=== PATIENT | male | born 1955 | race Caucasian/White ===

== ENCOUNTER 2016-10-18 20:17 | Inpatient (IN) | payer OTHER ==
[~2016-10-18] VITALS: Ht 180.3 cm; Wt 95.2 kg
[~2016-10-18 20:17] MED LIST: ASPUNK PO; CRG3125 PO; HYCUDL5 PO; LEVO175T25 PO; LSN25 PO; NAPR1TAB9 PO; PRLSR20 PO; SULF800T23 PO
--- NOTE | 2016-10-18 21:02 | DIAGNOSTIC IMAGING REPORT ---
CHEST ONE VIEW PORTABLE CLINICAL HISTORY: Wire. COMPARISON STUDY: Chest CT May 14, 2010. FINDINGS: A tracheostomy is noted. Note is made of a braided metallic linear foreign body consistent with a wire which extends through the tracheostomy, trachea and left mainstem bronchus. This measures approximately 16 cm in length. The tip is likely within the proximal left lower lobe bronchus. The tip of the wire is slightly curved/bent. Cardiomediastinal silhouette is stable. There are left upper quadrant surgical clips. There is no pneumothorax or pleural effusion. No pneumomediastinum is identified. There is no lobar consolidation. Mild mediastinal opacity is again noted. This was shown on prior CT. IMPRESSION: 16 cm long braided metallic foreign body consistent with a wire which extends through the tracheostomy with tip likely within the proximal left lower lobe bronchus. The wire tip is slightly curved/bent. Electronically signed by: Alvaro Diana M.D. 10/18/2016 9:01 PM Dictated Date/Time: 10/18/2016 8:50 PM
[2016-10-18] MEDS ORDERED: LEVO175T3 PO (21:10)
[2016-10-18] MEDS ORDERED: LOSA25TA18 PO (21:10)
[2016-10-18] MEDS ORDERED: METO50TA16 PO (21:10)
[2016-10-18] MEDS ORDERED: INSDGIPEN SC (21:10)
[2016-10-18] MEDS ORDERED: OMEP40CA41 PO (21:10)
[2016-10-18] MEDS ORDERED: LNX125 PEG (21:10)
[2016-10-18 21:16] LABS: BASO % 0.6 %; BASO ABS # 0.05 K/uL (0-0.2); COMPLETE YES; EOS % 2.2 %; HEMATOCRIT 44.9 % (42-52); IG% 0.4 %; LYMPH % 16.5 %; LYMPH ABS # 1.32 K/uL (1.2-3.4); MEAN CELL VOLUME 98.2 fL (80-100); MEAN CORPUSCULAR HEMOGLOBIN 32.2 pg (25-34); MEAN CORPUSCULAR HGB CONC 32.7 g/dl (32-36); MEAN PLATELET VOLUME 12.1 fL (7.4-10.4); MONO % 13.9 %; NEUT % 66.4 %; PLATELET COUNT 320 K/uL (130-400); RED BLOOD COUNT 4.57 M/uL (4.7-6.1); WHITE BLOOD COUNT 8.01 K/uL (4.8-10.8)
[2016-10-18] MEDS ORDERED: MIDAZOLAM HCL 1 MG/ML 2ML VIAL ONE (21:17)
[2016-10-18] MEDS ORDERED: METO-452 PO (21:20)
[2016-10-18 21:27] LABS: PROTHROMBIN TIME (PATIENT) 10.9 SECONDS (9.0-12.0)
[2016-10-18 21:34] LABS: BUN/CREATININE RATIO 16.4 (10-20); CREATININE 1.2 mg/dl (0.60-1.40); POTASSIUM 5.3 mmol/L (3.5-5.1)
[2016-10-18 21:55] LABS: CALCIUM 8.1 mg/dl (8.5-10.1)
--- NOTE | 2016-10-18 22:59 | SURGICAL CONSULTATION ---
DATE OF CONSULTATION: 10/18/2016 Embedded wire into the left lower lobe bronchus. HISTORY OF PRESENT ILLNESS: This is an extremely interesting 61-year-old male, with a history of Hodgkin's lymphoma, who received radiation to his neck, starting in 1978. The patient had multiple problems with this, including an apparent swallowing dysfunction to the point where he had an end tracheostomy performed many years ago. I think that this, apparently, was done in 2004. Since that time, he has done quite well. In reviewing the records, he has not been in the hospital for 6 years and has done well. He uses a wire to clean secretions out of his airway and this became stuck. He could not remove it and I was called to the Emergency Room to evaluate him. It did appear to be in his left mainstem bronchus. I went down and reviewed this and this is an issue. I performed a bronchoscopy in the Emergency Room and upon evaluation, it appeared that it is stuck in the superior segment of the left lower lobe. I am unable to remove this here. The end of it is a hook and I cannot push it forward nor can turn it to the left or the right without disrupting the segmental airway. I could not remove it here. We are going to admit him tonight. PAST MEDICAL HISTORY: Significant for: 1. Non-Hodgkin's lymphoma. 2. Radiation therapy. 3. Chronic aspiration. 4. End tracheostomy: 5. Hypertension. 6. Hypothyroidism (probably radiation induced). 7. Diabetes mellitus. PAST SURGICAL HISTORY: 1. Mediastinoscopy. 2. Tracheal stoma. 3. Partial left nephrectomy. 4. Splenectomy. MEDICATIONS: 1. Digoxin. 2. Insulin. 3. Synthroid. 4. Losartan. 5. Metoprolol. 6. Aleve. 7. Prilosec. ALLERGIES: No known drug allergies. SOCIAL HISTORY: The patient states he has done multiple jobs. He is and lives at home with his . 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 He does not smoke or drink. FAMILY MEDICAL HISTORY: Father had colon cancer. Mother had coronary artery disease. REVIEW OF SYSTEMS: The patient states he has had more secretions recently. He denies a change in his weight. He has had no change in his vision or his hearing. He denies hemoptysis. He has had that in the distant past. He has had no nausea or vomiting. He really has had trouble with aspiration since his tracheal stoma was created. He denies night sweats. He has had no neurologic symptoms, such as transient ischemic attacks. PHYSICAL EXAMINATION: GENERAL: This is a 5 feet 11 inch, 210-pound white male, who is awake and alert. He is able to communicate. HEENT: He has alopecia. There is some blood crusted around his tracheal stoma. His teeth are actually in place. He has no obvious oral mucosal lesions, except he is a bit dry. NECK: Thin and supple and tracheal stoma is well healed. LUNGS: He has expiratory wheezing bilaterally, which is about the same on the right and the left. HEART: He has regular rate and rhythm of his heart. ABDOMEN: Has well-healed incisions. He has good femoral pulses. Good pedal pulses. EXTREMITIES: He has 1+ edema of his lower legs. He has no joint effusions. NEUROLOGIC: He is completely intact. LABORATORY DATA: His white count is 8010 and his hemoglobin is 14.7. His BUN is 20, creatinine 1.20, his potassium is high at 5.3. DATA: I reviewed his chest x-ray and indeed, he does have a wire hook. I also performed a bronchoscopy. I am unable to remove this with the flexible bronchoscope. ASSESSMENT AND PLAN: A long hook stuck in the superior segment of the lower lobe. I am going to have pulmonary evaluate him and I will discuss this case with Dr. Forrester. I may have to take him to the operating room. It is unclear to me whether we will have to do a surgery. JAYME
[2016-10-18] MEDS ORDERED: ONDANSETRON INJ 2 MG/ML 2 ML VIAL IV PRN (23:30)
--- NOTE | 2016-10-18 23:47 | History and Physical ---
History & Physical Date & Time of Service: Oct 18, 2016 at 23:47 Chief Complaint: Wire Stuck In Trachea Primary Care Physician: Keyla Casanova D.O. History of Present Illness Source: patient 61-year-old male with a past medical history of Hodgkin's lymphoma, status post tracheostomy, diabetes, atrial fibrillation, GERD presented to the ER with a wire stuck in his trachea. The patient had used an 8 inch while the J shaped hook to clear mucus and was unable to remove it. He denied any worsening respiratory distress, chest pain. Denies any nausea, vomiting, abdominal pain. CT surgery was consulted by the ER with performed a bronchoscopy but was unable to retrieve the wire. Rigid bronchoscopy is planned for the a.m. Past Medical/Surgical History Medical Problems: (1) Tracheostomy in place Status: Chronic Social History Smoking Status: Former Smoker Immunizations History of Influenza Vaccine: Yes History of Tetanus Vaccine?: No History of Pneumococcal: Yes History of Hepatitis B Vaccine: No Multi-Drug Resistant Organisms History of MDRO: Yes Allergies Coded Allergies: No Known Allergies (Verified , 03/26/05) Home Medications Scheduled Digoxin (Digoxin), 0.125 MG PEG 5XWK Insulin Glargine (Lantus Solostar), 19 UNITS SC AMHS Levothyroxine Sodium (Levothyroxine Sodium), 175 MCG PO DAILY Losartan Potassium (Cozaar), 12.5 MG PO DAILY Metoprolol Succinate (Toprol Xl), 50 MG PO BID Omeprazole (Prilosec), 40 MG PO DAILY Scheduled PRN Naproxen (Aleve), 220 MG PO UD PRN for Pain Review of Systems Constitutional: No fever, No chills Eyes: No worsening of vision ENT: + problem reported (status post tracheostomy) Respiratory: No shortness of breath Cardiovascular: No chest pain Abdomen: + diarrhea (chronic), No pain, No nausea Genitourinary - Male: No hematuria Neurologic: No memory loss Endocrine: No fatigue Physical Exam Vital Signs Date Time Temp Pulse Resp B/P (MAP) Pulse Ox O2 Delivery O2 Flow Rate FiO2 10/18/16 22:56 100 20 126/75 93 Trach Collar 5.0 10/18/16 21:51 91 144/81 95 Trach Collar 5.0 Free Flow/Blowby 10/18/16 21:47 Trach Collar 10/18/16 20:55 100 10/18/16 20:36 37.0 97 22 139/82 89 Room Air General Appearance: no apparent distress Head: normocephalic ENT: normal ENT inspection, + pertinent finding (tracheostomy in place) Neck: supple Respiratory/Chest: lungs clear, no respiratory distress, no accessory muscle use Cardiovascular: + irregularly irregular Abdomen/GI: soft Extremities/Musculoskelatal: no pedal edema Neurologic/Psych: alert, normal mood/affect, oriented x 3 Diagnostics Laboratory Results Results Past 24 Hours Test 10/18/16 21:05 Range/Units White Blood Count 8.01 4.8-10.8 K/uL Red Blood Count 4.57 4.7-6.1 M/uL Hemoglobin 14.7 14.0-18.0 g/dL Hematocrit 44.9 42-52 % Mean Corpuscular Volume 98.2 80-100 fL Mean Corpuscular Hemoglobin 32.2 25-34 pg Mean Corpuscular Hemoglobin Concent 32.7 32-36 g/dl Platelet Count 320 130-400 K/uL Mean Platelet Volume 12.1 7.4-10.4 fL Neutrophils (%) (Auto) 66.4 % Lymphocytes (%) (Auto) 16.5 % Monocytes (%) (Auto) 13.9 % Eosinophils (%) (Auto) 2.2 % Basophils (%) (Auto) 0.6 % Neutrophils # (Auto) 5.32 1.4-6.5 K/uL Lymphocytes # (Auto) 1.32 1.2-3.4 K/uL Monocytes # (Auto) 1.11 0.11-0.59 K/uL Eosinophils # (Auto) 0.18 0-0.5 K/uL Basophils # (Auto) 0.05 0-0.2 K/uL RDW Standard Deviation 52.5 36.4-46.3 fL RDW Coefficient of Variation 14.6 11.5-14.5 % Immature Granulocyte % (Auto) 0.4 % Immature Granulocyte # (Auto) 0.03 0.00-0.02 K/uL Prothrombin Time 10.9 9.0-12.0 SECONDS Prothromb Time International Ratio 1.0 0.9-1.1 Sodium Level 140 136-145 mmol/L Potassium Level 5.3 3.5-5.1 mmol/L Chloride Level 105 98-107 mmol/L Carbon Dioxide Level 28 21-32 mmol/L Anion Gap 7.0 3-11 mmol/L Blood Urea Nitrogen 20 7-18 mg/dl Creatinine 1.20 0.60-1.40 mg/dl Est Creatinine Clear Calc Drug Dose 74.2 ml/min Estimated GFR () 74.1 Estimated GFR (Non- 64.0 BUN/Creatinine Ratio 16.4 10-20 Random Glucose 165 70-99 mg/dl Calcium Level 8.1 8.5-10.1 mg/dl Diagnostic Radiology [~ rep ct add3]] CHEST ONE VIEW PORTABLE CLINICAL HISTORY: Wire. COMPARISON STUDY: Chest CT May 14, 2010. FINDINGS: A tracheostomy is noted. Note is made of a braided metallic linear foreign body consistent with a wire which extends through the tracheostomy, trachea and left mainstem bronchus. This measures approximately 16 cm in length. The tip is likely within the proximal left lower lobe bronchus. The tip of the wire is slightly curved/bent. Cardiomediastinal silhouette is stable. There are left upper quadrant surgical clips. There is no pneumothorax or pleural effusion. No pneumomediastinum is identified. There is no lobar consolidation. Mild mediastinal opacity is again noted. This was shown on prior CT. IMPRESSION: 16 cm long braided metallic foreign body consistent with a wire which extends through the tracheostomy with tip likely within the proximal left lower lobe bronchus. The wire tip is slightly curved/bent. Electronically signed by: Alvaro Diana M.D. 10/18/2016 9:01 PM Dictated Date/Time: 10/18/2016 8:50 PM Impression Assessment and Plan 61-year-old male with a past medical history of Hodgkin's lymphoma, status post tracheostomy, diabetes, atrial fibrillation, GERD presented to the ER with a wire stuck in his trachea. The patient had used an 8 inch while the J shaped hook to clear mucus and was unable to remove it. Foreign body( metallic wire) stuck in trachea through tracheostomy: Status post unsuccessful retrieval via bronchoscopy - CT surgery on board - Rigid bronchoscopy planned in a.m. - Continue O2 per protocol - Nothing by mouth after midnight Diabetes: - Insulin sliding scale Atrial fibrillation: - Digoxin, metoprolol currently held as he is nothing by mouth - May be restarted after procedure Hypertension: -Losartan currently held Hypothyroidism: - Synthroid switched to IV Full code DVT prophylaxis: SCDs Chemical anticoagulations avoided in anticipation of procedure Disposition: Admitted to [facility] for rigid bronchoscopy in a.m. VTE Prophylaxis VTE Risk Assessment Done? Y/N: Yes Risk Level: Moderate Given or contraindicated: SCD's Resident Tracking Resident Involvement: Resident Care Provided Care Provided: Adult [facility] Medicine Assessment and Plan Attending Addendum: I have physically seen and examined this patient, have directed their medical care, have supervised the medical residents activities, and agree with the H&P as noted above, with the following changes: NONE
[2016-10-19] VITALS (12 sets, daily range): BP systolic 124–145; BP diastolic 64–92; PULSE 88–102; TEMP 36.8–37.1; O2SAT 88–96; Ht 180.3 cm; Wt 95.2 kg
--- NOTE | 2016-10-19 00:59 | EMERGENCY ROOM VISIT NOTE ---
History Report prepared by Alvin: Fernanda Buitrago Under the Supervision of: Dr. Kwasi Garcia D.O. First contact with patient: 20:21 Stated Complaint: WIRE STUCK IN TRACHEA History of Present Illness The patient is a 61 year old male who presents to the Emergency Room with complaints of a wire stuck in his trachea starting [employer]. The patient has had a tracheostomy in place since 2004. It was placed because there was a hole in his vocal chord and he was aspirating. He inserts an 8 inch wire with a J shaped hook at the end into his tracheostomy to remove mucous which builds up. The mucous has been worse for the past 6 months. He does this daily, despite doctors telling him not to. The wire has gotten stuck before, but he is usually able to get it out. He thinks the hook might have been wider than normal today. He denies any chest pain, nausea, or vomiting. He has had diarrhea for the past 6 months which has not worsened. Source of History: patient Onset: [employer] Position: other (trachea) Quality: other (wire stuck) Timing: other (persistent) Associated Symptoms: No chest pain, No nausea, No vomiting Review of Systems See HPI for pertinent positives & negatives. A total of 10 systems reviewed and were otherwise negative. Past Medical & Surgical Medical Problems: (1) Foreign body in trachea (2) Tracheostomy in place Family History No pertinent family history stated. Social History Marital Status: Occupation Status: disabled Current/Historical Medications Scheduled Digoxin (Digoxin), 0.125 MG PEG 5XWK Insulin Glargine (Lantus Solostar), 19 UNITS SC AMHS Levothyroxine Sodium (Levothyroxine Sodium), 175 MCG PO DAILY Losartan Potassium (Cozaar), 12.5 MG PO DAILY Metoprolol Succinate (Toprol Xl), 50 MG PO BID Omeprazole (Prilosec), 40 MG PO DAILY Scheduled PRN Naproxen (Aleve), 220 MG PO UD PRN for Pain Allergies Coded Allergies: No Known Allergies (Verified , 03/26/05) Physical Exam Vital Signs Date Time Temp Pulse Resp B/P (MAP) Pulse Ox O2 Delivery O2 Flow Rate FiO2 10/18/16 22:56 100 20 126/75 93 Trach Collar 5.0 10/18/16 21:51 91 144/81 95 Trach Collar 5.0 Free Flow/Blowby 10/18/16 21:47 Trach Collar 10/18/16 20:55 100 10/18/16 20:36 37.0 97 22 139/82 89 Room Air Physical Exam GENERAL: sitting up in bed, mild distress with wire sticking out of stoma in neck, coughing up blood EYE EXAM: normal conjunctiva OROPHARYNX: no exudate, no erythema, lips, buccal mucosa, and tongue normal and mucous membranes are moist NECK: supple, no nuchal rigidity, no adenopathy, non-tender LUNGS: Clear to auscultation. Normal chest wall mechanics HEART: no murmurs, S1 normal and S2 normal ABDOMEN: abdomen soft, non-tender, normo-active bowel sounds, no masses, no rebound or guarding. BACK: Back is symmetrical on inspection and there is no deformity, no midline tenderness, no CVA tenderness. SKIN: no rashes and no bruising UPPER EXTREMITIES: upper extremities are grossly normal. LOWER EXTREMITIES: No pitting edema. NEURO EXAM: Normal sensorium, cranial nerves II-XII grossly intact, normal speech, no gross weakness of arms, no gross weakness of legs. Medical Decision & Procedures ER Provider Diagnostic Interpretation: Xray results as stated below per my and the radiologist's interpretation: CHEST ONE VIEW PORTABLE CLINICAL HISTORY: Wire. COMPARISON STUDY: Chest CT May 14, 2010. FINDINGS: A tracheostomy is noted. Note is made of a braided metallic linear foreign body consistent with a wire which extends through the tracheostomy, trachea and left mainstem bronchus. This measures approximately 16 cm in length. The tip is likely within the proximal left lower lobe bronchus. The tip of the wire is slightly curved/bent. Cardiomediastinal silhouette is stable. There are left upper quadrant surgical clips. There is no pneumothorax or pleural effusion. No pneumomediastinum is identified. There is no lobar consolidation. Mild mediastinal opacity is again noted. This was shown on prior CT. IMPRESSION: 16 cm long braided metallic foreign body consistent with a wire which extends through the tracheostomy with tip likely within the proximal left lower lobe bronchus. The wire tip is slightly curved/bent. Electronically signed by: Alvaro Diana M.D. 10/18/2016 9:01 PM Dictated Date/Time: 10/18/2016 8:50 PM Laboratory Results 6/12/17 21:05 Red Blood Count 4.57, Mean Corpuscular Volume 98.2, Mean Corpuscular Hemoglobin 32.2, Mean Corpuscular Hemoglobin Concent 32.7, Mean Platelet Volume 12.1, Neutrophils (%) (Auto) 66.4, Lymphocytes (%) (Auto) 16.5, Monocytes (%) (Auto) 13.9, Eosinophils (%) (Auto) 2.2, Basophils (%) (Auto) 0.6, Neutrophils # (Auto ) 5.32, Lymphocytes # (Auto) 1.32, Monocytes # (Auto) 1.11, Eosinophils # (Auto ) 0.18, Basophils # (Auto) 0.05 10/18/16 21:05 Test 10/18/16 21:05 White Blood Count 8.01 K/uL (4.8-10.8) Red Blood Count 4.57 M/uL (4.7-6.1) Hemoglobin 14.7 g/dL (14.0-18.0) Hematocrit 44.9 % (42-52) Mean Corpuscular Volume 98.2 fL (80-100) Mean Corpuscular Hemoglobin 32.2 pg (25-34) Mean Corpuscular Hemoglobin Concent 32.7 g/dl (32-36) Platelet Count 320 K/uL (130-400) Mean Platelet Volume 12.1 fL (7.4-10.4) Neutrophils (%) (Auto) 66.4 % Lymphocytes (%) (Auto) 16.5 % Monocytes (%) (Auto) 13.9 % Eosinophils (%) (Auto) 2.2 % Basophils (%) (Auto) 0.6 % Neutrophils # (Auto) 5.32 K/uL (1.4-6.5) Lymphocytes # (Auto) 1.32 K/uL (1.2-3.4) Monocytes # (Auto) 1.11 K/uL (0.11-0.59) Eosinophils # (Auto) 0.18 K/uL (0-0.5) Basophils # (Auto) 0.05 K/uL (0-0.2) RDW Standard Deviation 52.5 fL (36.4-46.3) RDW Coefficient of Variation 14.6 % (11.5-14.5) Immature Granulocyte % (Auto) 0.4 % Immature Granulocyte # (Auto) 0.03 K/uL (0.00-0.02) Prothrombin Time 10.9 SECONDS (9.0-12.0) Prothromb Time International Ratio 1.0 (0.9-1.1) Anion Gap 7.0 mmol/L (3-11) Est Creatinine Clear Calc Drug Dose 74.2 ml/min Estimated GFR () 74.1 Estimated GFR (Non- 64.0 BUN/Creatinine Ratio 16.4 (10-20) Calcium Level 8.1 mg/dl (8.5-10.1) Laboratory results per my review. Medications Administered Medications (Trade) Dose Ordered Sig/Luis Route Start Time Stop Time Status Last Admin Dose Admin Midazolam HCl (Versed Inj) 2 mg STK-MED ONCE .ROUTE 10/18/16 21:17 10/18/16 21:18 DC 10/18/16 21:17 1 MG ED Course ED COURSE: Vital signs were reviewed and showed hypoxia. The patients medical record was reviewed The above diagnostic studies were performed and reviewed. ED treatments and interventions as stated above. 2022: The patient was evaluated in room C3. A complete history and physical examination was performed. 2040: I discussed the patient's case with Dr. Hong [facility] pulmonology. He recommend I discuss with Dr. Helms. 2046: I reviewed the patient's case with Dr. Helms [facility] thoracic surgery. He will evaluate the patient. 2047: I reevaluated the patient. I updated him on the plan. 2123: Dr. Helms was unsuccessful in removing the wire. He will be taken to the OR tomorrow. 2129: I reviewed the patient's case with Dr. Silva [facility] hospitalist. He will evaluate the patient for further management. 2135: Upon reevaluation, the patient is doing well.I discussed my findings with the patient and he understands and agrees with the treatment plan. Based on the patients age, coexisting illnesses, exam and lab findings the decision to treat as an inpatient was made. The patient remained stable while under my care. The patient will be evaluated for further management. Medical Decision Differential diagnoses includes but is not limited to pneumonia, bronchitis, COPD/Asthma exacerbation, pneumothorax, pulmonary embolism, congestive heart failure, acute coronary syndrome Medication Reconciliation: I attest that I have personally reviewed the patient' s current medication list. Blood pressure screening: Patient was found to have normal blood pressure on screening and does not require follow-up. Patient is a 61-year-old male who presents the ER who was using a metal wire to clean out his trachea and main stem bronchus. He does this daily and he opened the hook wider then he normally does. Patient was unable to remove it. Chest x -ray shows a wire in the left bronchus. Discussed with pulmonology and thoracic surgery. Thoracic surgery attempted to remove it at bedside but was unsuccessful. Patient was admitted to internal medicine and will be taken to the OR tomorrow. Consults Time Called: 2030 Consulting Physician: Dr. Hong [facility] pulmonology Returned Call: 2040 I discussed the patient's case with him. He recommends I discuss with Dr. Helms. Additional Consults: Time Called: 2043 Consulted Physician: Dr. Helms [facility] thoracic surgery Returned Call: 2046 Additional Comments: I reviewed the patient's case with him. He will evaluate the patient. Time Called: 2124 Consulted Physician: Dr. Silva [facility] hospitalist Returned Call: 2129 Additional Comments: I reviewed the patient's case with him. He will evaluate the patient for further management. Impression Primary Impression: Aspiration of foreign body Additional Impression: Hyperkalemia Scribe Attestation The scribe's documentation has been prepared under my direction and personally reviewed by me in its entirety. I confirm that the note above accurately reflects all work, treatment, procedures, and medical decision making performed by me. Departure Information Dispostion Being Evaluated By Hospitalist Problem Qualifiers Primary Impression: Aspiration of foreign body Encounter type: initial encounter Qualified Codes: T17.900A - Unspecified foreign body in respiratory tract, part unspecified causing asphyxiation, initial encounter
--- NOTE | 2016-10-19 05:28 | OPERATIVE REPORT ---
DATE OF OPERATION: 10/18/2016 PROCEDURES: 1. Flexible fiberoptic bronchoscopy via tracheal stoma. 2. Attempt to remove an embedded foreign body. SURGEON: Rickie Helms MD ANESTHESIA: Sedation and local with Xylocaine. SPECIFICS OF PROCEDURE: The patient has had a longstanding tracheal stoma (12 years) due to chronic aspiration from changes due to radiation for his non-Hodgkin's lymphoma. The patient has developed more sputum and has a wire that is used to clean his tracheal stoma became stuck tonight. He could not pull it out. There was some blood crusting around this. I went and evaluated him. I felt that a bronchoscopy would be helpful. X-ray shows it going down the left side. After appropriate consent and timeout had been called, we cleaned blood from around the tracheal stoma and then introduced a fiberoptic bronchoscope gently and sprayed 1% Xylocaine with epinephrine into the upper trachea as well as the lower trachea. We also sedated him with some Versed. He tolerated this quite well with some coughing, but not much. After sucking away all of the blood, I followed the wire down to the left lower lobe. His airway is abnormal with irregular mucosa all the way down, but I saw no masses. Going down to the left mainstem bronchus, it appears that the hook on this wire is caught in the superior segment of the left lower lobe. I attempted to remove this and was unable to do so. I cannot push it down further because it is hooked into a small airway in an acute angle. Turning it either way simply pulls the airway over. I put tension on this and attempted to straighten this but was unable to do so. I did not cause much in the way of bleeding, although we did irrigate this out with some lidocaine and cold saline. I slowly removed the fiberoptic bronchoscope. We saw no evidence of bleeding. ASSESSEMENT: We are going to admit the patient and will make a determination about how to proceed in the morning. I attest to the content of the Intraoperative Record and any orders documented therein. Any exceptions are noted below. JAYME
[2016-10-19] MEDS ORDERED: GLUCAGON FOR INJ 1 MG VIAL SQ PRN (05:30)
[2016-10-19] MEDS ORDERED: GLUCOSE 10 TABS/TUBE PO PRN (05:30)
[2016-10-19] MEDS ORDERED: DEXTROSE 50% 50 ML SYR IV PRN (05:30)
[2016-10-19] MEDS ORDERED: GLUCOSE 40% GEL 15 GM TUBE PO PRN (05:30)
[2016-10-19] MEDS: INSULIN ASPART 100 UNITS/ML 3 ML PEN SC SCH ×4 (05:37→21:29)
[2016-10-19] MEDS ORDERED: NURSING VERBAL MED ORDER ONE ×2 (05:45→16:15)
[2016-10-19 06:17] LABS: BASO % 0.5 %; BASO ABS # 0.05 K/uL (0-0.2); COMPLETE YES; EOS % 2.4 %; HEMATOCRIT 45.2 % (42-52); IG% 0.3 %; LYMPH % 17.4 %; LYMPH ABS # 1.83 K/uL (1.2-3.4); MEAN CELL VOLUME 100.2 fL (80-100); MEAN PLATELET VOLUME 12.5 fL (7.4-10.4); MONO % 13.9 %; NEUT % 65.5 %; PLATELET COUNT 293 K/uL (130-400); RED BLOOD COUNT 4.51 M/uL (4.7-6.1); WHITE BLOOD COUNT 10.53 K/uL (4.8-10.8)
[2016-10-19 06:48] LABS: BUN/CREATININE RATIO 22.3 (10-20); CALCIUM 8.2 mg/dl (8.5-10.1); CREATININE 0.88 mg/dl (0.60-1.40); POTASSIUM 4.4 mmol/L (3.5-5.1)
[2016-10-19] MEDS ORDERED: INSULIN ASPART 100 UNITS/ML 3 ML PEN SC SCH (08:00)
--- NOTE | 2016-10-19 09:17 | Family Medicine Progress Note ---
Progress Note Date of Service Oct 19, 2016. Subjective Pt evaluation today including: conversation w/ patient, physical exam Patricio felt ok, had minimal discomfort where wire was, did not want any pain medications Wallace hungry overall, last ate around 6:30 pm yesterday Constitutional: No fever, No chills Eyes: No worsening of vision ENT: No hearing loss Respiratory: + dyspnea on exertion, No cough, No sputum, No wheezing, No shortness of breath Cardiovascular: No chest pain Abdomen: No pain, No nausea, No constipation Musculoskeletal: No joint pain Male : No dysuria Neurologic: No memory loss Skin: No rash All Other Systems: Reviewed and Negative Medications Current Inpatient Medications Medications (Trade) Dose Ordered Sig/Luis Route Start Time Stop Time Status Last Admin Dose Admin Ondansetron HCl (Zofran Inj) 4 mg Q6H PRN IV 10/18/16 23:30 11/17/16 23:29 Glucose (Glucose 40% Gel) 15-30 GRAMS 15 GRAMS... UD PRN PO 10/19/16 05:30 11/18/16 05:29 Glucose (Glucose Chew Tab) 4-8 Tablets 4 Tabl... UD PRN PO 10/19/16 05:30 11/18/16 05:29 Dextrose (Dextrose 50% 50ML Syringe) 25-50ML OF 50% DW IV FOR... UD PRN IV 10/19/16 05:30 11/18/16 05:29 Glucagon (Glucagon Inj) 1 mg UD PRN SQ 10/19/16 05:30 11/18/16 05:29 Levothyroxine Sodium 88 mcg/ Syringe 4.4 ml @ 2 mls/min DAILY@09 IV 10/19/16 09:00 11/18/16 08:59 Insulin Aspart (novoLOG ASPART) SLIDING SCALE G... Q6 SC 10/19/16 06:00 11/18/16 05:59 Objective Vital Signs Date Time Temp Pulse Resp B/P (MAP) Pulse Ox O2 Delivery O2 Flow Rate FiO2 10/19/16 08:30 Trach Collar 5.0 10/19/16 08:13 96 Trach Collar 10.0 10/19/16 08:03 37.1 88 18 145/79 (101) 96 Trach Collar 10.0 10/19/16 00:10 36.9 102 18 131/75 96 Trach Collar 9.0 30 10/19/16 00:05 92 Trach Collar 5.0 10/19/16 00:05 96 Trach Collar 9.0 30 10/19/16 00:01 93 137/77 92 10/18/16 22:56 100 20 126/75 93 Trach Collar 5.0 10/18/16 21:51 91 144/81 95 Trach Collar 5.0 Free Flow/Blowby 10/18/16 21:47 Trach Collar 10/18/16 20:55 100 10/18/16 20:36 37.0 97 22 139/82 89 Room Air Physical Exam General Appearance: WD/WN, no apparent distress Eyes: normal inspection, PERRL ENT: hearing grossly normal Neck: supple, no JVD, + pertinent finding (wire visible through tracheostomy) Respiratory/Chest: normal breath sounds, + crackles Cardiovascular: regular rate, rhythm Abdomen: normal bowel sounds, soft Extremities: non-tender, no pedal edema Neurologic/Psychiatric: alert, normal mood/affect, oriented x 3 Skin: no rash Laboratory Results Last 24 Hours Test 10/18/16 21:05 10/19/16 00:45 10/19/16 05:24 10/19/16 05:32 White Blood Count 8.01 K/uL 10.53 K/uL Red Blood Count 4.57 M/uL 4.51 M/uL Hemoglobin 14.7 g/dL 14.9 g/dL Hematocrit 44.9 % 45.2 % Mean Corpuscular Volume 98.2 fL 100.2 fL Mean Corpuscular Hemoglobin 32.2 pg 33.0 pg Mean Corpuscular Hemoglobin Concent 32.7 g/dl 33.0 g/dl Platelet Count 320 K/uL 293 K/uL Mean Platelet Volume 12.1 fL 12.5 fL Neutrophils (%) (Auto) 66.4 % 65.5 % Lymphocytes (%) (Auto) 16.5 % 17.4 % Monocytes (%) (Auto) 13.9 % 13.9 % Eosinophils (%) (Auto) 2.2 % 2.4 % Basophils (%) (Auto) 0.6 % 0.5 % Neutrophils # (Auto) 5.32 K/uL 6.91 K/uL Lymphocytes # (Auto) 1.32 K/uL 1.83 K/uL Monocytes # (Auto) 1.11 K/uL 1.46 K/uL Eosinophils # (Auto) 0.18 K/uL 0.25 K/uL Basophils # (Auto) 0.05 K/uL 0.05 K/uL RDW Standard Deviation 52.5 fL 53.5 fL RDW Coefficient of Variation 14.6 % 14.7 % Immature Granulocyte % (Auto) 0.4 % 0.3 % Immature Granulocyte # (Auto) 0.03 K/uL 0.03 K/uL Prothrombin Time 10.9 SECONDS Prothromb Time International Ratio 1.0 Sodium Level 140 mmol/L 143 mmol/L Potassium Level 5.3 mmol/L 4.4 mmol/L Chloride Level 105 mmol/L 107 mmol/L Carbon Dioxide Level 28 mmol/L 29 mmol/L Anion Gap 7.0 mmol/L 7.0 mmol/L Blood Urea Nitrogen 20 mg/dl 20 mg/dl Creatinine 1.20 mg/dl 0.88 mg/dl Est Creatinine Clear Calc Drug Dose 74.2 ml/min 101.2 ml/min Estimated GFR () 74.1 106.0 Estimated GFR (Non- 64.0 91.4 BUN/Creatinine Ratio 16.4 22.3 Random Glucose 165 mg/dl 125 mg/dl Calcium Level 8.1 mg/dl 8.2 mg/dl Bedside Glucose 113 mg/dl 129 mg/dl Hepatitis C Antibody Screen NEG Assessment and Plan 61 yo M with wire stuck in tracheostomy, will be undergoing rigid bronchoscopy today for removal. Foreign body in trachea CT surgery aware, will be attempted sometime today Continue O2 Remains NPO Type 2DM Sliding scale Goal 140-180 A fib Holding meds for now, is rate controlled anyway Hypertension: -Losartan currently held Hypothyroidism: - Synthroid switched to IV Full code DVT prophylaxis: SCDs Disposition: Admitted to [facility] Resident Physician Supervision Note: I interviewed and examined the patient. Discussed with Dr. Douglass and agree with findings and plan as documented in the note. Any exceptions or clarifications are listed here: None Documented By: Kwasi Herbert resting comfortably at the time i see him. notes he's been comfortable as far as pain control and breathing unlabored. d/w thoracic multiple times today and input greatly appreciated. vitals noted, nad breathing unlabored foreign body in airway - bronch done, fortunately successful. observe overnight , hopefully home in AM Resident Tracking Resident Involvement: Resident Care Provided Care Provided: Adult Hospital Medicine
--- NOTE | 2016-10-19 11:51 | DIAGNOSTIC IMAGING REPORT ---
CHEST ONE VIEW PORTABLE HISTORY: foreign body COMPARISON: Chest 10/18/2016. FINDINGS: No change in position of the 16 cm metallic foreign body consistent with a wire located within the trachea with the tip in the proximal left lower lobe bronchus. The wire tip is slightly curved. This appears to enter at the tracheostomy site. No pneumothorax. No pleural effusions. Surgical clips within the left upper quadrant. Mild diffuse interstitial thickening is likely chronic. The heart remains mildly enlarged. No pneumomediastinum identified at this time. IMPRESSION: No change in position of the 16 cm metallic foreign body consistent with a wire located within the trachea with the tip terminating in the proximal left lower lobe bronchus. Electronically signed by: Galindo Welch M.D. 10/19/2016 11:49 AM Dictated Date/Time: 10/19/2016 11:46 AM
[2016-10-19] MEDS ORDERED: FENTANYL CITRATE INJ 50 MCG/1 ML 2 ML VIAL ONE (11:57)
[2016-10-19] MEDS ORDERED: MIDAZOLAM HCL 1 MG/ML 2ML VIAL ONE ×2 (11:57→13:45)
[2016-10-19] MEDS: LEVOTHYROXINE SODIUM INJ 88 MCG in SYRINGE 0 ML IV SCH (12:01)
--- NOTE | 2016-10-19 12:56 | History & Physical Bridge Note ---
H&P Re-Evaluation Bridge Note: I have examined the patient, reviewed the History & Physical and in the interval since the performance of the History & Physical I have noted the following changes of clinical significance: No changes noted
--- NOTE | 2016-10-19 12:58 | Pulmonary Consultation ---
History General Date of Service: Oct 19, 2016. Stated Complaint: Foreign Body In Trachea HPI The patient is a 61 year old male who presents to [facility] with complaints of Foreign Body In Trachea. The patient's primary care provider is Keyla Casanova D.O. 61 y/o male admitted with airway foreign body. The patient has a past medical history significant for Hodgkins Lymphoma treated with XRT with secondary pulmonary fibrosis, possible hypothyroidism and recurrent aspiration requiring end-tracheostomy. He clears his mucus secretions with a wire J-hook that got stuck after his last attempted clearing. Dr. Rickie santos attempted to bronchoscopically remove the foreign body but was un-able with the flexible bronchoscope. Work-Up WBC: 11K (Neutro#6.91) PLT: 293K INR/PT/aPTT: 1.0/10.9/30.6 BUN/Cr: 20/0.88 UA: WNL Hep C: negative CXR: (10/18/16) J-hook wire from ostomy to LLL CXR: (10/18/16) J-hook wire from ostomy to LLL, with signs of pulmonary congestion Bronchial Washing (12/24/05) MRSA (02/02/07) MRSA (05/15/10) MRSA, Mycobacterium Gordonae Historian: patient, EMS Review of Systems Constitutional: reports: no symptoms Eyes: reports: no symptoms ENT: reports: sore throat Cardiovascular: reports: no symptoms Respiratory: reports: cough Gastrointestinal: reports: no symptoms Genitourinary - Male: reports: no symptoms Musculoskeletal: reports: no symptoms Integumentary: reports: no symptoms Neurologic: reports: no symptoms Psychiatric: reports: no symptoms Endocrine: no symptoms Hematologic / Lymphatic: no symptoms Allergic / Immunologic: no symptoms Past Medical History Past Medical History: 1) Hodgkins Lymphomas Dx: 1978 s/p XRT to the chest and neck 2) Pulmonary fibrosis from s/p XRT 3) GERD/recurrent aspiration requiring 4) Benign neoplasm of the bowel 5) Hypothyroidism 6) Prostatitis 7) Begin tumor of the kidney left 8) Nephrotic syndrome 9) DJD left hip 10) DM 11) HTN Past Surgical History: 1) End-Tracheostomy/laryngectomy 2) Splenectomy 3) Left partial Nephrectomy 4) Tonsil and adenoidectomy 5) 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 Family History Colonic ca CAD Social History Occupation: [employer] Hx Tobacco Use In Past Year?: No Smoking Status: Former Smoker Marital status: Occupational Status: disabled Immunizations History of Influenza Vaccine: Yes History of Tetanus Vaccine?: No History of Pneumococcal: Yes History of Hepatitis B Vaccine: No History of MDRO History of MDRO: Yes Allergies Coded Allergies: No Known Allergies (Verified , 03/26/05) Current Medications Reported Home Medications Medications Dose Route/Sig Max Daily Dose Days Date Category Dose Instructions Toprol Xl (Metoprolol Succinate) 50 Mg Tab 50 Mg PO BID 10/18/16 Reported Digoxin 0.125 Mg Tab 0.125 Mg PEG 5XWK 10/18/16 Reported TAKE THIS MEDICATION EVERY TUESDAY,TUESDAY,TUESDAY, TUESDAY AND TUESDAY Lantus Solostar (Insulin Glargine) 100 Unit/Ml Inj 19 Units SC [facility] 10/18/16 Reported Cozaar (Losartan Potassium) 25 Mg Tab 12.5 Mg PO DAILY 10/18/16 Reported Prilosec (Omeprazole) 40 Mg Cap 40 Mg PO DAILY 10/18/16 Reported Levothyroxine Sodium 175 Mcg Tab 175 Mcg PO DAILY 10/18/16 Reported Aleve (Naproxen) 220 Mg Tab 220 Mg PO UD PRN 05/14/10 Reported TAKE PER PACKAGE DIRECTIONS Physical Physical Exam Vital Signs: Date Time Temp Pulse Resp B/P (MAP) Pulse Ox O2 Delivery O2 Flow Rate FiO2 10/19/16 08:30 Trach Collar 5.0 10/19/16 08:13 96 Trach Collar 10.0 10/19/16 08:03 37.1 88 18 145/79 (101) 96 Trach Collar 10.0 10/19/16 00:10 36.9 102 18 131/75 96 Trach Collar 9.0 30 10/19/16 00:05 92 Trach Collar 5.0 10/19/16 00:05 96 Trach Collar 9.0 30 10/19/16 00:01 93 137/77 92 10/18/16 22:56 100 20 126/75 93 Trach Collar 5.0 10/18/16 21:51 91 144/81 95 Trach Collar 5.0 Free Flow/Blowby 10/18/16 21:47 Trach Collar 10/18/16 20:55 100 10/18/16 20:36 37.0 97 22 139/82 89 Room Air General Appearance: NO APPARENT DISTRESS Head: NORMOCEPHALIC, ATRAUMATIC Eyes: PERRLA, NO DISCHARGE, EOMI, SCLERAE NORMAL ENT: other (2cm oval tracehal ostomy with a braided looped wire exting from th ostomy. no active bleeding or signs of infection ) Respiratory: accessory muscle use, wheezing, other (US shows minimal b-lines without pleural effusions) Abdomen: NON TENDER Genitourinary - Male: EXTERNAL GENITALIA NORMAL Back: NORMAL INSPECTION, NO MIDLINE TENDERNESS, NO CVA TENDERNESS Upper Extremities: NO EDEMA, NO DEFORMITY, NORMAL ROM Lower Extremities: NO EDEMA, NO DEFORMITY, NORMAL ROM Pulses: carotid (R) (1+), carotid (L) (1+), posterior tibial (R), posterior tibial (L) (1+) Neuro: ALERT, ORIENTED x 3, NORMAL MOTOR EXAM, NORMAL SENSATION, NORMAL CEREBELLAR EXAM Reflexes: biceps (R) (2+), bicpes (L) (2+), achilles (R) (2+), achilles (L) (2+ ) Babinski Testing: right (downgoing), left (downgoing) Psychiatric: NORMAL AFFECT Diagnostics Labs Results Past 24 Hours Test 10/18/16 21:05 10/19/16 00:45 10/19/16 05:24 10/19/16 05:32 Range/Units White Blood Count 8.01 10.53 4.8-10.8 K/uL Red Blood Count 4.57 4.51 4.7-6.1 M/uL Hemoglobin 14.7 14.9 14.0-18.0 g/dL Hematocrit 44.9 45.2 42-52 % Mean Corpuscular Volume 98.2 100.2 80-100 fL Mean Corpuscular Hemoglobin 32.2 33.0 25-34 pg Mean Corpuscular Hemoglobin Concent 32.7 33.0 32-36 g/dl Platelet Count 320 293 130-400 K/uL Mean Platelet Volume 12.1 12.5 7.4-10.4 fL Neutrophils (%) (Auto) 66.4 65.5 % Lymphocytes (%) (Auto) 16.5 17.4 % Monocytes (%) (Auto) 13.9 13.9 % Eosinophils (%) (Auto) 2.2 2.4 % Basophils (%) (Auto) 0.6 0.5 % Neutrophils # (Auto) 5.32 6.91 1.4-6.5 K/uL Lymphocytes # (Auto) 1.32 1.83 1.2-3.4 K/uL Monocytes # (Auto) 1.11 1.46 0.11-0.59 K/uL Eosinophils # (Auto) 0.18 0.25 0-0.5 K/uL Basophils # (Auto) 0.05 0.05 0-0.2 K/uL RDW Standard Deviation 52.5 53.5 36.4-46.3 fL RDW Coefficient of Variation 14.6 14.7 11.5-14.5 % Immature Granulocyte % (Auto) 0.4 0.3 % Immature Granulocyte # (Auto) 0.03 0.03 0.00-0.02 K/uL Prothrombin Time 10.9 9.0-12.0 SECONDS Prothromb Time International Ratio 1.0 0.9-1.1 Sodium Level 140 143 136-145 mmol/L Potassium Level 5.3 4.4 3.5-5.1 mmol/L Chloride Level 105 107 98-107 mmol/L Carbon Dioxide Level 28 29 21-32 mmol/L Anion Gap 7.0 7.0 3-11 mmol/L Blood Urea Nitrogen 20 20 7-18 mg/dl Creatinine 1.20 0.88 0.60-1.40 mg/dl Est Creatinine Clear Calc Drug Dose 74.2 101.2 ml/min Estimated GFR () 74.1 106.0 Estimated GFR (Non- 64.0 91.4 BUN/Creatinine Ratio 16.4 22.3 10-20 Random Glucose 165 125 70-99 mg/dl Calcium Level 8.1 8.2 8.5-10.1 mg/dl Bedside Glucose 113 129 70-99 mg/dl Hepatitis C Antibody Screen NEG NEG Diagnostic Radiology CXR: (10/18/16) J-hook wire from ostomy to LLL CXR: (10/18/16) J-hook wire from ostomy to LLL, with signs of pulmonary congestion EKG Interpretation: NORMAL EKG Impression Assessment and Plan 61 y/o male with intrenched tracheal/left bronchial tree foreign body: 1) Airway foreign Body: I agree with Dr. Vega Helms that this patient requires more aggressive airway intervention to help remove the wire. This is a more difficult intervention as the wire itself has perforated the bronchial wall. 2) ID: As the patient has grown out MRSA on previous BAL and his lower airway is compromised I have started Vancomycin and Zosyn at this time. We will obtain BAL cultures to further help guide if needed anti-biotic therapy.
[2016-10-19] MEDS ORDERED: VANCOMYCIN CONSULT ACTIVE PRN (13:00)
[2016-10-19] MEDS ORDERED: PIPERACILL/TAZOBAC CONSULT ACTIVE PRN (13:00)
[2016-10-19] MEDS ORDERED: CLINDAMYCIN 600 MG/54 ML D5W IV ONE (13:06)
[2016-10-19] MEDS ORDERED: PROPOFOL IV EMULSION 10 MG/ML 20 ML VIAL IV ONE (13:14)
[2016-10-19] MEDS ORDERED: REMIFENTANIL 1 MG VIAL ONE (13:15)
[2016-10-19] MEDS ORDERED: ROCURONIUM BROMIDE 10 MG/ML 5 ML VIAL ONE (13:20)
[2016-10-19] MEDS ORDERED: LIDOCAINE HCL 2% 2 ML VIAL (20MG/ML) ONE (13:20)
[2016-10-19] MEDS ORDERED: VANCOMYCIN INJ 2,400 MG in SODIUM CHLORIDE 0.9% 500ML 500 ML IV SCH (13:30)
[2016-10-19] MEDS ORDERED: PIPERACILL/TAZOBAC IV 3.375 GM in DEXTROSE 5% 100ML IV ONE (13:30)
--- NOTE | 2016-10-19 13:39 | Pharmacy Progress Note ---
Pharmacy Abx Initial Consult Date of Service Oct 19, 2016. Pharmacy Dosing Scope Date of Consult: 10/19/16 Consultation requested by: Dr. Forrester Pharmacy is consulted to initiate vancomycin and Zosyn IV dosing therapy, order appropriate labs and adjust drug dose/frequency. Subjective The patient is a 61 year old male admitted on Oct 18, 2016 at 23:42 for airway foreign body. Objective Height (Feet): 5 Height (Inches): 11.00 Weight (Kilograms): 95.200 Vital Signs (Past 12Hrs) Vital Signs Past 12 Hours Date Time Temp Pulse Resp B/P (MAP) Pulse Ox O2 Delivery O2 Flow Rate FiO2 10/19/16 08:30 Trach Collar 5.0 10/19/16 08:13 96 Trach Collar 10.0 10/19/16 08:03 37.1 88 18 145/79 (101) 96 Trach Collar 10.0 Lab Results (24Hrs) Laboratory Tests (24 Hours) Test 10/19/16 05:32 White Blood Count 10.53 K/uL (4.8-10.8) Red Blood Count 4.51 M/uL (4.7-6.1) L Hemoglobin 14.9 g/dL (14.0-18.0) Hematocrit 45.2 % (42-52) Mean Corpuscular Volume 100.2 fL (80-100) H Mean Corpuscular Hemoglobin 33.0 pg (25-34) Mean Corpuscular Hemoglobin Concent 33.0 g/dl (32-36) Platelet Count 293 K/uL (130-400) Mean Platelet Volume 12.5 fL (7.4-10.4) H Neutrophils (%) (Auto) 65.5 % Lymphocytes (%) (Auto) 17.4 % Monocytes (%) (Auto) 13.9 % Eosinophils (%) (Auto) 2.4 % Basophils (%) (Auto) 0.5 % Neutrophils # (Auto) 6.91 K/uL (1.4-6.5) H Lymphocytes # (Auto) 1.83 K/uL (1.2-3.4) Monocytes # (Auto) 1.46 K/uL (0.11-0.59) H Eosinophils # (Auto) 0.25 K/uL (0-0.5) Basophils # (Auto) 0.05 K/uL (0-0.2) Risk Factors for Resistance * History of infection with a multidrug-resistant organism: MRSA bronch washings Assessment & Plan Assessment 61 year old male initiated on vancomycin and Zosyn for history of MRSA in BAL and current foreign body in airway. Pertinent PMH: DM, L partial nephrectomy, Hodgkin's lymphoma, s/p trach Plan Vancomycin and Zosyn for treatment of pulmonary infection Vancomycin IV * Loading dose: 2400 mg (25 mg/kg) * Maintenance dose: 1500 mg IV (15.8 mg/kg) every 10 hours * Goal trough level for pulm infection : 15 to 20 mcg/mL * Trough level ordered for 10/21/16 prior to the 0600 dose Piperacillin/tazobactam * 3.375 g bolus administered over 30 minutes, then 3.375 g IV extended infusion every 8 hours for CrCl greater than 20 mL/min Pharmacy will continue to follow and will adjust dose/frequency as necessary. Thank you.
[2016-10-19] MEDS ORDERED: PIPERACILL/TAZOBAC IV 3.375 GM in DEXTROSE 5% 100ML 100 ML IV SCH (14:00)
--- NOTE | 2016-10-19 14:26 | SURGERY PROGRESS NOTE ---
DATE: 10/19/2016 Mr. Curry was seen this morning. I had a long discussion with the patient. I also discussed his case with radiology as well as Dr. Ezequiel Forrester from interventional pulmonology. This is going to present quite a problem. We are going to attempt to get this out with the rigid bronchoscope through his tracheal stoma. There is a risk of collapse of his lung if we tear the bronchial wall. Also, risk of mediastinitis and infections. It is also the possibility we could end up having to do a thoracotomy, although I do not think we would have to do that urgently. The patient is on antibiotics. He is also on DVT prophylaxis. We will attempt to remove this with a rigid scope today.
[2016-10-19] MEDS ORDERED: ONDANSETRON INJ 2 MG/ML 2 ML VIAL IV PRN (14:45)
[2016-10-19] MEDS ORDERED: ATROPINE SULFATE 0.1 MG/ML 5ML SYR IV PRN (14:45)
[2016-10-19] MEDS ORDERED: ALBUTEROL 0.083% NEBU SOLN 3 ML VIAL INH PRN (14:45)
[2016-10-19] MEDS: FENTANYL CITRATE INJ 50 MCG/1 ML 2 ML VIAL IV PRN ×2 (14:50→14:55)
--- NOTE | 2016-10-19 14:54 | DIAGNOSTIC IMAGING REPORT ---
CHEST ONE VIEW PORTABLE HISTORY: tracheal foreign body/S/P FOB COMPARISON: Chest 10/19/2016. FINDINGS: Interval removal of the tracheal metallic foreign body. Endotracheal tube terminates 5.9 cm from the hever. No pneumothorax. No pleural effusions. The heart remains mildly enlarged. Stable right hilar prominence. Surgical clips within the left upper quadrant. IMPRESSION: Interval removal of the tracheal metallic foreign body. No pneumothorax. Endotracheal tube terminates 5.9 cm from the hever. This could be advanced by approximately 3 cm. Electronically signed by: Galindo Welch M.D. 10/19/2016 2:52 PM Dictated Date/Time: 10/19/2016 2:49 PM
--- NOTE | 2016-10-19 15:12 | Anesthesiology Progress Note ---
Anesthesia Post Op Note Date & Time Oct 19, 2016 at 15:12 Vital Signs Pain Intensity: 6 Vital Signs Past 12 Hours Date Time Temp Pulse Resp B/P (MAP) Pulse Ox O2 Delivery O2 Flow Rate FiO2 10/19/16 14:37 36.3 103 18 158/88 95 Mask 10 Trach Collar 10/19/16 08:30 Trach Collar 5.0 10/19/16 08:13 96 Trach Collar 10.0 10/19/16 08:03 37.1 88 18 145/79 (101) 96 Trach Collar 10.0 Notes Mental Status: alert / awake / arousable, participated in evaluation Pt Amnestic to Procedure: Yes Nausea / Vomiting: adequately controlled Pain: adequately controlled Airway Patency, RR, SpO2: stable & adequate BP & HR: stable & adequate Hydration State: stable & adequate Anesthetic Complications: no major complications apparent
[2016-10-19] MEDS: PIPERACILL/TAZOBAC IV 3.375 GM in DEXTROSE 5% 100ML IV SCH (18:29)
[2016-10-19] MEDS: VANCOMYCIN INJ 1,500 MG in SODIUM CHLORIDE 0.9% 500ML 500 ML IV SCH (23:37)
[2016-10-20] MEDS: PIPERACILL/TAZOBAC IV 3.375 GM in DEXTROSE 5% 100ML IV SCH ×2 (02:33→09:24)
[2016-10-20 04:00] VITALS: BP 123/62; PULSE 89; TEMP 36.6; O2SAT 94
[2016-10-20 06:50] VITALS: BP 129/69; PULSE 93; TEMP 36.5; O2SAT 92
[2016-10-20 07:30] LABS: CREATININE 0.94 mg/dl (0.60-1.40)
--- NOTE | 2016-10-20 08:14 | DIAGNOSTIC IMAGING REPORT ---
CHEST ONE VIEW PORTABLE CLINICAL HISTORY: Tracheal foreign body/S/P FOB COMPARISON STUDY: Chest radiograph October 19, 2016 2:38 PM. FINDINGS: Surgical clips project over the left upper quadrant. There is no pneumothorax or pleural effusion. No pneumomediastinum is identified. Moderate cardiomegaly is unchanged. No radiopaque foreign bodies are identified. Right paramediastinal opacity is chronic. IMPRESSION: No acute cardiopulmonary findings. No radiopaque foreign body. No pneumothorax. Electronically signed by: Alvaro Diana M.D. 10/20/2016 8:13 AM Dictated Date/Time: 10/20/2016 8:11 AM
--- NOTE | 2016-10-20 08:16 | SURGERY PROGRESS NOTE ---
DATE: 10/20/2016 Mr. Michel was seen this morning. He looks quite good. We removed a very large wire from his trachea and left lower lobe bronchus with a rigid bronchoscope yesterday. He has been on room air with good saturations. His labs have been looking quite good. We are going to allow him to be discharged today. I will see him back in the office in 1 week with an x-ray. He really has had no cough since the wire was removed. JAYME
--- NOTE | 2016-10-20 08:24 | Anesthesiology Progress Note ---
Anesthesia Post Op Note Date & Time Oct 20, 2016 at 08:23 Vital Signs Pain Intensity: 0.0 Vital Signs Past 12 Hours Date Time Temp Pulse Resp B/P (MAP) Pulse Ox O2 Delivery O2 Flow Rate FiO2 10/20/16 07:33 Room Air 10/20/16 06:50 36.5 93 19 129/69 (89) 92 Room Air 10/20/16 04:00 36.6 89 18 123/62 (82) 94 Humidified Oxygen 3.0 10/19/16 23:45 Trach Collar 3.0 10/19/16 23:25 37.0 97 20 124/64 (84) 96 Humidified Oxygen 3.0 10/19/16 21:36 89 Room Air Notes Mental Status: alert / awake / arousable, participated in evaluation Pt Amnestic to Procedure: Yes Nausea / Vomiting: adequately controlled Pain: adequately controlled Airway Patency, RR, SpO2: stable & adequate BP & HR: stable & adequate Hydration State: stable & adequate Anesthetic Complications: no major complications apparent
[2016-10-20] MEDS: LEVOTHYROXINE SODIUM INJ 88 MCG in SYRINGE 0 ML IV SCH (08:29)
[2016-10-20] MEDS: INSULIN ASPART 100 UNITS/ML 3 ML PEN SC SCH (08:37)
--- NOTE | 2016-10-20 08:52 | OPERATIVE REPORT ---
DATE OF OPERATION: 10/19/2016 PREOPERATIVE DIAGNOSIS: Wire embedded in left lower lobe bronchus. POSTOPERATIVE DIAGNOSIS: Same. PROCEDURE: Flexible and rigid bronchoscopy via tracheostomy stoma with removal of large foreign body. SURGEON: Dr. Helms. CO-SURGEON: Dr. Forrester. ART THERAPY SPECIALIST: Brett Lyman. ANESTHESIA: General anesthesia with intubation of tracheal stoma. SPECIFICS OF PROCEDURE: This is a 61-year-old male who has had tracheostomy for 12 years and uses a homemade device to insert down into his tracheal stoma to remove sputum. It is a woven wire and he had a hook on the end and on the night of 10/18/2016 the patient came into the Emergency Room having gotten it stuck where he could not pull it out. There was some of it extending through the end of his tracheostomy stoma. On x-ray, it appeared to be going to his left bronchial tree. I performed a bronchoscopy and could see that this hook had gone down into the superior segment if the left lower lobe and we could not get it out. We admitted him and brought him to the operating room today 10/19/2016 and did a flexible and then rigid bronchoscopy. Dr. Forrester expertly guided the rigid bronchoscope and we were able to direct the hook out of the superior segment bronchi and removed this. He tolerated it well. OPERATION AND FINDINGS: PROCEDURE: The patient brought to the operating room, laid in supine position. His neck was extended as much as possible and then we performed first a flexible bronchoscopy and cleaned away sputum. There was more sputum that I had noted the night before on bronchoscopy in the Emergency Room. After this had been cleaned off we used the Sravan scope. This is a 12 mm scope and it was a rigid scope. Upon placing this in we used the video scope and we were able to follow this wire down. Before doing this, I tied a #1 Prolene to the end of the wire. We then threaded this Prolene brought the rigid bronchoscope and we were able to get the rigid bronchoscope down so that the wire came through the scope. We were then able to direct this down to the area. We did have to remove it twice in order to suction out sputum and very mild blood. We were able to see this quite nicely. We went down again with the rigid scope and with the tip we were able to straighten some of this, but also were able to push this hook down further into the left lower lobe bronchus and to get it out of the superior segment orifice. This worked very nicely with very little bleeding. We obtained culture results with washings through the flexible bronchoscope after this wire was removed. There was really very little bleeding. A #6 Shiley tracheostomy was placed in the tracheal stoma and when the patient awakened in the recovery room this was removed. He tolerated it very well. I attest to the content of the Intraoperative Record and any orders documented therein. Any exception s are noted below.
[2016-10-20] MEDS: VANCOMYCIN INJ 1,500 MG in SODIUM CHLORIDE 0.9% 500ML 500 ML IV SCH (09:23)
--- NOTE | 2016-10-20 09:37 | Discharge Instructions ---
Discharge Instructions Date of Service Oct 20, 2016. Admission Reason for Admission: Foreign Body In Trachea Discharge Discharge Diagnosis / Problem: Foreign body in trachea Discharge Goals Goal(s): Decrease discomfort, Improve disease control Activity Recommendations Activity Limitations: per Instructions/Follow-up section Lifting Limitations: none Exercise/Sports Limitations: none May Resume Sexual Activity: when tolerated Shower/Bathe: no limitations Do not place wire in trachea / through tracheostomy . Instructions / Follow-Up Instructions / Follow-Up Follow up with your Primary care dr AND Private Security Guard within a week Use Nebulizers at home to help bring up mucus, do not place any wires or other foreign bodies down your trachea Please return if you notice any other changes in your swallowing, breathing, or if you have chest pain or shortness of breath. Current Hospital Diet Patient's current hospital diet: Diabetes Type 2 Diet Discharge Diet Recommended Diet: Diabetes Type 2 Diet Procedures Procedures Performed: Rigid and Flexible Bronchoscopy Respiratory Removal Foreign Body Pending Studies Studies pending at discharge: no Medical Emergencies . Who to Call and When: Medical Emergencies: If at any time you feel your situation is an emergency, please call 911 immediately. . Non-Emergent Contact Non-Emergency issues call your: Primary Care Provider, Private Security Guard . . "Provider Documentation" section prepared by Jie Douglass. . VTE Core Measure Inpt VTE Proph given/why not?: SCD's
[2016-10-20 09:46] VITALS: BP 129/69; PULSE 93; TEMP 36.5; O2SAT 92
[2016-10-20] MEDS ORDERED: AMOX875T PO (12:49)
--- NOTE | 2016-10-20 15:53 | Discharge Summary ---
Discharge Summary Date of Service Oct 20, 2016. (Jie Douglass MD) Discharge Summary Admission Date: Oct 18, 2016 at 23:42 Discharge Date: Oct 20, 2016 Discharge Disposition: Home Principal Diagnosis: Foreign Body in Trachea Problems/Secondary Diagnoses: Tracheostomy Immunizations: Have You Had Influenza Vaccine: Yes History of Tetanus Vaccine?: No History of Pneumococcal: Yes History of Hepatitis B Vaccine: No Consultations: CT Surgery Pulmonology (Jie Douglass MD) Medication Reconciliation New Medications: Amoxicillin & Pot Clavulanate (Augmentin 875-125 mg) 1 Tab Tab 875 MG PO BID, #20 TAB Continued Medications: Digoxin (Digoxin) 0.125 Mg Tab 0.125 MG PEG 5XWK TAKE THIS MEDICATION EVERY TUESDAY,TUESDAY,TUESDAY,TUESDAY AND TUESDAY Insulin Glargine (Lantus Solostar) 100 Unit/Ml Inj 19 UNITS SC AMHS, PEN Levothyroxine Sodium (Levothyroxine Sodium) 175 Mcg Tab 175 MCG PO DAILY, TAB Losartan Potassium (Cozaar) 25 Mg Tab 12.5 MG PO DAILY, TAB Metoprolol Succinate (Toprol Xl) 50 Mg Tab 50 MG PO BID, TAB Naproxen (Aleve) 220 Mg Tab 220 MG PO UD PRN for Pain TAKE PER PACKAGE DIRECTIONS Omeprazole (Prilosec) 40 Mg Cap 40 MG PO DAILY, CAP Discharge Exam Review of Systems: Constitutional: No fever, No chills, No sweats, No weakness Eyes: No worsening of vision ENT: No hearing loss Respiratory: + sputum, No cough, No wheezing Cardiovascular: No chest pain Abdomen: No pain, No nausea, No vomiting Musculoskeletal: No joint pain Genitourinary - Male: No hematuria, No dysuria, No urinary frequency Neurologic: No memory loss, No weakness Psychiatric: No depression symptoms Endocrine: No fatigue Hematologic / Lymphatic: No abnormal bleeding/bruising Integumentary: No rash Physical Exam: General Appearance: WD/WN, no apparent distress Eyes: normal inspection, PERRL ENT: normal ENT inspection Neck: supple, no JVD Respiratory/Chest: lungs clear, normal breath sounds, no respiratory distress, + wheezing (occasional) Cardiovascular: regular rate, rhythm, no murmur, normal peripheral pulses Abdomen / GI: normal bowel sounds, non tender, soft Extremities: no calf tenderness, no pedal edema Neurologic/Psychiatric: alert, normal mood/affect, oriented x 3 Skin: no rash Lymphatic: no adenopathy (Jie Douglass MD) Hospital Course HPI: 61-year-old male with a past medical history of Hodgkin's lymphoma, status post tracheostomy, diabetes, atrial fibrillation, GERD presented to the ER with a wire stuck in his trachea. The patient had used an 8 inch while the J shaped hook to clear mucus and was unable to remove it. He denied any worsening respiratory distress, chest pain. Denies any nausea, vomiting, abdominal pain. CT surgery was consulted by the ER with performed a bronchoscopy but was unable to retrieve the wire. Rigid bronchoscopy is planned for the a.m. HOSPITAL COURSE: 61 yo M with wire stuck in tracheostomy, underwent rigid bronchoscopy 10/19/16 Foreign body in trachea CT surgery was able to remove it by rigid bronchoscopy Pt advised to NOT place anything in trachea Type 2DM Sliding scale Goal 140-180 A fib Started on home meds Hypertension Losartan restarted Hypothyroidism: - Synthroid switched to IV, now restarted Full code DVT prophylaxis: SCDs Disposition: Discharged 10/20/16 home Total Time Spent: Greater than 30 minutes This includes examination of the patient, discharge planning, medication reconciliation, and communication with other providers. (Jie Douglass MD) Resident Physician Supervision Note: I interviewed and examined the patient. Discussed with Dr. Douglass and agree with findings and plan as documented in the note. Any exceptions or clarifications are listed here: None Documented By: Kwasi Herbert feeling better wants to go home, discussed and recommended nebs instead of coat mold insert changer, he agrees to not use coat mold insert changer but wants to talk to pulm more and think more about nebs. d/w pulmonary they'll continue the discussion, also recommended augmentin for 10 days and will see in office tuesday ROS otherwise negative except for as above vitals noted nad breathing unlabored no pallor or icterus foreign body in trachea - successfully removed. augmentin to prevent mediastinitis from trauma but no current indications to maintain hopsitalization does not appear actively infected, feels safe to go home, appears safe to go home, close outpt f/u Total Time Spent: Less than 30 minutes (Kwasi Herbert, D.O.) Discharge Instructions Please refer to the electronic Patient Visit Report (Discharge Instructions) for additional information. (Jie Douglass MD) Follow-Up With PCP within 1-2 weeks and Cell Lead within 1-2 weeks (Jie Douglass MD) Additional Copies To Keyla Casanova D.O. Resident Tracking Resident Involvement: Resident Care Provided Care Provided: Adult [facility] (Jie Douglass MD)
[2016-10-21] MEDS ORDERED: VANCOMYCIN TROUGH ONE (05:30)
[2017-01-11] MEDS ORDERED: DULA1INJ (08:12)
[2017-01-11] MEDS ORDERED: cholesterol med (08:12)
[2017-04-12] MEDS ORDERED: ACET10SO3 INH (13:54)
== END 2016-10-20 10:22 | disposition home or self-care (01) | DRG 205 ==
LOC: EDBD 20:17 → C.EDC 20:19 → C.MSW 23:42 → EDBEDREQ 23:46 → ENRESERV 23:52 → C.MSW 10-19 00:02
PROVIDERS: ADMIT Family Medicine; ATTEND Hospitalist
PROC: 0BC88ZZ Extirpation of Matter from Left Upper Lobe Bronchus, Via Natural or Artificial Opening Endoscopic (ICD-10-PCS; principal; 2016-10-18)
DX: T17.408A Unspecified foreign body in trachea causing other injury, initial encounter (principal); S27.4 Injury of bronchus; Z93.0 Tracheostomy status; E87.5 Hyperkalemia; E11.9 Type 2 diabetes mellitus without complications; I48.91 Unspecified atrial fibrillation; I10 Essential (primary) hypertension; E03.9 Hypothyroidism, unspecified; X58.XXXA Exposure to other specified factors, initial encounter

== ENCOUNTER → 2016-11-04 | Outpatient (CLI) | payer OTHER ==
[~2016-11-04] MED LIST changes: -ASPUNK PO; -CRG3125 PO; +DULA1INJ; -HYCUDL5 PO; +INSDGIPEN SC; -LEVO175T25 PO; +LEVO175T3 PO; +LNX125 PEG; +LOSA25TA18 PO; -LSN25 PO; +METO1TAB66 PO; +OMEP40CA41 PO; -PRLSR20 PO; -SULF800T23 PO; +cholesterol med
--- NOTE | 2016-11-04 12:45 | DIAGNOSTIC IMAGING REPORT ---
CHEST 2 VIEWS ROUTINE CLINICAL HISTORY: BRONCHIAL OBSTRUCTION dyspnea COMPARISON STUDY: 10/20/2016 FINDINGS: Focal right suprahilar atelectasis. Lungs otherwise are clear. Diaphragms smooth. Postoperative changes left upper quadrant of the abdomen. IMPRESSION: Focal fibrotic change versus atelectasis right suprahilar region. Otherwise negative study Electronically signed by: Bobby Carrington M.D. 11/04/2016 12:44 PM Dictated Date/Time: 11/04/2016 12:42 PM
== END | disposition home or self-care (01) ==
LOC: C.RAD 12:30
PROVIDERS: ATTEND Internal Medicine
DX: J98.09 Other diseases of bronchus, not elsewhere classified (principal)

== ENCOUNTER → 2017-01-07 | Outpatient (CLI) | payer OTHER ==
[2017-01-07 12:59] LABS: BASO % 0.8 %; BASO ABS # 0.06 K/uL (0-0.2); COMPLETE YES; EOS % 3.2 %; HEMATOCRIT 47.6 % (42-52); IG% 0.3 %; LYMPH % 22.8 %; LYMPH ABS # 1.73 K/uL (1.2-3.4); MEAN CELL VOLUME 99.8 fL (80-100); MEAN CORPUSCULAR HEMOGLOBIN 33.1 pg (25-34); MEAN CORPUSCULAR HGB CONC 33.2 g/dl (32-36); MEAN PLATELET VOLUME 12.9 fL (7.4-10.4); MONO % 13.6 %; NEUT % 59.3 %; PLATELET COUNT 290 K/uL (130-400); RED BLOOD COUNT 4.77 M/uL (4.7-6.1); WHITE BLOOD COUNT 7.58 K/uL (4.8-10.8)
[2017-01-07 13:12] LABS: PARTIAL THROMBOPLASTIN RATIO 1.1; PROTHROMBIN TIME (PATIENT) 10.7 SECONDS (9.0-12.0)
[2017-01-07 13:36] LABS: ALT/SGPT 43 U/L (12-78); BLOOD UREA NITROGEN 16 mg/dl (7-18); CALCIUM 8.8 mg/dl (8.5-10.1); CARBON DIOXIDE 27 mmol/L (21-32); CHLORIDE 103 mmol/L (98-107); CREATININE 0.86 mg/dl (0.60-1.40); GLUCOSE 192 mg/dl (70-99); POTASSIUM 4.5 mmol/L (3.5-5.1); SODIUM 138 mmol/L (136-145)
[2017-01-07 13:38] LABS: ALB/GLOB RATIO 1.1 (0.9-2); ALKALINE PHOSPHATASE 144 U/L (45-117); AST/SGOT 28 U/L (15-37)
== END | disposition home or self-care (01) ==
LOC: C.LAB1850 11:36
PROVIDERS: ATTEND Internal Medicine Critical Care Medicine
DX: J98.09 Other diseases of bronchus, not elsewhere classified (principal); J45.909 Unspecified asthma, uncomplicated; A31.0 Pulmonary mycobacterial infection

== ENCOUNTER → 2017-01-11 | Day surgery (SDC) | payer OTHER ==
[2017-01-11] VITALS (11 sets, daily range): BP systolic 112–143; BP diastolic 62–85; PULSE 86–96; TEMP 36.7–37; O2SAT 90–98; Ht 180.3 cm; Wt 95.0 kg
[~2017-01-11] VITALS: Ht 180.3 cm; Wt 95.0 kg
--- NOTE | 2017-01-11 08:35 | History and Physical ---
History & Physical Date Jan 11, 2017. Chief Complaint Evaluation of previously trapped for monitoring in the tertiary hever of the left lower lobe History of Present Illness The patient is a 61 year old male with complaints of evaluation of previously trapped for monitoring in the tertiary hever of the left lower lobe: 61-year-old male here for post hospital follow-up status post removal of foreign body: 61 y/o male admitted with airway foreign body. The patient has a past medical history significant for Hodgkins Lymphoma treated with XRT with secondary pulmonary fibrosis, possible hypothyroidism and recurrent aspiration requiring end-tracheostomy. He clears his mucus secretions with a wire J-hook that got stuck after his last attempted clearing. Dr. Rickie santos attempted to bronchoscopically remove the foreign body but was un-able with the flexible bronchoscope. Underwent rigid bronchoscopic removal of the foreign body, make ready mechanic wire, 10/19/2016. Bronchial Washing (12/24/05) MRSA (02/02/07) MSSA, fungal species (05/15/10) O (PEG) MRSA, Mycobacterium gordonae O (RLL) MRSA, Mycobacterium Gordonae Expectorated sputum (05/14/2010) MSSA Past Medical History: 1) Hodgkins Lymphomas Dx: 1978 s/p XRT to the chest and neck 2) Pulmonary fibrosis from s/p XRT 3) GERD/recurrent aspiration requiring 4) Benign neoplasm of the bowel 5) Hypothyroidism 6) Prostatitis 7) Begin tumor of the kidney left 8) Nephrotic syndrome 9) DJD left hip 10) DM 11) HTN 12) foreign body retention in the airway Past Surgical History: 1) End-Tracheostomy/laryngectomy 2) Splenectomy 3) Left partial Nephrectomy 4) Tonsil and adenoidectomy 5) 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 Medications: 1. Amoxicillin & Pot Clavulanate (Augmentin 875-125 mg) 1 Tab Tab 875 MG PO BID, #20 TAB 2. Digoxin (Digoxin) 0.125 Mg Tab (Tuesday, Tuesday, Tuesday, , Tuesday) 3. Insulin Glargine (Lantus Solostar) 100 Unit/Ml Inj 19 UNITS SC AMHS, PEN 4. Levothyroxine Sodium (Levothyroxine Sodium) 175 Mcg Tab 175 MCG PO DAILY, TAB 5. Losartan Potassium (Cozaar) 25 Mg Tab MG PO DAILY, TAB 6. Metoprolol Succinate (Toprol Xl) 50 Mg Tab 50 MG PO BID, TAB 7. Naproxen (Aleve) 220 Mg Tab 220 MG PO UD PRN for Pain 8. Omeprazole (Prilosec) 40 Mg Cap 40 MG PO DAILY, CAP Surgical History 1. kidney surgery 2. lung surgery/total of resection of the epiglottis with an anastomosis of the trachea to the anterior neck 3. splenectomy Family History 1. malignant neoplasm Social History Denied: History of Alcohol use Never smoker Retired Current Meds 1. Lanoxin 125 MCG Oral Tablet; TAKE 1 TABLET DAILY 2. Levothyroxine Sodium 175 MCG Oral Tablet; TAKE 1 TABLET DAILY 3. Losartan Potassium 25 MG Oral Tablet; TAKE 0.5 TABLET Daily 4. Metoprolol Succinate ER 50 MG Oral Tablet Extended Release 24 Hour; TAKE 2 5. Omeprazole 40 MG Oral Capsule Delayed Release; TAKE 1 CAPSULE TWICE DAILY 6. Oxygen; Patient stated 3L at bedtime and PRN 7. Probiotic Oral Capsule; Allergies 1. No Known Drug Allergies Past Medical/Surgical History Medical Problems: (1) Foreign body in trachea (2) Tracheostomy in place Allergies Coded Allergies: No Known Allergies (Verified , 01/11/17) Home Medications Scheduled Digoxin (Digoxin), 0.125 MG PEG 5XWK Dulaglutide (Trulicity), 1 WK Insulin Glargine (Lantus Solostar), 19 UNITS SC AMHS Levothyroxine Sodium (Levothyroxine Sodium), 175 MCG PO DAILY Losartan Potassium (Cozaar), 12.5 MG PO DAILY Metoprolol Succinate (Toprol Xl), 50 MG PO BID Omeprazole (Prilosec), 40 MG PO DAILY [cholesterol med], 1 TAB DAILY Scheduled PRN Naproxen (Aleve), 220 MG PO UD PRN for Pain Physical Examination Skin: warm/dry, no rash Eyes: normal inspection, EOMI, sclerae normal ENT: + pertinent finding (anterior anastomosis of the trachea) Head: normocephalic, atraumatic Neck: supple, no adenopathy, trachea midline Respiratory/Chest: lungs clear, normal breath sounds, no respiratory distress Cardiovascular: regular rate, rhythm, no edema, no murmur Abdomen / GI: normal bowel sounds, non tender Back: normal inspection Extremities: normal inspection, normal range of motion Neurologic/Psych: no motor/sensory deficits, alert, normal reflexes, oriented x 3 Diagnosis Evaluation of previously entrapped foreign body at the tertiary hever the left lower lobe ASA Classification: ASA Class III Plan of Treatment Bronchoscopy with bronchial lavage of the left lower lobe
--- NOTE | 2017-01-11 08:45 | Procedure Note ---
Pre-Mod Sedation Assessment General Date of Moderate Sedation: Jan 11, 2017. Vital Signs: Vital Signs Past 12 Hours Date Time Temp Pulse Resp B/P (MAP) Pulse Ox O2 Delivery O2 Flow Rate FiO2 01/11/17 08:18 36.8 96 20 134/62 (86) 91 Room Air Review Cardiovascular: regular rate, rhythm, no edema, no gallop, no JVD, no murmur, normal peripheral pulses Abdomen: normal bowel sounds, non tender, soft, no organomegaly, no pulsatile mass Lungs: chest non-tender, lungs clear, normal breath sounds, no respiratory distress Airway Class: I Pre-Sedation Airway Assessment Oral Cavity: Dental Abnormalities Able to Visualize Vocal Cords: No Short Thick Neck: No Hx of Sleep Apnea: No Smoking Status: Never Smoker Mallampati Classification: Class I ASA Classification: Class II Procedure Planning Contraindications-for Mod Sed: None Yes Notes The planned sedation has been discussed with the patient and consent obtained. I have identified the patient, determined the appropriateness of sedation and have assessed the patient immediately prior to the procedure. All medicine(s) and interventions are by my order.
--- NOTE | 2017-01-11 09:55 | Discharge Instructions ---
Discharge Instructions Date of Service Jan 11, 2017. Admission Reason for Admission: Asthma, Pulmonary Infection Discharge Discharge Diagnosis / Problem: Forgien body damage with chronic bronchiectasis Discharge Goals Goal(s): Diagnostic testing Activity Recommendations Activity Limitations: resume your previous activity . Instructions / Follow-Up Instructions / Follow-Up F/U in the [facility] Pulmonary clinic Current Hospital Diet Patient's current hospital diet: Discharge Diet Recommended Diet: Regular Diet Procedures Procedures Performed: Bornchoscopy with Lavage of the RLL Pending Studies Studies pending at discharge: no Medical Emergencies . Who to Call and When: Medical Emergencies: If at any time you feel your situation is an emergency, please call 911 immediately. . Non-Emergent Contact Non-Emergency issues call your: Social Media Job Titles . . "Provider Documentation" section prepared by Raymon Forrester. . VTE Core Measure Inpt VTE Proph given/why not?: Treatment not indicated
--- NOTE | 2017-01-11 10:40 | Bronchoscopy Procedure Note ---
Bronchoscopy Procedure Note Procedure: Bronchoscopy, conscious sedation, Consent: Obtained through the patient placed into the chart Pre-procedural diagnosis: Evaluation of foreign body Post-procedural diagnosis: Normal airway Start time: 916 End time: 927 Total time: 11 minutes Analgesia: 2% liquid lidocaine: Via nebulizer 4% gel lidocaine: Via right naris 2% liquid lidocaine: Via bronchoscopy Sedation: Versed IV: none Fentanyl IV: none Procedure: The Olympus video bronchoscope was used for this procedure and passed down through the tracheal and anastomosis Enteroenterostomy /Trachea/Yumiko: Diffuse mucous plugs with notable erythema/ pseudomembrane associated with foreign body trauma Right bronchial tree: Right mainstem bronchus: Anatomically within normal limits Right upper lobe: Anatomically within normal limits Bronchus intermedius: Anatomically within normal limits Right middle lobe: Anatomically within normal limits Right lower lobe: Anatomically within normal limits Findings: Diffuse airway erythema with pseudomembrane associated with foreign body tracheal suctioning Left bronchial tree: Left mainstem bronchus: Anatomically within normal limits Left upper lobe: Anatomically within normal limits Lingula: Anatomically within normal limits Left lower lobe: Anatomically within normal limits Findings: Diffuse airway erythema with pseudomembrane associated with foreign body tracheal suctioning Bronchial alveolar lavage: EBL: Right lower lobe Complications: None Follow-up: In the [facility]
== END | disposition home or self-care (01) ==
LOC: C.ACU 07:17
PROVIDERS: ATTEND Internal Medicine Critical Care Medicine
DX: T17.498A Other foreign object in trachea causing other injury, initial encounter (principal); X58.XXXA Exposure to other specified factors, initial encounter; I10 Essential (primary) hypertension; E11.9 Type 2 diabetes mellitus without complications; J84.10 Pulmonary fibrosis, unspecified; Z85.71 Personal history of Hodgkin lymphoma; K21.9 Gastro-esophageal reflux disease without esophagitis; E03.9 Hypothyroidism, unspecified; Z93.0 Tracheostomy status; Z79.4 Long term (current) use of insulin; Z79.899 Other long term (current) drug therapy

== ENCOUNTER 2017-04-12 07:16 | Inpatient (IN) | payer OTHER ==
[~2017-04-12] VITALS: Ht 180.3 cm; Wt 95.6 kg
[2017-04-12] VITALS (11 sets, daily range): BP systolic 128–151; BP diastolic 65–84; PULSE 88–126; TEMP 36.9–39.2; O2SAT 87–97; Ht 180.3 cm; Wt 95.6 kg
[~2017-04-12 07:16] MED LIST changes: -DULA1INJ; +DULA1INJ SQ; +METO-452 PO; -METO1TAB66 PO
--- NOTE | 2017-04-12 07:49 | EMERGENCY ROOM VISIT NOTE ---
ED Visit Note First contact with patient: 07:19 I have seen and examined this patient with Yuly Carrington and generally agree with the treatment plan as discussed. Problem List Medical Problems: (1) Tracheostomy in place Status: Chronic Current/Historical Medications Scheduled Digoxin (Digoxin), 0.125 MG PEG 5XWK Dulaglutide (Trulicity), 1 WK Insulin Glargine (Lantus Solostar), 19 UNITS SC AMHS Levothyroxine Sodium (Levothyroxine Sodium), 175 MCG PO DAILY Losartan Potassium (Cozaar), 12.5 MG PO DAILY Metoprolol Succinate (Toprol Xl), 50 MG PO BID Omeprazole (Prilosec), 40 MG PO DAILY [cholesterol med], 1 TAB DAILY Scheduled PRN Naproxen (Aleve), 220 MG PO UD PRN for Pain Allergies Coded Allergies: No Known Allergies (Verified , 01/11/17) Vital Signs Date Time Temp Pulse Resp B/P (MAP) Pulse Ox O2 Delivery O2 Flow Rate FiO2 04/12/17 07:47 101 04/12/17 07:30 95 Oxymask 3.0 04/12/17 07:21 36.9 101 24 95/49 85 Room Air Departure Information Referrals Keyla Casanova D.O. (PCP) Patient Instructions My [facility]
[2017-04-12] MEDS ORDERED: MoRPHine SULFATE 10 MG/ML CARP/VIAL IV STA (07:58)
[2017-04-12] MEDS ORDERED: METHYLPREDNISOLONE 125 MG VIAL IV STA ×2 (07:58→11:23)
[2017-04-12] MEDS ORDERED: ONDANSETRON INJ 2 MG/ML 2 ML VIAL IV STA (07:58)
[2017-04-12 08:09] LABS: HEMATOCRIT 42.9 % (42-52); HEMOGLOBIN 14.1 g/dL (14.0-18.0); MEAN CELL VOLUME 100.9 fL (80-100); MEAN CORPUSCULAR HEMOGLOBIN 33.2 pg (25-34); MEAN CORPUSCULAR HGB CONC 32.9 g/dl (32-36); MEAN PLATELET VOLUME 12.6 fL (7.4-10.4); PLATELET COUNT 273 K/uL (130-400); RED CELL DISTRIBUTION WIDTH CV 15.1 % (11.5-14.5); RED CELL DISTRIBUTION WIDTH SD 55.4 fL (36.4-46.3); WHITE BLOOD COUNT 23.48 K/uL (4.8-10.8)
[2017-04-12 08:29] LABS: ALBUMIN 2.9 gm/dl (3.4-5.0); ALKALINE PHOSPHATASE 152 U/L (45-117); ALT/SGPT 42 U/L (12-78); BLOOD UREA NITROGEN 22 mg/dl (7-18); CALCIUM 8.5 mg/dl (8.5-10.1); CARBON DIOXIDE 25 mmol/L (21-32); CREATININE 1.35 mg/dl (0.60-1.40); GLUCOSE 118 mg/dl (70-99); LIPASE 30 U/L (73-393); SODIUM 138 mmol/L (136-145)
[2017-04-12 08:33] LABS: BASO % 0.1 %; BASO ABS # 0.03 K/uL (0-0.2); EOS ABS # 0.01 K/uL (0-0.5); IG# 0.35 K/uL (0.00-0.02); LYMPH % 3.8 %; LYMPH ABS # 0.89 K/uL (1.2-3.4); MONO % 3.6 %; MONO ABS # 0.85 K/uL (0.11-0.59); NEUT ABS # 21.35 K/uL (1.4-6.5)
[2017-04-12] MEDS ORDERED: HYDROmorphone INJ 0.5 MG/0.5 ML SYR IV STA (08:40)
--- NOTE | 2017-04-12 08:50 | DIAGNOSTIC IMAGING REPORT ---
SINGLE VIEW CHEST CLINICAL HISTORY: Left-sided chest pain. FINDINGS: An AP, portable, upright chest radiograph is compared to study dated 11/04/2016 and correlated with chest CT dated 12/22/2016. The examination is degraded by portable technique and patient rotation. The heart is enlarged and there is atherosclerotic calcification of the thoracic aorta. Pulmonary vasculature is noncongested. Right paramediastinal fibrotic change is similar to previous. This was better characterized and 12/22/2016 CT scan. There is no evidence of superimposed airspace consolidation. No large pleural effusion is identified and no pneumothorax is seen. The skeletal structures are osteopenic. The bony thorax is grossly intact. Numerous surgical clips are seen in the left upper quadrant. IMPRESSION: 1. Cardiomegaly with no acute cardiopulmonary abnormality. 2. Right paramediastinal fibrotic change is similar to previous.. Electronically signed by: Darisuz Levine M.D. 04/12/2017 8:48 AM Dictated Date/Time: 04/12/2017 8:46 AM
[2017-04-12] MEDS ORDERED: ATOR10TA82 PO (08:53)
[2017-04-12 09:37] LABS: POTASSIUM 4.7 mmol/L (3.5-5.1)
[2017-04-12] MEDS ORDERED: OPTIRAY 320 IV PRN (10:00)
--- NOTE | 2017-04-12 11:16 | DIAGNOSTIC IMAGING REPORT ---
CT SCAN OF THE CHEST, ABDOMEN, AND PELVIS WITH IV CONTRAST CLINICAL HISTORY: Lower chest pain. Leukocytosis. Left flank pain. COMPARISON STUDY: Chest x-ray dated 04/12/2017. Chest CT dated 12/22/2016 and 05/14/2010. TECHNIQUE: Following the IV administration of 94 of Optiray 320, CT scan of the chest, abdomen, and pelvis was performed from the thoracic inlet to the proximal femora. Images are reviewed in the axial, sagittal, and coronal planes. IV contrast was administered without complication. Automated dose control exposure was utilized. A dose lowering technique was utilized adhering to the principles of ALARA. CT DOSE: 897.61 mGy.cm FINDINGS: CHEST: Thyroid: The thyroid gland is atrophic. A tracheostomy defect is suggested anteriorly. Thoracic aorta: There is atherosclerotic calcification of the thoracic aorta, which is normal in caliber and demonstrates standard 3-vessel arch anatomy. No dissection is seen. Pulmonary vasculature: The main pulmonary arteries appear dilated suggesting pulmonary artery hypertension. There are no filling defects identified in the central pulmonary vessels to indicate pulmonary embolus. Note that this examination was not protocoled for evaluation of the pulmonary arteries. Heart: The heart is mildly enlarged and there is a small to moderate pericardial effusion. Lungs and pleural spaces: There are small right and trace left pleural effusions with associated atelectasis. Perimediastinal fibrosis in the right lung is unchanged. No airspace consolidation is seen typical for pneumonia. A 7 mm right lower lobe nodule seen on image #125. This is unchanged from 2011 and of doubtful significance. Foci of air trapping are suggested throughout both lungs. The tracheal wall appears thickened and is densely calcified. There is also thickening of the lower lobe airways. There is significant narrowing of the bronchus intermedius as well as the left lower lobe bronchus. Mediastinum: Subcarinal/right infrahilar nodularity suggested. This is not well assessed. A sales representative electric service focus on image #144 measures at least 2.1 cm. A high right peritracheal node on image #95 measures 1.1 cm in short axis. Janina: The right hilum is not well evaluated due to paramediastinal fibrosis. No left hilar adenopathy is seen. There is ill-defined right infrahilar soft tissue. Axillae: There is no axillary lymphadenopathy. Bony thorax: The skeletal structures are heterogeneously osteopenic. No lytic or blastic lesions are identified. Degenerative change is seen throughout the thoracic spine. Arthritic change is seen in the shoulders. A large calcified joint body is noted on the right. ABDOMEN AND PELVIS: Liver: The contrast-enhanced liver is enlarged, measuring 23.3 cm in length. The liver demonstrates diffusely diminished attenuation consistent with severe hepatic steatosis. Foci of geographic sparing are noted. There is no intrahepatic or ductal dilatation. The hepatic veins and portal veins are patent. Gallbladder: Unremarkable. Spleen: A normal spleen is not identified and the spleen is presumed surgically absent. A 2.4 cm soft tissue nodule in the left upper quadrant image #130 likely represents a splenule.. Pancreas: The pancreas is atrophic. The pancreatic tail appears diminutive/atrophic and may be surgically absent. There is dilatation of the distal pancreatic duct which measures up to 4 mm in diameter. The pancreatic head is more normal in appearance. Mild stranding suggested around the proximal pancreas. Adrenal glands: A 1.4 cm low-attenuation nodule in the right adrenal gland as seen on image #113. This likely represents an adenoma but cannot be definitively characterized due to the presence of IV contrast. The left adrenal gland is normal in appearance. Kidneys: The contrast enhanced kidneys demonstrate mild cortical atrophy and are without hydronephrosis. Cortical scarring is present in the upper pole of both kidneys, left greater than right. The kidneys enhance symmetrically. Abdominal vasculature: The abdominal aorta is normal in course and caliber noting moderate atherosclerotic calcification. Bowel: There is no bowel obstruction. 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 The duodenum fails to cross midline, the ascending colon is located just left of midline, and the cecum is present in the mid pelvis. Moderate fecal retention is identified. The appendix is not identified. Peritoneum: There is no intraperitoneal free air or abdominal ascites. Lymphadenopathy: None. Pelvic viscera: Evaluation of the pelvis is degraded by streak artifact from a left hip arthroplasty. The prostate gland is enlarged and heterogeneous, measuring over 5 cm in transverse diameter. The bladder is decompressed and not well evaluated. Skeletal structures: The skeletal structures are heterogeneously osteopenic. There is mild to moderate lumbosacral spondylosis. A left hip arthroplasty is in place. Advanced arthritic change is seen in the right hip. There is near complete fusion of the right sacroiliac joint. No lytic or blastic lesions are seen. IMPRESSION: 1. There is marked wall thickening N calcification of the tracheobronchial tree. The tracheal lumen appears narrowed, and there is significant narrowing of the right mainstem bronchus as well as the left lower lobe bronchus. This may be related to chronic inflammation, or could represent pathology such as tracheobronchopathia osteochondroplastica versus amyloidosis. Clinical correlation will be essential. 2. There is evidence of previous tracheostomy. 3. There are small right and trace left pleural effusions with associated atelectasis. No airspace consolidation is seen typical for pneumonia. 4. Cardiomegaly and small to moderate pericardial effusion. There is evidence of pulmonary artery hypertension. 5. Right paramediastinal fibrosis is similar to previous. 6. There are foci of nodularity in the subcarinal space and in the right infrahilar region. Enlarged lymph nodes are suspected but difficult to delineate. Correlation with the patient's medical history will be essential. 7. Hepatomegaly and severe hepatic steatosis. 8. The spleen is not identified and presumed surgically absent. A splenule is suspected in the left upper quadrant. 9. The mid to distal pancreas is atrophic and there is dilatation of the pancreatic duct. The pancreatic tail is truncated and may be surgically absent. There is no clear evidence of mass lesion. Correlation with the medical/surgical history as well as any prior outside imaging studies will be required. 10. There is mild stranding suggested around the proximal pancreas. Correlate clinically and with serum lipase levels for evidence of mild acute pancreatitis. 11. 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 No bowel obstruction is seen. Moderate constipation is observed. 12. Additional findings as above. Electronically signed by: Dariusz Levine M.D. 04/12/2017 11:15 AM Dictated Date/Time: 04/12/2017 10:48 AM
[2017-04-12] MEDS ORDERED: VANCOMYCIN INJ 2,000 MG in SODIUM CHLORIDE 0.9% 500ML 500 ML IV STA (11:29)
[2017-04-12] MEDS ORDERED: CEFEPIME IV 2,000 MG in SYRINGE 7.5 ML IV STA (11:29)
--- NOTE | 2017-04-12 11:37 | EMERGENCY ROOM VISIT NOTE ---
History First contact with patient: 07:19 Chief Complaint: FLANK PAIN Stated Complaint: PAIN ABOVE LEFT HIP (REPLACED) History of Present Illness The patient is a 61 year old male who presents to the Emergency Room with complaints of left-sided lower to mid back pain. The patient states that last night after he had a coughing episode he got a sharp pain in his left lower back that radiates up the left side of his posterior back and chest. He also admits to some chills but did not take his temperature. The patient denies any chest pain, nausea or vomiting. The patient states that he has a trachea and is normally on 3 L of oxygen at home. This is normally when he lays down. The patient states he recently got off Bactrim and prednisone for upper respiratory infection. This he stopped approximately one and half weeks ago. The patient states that he tried some Percocet for pain last night and again at 4 AM without any relief. The patient denies any urinary symptoms of frequency, urgency or dysuria. The patient denies any history of kidney stones. 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 Review of Systems 10 system review was performed and was negative unless stated otherwise history of present illness. Past Medical/Surgical History Medical Problems: (1) Foreign body in trachea (2) Tracheostomy in place Social History Smoking Status: Former Smoker Marital Status: Occupation Status: disabled Current/Historical Medications Scheduled Atorvastatin (Lipitor), 10 MG PO DAILY Digoxin (Digoxin), 0.125 MG PEG 5XWK Dulaglutide (Trulicity), 1 WK Insulin Glargine (Lantus Solostar), 19-22 UNITS SC AMHS Levothyroxine Sodium (Levothyroxine Sodium), 175 MCG PO DAILY Losartan Potassium (Cozaar), 12.5 MG PO DAILY Metoprolol Succinate (Toprol Xl), 50 MG PO BID Omeprazole (Prilosec), 40 MG PO DAILY Scheduled PRN Naproxen (Aleve), 220 MG PO UD PRN for Pain Physical Exam Vital Signs Date Time Temp Pulse Resp B/P (MAP) Pulse Ox O2 Delivery O2 Flow Rate FiO2 04/12/17 11:12 98 93 04/12/17 10:52 95 24 122/60 91 6.0 04/12/17 09:58 95 100/61 92 04/12/17 09:22 93 24 97/60 92 04/12/17 08:44 103 32 121/67 93 Venturi Mask 6.0 04/12/17 08:20 101 28 95/59 93 6.0 04/12/17 07:47 101 04/12/17 07:30 95 Oxymask 3.0 04/12/17 07:21 36.9 101 24 95/49 85 Room Air Physical Exam GENERAL 61-year-old white male appears with oxygen placed over his trachea running at 3 L. MENTAL Status: Alert and oriented 3. PHARYNX: No ear erythema or edema noted. NECK: Supple, no lymphadenopathy noted. Trachea noted. No carotid bruits noted. LUNGS: Patient has diffuse rales throughout both lung randolph. Breath sounds are distant bilaterally. CARDIAC: Regular rate and rhythm without murmur. Pulses is full and equal throughout. BACK: Patient is tender to palpation over the left posterior lower chest wall. Armas slight CVA tenderness. Right side nontender. ABDOMEN: Positive bowel sounds all 4 quadrants. Soft, nontender to palpation without organomegaly or masses. SKIN: No rashes noted. Medical Decision & Procedures ER Provider Diagnostic Interpretation: SINGLE VIEW CHEST CLINICAL HISTORY: Left-sided chest pain. FINDINGS: An AP, portable, upright chest radiograph is compared to study dated 11/04/2016 and correlated with chest CT dated 12/22/2016. The examination is degraded by portable technique and patient rotation. The heart is enlarged and there is atherosclerotic calcification of the thoracic aorta. Pulmonary vasculature is noncongested. Right paramediastinal fibrotic change is similar to previous. This was better characterized and 12/22/2016 CT scan. There is no evidence of superimposed airspace consolidation. No large pleural effusion is identified and no pneumothorax is seen. The skeletal structures are osteopenic. The bony thorax is grossly intact. Numerous surgical clips are seen in the left upper quadrant. IMPRESSION: 1. Cardiomegaly with no acute cardiopulmonary abnormality. 2. Right paramediastinal fibrotic change is similar to previous.. Electronically signed by: Dariusz Levine M.D. 04/12/2017 8:48 AM Dictated Date/Time: 04/12/2017 8:[address] SCAN OF THE CHEST, ABDOMEN, AND PELVIS WITH IV CONTRAST CLINICAL HISTORY: Lower chest pain. Leukocytosis. Left flank pain. COMPARISON STUDY: Chest x-ray dated 04/12/2017. Chest CT dated 12/22/2016 and 05/14/2010. TECHNIQUE: Following the IV administration of 94 of Optiray 320, CT scan of the chest, abdomen, and pelvis was performed from the thoracic inlet to the proximal femora. Images are reviewed in the axial, sagittal, and coronal planes. IV contrast was administered without complication. Automated dose control exposure was utilized. A dose lowering technique was utilized adhering to the principles of ALARA. CT DOSE: 897.61 mGy.cm FINDINGS: CHEST: Thyroid: The thyroid gland is atrophic. A tracheostomy defect is suggested anteriorly. Thoracic aorta: There is atherosclerotic calcification of the thoracic aorta, which is normal in caliber and demonstrates standard 3-vessel arch anatomy. No dissection is seen. Pulmonary vasculature: The main pulmonary arteries appear dilated suggesting pulmonary artery hypertension. There are no filling defects identified in the central pulmonary vessels to indicate pulmonary embolus. Note that this examination was not protocoled for evaluation of the pulmonary arteries. Heart: The heart is mildly enlarged and there is a small to moderate pericardial effusion. Lungs and pleural spaces: There are small right and trace left pleural effusions with associated atelectasis. Perimediastinal fibrosis in the right lung is unchanged. No airspace consolidation is seen typical for pneumonia. A 7 mm right lower lobe nodule seen on image #125. This is unchanged from 2011 and of doubtful significance. Foci of air trapping are suggested throughout both lungs. The tracheal wall appears thickened and is densely calcified. There is also thickening of the lower lobe airways. There is significant narrowing of the bronchus intermedius as well as the left lower lobe bronchus. Mediastinum: Subcarinal/right infrahilar nodularity suggested. This is not well assessed. A b2b sales representative focus on image #144 measures at least 2.1 cm. A high right peritracheal node on image #95 measures 1.1 cm in short axis. Janina: The right hilum is not well evaluated due to paramediastinal fibrosis. No left hilar adenopathy is seen. There is ill-defined right infrahilar soft tissue. Axillae: There is no axillary lymphadenopathy. Bony thorax: The skeletal structures are heterogeneously osteopenic. No lytic or blastic lesions are identified. Degenerative change is seen throughout the thoracic spine. Arthritic change is seen in the shoulders. A large calcified joint body is noted on the right. ABDOMEN AND PELVIS: Liver: The contrast-enhanced liver is enlarged, measuring 23.3 cm in length. The liver demonstrates diffusely diminished attenuation consistent with severe hepatic steatosis. Foci of geographic sparing are noted. There is no intrahepatic or ductal dilatation. The hepatic veins and portal veins are patent. Gallbladder: Unremarkable. Spleen: A normal spleen is not identified and the spleen is presumed surgically absent. A 2.4 cm soft tissue nodule in the left upper quadrant image #130 likely represents a splenule.. Pancreas: The pancreas is atrophic. The pancreatic tail appears diminutive/atrophic and may be surgically absent. There is dilatation of the distal pancreatic duct which measures up to 4 mm in diameter. The pancreatic head is more normal in appearance. Mild stranding suggested around the proximal pancreas. Adrenal glands: A 1.4 cm low-attenuation nodule in the right adrenal gland as seen on image #113. This likely represents an adenoma but cannot be definitively characterized due to the presence of IV contrast. The left adrenal gland is normal in appearance. Kidneys: The contrast enhanced kidneys demonstrate mild cortical atrophy and are without hydronephrosis. Cortical scarring is present in the upper pole of both kidneys, left greater than right. The kidneys enhance symmetrically. Abdominal vasculature: The abdominal aorta is normal in course and caliber noting moderate atherosclerotic calcification. Bowel: There is no bowel obstruction. 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 The duodenum fails to cross midline, the ascending colon is located just left of midline, and the cecum is present in the mid pelvis. Moderate fecal retention is identified. The appendix is not identified. Peritoneum: There is no intraperitoneal free air or abdominal ascites. Lymphadenopathy: None. Pelvic viscera: Evaluation of the pelvis is degraded by streak artifact from a left hip arthroplasty. The prostate gland is enlarged and heterogeneous, measuring over 5 cm in transverse diameter. The bladder is decompressed and not well evaluated. Skeletal structures: The skeletal structures are heterogeneously osteopenic. There is mild to moderate lumbosacral spondylosis. A left hip arthroplasty is in place. Advanced arthritic change is seen in the right hip. There is near complete fusion of the right sacroiliac joint. No lytic or blastic lesions are seen. IMPRESSION: 1. There is marked wall thickening N calcification of the tracheobronchial tree. The tracheal lumen appears narrowed, and there is significant narrowing of the right mainstem bronchus as well as the left lower lobe bronchus. This may be related to chronic inflammation, or could represent pathology such as tracheobronchopathia osteochondroplastica versus amyloidosis. Clinical correlation will be essential. 2. There is evidence of previous tracheostomy. 3. There are small right and trace left pleural effusions with associated atelectasis. No airspace consolidation is seen typical for pneumonia. 4. Cardiomegaly and small to moderate pericardial effusion. There is evidence of pulmonary artery hypertension. 5. Right paramediastinal fibrosis is similar to previous. 6. There are foci of nodularity in the subcarinal space and in the right infrahilar region. Enlarged lymph nodes are suspected but difficult to delineate. Correlation with the patient's medical history will be essential. 7. Hepatomegaly and severe hepatic steatosis. 8. The spleen is not identified and presumed surgically absent. A splenule is suspected in the left upper quadrant. 9. The mid to distal pancreas is atrophic and there is dilatation of the pancreatic duct. The pancreatic tail is truncated and may be surgically absent. There is no clear evidence of mass lesion. Correlation with the medical/surgical history as well as any prior outside imaging studies will be required. 10. There is mild stranding suggested around the proximal pancreas. Correlate clinically and with serum lipase levels for evidence of mild acute pancreatitis. 11. 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 No bowel obstruction is seen. Moderate constipation is observed. 12. Additional findings as above. Electronically signed by: Dariusz Levine M.D. 04/12/2017 11:15 AM Dictated Date/Time: 04/12/2017 10:48 AM Laboratory Results 04/12/17 07:30 Red Blood Count 4.25, Mean Corpuscular Volume 100.9, Mean Corpuscular Hemoglobin 33.2, Mean Corpuscular Hemoglobin Concent 32.9, Mean Platelet Volume 12.6, Neutrophils (%) (Auto) 91.0, Lymphocytes (%) (Auto) 3.8, Monocytes (%) ( Auto) 3.6, Eosinophils (%) (Auto) 0.0, Basophils (%) (Auto) 0.1, Neutrophils # ( Auto) 21.35, Lymphocytes # (Auto) 0.89, Monocytes # (Auto) 0.85, Eosinophils # ( Auto) 0.01, Basophils # (Auto) 0.03 04/12/17 07:30 04/12/17 08:49 Test 04/12/17 07:30 04/12/17 08:49 04/12/17 09:02 04/12/17 09:45 White Blood Count 23.48 K/uL (4.8-10.8) Red Blood Count 4.25 M/uL (4.7-6.1) Hemoglobin 14.1 g/dL (14.0-18.0) Hematocrit 42.9 % (42-52) Mean Corpuscular Volume 100.9 fL (80-100) Mean Corpuscular Hemoglobin 33.2 pg (25-34) Mean Corpuscular Hemoglobin Concent 32.9 g/dl (32-36) Platelet Count 273 K/uL (130-400) Mean Platelet Volume 12.6 fL (7.4-10.4) Neutrophils (%) (Auto) 91.0 % Lymphocytes (%) (Auto) 3.8 % Monocytes (%) (Auto) 3.6 % Eosinophils (%) (Auto) 0.0 % Basophils (%) (Auto) 0.1 % Neutrophils # (Auto) 21.35 K/uL (1.4-6.5) Lymphocytes # (Auto) 0.89 K/uL (1.2-3.4) Monocytes # (Auto) 0.85 K/uL (0.11-0.59) Eosinophils # (Auto) 0.01 K/uL (0-0.5) Basophils # (Auto) 0.03 K/uL (0-0.2) RDW Standard Deviation 55.4 fL (36.4-46.3) RDW Coefficient of Variation 15.1 % (11.5-14.5) Immature Granulocyte % (Auto) 1.5 % Immature Granulocyte # (Auto) 0.35 K/uL (0.00-0.02) Anion Gap 10.0 mmol/L (3-11) Estimated GFR () 64.3 Estimated GFR (Non- 55.5 BUN/Creatinine Ratio 15.9 (10-20) Calcium Level 8.5 mg/dl (8.5-10.1) Total Bilirubin 1.1 mg/dl (0.2-1) Alanine Aminotransferase (ALT/SGPT) 42 U/L (12-78) Alkaline Phosphatase 152 U/L (45-117) Total Protein 7.0 gm/dl (6.4-8.2) Albumin 2.9 gm/dl (3.4-5.0) Lipase 30 U/L (73-393) Direct Bilirubin 0.4 mg/dl (0-0.2) Aspartate Amino Transf (AST/SGOT) 31 U/L (15-37) Lactic Acid Level 3.0 mmol/L (0.4-2.0) Urine Color YELLOW Urine Appearance CLEAR (CLEAR) Urine pH 5.0 (4.5-7.5) Urine Specific Altha 1.023 (1.000-1.030) Urine Protein NEG (NEG) Urine Glucose (UA) 1+ (NEG) Urine Ketones NEG (NEG) Urine Occult Blood NEG (NEG) Urine Nitrite NEG (NEG) Urine Bilirubin NEG (NEG) Urine Urobilinogen NEG (NEG) Urine Leukocyte Esterase NEG (NEG) Medications Administered Medications (Trade) Dose Ordered Sig/Luis Route Start Time Stop Time Status Last Admin Dose Admin Methylprednisolone Sodium Succinate (Solu-Medrol IV) 125 mg NOW STAT IV 04/12/17 07:58 04/12/17 08:02 DC 04/12/17 08:18 125 MG Morphine Sulfate (MoRPHine SULFATE INJ) 6 mg NOW STAT IV 04/12/17 07:58 04/12/17 08:02 DC 04/12/17 08:17 6 MG Ondansetron HCl (Zofran Inj) 4 mg NOW STAT IV 04/12/17 07:58 04/12/17 08:02 DC 04/12/17 08:16 4 MG Hydromorphone HCl (Dilaudid Inj) 0.5 mg NOW STAT IV 04/12/17 08:40 04/12/17 08:41 DC 04/12/17 08:48 0.5 MG ED Course The patient was evaluated. The patient was placed on a monitor. IV access was obtained. The patient was placed on 3 L of oxygen. Continuous pulse ox was ordered. CBC and differential, renal profile, LFTs and lipase levels, urinalysis was ordered. Lactic acid was ordered, blood cultures 2 was ordered. The patient was given Dilaudid 1 mg IV for pain. X-ray of the chest was ordered interpreted by the radiologist as above with no change from prior and no acute cardiopulmonary disease. Patient was independently evaluated by Dr. Mcarthur who agree with treatment plan. The patient's labs are reviewed. The patient's white count is 23,000. This is like acid is 3. Blood cultures are pending. Remainder labs are unremarkable. A CT of the chest and abdomen was ordered and interpreted by the radiologist as above. Peritracheal thickening noted but no evidence of acute infection in the chest or abdomen. Urinalysis was negative. I discussed the case with Dr. Mcarthur. The hospitalist was consulted for admission. I spoke with the pharmacist who recommended 2 g of cefepime and 2 g of vancomycin IV. Medical Decision Differential diagnosis include pretracheal ceruminous infection, pneumonia, sepsis, bronchitis, pyelonephritis, UTI. The decision was to admit base of the patient's elevated 23,000 white count, hypoxia and elevated lactic acid [place] Drug Monitoring Program Search Results: patient reviewed within database Medication Reconcilliation Current Medication List: was personally reviewed by me Blood Pressure Screening Patient's blood pressure: Normal blood pressure Impression Primary Impression: Leukocytosis Additional Impressions: Elevated lactic acid level Hypoxia Departure Information Dispostion Being Evaluated By Hospitalist Condition GOOD Referrals Keyla Casanova D.O. (PCP) Patient Instructions My [facility] Problem Qualifiers Primary Impression: Leukocytosis Leukocytosis type: unspecified Qualified Codes: D72.829 - Elevated white blood cell count, unspecified
[2017-04-12] MEDS ORDERED: ALBUT/IPRATROP 3MG/0.5MG NEB 3 ML VIAL INH SCH (13:00)
[2017-04-12] MEDS ORDERED: ONDANSETRON INJ 2 MG/ML 2 ML VIAL IV PRN (13:00)
[2017-04-12] MEDS ORDERED: GLUCOSE 40% GEL 15 GM TUBE PO PRN (13:30)
[2017-04-12] MEDS ORDERED: GLUCOSE 10 TABS/TUBE PO PRN (13:30)
[2017-04-12] MEDS ORDERED: DEXTROSE 50% 50 ML SYR IV PRN (13:30)
[2017-04-12] MEDS ORDERED: GLUCAGON FOR INJ 1 MG VIAL SQ PRN (13:30)
[2017-04-12] MEDS ORDERED: PHARMACY GLYCEMIC MGMT CONSULT PRN (13:42)
[2017-04-12] MEDS ORDERED: CONSULT PHARMACY STA (13:45)
[2017-04-12] MEDS ORDERED: IPRASOL4 INH (13:54)
[2017-04-12] MEDS ORDERED: ACET10SO3 NEB (13:54)
[2017-04-12] MEDS ORDERED: VANCOMYCIN CONSULT ACTIVE PRN (14:00)
[2017-04-12] MEDS ORDERED: PIPERACILL/TAZOBAC CONSULT ACTIVE PRN (14:00)
[2017-04-12] MEDS ORDERED: LEVALBUTEROL/IPRATROPIUM NEB INH SCH (15:00)
--- NOTE | 2017-04-12 15:19 | Pharmacy Progress Note ---
Pharmacy Antibiotic Consult Date of Service: Apr 12, 2017. Pharmacy Dosing Scope Pharmacy is consulted to initiate Vancomycin and zosyn IV dosing therapy, order appropriate labs and adjust drug dose/frequency. Subjective The patient is a 61 year old male admitted on Apr 12, 2017 at 12:46. Objective Height (Feet): 5 Height (Inches): 11.00 Weight (Kilograms): 100.000 Lab Results (24hrs): Test 04/12/17 07:30 04/12/17 08:49 04/12/17 09:02 04/12/17 09:45 White Blood Count 23.48 K/uL (4.8-10.8) Red Blood Count 4.25 M/uL (4.7-6.1) Hemoglobin 14.1 g/dL (14.0-18.0) Hematocrit 42.9 % (42-52) Mean Corpuscular Volume 100.9 fL (80-100) Mean Corpuscular Hemoglobin 33.2 pg (25-34) Mean Corpuscular Hemoglobin Concent 32.9 g/dl (32-36) Platelet Count 273 K/uL (130-400) Mean Platelet Volume 12.6 fL (7.4-10.4) Neutrophils (%) (Auto) 91.0 % Lymphocytes (%) (Auto) 3.8 % Monocytes (%) (Auto) 3.6 % Eosinophils (%) (Auto) 0.0 % Basophils (%) (Auto) 0.1 % Neutrophils # (Auto) 21.35 K/uL (1.4-6.5) Lymphocytes # (Auto) 0.89 K/uL (1.2-3.4) Monocytes # (Auto) 0.85 K/uL (0.11-0.59) Eosinophils # (Auto) 0.01 K/uL (0-0.5) Basophils # (Auto) 0.03 K/uL (0-0.2) RDW Standard Deviation 55.4 fL (36.4-46.3) RDW Coefficient of Variation 15.1 % (11.5-14.5) Immature Granulocyte % (Auto) 1.5 % Immature Granulocyte # (Auto) 0.35 K/uL (0.00-0.02) Sodium Level 138 mmol/L (136-145) Potassium Level mmol/L (3.5-5.1) 4.7 mmol/L (3.5-5.1) Chloride Level 103 mmol/L (98-107) Carbon Dioxide Level 25 mmol/L (21-32) Anion Gap 10.0 mmol/L (3-11) Blood Urea Nitrogen 22 mg/dl (7-18) Creatinine 1.35 mg/dl (0.60-1.40) Estimated GFR () 64.3 Estimated GFR (Non- 55.5 BUN/Creatinine Ratio 15.9 (10-20) Random Glucose 118 mg/dl (70-99) Calcium Level 8.5 mg/dl (8.5-10.1) Total Bilirubin 1.1 mg/dl (0.2-1) Direct Bilirubin mg/dl (0-0.2) 0.4 mg/dl (0-0.2) Aspartate Amino Transf (AST/SGOT) U/L (15-37) 31 U/L (15-37) Alanine Aminotransferase (ALT/SGPT) 42 U/L (12-78) Alkaline Phosphatase 152 U/L (45-117) Total Protein 7.0 gm/dl (6.4-8.2) Albumin 2.9 gm/dl (3.4-5.0) Lipase 30 U/L (73-393) Lactic Acid Level 3.0 mmol/L (0.4-2.0) Urine Color YELLOW Urine Appearance CLEAR (CLEAR) Urine pH 5.0 (4.5-7.5) Urine Specific [place] 1.023 (1.000-1.030) Urine Protein NEG (NEG) Urine Glucose (UA) 1+ (NEG) Urine Ketones NEG (NEG) Urine Occult Blood NEG (NEG) Urine Nitrite NEG (NEG) Urine Bilirubin NEG (NEG) Urine Urobilinogen NEG (NEG) Urine Leukocyte Esterase NEG (NEG) Test 04/12/17 12:46 04/12/17 13:05 04/12/17 13:29 Assessment & Plan Assessment Pt presented to the ER with complaints of sharp, radiating pain in his left lower side after a coughing spell. He recently completed a course of bactrim and prednisone as an outpatient. Urine and blood cultures pending. Pt's scr=1.35 today. Baseline is 1. Vancomycin and Zosyn being initiated for treatment of possible pneumonia. Vancomycin * Pt received 2 gm in ER. * Goal trough 15-20 mcg/mL * Trough level ordered for just prior to fourth maintenance dose * Maintenance dosing at 12.5mg/kg * Estimated pk parameters: ke=0.060, t1/2 11.5 hrs Zosyn * Will begin extended infusion dosing at 1800 as pt had 1 dose of cefepime 2gm in the ER. Plan Vancomycin * 1.25gm q 14 hours * Trough level ordered for 04/14 @1530 Zosyn * 3.375gm q 8 hours Pharmacy will continue to follow and will adjust dose/frequency as necessary. Thank you
[2017-04-12] MEDS: SODIUM CHLORIDE 0.9% 1000ML 1,000 ML IV SCH ×2 (15:22→22:46)
--- NOTE | 2017-04-12 15:24 | Pharmacy Progress Note ---
Glycemic Control Intl Consult Date of Service Apr 12, 2017. Scope Glycemic Pharmacist consulted by Birdie Peterson on 04/12 for glycemic control and to write orders per [facility] inpatient glycemic control protocol Objective Weight (Kilograms): 100.000 Accuchecks BSG (last 24hrs): Test 04/12/17 07:30 Random Glucose 118 mg/dl (70-99) Laboratory Data (last 24hrs) Test 04/12/17 07:30 04/12/17 08:49 Anion Gap 10.0 mmol/L BUN/Creatinine Ratio 15.9 Blood Urea Nitrogen 22 mg/dl Creatinine 1.35 mg/dl Potassium Level mmol/L 4.7 mmol/L Sodium Level 138 mmol/L White Blood Count 23.48 K/uL Red Blood Count 4.25 M/uL Hemoglobin 14.1 g/dL Hematocrit 42.9 % Mean Corpuscular Volume 100.9 fL Mean Corpuscular Hemoglobin 33.2 pg Mean Corpuscular Hemoglobin Concent 32.9 g/dl Platelet Count 273 K/uL Mean Platelet Volume 12.6 fL Neutrophils (%) (Auto) 91.0 % Lymphocytes (%) (Auto) 3.8 % Monocytes (%) (Auto) 3.6 % Eosinophils (%) (Auto) 0.0 % Basophils (%) (Auto) 0.1 % Neutrophils # (Auto) 21.35 K/uL Lymphocytes # (Auto) 0.89 K/uL Monocytes # (Auto) 0.85 K/uL Eosinophils # (Auto) 0.01 K/uL Basophils # (Auto) 0.03 K/uL Recent Pertinent Medications Outpatient Anti-diabetic Regimen: * Lantus 19-22 units BID; trulicity 0.75mg weekly * A1c = pending Risk Factors for Insulin Resistance: * Steroids: SM 40mg q8 * Infection:possible urosepsis * Diet:NPO except meds Assessment & Plan ASSESSMENT: * Patient with AM blood sugar of 118 on admission. The patient is receiving IV steroids, but is also NPO and presents with a reasonable blood sugar. Therefore , will order a lantus scale tonight and more frequent BSG correction checks to ensure safety and efficacy. PLAN FOR INPATIENT GLYCEMIC CONTROL: * Holding outpatient oral diabetes medications * Basal insulin with LANTUS 10 units SQ tonight if BSG <120 or 20 units if BSG > or equal to 120 * Will reassess in AM for scheduled regimen * Correctional Insulin with NOVOLOG q4h while NPO and to assess for first 24 hours * Goal Range: Low 120 mg/dL - High 150 mg/dL * Correction Factor: 25 mg/dL/unit * Nutritional / Prandial insulin per carb ratio of 1 unit per 8 grams CHO consumed * Please note that the plan above was derived based on current level of insulin resistance and hospital stress. These recommendations are appropriate for inpatient admission only. Plan of care upon discharge will need to be reassessed to avoid potential outpatient hypo/hyperglycemia. Thank you.
[2017-04-12] MEDS: IPRATROPIUM BROMIDE NEB SOLN 0.02% 2.5 ML VIAL INH SCH ×2 (15:29→20:05)
[2017-04-12] MEDS: LEVALBUTEROL 1.25MG/0.5ML NEB INH SCH ×2 (15:29→20:05)
[2017-04-12] MEDS ORDERED: INSULIN ASPART 100 UNITS/ML 3 ML PEN SC SCH (16:00)
[2017-04-12] MEDS: INSULIN ASPART 100 UNITS/ML 3 ML PEN SC SCH ×3 (16:00→20:56)
[2017-04-12] MEDS: LEVOFLOXACIN / D5W 750 MG in PREMIXED IN D5W 150 ML IV SCH (16:41)
[2017-04-12] MEDS: DIGOXIN 0.125 MG/2.5 ML UDP PEG SCH (16:42)
[2017-04-12] MEDS: TRAMADOL HCL 50 MG TAB PO PRN (17:01)
--- NOTE | 2017-04-12 18:15 | Pulmonary Consultation ---
History General Date of Service: Apr 12, 2017. Stated Complaint: Hypoxia, Leukocytosis HPI The patient is a 61 year old male who presents to [facility] with complaints of Hypoxia, Leukocytosis. The patient's primary care provider is Keyla Casanova D.O.. Mr. Rodriguez is a 61-year-old male with history of Hodgkin's lymphoma status post XRT with secondary pulmonary fibrosis, recurrent aspiration requiring end laryngectomy. He is normally on 3 L supplemental oxygen at night, but over the last few days has been using oxygen 24/ 7. He presents today complaining of left left-sided mid to lower back pain after episode of coughing last night. Pain now radiates to left upper and lower back, associated with pain upon weight -bearing on left leg. He tried Percocet without pain relief. He denies any alleviating factors. Over the last several days patient has noticed subjective fevers and chills. He has chronic cough with productive sputum that is brownish in color. He was recently treated with Bactrim and prednisone for upper respiratory infection. He completed course about 10 days ago. He denies any hemoptysis. He often uses saline and Mucomyst with deep suctioning for aggressive pulmonary toilet. In October of this year, cleared his secretions with a wire J-hook which perforated left lower lobe bronchial wall. This was removed by Dr. Forrester. He has had multiple bronchoscopies in the past. Bronchial washing are as follows: (12/24/05) MRSA; (02/02/07) MRSA; (05/15/10) MRSA, Mycobacterium Gordonae. (01/11/2017) grew MSSA, Mycobacterium other than TB, and fungal ALTERNARIA SPECIES. Expectorated sputum from May 2010 grew MSSA. Upon presentation to the ER his temperature was 36.9, pulse 101, respiratory rate 24, blood pressure 95/49, saturating 85% on room air. He was placed on 3 L oxygen mask with increase in pulse oximetry to 95%. Laboratory data showed sodium 138, chloride 103, carbon dioxide 25, BUN 22, creatinine 1.35. Total bili 1.1, alk phosphatase 162, lipase 30. White blood cell count 23,000, hemoglobin 14, hematocrit 42, platelet count 273. Urine culture and blood cultures pending. Chest x-ray showed cardiomegaly with a right paramediastinal fibrotic changes unchanged from previous CT done in December 2016. In the ER the patient received Zofran 4 mg, morphine 6 mg, Solu-Medrol 125 mg, Dilaudid 0.5 mg, cefepime 2 g, Vanco 2 g and ipratropium/albuterol nebulizer every 6 hours. Currently patient is on trach collar 40% FiO2 with a flow rate of 11 L. Saturating 91%. Historian: patient Onset: yesterday, last week Severity: moderate Complaint Status: persistent Review of Systems Constitutional: reports: as stated in HPI Eyes: reports: as stated in HPI ENT: reports: as stated in HPI Cardiovascular: reports: as stated in HPI Respiratory: reports: as stated in HPI Gastrointestinal: reports: as stated in HPI Genitourinary - Male: reports: as stated in HPI Musculoskeletal: reports: as stated in HPI Integumentary: reports: as stated in HPI Neurologic: reports: as stated in HPI Psychiatric: reports: as stated in HPI Endocrine: as stated in HPI Hematologic / Lymphatic: as stated in HPI Allergic / Immunologic: as stated in HPI All Other Symptoms All Other Systems: Reviewed and Negative Past Medical History Past Medical History: 1) Hodgkins Lymphomas Dx: 1978 s/p XRT to the chest and neck 2) Pulmonary fibrosis from s/p XRT 3) GERD/recurrent aspiration requiring end tracheostomy/laryngectomy 4) Benign neoplasm of the bowel 5) Hypothyroidism 6) Prostatitis 7) Begin tumor of the kidney left 8) Nephrotic syndrome 9) DJD left hip 10) DM 11) HTN Past Surgical History: 1) End-Tracheostomy/laryngectomy 2) Splenectomy 3) Left partial Nephrectomy 4) Tonsil and adenoidectomy 5) 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 Family History Colon cancer CAD Social History Social History Occupation: [employer] Hx Tobacco Use In Past Year?: No Smoking Status: Former Smoker Marital status: Occupational Status: disabled Hx Tobacco Use In Past Year?: No Smoking Status: Former Smoker Marital status: Occupational Status: disabled Immunizations History of Influenza Vaccine: Yes History of Tetanus Vaccine?: No History of Pneumococcal: Yes History of Hepatitis B Vaccine: No History of MDRO History of MDRO: Yes Allergies Coded Allergies: No Known Allergies (Verified , 04/12/17) Current Medications Reported Home Medications Medications Dose Route/Sig Max Daily Dose Days Date Category Dose Instructions Acetylcysteine 10 % Sarika 3 Ml INH DAILY 04/12/17 Reported Duoneb (Ipratropium-Albuterol) 3 Ml Nebu 1 Treatment INH Q4H 04/12/17 Reported Lipitor (Atorvastatin Calcium) 10 Mg Tab 10 Mg PO DAILY 04/12/17 Reported Trulicity (Dulaglutide) 0.75 Mg/0.5 Ml Inj 1 WK 01/11/17 Reported takes on fridays Toprol Xl (Metoprolol Succinate) 50 Mg Tab 50 Mg PO BID 10/18/16 Reported Digoxin 0.125 Mg Tab 0.125 Mg PEG 5XWK 10/18/16 Reported TAKES MON,,WED,,FRI Lantus Solostar (Insulin Glargine) 100 Unit/Ml Inj 19-22 Units SC AMHS 10/18/16 Reported Cozaar (Losartan Potassium) 25 Mg Tab 12.5 Mg PO DAILY 10/18/16 Reported Prilosec (Omeprazole) 40 Mg Cap 40 Mg PO DAILY 10/18/16 Reported Levothyroxine Sodium 175 Mcg Tab 175 Mcg PO DAILY 10/18/16 Reported Aleve (Naproxen) 220 Mg Tab 220 Mg PO UD PRN 05/14/10 Reported TAKE PER PACKAGE DIRECTIONS Physical Physical Exam Vital Signs: Date Time Temp Pulse Resp B/P (MAP) Pulse Ox O2 Delivery O2 Flow Rate FiO2 04/12/17 15:34 37.8 110 20 139/74 (95) 91 Trach Collar 11.0 40 04/12/17 15:30 88 18 95 Trach Collar 50 04/12/17 13:50 36.9 107 20 151/84 (106) 97 Trach Collar 04/12/17 13:33 91 04/12/17 13:12 102 24 110/63 90 Trach Collar 10.0 40 04/12/17 12:50 93 Trach Collar 6.0 04/12/17 11:12 98 93 04/12/17 10:52 95 24 122/60 91 6.0 04/12/17 09:58 95 100/61 92 04/12/17 09:22 93 24 97/60 92 04/12/17 08:44 103 32 121/67 93 Venturi Mask 6.0 04/12/17 08:20 101 28 95/59 93 6.0 04/12/17 07:47 101 04/12/17 07:30 95 Oxymask 3.0 04/12/17 07:21 36.9 101 24 95/49 85 Room Air General Appearance: NO APPARENT DISTRESS Head: NORMOCEPHALIC, ATRAUMATIC Eyes: PERRLA, NO DISCHARGE, EOMI, SCLERAE NORMAL ENT: tracheal ostomy Respiratory: accessory muscle use, wheezing, other Abdomen: NON TENDER Genitourinary - Male: EXTERNAL GENITALIA NORMAL Back: NORMAL INSPECTION, NO MIDLINE TENDERNESS, NO CVA TENDERNESS Upper Extremities: NO EDEMA, NO DEFORMITY, NORMAL ROM Lower Extremities: NO EDEMA, NO DEFORMITY, NORMAL ROM Pulses: carotid (R) (1+), carotid (L) (1+), posterior tibial (R), posterior tibial (L) (1+) Neuro: ALERT, ORIENTED x 3, NORMAL MOTOR EXAM, NORMAL SENSATION, NORMAL CEREBELLAR EXAM Reflexes: biceps (R) (2+), bicpes (L) (2+), achilles (R) (2+), achilles (L) (2+ ) Babinski Testing: right (downgoing), left (downgoing) Psychiatric: NORMAL AFFECT Diagnostics Labs Results Past 24 Hours Test 04/12/17 07:30 04/12/17 08:49 04/12/17 09:02 04/12/17 09:45 Range/Units White Blood Count 23.48 4.8-10.8 K/uL Red Blood Count 4.25 4.7-6.1 M/uL Hemoglobin 14.1 14.0-18.0 g/dL Hematocrit 42.9 42-52 % Mean Corpuscular Volume 100.9 80-100 fL Mean Corpuscular Hemoglobin 33.2 25-34 pg Mean Corpuscular Hemoglobin Concent 32.9 32-36 g/dl Platelet Count 273 130-400 K/uL Mean Platelet Volume 12.6 7.4-10.4 fL Neutrophils (%) (Auto) 91.0 % Lymphocytes (%) (Auto) 3.8 % Monocytes (%) (Auto) 3.6 % Eosinophils (%) (Auto) 0.0 % Basophils (%) (Auto) 0.1 % Neutrophils # (Auto) 21.35 1.4-6.5 K/uL Lymphocytes # (Auto) 0.89 1.2-3.4 K/uL Monocytes # (Auto) 0.85 0.11-0.59 K/uL Eosinophils # (Auto) 0.01 0-0.5 K/uL Basophils # (Auto) 0.03 0-0.2 K/uL RDW Standard Deviation 55.4 36.4-46.3 fL RDW Coefficient of Variation 15.1 11.5-14.5 % Immature Granulocyte % (Auto) 1.5 % Immature Granulocyte # (Auto) 0.35 0.00-0.02 K/uL Sodium Level 138 136-145 mmol/L Potassium Level 4.7 3.5-5.1 mmol/L Chloride Level 103 98-107 mmol/L Carbon Dioxide Level 25 21-32 mmol/L Anion Gap 10.0 3-11 mmol/L Blood Urea Nitrogen 22 7-18 mg/dl Creatinine 1.35 0.60-1.40 mg/dl Estimated GFR () 64.3 Estimated GFR (Non- 55.5 BUN/Creatinine Ratio 15.9 10-20 Random Glucose 118 70-99 mg/dl Calcium Level 8.5 8.5-10.1 mg/dl Total Bilirubin 1.1 0.2-1 mg/dl Direct Bilirubin 0.4 0-0.2 mg/dl Aspartate Amino Transf (AST/SGOT) 31 15-37 U/L Alanine Aminotransferase (ALT/SGPT) 42 12-78 U/L Alkaline Phosphatase 152 45-117 U/L Total Protein 7.0 6.4-8.2 gm/dl Albumin 2.9 3.4-5.0 gm/dl Lipase 30 73-393 U/L Lactic Acid Level 3.0 0.4-2.0 mmol/L Urine Color YELLOW Urine Appearance CLEAR CLEAR Urine pH 5.0 4.5-7.5 Urine Specific Reserve 1.023 1.000-1.030 Urine Protein NEG NEG Urine Glucose (UA) 1+ NEG Urine Ketones NEG NEG Urine Occult Blood NEG NEG Urine Nitrite NEG NEG Urine Bilirubin NEG NEG Urine Urobilinogen NEG NEG Urine Leukocyte Esterase NEG NEG Test 04/12/17 12:46 04/12/17 13:05 04/12/17 13:29 Range/Units Microbiology Results 04/12/17 Blood Culture, Received Pending 04/12/17 Blood Culture, Received Pending 04/12/17 Urine Culture, Received Pending Diagnostic Radiology SINGLE VIEW CHEST CLINICAL HISTORY: Left-sided chest pain. FINDINGS: An AP, portable, upright chest radiograph is compared to study dated 11/04/2016 and correlated with chest CT dated 12/22/2016. The examination is degraded by portable technique and patient rotation. The heart is enlarged and there is atherosclerotic calcification of the thoracic aorta. Pulmonary vasculature is noncongested. Right paramediastinal fibrotic change is similar to previous. This was better characterized and 12/22/2016 CT scan. There is no evidence of superimposed airspace consolidation. No large pleural effusion is identified and no pneumothorax is seen. The skeletal structures are osteopenic. The bony thorax is grossly intact. Numerous surgical clips are seen in the left upper quadrant. IMPRESSION: 1. Cardiomegaly with no acute cardiopulmonary abnormality. 2. Right paramediastinal fibrotic change is similar to previous.. CT SCAN OF THE CHEST, ABDOMEN, AND PELVIS WITH IV CONTRAST CLINICAL HISTORY: Lower chest pain. Leukocytosis. Left flank pain. COMPARISON STUDY: Chest x-ray dated 04/12/2017. Chest CT dated 12/22/2016 and 05/14/2010. TECHNIQUE: Following the IV administration of 94 of Optiray 320, CT scan of the chest, abdomen, and pelvis was performed from the thoracic inlet to the proximal femora. Images are reviewed in the axial, sagittal, and coronal planes. IV contrast was administered without complication. Automated dose control exposure was utilized. A dose lowering technique was utilized adhering to the principles of ALARA. CT DOSE: 897.61 mGy.cm FINDINGS: CHEST: Thyroid: The thyroid gland is atrophic. A tracheostomy defect is suggested anteriorly. Thoracic aorta: There is atherosclerotic calcification of the thoracic aorta, which is normal in caliber and demonstrates standard 3-vessel arch anatomy. No dissection is seen. Pulmonary vasculature: The main pulmonary arteries appear dilated suggesting pulmonary artery hypertension. There are no filling defects identified in the central pulmonary vessels to indicate pulmonary embolus. Note that this examination was not protocoled for evaluation of the pulmonary arteries. Heart: The heart is mildly enlarged and there is a small to moderate pericardial effusion. Lungs and pleural spaces: There are small right and trace left pleural effusions with associated atelectasis. Perimediastinal fibrosis in the right lung is unchanged. No airspace consolidation is seen typical for pneumonia. A 7 mm right lower lobe nodule seen on image #125. This is unchanged from 2011 and of doubtful significance. Foci of air trapping are suggested throughout both lungs. The tracheal wall appears thickened and is densely calcified. There is also thickening of the lower lobe airways. There is significant narrowing of the bronchus intermedius as well as the left lower lobe bronchus. Mediastinum: Subcarinal/right infrahilar nodularity suggested. This is not well assessed. A quality audit representative focus on image #144 measures at least 2.1 cm. A high right peritracheal node on image #95 measures 1.1 cm in short axis. Janina: The right hilum is not well evaluated due to paramediastinal fibrosis. No left hilar adenopathy is seen. There is ill-defined right infrahilar soft tissue. Axillae: There is no axillary lymphadenopathy. Bony thorax: The skeletal structures are heterogeneously osteopenic. No lytic or blastic lesions are identified. Degenerative change is seen throughout the thoracic spine. Arthritic change is seen in the shoulders. A large calcified joint body is noted on the right. ABDOMEN AND PELVIS: Liver: The contrast-enhanced liver is enlarged, measuring 23.3 cm in length. The liver demonstrates diffusely diminished attenuation consistent with severe hepatic steatosis. Foci of geographic sparing are noted. There is no intrahepatic or ductal dilatation. The hepatic veins and portal veins are patent. Gallbladder: Unremarkable. Spleen: A normal spleen is not identified and the spleen is presumed surgically absent. A 2.4 cm soft tissue nodule in the left upper quadrant image #130 likely represents a splenule.. Pancreas: The pancreas is atrophic. The pancreatic tail appears diminutive/atrophic and may be surgically absent. There is dilatation of the distal pancreatic duct which measures up to 4 mm in diameter. The pancreatic head is more normal in appearance. Mild stranding suggested around the proximal pancreas. Adrenal glands: A 1.4 cm low-attenuation nodule in the right adrenal gland as seen on image #113. This likely represents an adenoma but cannot be definitively characterized due to the presence of IV contrast. The left adrenal gland is normal in appearance. Kidneys: The contrast enhanced kidneys demonstrate mild cortical atrophy and are without hydronephrosis. Cortical scarring is present in the upper pole of both kidneys, left greater than right. The kidneys enhance symmetrically. Abdominal vasculature: The abdominal aorta is normal in course and caliber noting moderate atherosclerotic calcification. Bowel: There is no bowel obstruction. 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 The duodenum fails to cross midline, the ascending colon is located just left of midline, and the cecum is present in the mid pelvis. Moderate fecal retention is identified. The appendix is not identified. Peritoneum: There is no intraperitoneal free air or abdominal ascites. Lymphadenopathy: None. Pelvic viscera: Evaluation of the pelvis is degraded by streak artifact from a left hip arthroplasty. The prostate gland is enlarged and heterogeneous, measuring over 5 cm in transverse diameter. The bladder is decompressed and not well evaluated. Skeletal structures: The skeletal structures are heterogeneously osteopenic. There is mild to moderate lumbosacral spondylosis. A left hip arthroplasty is in place. Advanced arthritic change is seen in the right hip. There is near complete fusion of the right sacroiliac joint. No lytic or blastic lesions are seen. IMPRESSION: 1. There is marked wall thickening N calcification of the tracheobronchial tree. The tracheal lumen appears narrowed, and there is significant narrowing of the right mainstem bronchus as well as the left lower lobe bronchus. This may be related to chronic inflammation, or could represent pathology such as tracheobronchopathia osteochondroplastica versus amyloidosis. Clinical correlation will be essential. 2. There is evidence of previous tracheostomy. 3. There are small right and trace left pleural effusions with associated atelectasis. No airspace consolidation is seen typical for pneumonia. 4. Cardiomegaly and small to moderate pericardial effusion. There is evidence of pulmonary artery hypertension. 5. Right paramediastinal fibrosis is similar to previous. 6. There are foci of nodularity in the subcarinal space and in the right infrahilar region. Enlarged lymph nodes are suspected but difficult to delineate. Correlation with the patient's medical history will be essential. 7. Hepatomegaly and severe hepatic steatosis. 8. The spleen is not identified and presumed surgically absent. A splenule is suspected in the left upper quadrant. 9. The mid to distal pancreas is atrophic and there is dilatation of the pancreatic duct. The pancreatic tail is truncated and may be surgically absent. There is no clear evidence of mass lesion. Correlation with the medical/surgical history as well as any prior outside imaging studies will be required. 10. There is mild stranding suggested around the proximal pancreas. Correlate clinically and with serum lipase levels for evidence of mild acute pancreatitis. 11. 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 No bowel obstruction is seen. Moderate constipation is observed. 12. Additional findings as above. EKG EKG from 04/12/2017 Sinus tachycardia, ventricular rate of 101 bpm Possible Left atrial enlargement Possible Anterior infarct , age undetermined Abnormal ECG When compared with ECG of 19-OCT-2016 09:24, No significant change was found Impression Assessment and Plan Sepsis Community acquired pneumonia Hypoxic respiratory failure Pulmonary fibrosis secondary to radiation pneumonitis History of aspiration status post laryngectomy Mr. Rodriguez this past medical history of Hodgkin's lymphoma status post recurrent aspiration with an tracheostomy who presents with chronic cough that has worsened associated with left-sided flank and back pain. He was recently treated with Bactrim and prednisone. He presents with mild tachycardia, tachypnea and hypoxemia. He has has grown out MRSA on previous BAL if I do agree with empirically treating him Vancomycin and Zosyn at this time. 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 Continue with supplemental oxygenation to maintain an SaO2 above 92%. He has has grown out MRSA on previous BAL if I do agree with empirically treating him Vancomycin and Zosyn at this time. 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 Continue with nebulizers every 4-6 hours. Consider tapering steroids. Continue PPI and DVT prophylaxis Keep nothing by mouth past midnight. We will plan for bronchoscopy in a.m.
[2017-04-12 18:38] LABS: INFLUENZA A PCR Neg for Influ A (NEG); INFLUENZA B ANTIGEN Neg for Influ B (NEG); INFLUENZA B PCR Neg for Influ B (NEG)
--- NOTE | 2017-04-12 18:47 | History and Physical ---
History & Physical Date & Time of Service: Apr 12, 2017 at 15:09 Chief Complaint: Hypoxia, Leukocytosis Primary Care Physician: Keyla Casanova D.O. History of Present Illness Source: patient, spouse Pt is 61 y/o M with PMH Hodgkins disease, treated with radiation with secondary pulmonary fibrosis, hx tracheostomy/laryngectomy secondary to recurrent aspiration in past and vocal cord problems, hx arrhythmias, DM II, hyperlipidemia, hypothyroidism, GERD, hx partial nephrectomy, hx splenectomy presented to ER with c/o left back pain started last night after coughing episode. [place] chilled last night. Reports SOB worse with ambulation, worsens during winter months and feels like has worsened since weather cold. C/O rhinorrhea, increased cough past week. C/O left CVA and left lateral posterior rib tenderness with any movement or deep inspiration. Pt reports has chronic brown sputum tinged with blood that coughs/suctions. Feels like increased sputum today. He self suctions at home 1-4 times a day. He also admits to using a wire down his trach to try to remove secretions and in past has had to have surgically retrieved from trachea. Denies any choking since previous surgeries. Pt uses electric larynx to communicate. Pt has O2 to use at home, states can use it continuously, but tends to just use at night and sometimes during the day. Uses duonebs, has been using twice daily over past week. Follows with Dr Forrester. Hx bronchoscopy several times in past for mucous plugging, last was 01/2017. Reports having influenza vaccine this season. Denies fever/chills, diaphoresis, N/V/D/C, melena, hematochezia, BURGOS, dizziness, syncope, vision changes, neck pain, CP, orthopnea, palpitations, otalgia, abdominal pain, paresthesias, weakness, extremity edema, rashes, urinary symptoms. In ER afebrile, tachy low 100's, R: 24, BP: 95/49, O2 85% on RA, increased to 93 % on 6L. WBC: 23, Lactic acid: 3.0. U/A: neg. CT chest: wall thickening tracheobronchial tree. Pt given cefepime, vancomycin, solumedrol. Also given zofran, morphine and then dose Dilaudid with little relief of back pain. Past Medical/Surgical History Medical Problems: (1) GERD (gastroesophageal reflux disease) Status: Chronic (2) Hx of bacterial pneumonia Status: Resolved (3) Hx of benign neoplasm of colon Permanent Comment: 2003 - tubular adenoma - adenomatous polyp Status: Chronic (4) Hx of Hodgkin's disease Permanent Comment: 1980 - nodular sclerosing stage III - s/p radiation therapy and chemo - [facility] Status: Chronic (5) Hx of pulmonary fibrosis Status: Chronic (6) Tracheostomy in place Status: Chronic Surgical Problems: (1) History of bronchoscopy Status: Resolved (2) History of left hip replacement Status: Resolved (3) Hx of kidney removal Permanent Comment: 1999 - hx partial removal L kidney d/t kidney mass - benign Status: Resolved (4) Hx of kidney removal Permanent Comment: partial L kidney removal Status: Resolved (5) Hx of splenectomy Status: Resolved Family History Colon cancer BROTHER (colon) FATHER (colon CA) FH: CAD (coronary artery disease) MOTHER Social History Smoking Status: Former Smoker (smoked 1 cigarette daily x 1 year) Smokeless Tobacco Use: No Alcohol Use: none Drug Use: none Marital Status: Housing status: lives with significant other Occupational Status: disabled Immunizations History of Influenza Vaccine: Yes History of Tetanus Vaccine?: No History of Pneumococcal: Yes History of Hepatitis B Vaccine: No Multi-Drug Resistant Organisms History of MDRO: Yes Allergies Coded Allergies: No Known Allergies (Verified , 04/12/17) Home Medications Scheduled Acetylcysteine (Acetylcysteine), 3 ML INH DAILY Atorvastatin (Lipitor), 10 MG PO DAILY Digoxin (Digoxin), 0.125 MG PEG 5XWK Dulaglutide (Trulicity), 1 WK Insulin Glargine (Lantus Solostar), 19-22 UNITS SC AMHS Ipratropium-Albuterol (Duoneb), 1 TREATMENT INH Q4H Levothyroxine Sodium (Levothyroxine Sodium), 175 MCG PO DAILY Losartan Potassium (Cozaar), 12.5 MG PO DAILY Metoprolol Succinate (Toprol Xl), 50 MG PO BID Omeprazole (Prilosec), 40 MG PO DAILY Scheduled PRN Naproxen (Aleve), 220 MG PO UD PRN for Pain Review of Systems Constitutional: + problem reported (see HPI), No weight loss Eyes: No eye pain, No redness, No discharge, No diplopia ENT: + problem reported (see HPI), No unusual epistaxis Respiratory: + problem reported (see HPI) Cardiovascular: + problem reported (See HPI) Abdomen: No pain, No nausea, No vomiting, No diarrhea, No constipation, No GI bleeding Musculoskeletal: No calf pain Genitourinary - Male: No hematuria, No dysuria, No urinary frequency, No urinary urgency, No urinary hesitancy, No urinary retention Neurologic: No paralysis, No weakness, No numbness/tingling, No vertigo Psychiatric: No depression symptoms, No anxiety Endocrine: No excessive thirst, No excessive urination Hematologic / Lymphatic: No abnormal bleeding/bruising Integumentary: No rash, No itch Physical Exam Vital Signs Date Time Temp Pulse Resp B/P (MAP) Pulse Ox O2 Delivery O2 Flow Rate FiO2 04/12/17 13:50 36.9 107 20 151/84 (106) 97 Trach Collar 04/12/17 13:33 91 04/12/17 13:12 102 24 110/63 90 Trach Collar 10.0 40 04/12/17 12:50 93 Trach Collar 6.0 04/12/17 11:12 98 93 04/12/17 10:52 95 24 122/60 91 6.0 04/12/17 09:58 95 100/61 92 04/12/17 09:22 93 24 97/60 92 04/12/17 08:44 103 32 121/67 93 Venturi Mask 6.0 04/12/17 08:20 101 28 95/59 93 6.0 04/12/17 07:47 101 04/12/17 07:30 95 Oxymask 3.0 04/12/17 07:21 36.9 101 24 95/49 85 Room Air General Appearance: + pertinent finding (chronic ill appearance, mild work of breathing, able to talk in sentences with his electric larynx but does become winded) Head: normocephalic, atraumatic Eyes: normal inspection, PERRL, EOMI, sclerae normal ENT: hearing grossly normal, + pertinent finding (mucous membranes moist, no exudates noted) Neck: supple, no JVD, trachea midline, + pertinent finding (+tracheostomy) Respiratory/Chest: no accessory muscle use, + rhonchi (throughout), + wheezing (throughout), + pertinent finding (+tenderness to palpation left posterior lower ribs) Cardiovascular: no murmur, + tachycardia (low 100's) Abdomen/GI: non tender, soft, + pertinent finding (hypoactive BS) Back: + left CVA tenderness, + pertinent finding (limited ROM secondary to discomfort) Extremities/Musculoskelatal: no calf tenderness, normal capillary refill, no pedal edema, normal range of motion, non-tender Neurologic/Psych: alert, normal mood/affect, oriented x 3 Skin: warm/dry, no rash Diagnostics Laboratory Results Results Past 24 Hours Test 04/12/17 07:30 04/12/17 08:49 04/12/17 09:02 04/12/17 09:45 Range/Units White Blood Count 23.48 4.8-10.8 K/uL Red Blood Count 4.25 4.7-6.1 M/uL Hemoglobin 14.1 14.0-18.0 g/dL Hematocrit 42.9 42-52 % Mean Corpuscular Volume 100.9 80-100 fL Mean Corpuscular Hemoglobin 33.2 25-34 pg Mean Corpuscular Hemoglobin Concent 32.9 32-36 g/dl Platelet Count 273 130-400 K/uL Mean Platelet Volume 12.6 7.4-10.4 fL Neutrophils (%) (Auto) 91.0 % Lymphocytes (%) (Auto) 3.8 % Monocytes (%) (Auto) 3.6 % Eosinophils (%) (Auto) 0.0 % Basophils (%) (Auto) 0.1 % Neutrophils # (Auto) 21.35 1.4-6.5 K/uL Lymphocytes # (Auto) 0.89 1.2-3.4 K/uL Monocytes # (Auto) 0.85 0.11-0.59 K/uL Eosinophils # (Auto) 0.01 0-0.5 K/uL Basophils # (Auto) 0.03 0-0.2 K/uL RDW Standard Deviation 55.4 36.4-46.3 fL RDW Coefficient of Variation 15.1 11.5-14.5 % Immature Granulocyte % (Auto) 1.5 % Immature Granulocyte # (Auto) 0.35 0.00-0.02 K/uL Sodium Level 138 136-145 mmol/L Potassium Level 4.7 3.5-5.1 mmol/L Chloride Level 103 98-107 mmol/L Carbon Dioxide Level 25 21-32 mmol/L Anion Gap 10.0 3-11 mmol/L Blood Urea Nitrogen 22 7-18 mg/dl Creatinine 1.35 0.60-1.40 mg/dl Estimated GFR () 64.3 Estimated GFR (Non- 55.5 BUN/Creatinine Ratio 15.9 10-20 Random Glucose 118 70-99 mg/dl Calcium Level 8.5 8.5-10.1 mg/dl Total Bilirubin 1.1 0.2-1 mg/dl Direct Bilirubin 0.4 0-0.2 mg/dl Aspartate Amino Transf (AST/SGOT) 31 15-37 U/L Alanine Aminotransferase (ALT/SGPT) 42 12-78 U/L Alkaline Phosphatase 152 45-117 U/L Total Protein 7.0 6.4-8.2 gm/dl Albumin 2.9 3.4-5.0 gm/dl Lipase 30 73-393 U/L Lactic Acid Level 3.0 0.4-2.0 mmol/L Urine Color YELLOW Urine Appearance CLEAR CLEAR Urine pH 5.0 4.5-7.5 Urine Specific Jennings 1.023 1.000-1.030 Urine Protein NEG NEG Urine Glucose (UA) 1+ NEG Urine Ketones NEG NEG Urine Occult Blood NEG NEG Urine Nitrite NEG NEG Urine Bilirubin NEG NEG Urine Urobilinogen NEG NEG Urine Leukocyte Esterase NEG NEG Test 04/12/17 12:46 04/12/17 13:05 04/12/17 13:29 Range/Units Microbiology Results 04/12/17 Blood Culture, Received Pending 04/12/17 Blood Culture, Received Pending 04/12/17 Urine Culture, Received Pending Diagnostic Radiology CXR: IMPRESSION: 1. Cardiomegaly with no acute cardiopulmonary abnormality. 2. Right paramediastinal fibrotic change is similar to previous.. CT CHEST/CT ABD/PELVIS: IMPRESSION: 1. There is marked wall thickening N calcification of the tracheobronchial tree. The tracheal lumen appears narrowed, and there is significant narrowing of the right mainstem bronchus as well as the left lower lobe bronchus. This may be related to chronic inflammation, or could represent pathology such as tracheobronchopathia osteochondroplastica versus amyloidosis. Clinical correlation will be essential. 2. There is evidence of previous tracheostomy. 3. There are small right and trace left pleural effusions with associated atelectasis. No airspace consolidation is seen typical for pneumonia. 4. Cardiomegaly and small to moderate pericardial effusion. There is evidence of pulmonary artery hypertension. 5. Right paramediastinal fibrosis is similar to previous. 6. There are foci of nodularity in the subcarinal space and in the right infrahilar region. Enlarged lymph nodes are suspected but difficult to delineate. Correlation with the patient's medical history will be essential. 7. Hepatomegaly and severe hepatic steatosis. 8. The spleen is not identified and presumed surgically absent. A splenule is suspected in the left upper quadrant. 9. The mid to distal pancreas is atrophic and there is dilatation of the pancreatic duct. The pancreatic tail is truncated and may be surgically absent. There is no clear evidence of mass lesion. Correlation with the medical/surgical history as well as any prior outside imaging studies will be required. 10. There is mild stranding suggested around the proximal pancreas. Correlate clinically and with serum lipase levels for evidence of mild acute pancreatitis. 11. 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 No bowel obstruction is seen. Moderate constipation is observed. EKG EKG: sinus tachy, rate 101, no ST elevations noted Impression Assessment and Plan SEPSIS PRESUMED RESPIRATORY SOURCE WITH ACUTE ON CHRONIC RESPIRATORY FAILURE Pt tachycardic, tachypneic, WBC: 23 lactic acid: 3.0. Procalcitonin: 20.Possible early CAP, pt with hx laryngectomy so aspiration pneumonia. Possible flare pulmonary fibrosis. Treated with cefepime, vancomycin, solumedrol in ER. -blood cultures pending -check influenza swab -MRSA swab -ordered sputum culture -ordered urine culture -repeat lactic acid -continue O2 via trach mask -xopenex/atrovent nebs -vancomycin, zosyn, levaquin -solumedrol 40mg IV Q8h -NSS @ 125ml/hr -dilaudid prn pain -tramadol prn pain -pulmonology consult -repeat cbc, prp in am DM II -A1c in am -NovoLog sliding scale per protocol -consult pharm as pt on steroids HYPOTHYROIDISM TSH: 0.75 -continue levothyroxine HTN soft BP's currently -hold losartan -reduce metoprolol 25mg BID HX ARRHYTHMIAS Sinus rhythm at this time. Dig level 0.4 -continue digoxin GERD -PPI DVT PROPHYLAXIS -SCDs DISPOSITION -admit tele -Full Code as per discussion with pt -Follows with Dr Csaanova for routine care Pt was seen with Dr Perry. See addendum ATTENDING ADDENDUM care coordinated with YAEL Peterson please refer to her notes for full details, I agree with her notes patient seen and examined, records reviewed by myself as well on exam, patient seen sitting up in bed, not in distress states breathing has improved compared to admission still able to suction thick sputum from trach site reports left hip pain- can be severe, worse with standing and walking no other symptoms VS noted and reviewed oriented x 3 , not in distress, speaks in sentences with no effort nor accessory muscle use normal rate, regular rhythm, no murmurs (+) crackles bilaterally non distended, soft, nontender no bipedal edema, erythema, warmth no neuro deficits WBC 23k crea 1.35 lactic acid 3.0 ASSESSMENT/PLAN> SEPSIS, LIKELY FROM PNEUMONIA ACUTE ON CHRONIC HYPOXIC RESPIRATORY FAILURE SECONDARY TO ABOVE, PULMONARY FIBROSIS - ff up cultures ff up lactic acid, on IV NSS empiric Vanc, Zosyn, Levaquin Pulm consulted, follows with Dr. Forrester - Solumedrol 40mg IV Nebs LEFT HIP PAIN - history of previous surgery - will consult Ortho other diagnoses and plan of care as per YAEL Peterson notes Crispin Perry MD Level of Care Telemetry Advanced Directives Existing Living Will: No Existing Power of Mucker Operator: No Resuscitation Status FULL RESUSCITATION VTE Prophylaxis VTE Risk Assessment Done? Y/N: Yes Risk Level: Moderate Given or contraindicated: SCD's Additional Copies To Keyla Casanova D.O.
[2017-04-12] MEDS: PIPERACILL/TAZOBAC IV 3.375 GM in DEXTROSE 5% 100ML IV SCH (19:16)
[2017-04-12] MEDS: ACETAMINOPHEN 325 MG TAB PO PRN (19:17)
[2017-04-12] MEDS ORDERED: LEVALBUTEROL/IPRATROPIUM NEB INH PRN (20:30)
[2017-04-12] MEDS: METOPROLOL SUCC 25MG EXT REL TAB PO SCH (20:45)
[2017-04-12] MEDS: METHYLPREDNISOLONE IV 40 MG in SYRINGE 0 ML IV SCH (20:45)
[2017-04-12] MEDS: HYDROmorphone INJ 0.5 MG/0.5 ML SYR IV PRN (20:46)
[2017-04-12] MEDS ORDERED: INSULIN GLARGINE SOLOSTAR 100 UNITS/ML 3 ML PEN SC ONE ×2 (21:00)
[2017-04-12] MEDS ORDERED: VANCOMYCIN INJ 1,250 MG in SODIUM CHLORIDE 0.9% 250ML 250 ML IV SCH (22:00)
[2017-04-13] VITALS (19 sets, daily range): BP systolic 111–138; BP diastolic 63–93; PULSE 102–113; TEMP 36.4–37.1; O2SAT 93–98
[2017-04-13] MEDS: INSULIN ASPART 100 UNITS/ML 3 ML PEN SC SCH ×6 (00:50→21:52)
[2017-04-13] MEDS: PIPERACILL/TAZOBAC IV 3.375 GM in DEXTROSE 5% 100ML IV SCH ×3 (00:50→21:49)
[2017-04-13] MEDS: LEVALBUTEROL 1.25MG/0.5ML NEB INH SCH ×4 (02:33→18:58)
[2017-04-13] MEDS: IPRATROPIUM BROMIDE NEB SOLN 0.02% 2.5 ML VIAL INH SCH ×4 (02:33→18:58)
[2017-04-13] MEDS: METHYLPREDNISOLONE IV 40 MG in SYRINGE 0 ML IV SCH ×3 (04:31→21:52)
[2017-04-13] MEDS: LEVOTHYROXINE 175 MCG TAB PO SCH (05:56)
[2017-04-13] MEDS: SODIUM CHLORIDE 0.9% 1000ML 1,000 ML IV SCH ×2 (06:30→17:36)
[2017-04-13 07:12] LABS: HEMATOCRIT 41.4 % (42-52); HEMOGLOBIN 13.5 g/dL (14.0-18.0); MEAN CORPUSCULAR HEMOGLOBIN 32.9 pg (25-34); MEAN CORPUSCULAR HGB CONC 32.6 g/dl (32-36); MEAN PLATELET VOLUME 12.5 fL (7.4-10.4); PLATELET COUNT 220 K/uL (130-400); RED CELL DISTRIBUTION WIDTH CV 15.2 % (11.5-14.5); RED CELL DISTRIBUTION WIDTH SD 55.8 fL (36.4-46.3); WHITE BLOOD COUNT 27.46 K/uL (4.8-10.8)
--- NOTE | 2017-04-13 07:37 | Clinical Documentation Query ---
CLINICAL DOCUMENTATION QUERY Dr. MAHAJAN, In your clinical opinion is this patient being managed for: ( x ) Acute kidney failure ( ) Not Agree ( ) Other explanation of clinical findings (Please Explain) ( ) Unable to determine (Please Define) ( ) Need to Discuss The medical record reflects the following clinical findings, treatment, and risk factors. Clinical Indicators:61 yo male presenting with sepsis, suspected pneumonia. Presented with Cr 1.35, GFR 55.5. Review of historical labs Cr range of 0.86-94 with corresponding GFR of 85-92. Treatment:IV fluids, IV Vanc, Zosyn, Levaquin, tele, O2 support, monitor PRP Risk Factors:sepsis, pneumonia, age, DM, dehydration Please clarify and document your clinical opinion in the progress notes and discharge summary. Terms such as "probable", "suspected", "likely", "questionable", "possible", or "still to be ruled out" are acceptable. IF IN AGREEMENT, YOU MUST DOCUMENT ABOVE DIAGNOSTIC STATEMENT IN DAILY PROGRESS NOTES AND DISCHARGE SUMMARY. This document is not part of the patient's record. Thank You, Ela Bear RN [phone]
[2017-04-13] MEDS: METOPROLOL SUCC 25MG EXT REL TAB PO SCH ×2 (07:49→21:50)
[2017-04-13 07:53] LABS: CALCIUM 8.1 mg/dl (8.5-10.1); CREATININE 1.08 mg/dl (0.60-1.40); POTASSIUM 4.4 mmol/L (3.5-5.1)
--- NOTE | 2017-04-13 08:01 | Procedure Note ---
Pre-Mod Sedation Assessment General Date of Moderate Sedation: Apr 13, 2017. Vital Signs: Vital Signs Past 12 Hours Date Time Temp Pulse Resp B/P (MAP) Pulse Ox O2 Delivery O2 Flow Rate FiO2 04/13/17 07:23 36.4 104 20 128/76 (93) 94 Trach Collar 1.0 70 04/13/17 06:33 103 18 93 Trach Collar 70 04/13/17 04:00 96 Trach Collar 04/13/17 04:00 37.0 102 22 120/63 (82) 96 Trach Collar 40 04/12/17 23:59 92 Trach Collar 11.0 40 04/12/17 23:41 37.1 108 24 131/65 (87) 92 Trach Collar 40 04/12/17 20:37 37.3 116 28 94 Trach Collar 40 04/12/17 20:15 94 Trach Collar 40 04/12/17 20:05 126 20 87 Trach Collar 50 Review Cardiovascular: regular rate, rhythm, no edema, no gallop Abdomen: normal bowel sounds, non tender, soft, no organomegaly Lungs: no respiratory distress, no accessory muscle use, + crackles, + rhonchi Pre-Sedation Airway Assessment Oral Cavity: Dental Abnormalities Short Thick Neck: No Smoking Status: Former Smoker (smoked 1 cigarette daily x 1 year) Procedure Planning Contraindications-for Mod Sed: None Yes Notes The planned sedation has been discussed with the patient and consent obtained. I have identified the patient, determined the appropriateness of sedation and have assessed the patient immediately prior to the procedure. All medicine(s) and interventions are by my order.
[2017-04-13 08:15] LABS: BASO % 0.1 %; BASO ABS # 0.02 K/uL (0-0.2); EOS ABS # 0.01 K/uL (0-0.5); IG# 1.82 K/uL (0.00-0.02); LYMPH ABS # 0.83 K/uL (1.2-3.4); MONO % 4.4 %; NEUT % 85.9 %; NEUT ABS # 23.58 K/uL (1.4-6.5)
[2017-04-13 08:29] LABS: HEMOGLOBIN A1C 7.8 % (4.5-5.6)
--- NOTE | 2017-04-13 09:06 | Procedure Note ---
Pre-Mod Sedation Assessment General Date of Moderate Sedation: Apr 13, 2017. Vital Signs: Vital Signs Past 12 Hours Date Time Temp Pulse Resp B/P (MAP) Pulse Ox O2 Delivery O2 Flow Rate FiO2 04/13/17 08:12 36.4 104 18 128/76 96 Trach Collar 6.0 04/13/17 07:23 36.4 104 20 128/76 (93) 94 Trach Collar 1.0 70 04/13/17 06:33 103 18 93 Trach Collar 70 04/13/17 04:00 96 Trach Collar 04/13/17 04:00 37.0 102 22 120/63 (82) 96 Trach Collar 40 04/12/17 23:59 92 Trach Collar 11.0 40 04/12/17 23:41 37.1 108 24 131/65 (87) 92 Trach Collar 40 Review Cardiovascular: regular rate, rhythm, no edema, no gallop Abdomen: normal bowel sounds, non tender, soft, no organomegaly Lungs: no respiratory distress, no accessory muscle use, + crackles, + rhonchi Pre-Sedation Airway Assessment Oral Cavity: Dental Abnormalities Able to Visualize Vocal Cords: No (Patient has end largyngectomy. Entered trachea via tracheal ostomy.) Short Thick Neck: No Hx of Sleep Apnea: No Smoking Status: Former Smoker Notes The planned sedation has been discussed with the patient and consent obtained. I have identified the patient, determined the appropriateness of sedation and have assessed the patient immediately prior to the procedure. All medicine(s) and interventions are by my order.
[2017-04-13] MEDS ORDERED: NURSING VERBAL MED ORDER ONE (09:15)
--- NOTE | 2017-04-13 09:25 | Procedure Note ---
Procedure Note Date of Service Apr 13, 2017. Procedure Note Procedure: Bronchoscopy, conscious sedation, Consent: Obtained through the patient placed into the chart Pre-procedural diagnosis: Pneumonia Post-procedural diagnosis: Pneumonia Start time: 833 End time: 857 Total time: 24minutes Analgesia: 2% liquid lidocaine: Via tracheostomy 2% liquid lidocaine: Via bronchoscopy Sedation: Versed IV: 2 mg Fentanyl IV: 50 g Procedure: The Olympus video bronchoscope was used for this procedure and passed down the tracheal stoma. Trachea/Yumiko: Covered in pseudomembranous Right bronchial tree: Right mainstem bronchus: covered with pseudomembrane, friable Right upper lobe: covered with pseudomembrane, friable Bronchus intermedius: covered with pseudomembrane, friable Right middle lobe: covered with pseudomembrane, friable Right lower lobe:covered with pseudomembrane, friable Findings: No endobronchial lesions seen Left bronchial tree: covered with pseudomembrane Left mainstem bronchus: covered with pseudomembrane, friable Left upper lobe: covered with pseudomembrane, friable Lingula: covered with pseudomembrane, friable Left lower lobe: covered with pseudomembrane, friable Findings: No endobronchial lesions seen Bronchial alveolar lavage: taken at RLL Brushings taken at trachea EBL: < 5 Complications: None
--- NOTE | 2017-04-13 10:13 | Pharmacy Progress Note ---
Pharmacy Abx Dose Short Note Date of Service Apr 13, 2017. Assessment & Plan Assessment 61 year old male receiving Vancomycin and Zosyn for treatment of pneumonia. Day # 2 of antimicrobial therapy. WBC=27.5 Scr=1.08 mg/dL Tmax=39.2 Blood cultures positive for gram positive cocci and Group A Strep Trach sputum positive for Group a Strep. Sensitivities pending. Bronch wash cultures pending. Vancomycin * Will increase dose to 15mg/kg q 12 hours due to improvement in Scr. Zosyn * Current dose and frequency appropriate for patient's renal function. Plan Vancomycin * Vanco 1.5gm IV q 12 hours * Trough level ordered for 04/14 @ 1030 Zosyn * Continue 3.375gm IV q 8 hours Pt also on Levaquin 750mg IV q 24 hours. This is not a pharmacy consult. Pharmacy will continue to follow and will adjust dose/frequency as necessary. Thank you.
--- NOTE | 2017-04-13 10:24 | DIAGNOSTIC IMAGING REPORT ---
CHEST ONE VIEW PORTABLE HISTORY: 61 years-old Male s/p bronchoscopy marked narrowing and calcification of the tracheobronchial tree seen on comparison study COMPARISON: CT chest 04/12/2017, chest radiograph 04/12/2017 TECHNIQUE: Portable AP view of the chest FINDINGS: Linear subsegmental opacity of the right perihilar upper lobe suggest areas of atelectasis/scarring. Hazy perihilar, lateral left midlung and bibasilar opacities are again seen with mild right hemidiaphragm elevation and trace right pleural effusion. No postprocedural pneumothorax. Probable loose body of the left shoulder again seen, 1.6 cm. Bones appear grossly intact. Surgical project over the left upper abdomen. IMPRESSION: No pneumothorax status post bronchoscopy. The above report was generated using voice recognition software. It may contain grammatical, syntax or spelling errors. Electronically signed by: Isak Kirkland M.D. 04/13/2017 10:22 AM Dictated Date/Time: 04/13/2017 10:20 AM
--- NOTE | 2017-04-13 10:47 | Pharmacy Progress Note ---
Pharmacy Glycemic Short Note 2 Date of Service Apr 13, 2017. OUTPATIENT ANTIDIABETIC REGIMEN: * Lantus 19-22 units BID * Trulicity 0.75 mg once weekly * A1c 7.8% on 04/13/17 ASSESSMENT: * Mr. Rodriguez received 31 units of insulin since admission, with BSGs ranging from 137-193 mg/dL in the past 24 hours * He remains on Solu-medrol 40 mg IV q8h and IV antibiotics for pneumonia * He was NPO this AM for a bronch * Fasting BSG slightly elevated this AM at 173 mg/dL * Will plan to continue BID Lantus based on insulin calculator estimates using outpatient daily dose of ~80 units (assuming Lantus is basal and Trulicity is prandial coverage) and stress level of 2 to start * Current CF/CR not as aggressive so may need to tighten once diet advanced PLAN FOR INPATIENT GLYCEMIC CONTROL: * Lantus 25 units BID * Continue Novolog q4h -> can transition back ACHS once diet resumed * Goal 120-150 * CF 25 * CR 8 PLAN FOR DISCHARGE: * A1c acceptable * Continue outpatient regimen on discharge
[2017-04-13] MEDS ORDERED: PANTOprazole INJ 40 MG in SYRINGE 0 ML IV SCH (11:00)
[2017-04-13] MEDS ORDERED: FENTANYL CITRATE INJ 50 MCG/1 ML 2 ML VIAL IV ONE ×2 (11:15→13:37)
[2017-04-13] MEDS ORDERED: MIDAZOLAM HCL 5 MG/ML 1 ML VIAL IV ONE ×3 (11:15→13:37)
[2017-04-13] MEDS: VANCOMYCIN INJ 1,500 MG in SODIUM CHLORIDE 0.9% 500ML 500 ML IV SCH ×2 (11:50→23:15)
[2017-04-13] MEDS: INSULIN GLARGINE SOLOSTAR 100 UNITS/ML 3 ML PEN SC SCH ×2 (12:01→21:51)
[2017-04-13] MEDS ORDERED: LIDOCAINE HCL 2% LOCAL 50ML VIAL INFIL ONE (13:37)
[2017-04-13] MEDS ORDERED: LIDOCAINE 4% INH SOLN 4 ML BTL ONE (13:37)
[2017-04-13] MEDS: TRAMADOL HCL 50 MG TAB PO PRN ×2 (13:50→23:15)
[2017-04-13] MEDS ORDERED: PERFLUTREN LIPID MICROSPHERE (DEFINITY) IV ONE (14:33)
[2017-04-13] MEDS: LEVOFLOXACIN / D5W 750 MG in PREMIXED IN D5W 150 ML IV SCH (17:36)
[2017-04-13] MEDS: HYDROmorphone INJ 0.5 MG/0.5 ML SYR IV PRN (17:39)
--- NOTE | 2017-04-13 17:40 | ECHOCARDIOGRAM REPORT ---
*NOTICE TO RECEIVING LIBERTARIAN AGENCY This information is strictly Confidential and protected under [place] law. [place] law prohibits you from making any further disclosure of this information unless further disclosure is expressly permitted by the written consent of the person to whom it pertains or is authorized by law. A general authorization for the release of medical or other information is not sufficient for this purpose. Hospital accepts no responsibility if the information is made available to any other person, INCLUDING THE PATIENT. Interpretation Summary * Name: CLAUDY CANALES Study Date: 04/13/2017 02:06 PM BP: 138/79 mmHg * Patient Location: C.2T\S\S244\S\1 HR: 110 * : 1955 (M/d/yyyy) Gender: Male Height: 71 in * Age: 61 yrs Ethnicity: CA Weight: 220 lb * Ordering Physician: Crispin Perry * Referring Physician: Self, Referred * Performed By: Mckayla Esquivel RDCS * * Reason For Study: Pericardial effusion * BSA: 2.2 m2 * The study was technically difficult. * There is no comparison study available. * -- Conclusions -- * Small circumferential pericardial effusion. * There are no echocardiographic indications of cardiac tamponade. * Ejection Fraction = 40-45%. * There is mild global hypokinesis of the left ventricle. * There is mild tricuspid regurgitation. * Doppler findings do not suggest pulmonary hypertension. Procedure Details * A complete two-dimensional transthoracic echocardiogram was performed (2D, M-mode, Doppler and color flow Doppler). * A contrast injection of Definity was performed to improve assessment of LV function. * Contrast was injected into an intravenous site in the left arm. * One vial of Definity ultrasound contrast was diluted in normal saline to a total volume of 10 ml. A total of '3' ml of solution was administered during imaging. * Lot # [id number] of Definity utilized for procedure. * Expiration date 1 jun 27. * The attending nurse who injected the contrast agent was Brianne Gutierrez RN. Left Ventricle * The left ventricle is normal in size. * There is no thrombus. * There is normal left ventricular wall thickness. * Ejection Fraction = 40-45%. * Left ventricular systolic function is mildly reduced. * There is mild global hypokinesis of the left ventricle. Right Ventricle * The right ventricle is normal size. * The right ventricular systolic function is normal as assessed by tricuspid annular plane systolic excursion (TAPSE) (normal >1.5 cm). Atria * The left atrial size is normal. * Right atrial size is normal. * There is no evidence of atrial septal defect, but resolution does not allow assessment for a patent foramen ovale. Mitral Valve * The mitral valve is normal. * There is no mitral valve stenosis. * Significant mitral regurgitation is absent. Tricuspid Valve * The tricuspid valve is normal. * There is no tricuspid stenosis. * There is mild tricuspid regurgitation. * Doppler findings do not suggest pulmonary hypertension. Aortic Valve * The aortic valve is not well visualized. * Aortic stenosis is absent. * There is no significant aortic regurgitation. Pulmonic Valve * The pulmonary valve is not well seen, but the Doppler examination is normal without significant regurgitation or stenosis. Great Vessels * The aortic root is normal size. Pericardium/Pleural * Small circumferential pericardial effusion. * There are no echocardiographic indications of cardiac tamponade. Great Vessels * Normal inferior vena cava diameter and respiratory variation suggests normal central venous pressure. MMode 2D Measurements and Calculations IVSd 0.71 cm LVIDd 5.1 cm LVIDs 4.1 cm LVPWd 1.2 cm IVS/LVPW 0.57 FS 19.9 % EDV(Teich) 125.4 ml ESV(Teich) 74.5 ml EF(Teich) 40.6 % EDV(cubed) 134.8 ml ESV(cubed) 69.2 ml EF(cubed) 48.7 % LV mass(C)d 185.1 grams LV mass(C)dI 84.3 grams/m\S\2 SV(Teich) 50.9 ml SI(Teich) 23.2 ml/m\S\2 SV(cubed) 65.6 ml SI(cubed) 29.9 ml/m\S\2 Ao root diam 3.3 cm Ao root area 8.6 cm\S\2 ACS 1.7 cm LA dimension 3.0 cm asc Aorta Diam 3.1 cm LA/Ao 0.91 LVOT diam 2.0 cm LVOT area 3.3 cm\S\2 LVAd ap4 29.2 cm\S\2 LVLd ap4 7.5 cm EDV(MOD-sp4) 96.1 ml EDV(sp4-el) 96.3 ml LVAs ap4 20.1 cm\S\2 LVLs ap4 6.4 cm ESV(MOD-sp4) 52.9 ml ESV(sp4-el) 53.5 ml EF(MOD-sp4) 44.9 % EF(sp4-el) 44.5 % LVAd ap2 25.7 cm\S\2 LVLd ap2 7.3 cm EDV(MOD-sp2) 78.8 ml EDV(sp2-el) 77.5 ml LVAs ap2 17.5 cm\S\2 LVLs ap2 6.0 cm ESV(MOD-sp2) 42.8 ml ESV(sp2-el) 43.8 ml EF(MOD-sp2) 45.7 % EF(sp2-el) 43.5 % LVLd %diff -3.33 % EDV(MOD-bp) 87.8 ml LVLs %diff -7.14 % ESV(MOD-bp) 48.2 ml EF(MOD-bp) 45.1 % SV(MOD-sp4) 43.2 ml SI(MOD-sp4) 19.7 ml/m\S\2 SV(MOD-sp2) 36.0 ml SI(MOD-sp2) 16.4 ml/m\S\2 SV(MOD-bp) 39.6 ml SI(MOD-bp) 18.0 ml/m\S\2 SV(sp4-el) 42.8 ml SI(sp4-el) 19.5 ml/m\S\2 SV(sp2-el) 33.7 ml SI(sp2-el) 15.3 ml/m\S\2 Doppler Measurements and Calculations MV E max lashonda 115.0 cm/sec MV A max alshonda 32.0 cm/sec MV E/A 3.6 MV dec time 0.17 sec Ao V2 max 116.4 cm/sec Ao max PG 5.4 mmHg Ao max PG (full) 3.3 mmHg DAVON(V,A) 2.1 cm\S\2 DAVON(V,D) 2.1 cm\S\2 LV V1 max PG 2.1 mmHg LV V1 max 73.2 cm/sec PA V2 max 84.2 cm/sec PA max PG 2.8 mmHg PA acc slope 362.4 cm/sec\S\2 PA acc time 0.16 sec TR max lashonda 215.6 cm/sec PA pr(Accel) 6.1 mmHg
[2017-04-13] MEDS: DIGOXIN 0.125 MG/2.5 ML UDP PEG SCH (17:57)
--- NOTE | 2017-04-13 19:48 | Progress Note ---
Medicine Progress Note Date & Time of Visit: Apr 13, 2017 at 19:47. Subjective Patient reports feeling ok, only complaint right now is LLQ/left upper hip pain which he says extends up to the level of his left kidney. Had difficulty voiding and a lozano was placed after high PVRs were found. No overnight events noted. Seen after bronch today. Objective Last 8 Hrs Date Time Temp Pulse Resp B/P (MAP) Pulse Ox O2 Delivery O2 Flow Rate FiO2 04/13/17 19:04 111 18 97 Trach Collar 40 04/13/17 16:00 Trach Collar 50 04/13/17 15:46 37.1 110 18 138/79 (98) 95 Nasal Cannula 13.0 40 04/13/17 14:45 105 18 95 Trach Collar 70 04/13/17 12:00 Trach Collar 50 Physical Exam: GENERAL: Patient is in no acute distress. HEENT: No acute trauma, mucous membranes moist, no nasal congestion, no scleral icterus. Tracheostomy present NECK: No stridor, trachea is midline. LUNGS: Clear to auscultation bilaterally, no wheeze, no rhonchi, breath sounds equal. HEART: Without murmurs gallops or rubs, regular rate and rhythm. ABDOMEN: Soft, nontender, bowel sounds positive, no hepatosplenomegaly EXTREMITIES: No cyanosis or edema, left hip pain, decreased tolerance to activity and movement secondary to pain NEUROLOGIC: Oriented x 3, no acute motor or sensory deficits, no focal weakness. SKIN: No rash, no jaundice, no diaphoresis. Laboratory Results: Last 24 Hours Test 04/12/17 20:27 04/12/17 23:00 04/13/17 00:07 04/13/17 03:57 Bedside Glucose 193 mg/dl 180 mg/dl 176 mg/dl Lactic Acid Level 2.5 mmol/L Test 04/13/17 06:49 04/13/17 09:00 04/13/17 11:40 04/13/17 16:14 White Blood Count 27.46 K/uL Red Blood Count 4.10 M/uL Hemoglobin 13.5 g/dL Hematocrit 41.4 % Mean Corpuscular Volume 101.0 fL Mean Corpuscular Hemoglobin 32.9 pg Mean Corpuscular Hemoglobin Concent 32.6 g/dl Platelet Count 220 K/uL Mean Platelet Volume 12.5 fL Neutrophils (%) (Auto) 85.9 % Lymphocytes (%) (Auto) 3.0 % Monocytes (%) (Auto) 4.4 % Eosinophils (%) (Auto) 0.0 % Basophils (%) (Auto) 0.1 % Neutrophils # (Auto) 23.58 K/uL Lymphocytes # (Auto) 0.83 K/uL Monocytes # (Auto) 1.20 K/uL Eosinophils # (Auto) 0.01 K/uL Basophils # (Auto) 0.02 K/uL RDW Standard Deviation 55.8 fL RDW Coefficient of Variation 15.2 % Immature Granulocyte % (Auto) 6.6 % Immature Granulocyte # (Auto) 1.82 K/uL Anisocytosis PRESENT [place] Bodies 1+ Echinocytes 2+ Sodium Level 137 mmol/L Potassium Level 4.4 mmol/L Chloride Level 103 mmol/L Carbon Dioxide Level 28 mmol/L Anion Gap 6.0 mmol/L Blood Urea Nitrogen 26 mg/dl Creatinine 1.08 mg/dl Est Creatinine Clear Calc Drug Dose 83.2 ml/min Estimated GFR () 84.2 Estimated GFR (Non- 72.7 BUN/Creatinine Ratio 24.4 Random Glucose 173 mg/dl Estimated Average Glucose 177 mg/dl Hemoglobin A1c 7.8 % Calcium Level 8.1 mg/dl Bedside Glucose 154 mg/dl 216 mg/dl Date/Time Source Procedure Growth Status 04/13/17 09:00 Bronchial Washings Right Lower Lobe Fungal Smear - Final Resulted 04/13/17 09:00 Bronchial Washings Right Lower Lobe Fungal Culture Pending Resulted 04/13/17 09:00 Bronchial Washings Right Lower Lobe Acid Fast Stain Pending Received 04/13/17 09:00 Bronchial Washings Right Lower Lobe Mycobacterial Culture Pending Received 04/13/17 09:00 Bronchial Washings Right Lower Lobe Gram Stain - Final Resulted 04/13/17 09:00 Bronchial Washings Right Lower Lobe Bronchoalveolar Lavage Culture Pending Resulted Assessment & Plan SEPSIS: -on presentation was tachycardic, tachypneic, with leukocytosis, lactic acidosis , elevated Procalcitonin -2 of 2 blood cultures growing group A beta strep -tracheal suction culture also growing group A beta strep -treated with cefepime, vancomycin, solumedrol in ER; now on vanco + zosyn + levaquin -influenza negative -has prior hx of MRSA -urine negative -AFB and cultures from bronchial washings pending ACUTE ON CHRONIC RESPIRATORY FAILURE: likely secondary to above -question if from pneumonia or aspiration pneumonia or less likely flare of IPF -continue O2 via trach mask -xopenex/atrovent nebs -solumedrol 40mg IV Q8h -NSS @ 125ml/hr -dilaudid prn pain -tramadol prn pain -Pulmonology consulted, appreciate recommendations, bronch was done earlier DM TYPE II: -HbA1c: 7.8 -NovoLog sliding scale per protocol -Glycemic pharmacy consulted, appreciate recs HYPOTHYROIDISM: -continue levothyroxine HTN: -normotensive now, was initially hypotensive -hold losartan -reduced metoprolol 25mg BID with hold parameters HX OF ARRHYTHMIAS: -remains sinus rhythm on monitor -continue digoxin; Dig level 0.4 GERD: -PPI Consultants: Pulmonary Procedures: Bronchoscopy Current Inpatient Medications: Current Inpatient Medications Medications (Trade) Dose Ordered Sig/Luis Route Start Time Stop Time Status Last Admin Dose Admin Ioversol (Optiray 320) 100 ml UD PRN IV 04/12/17 10:00 04/16/17 09:59 Acetaminophen (Tylenol Tab) 650 mg Q4H PRN PO 04/12/17 13:00 05/12/17 12:59 04/12/17 19:17 650 MG Ondansetron HCl (Zofran Inj) 4 mg Q6H PRN IV 04/12/17 13:00 05/12/17 12:59 Sodium Chloride 1,000 ml @ 125 mls/hr Q8H IV 04/12/17 14:30 05/12/17 14:29 04/13/17 17:36 125 MLS/HR Methylprednisolone Sodium Succinate 40 mg/Syringe 0.64 ml @ 1.5 mls/min Q8H IV 04/12/17 20:00 05/12/17 19:59 04/13/17 11:54 1.5 MLS/MIN Hydromorphone HCl (Dilaudid Inj) 0.5 mg Q4 PRN IV 04/12/17 13:30 04/26/17 13:29 04/13/17 17:39 0.5 MG Tramadol HCl (Ultram Tab) 50 mg Q6 PRN PO 04/12/17 13:30 05/12/17 13:29 04/13/17 13:50 50 MG Glucose (Glucose 40% Gel) 15-30 GRAMS 15 GRAMS... UD PRN PO 04/12/17 13:30 05/12/17 13:29 Glucose (Glucose Chew Tab) 4-8 Tablets 4 Tabl... UD PRN PO 04/12/17 13:30 05/12/17 13:29 Dextrose (Dextrose 50% 50ML Syringe) 25-50ML OF 50% DW IV FOR... UD PRN IV 04/12/17 13:30 05/12/17 13:29 Glucagon (Glucagon Inj) 1 mg UD PRN SQ 04/12/17 13:30 05/12/17 13:29 Miscellaneous Information (Consult Glycemic Management Pharmacy) 1 ea UD PRN N/A 04/12/17 13:42 05/12/17 13:41 Levofloxacin 750 mg/Prmx 150 ml @ 100 mls/hr Q24H IV 04/12/17 15:00 04/19/17 14:59 04/13/17 17:36 100 MLS/HR Vancomycin HCl (Consult) 1 ea UD PRN N/A 04/12/17 14:00 05/12/17 13:59 Piperacillin Sod/ Tazobactam Sod (Consult) 1 ea UD PRN N/A 04/12/17 14:00 05/12/17 13:59 Digoxin (Lanoxin Pediatric Elix) 0.125 mg DAILY@1600 PEG 04/12/17 16:00 05/12/17 15:59 04/13/17 17:57 0.125 MG Levothyroxine Sodium (Synthroid Tab) 175 mcg DAILYBB PO 04/13/17 06:00 05/13/17 05:59 Metoprolol Succinate (Toprol Xl Tab) 25 mg BID PO 04/12/17 21:00 05/12/17 20:59 04/13/17 07:49 25 MG Ipratropium [place] (Atrovent 0.02% 0.5MG/2.5ML Neb) 0.5 mg Q6R INH 04/12/17 15:00 05/12/17 14:59 04/13/17 18:58 0.5 MG Levalbuterol (Xopenex 1.25MG/ 0.5ML Neb) 1.25 mg Q6R INH 04/12/17 15:00 05/12/17 14:59 04/13/17 18:58 1.25 MG Piperacillin Sod/ Tazobactam Sod 3.375 gm/Dextrose 115 ml @ 28.75 mls/ hr Q8H IV 04/12/17 18:00 04/19/17 17:59 04/13/17 11:57 28.75 MLS/HR Ibuprofen (Motrin Tab) 600 mg Q8 PRN PO 04/12/17 20:30 05/12/17 20:29 Levalbuterol (Xopenex 0.63 Mg/ 3 Ml Neb) 0.63 mg Q2R PRN INH 04/12/17 21:15 05/12/17 21:14 Ipratropium [place] (Atrovent 0.02% 0.5MG/2.5ML Neb) 0.5 mg Q2R PRN INH 04/12/17 21:15 05/12/17 21:14 Insulin Glargine (Lantus Solostar Pen) 25 units BID SC 04/13/17 09:00 05/13/17 08:59 04/13/17 12:01 25 UNITS Vancomycin HCl 1500 mg/Sodium Chloride 530 ml @ 200 mls/hr Q12H IV 04/13/17 11:00 04/19/17 11:59 04/13/17 11:50 200 MLS/HR Insulin Aspart (novoLOG ASPART) SLIDING SCALE If C... ACHS SC 04/13/17 12:45 05/13/17 12:44 04/13/17 17:58 11 UNITS Pantoprazole Sodium (Protonix Tab) 40 mg QAM PO 04/14/17 09:00 05/14/17 08:59
[2017-04-13] MEDS: IBUPROFEN 600 MG TAB PO PRN (23:14)
[2017-04-14] VITALS (12 sets, daily range): BP systolic 118–146; BP diastolic 67–81; PULSE 75–112; TEMP 36.4–37.4; O2SAT 92–99
[2017-04-14] MEDS: LEVALBUTEROL 1.25MG/0.5ML NEB INH SCH ×4 (02:01→19:08)
[2017-04-14] MEDS: IPRATROPIUM BROMIDE NEB SOLN 0.02% 2.5 ML VIAL INH SCH ×4 (02:01→19:08)
[2017-04-14] MEDS: METHYLPREDNISOLONE IV 40 MG in SYRINGE 0 ML IV SCH (04:27)
[2017-04-14] MEDS: PIPERACILL/TAZOBAC IV 3.375 GM in DEXTROSE 5% 100ML IV SCH (05:35)
[2017-04-14] MEDS: SODIUM CHLORIDE 0.9% 1000ML 1,000 ML IV SCH ×2 (05:35→15:08)
[2017-04-14] MEDS: LEVOTHYROXINE 175 MCG TAB PO SCH (05:40)
[2017-04-14] MEDS: METOPROLOL SUCC 25MG EXT REL TAB PO SCH ×2 (08:19→20:32)
[2017-04-14] MEDS: INSULIN ASPART 100 UNITS/ML 3 ML PEN SC SCH ×4 (08:24→20:32)
[2017-04-14] MEDS: INSULIN GLARGINE SOLOSTAR 100 UNITS/ML 3 ML PEN SC SCH ×2 (08:25→20:36)
[2017-04-14 08:41] LABS: HEMATOCRIT 39.3 % (42-52); HEMOGLOBIN 12.7 g/dL (14.0-18.0); MEAN CELL VOLUME 101.3 fL (80-100); MEAN CORPUSCULAR HEMOGLOBIN 32.7 pg (25-34); MEAN CORPUSCULAR HGB CONC 32.3 g/dl (32-36); MEAN PLATELET VOLUME 12.6 fL (7.4-10.4); NUCLEATED RED BLOOD CELL ABS 0.04 K/uL (0-0); PLATELET COUNT 205 K/uL (130-400); RED CELL DISTRIBUTION WIDTH CV 15.5 % (11.5-14.5); RED CELL DISTRIBUTION WIDTH SD 57.8 fL (36.4-46.3); WHITE BLOOD COUNT 26.64 K/uL (4.8-10.8)
[2017-04-14] MEDS: PANTOprazole SOD 40 MG TAB PO SCH (09:00)
[2017-04-14 09:14] LABS: CALCIUM 8.2 mg/dl (8.5-10.1); CREATININE 0.82 mg/dl (0.60-1.40); POTASSIUM 4.6 mmol/L (3.5-5.1)
[2017-04-14 09:50] LABS: BASO % 0.1 %; BASO ABS # 0.03 K/uL (0-0.2); EOS ABS # 0.01 K/uL (0-0.5); IG# 0.61 K/uL (0.00-0.02); LYMPH % 2.9 %; LYMPH ABS # 0.77 K/uL (1.2-3.4); MONO % 5.1 %; MONO ABS # 1.37 K/uL (0.11-0.59); NEUT % 89.6 %; NEUT ABS # 23.85 K/uL (1.4-6.5)
[2017-04-14] MEDS ORDERED: VANCOMYCIN TROUGH ONE ×2 (10:30→15:30)
--- NOTE | 2017-04-14 10:33 | Pharmacy Progress Note ---
Pharmacy Glycemic Short Note 2 Date of Service Apr 14, 2017. OUTPATIENT ANTIDIABETIC REGIMEN: * Lantus 19-22 units BID * Trulicity 0.75 mg once weekly * A1c 7.8% on 04/13/17 ASSESSMENT: 04/13/17 * Mr. Rodriguez received 31 units of insulin since admission, with BSGs ranging from 137-193 mg/dL in the past 24 hours * He remains on Solu-medrol 40 mg IV q8h and IV antibiotics for pneumonia * He was NPO this AM for a bronch * Fasting BSG slightly elevated this AM at 173 mg/dL * Will plan to continue BID Lantus based on insulin calculator estimates using outpatient daily dose of ~80 units (assuming Lantus is basal and Trulicity is prandial coverage) and stress level of 2 to start * Current CF/CR not as aggressive so may need to tighten once diet advanced 04/14/17 * Mr. Rodriguez received 64 units of insulin yesterday with BSGs ranging from 150 -219 mg/dL * Fasting BSG 150 - within range so no change to basal dose * Postprandial BSGs elevated - will tighten CF/CR, especially since steroids affect postprandial BSGs more PLAN FOR INPATIENT GLYCEMIC CONTROL: * Continue Lantus 25 units BID * Continue Novolog ACHS * Goal 120-150 * TIGHTEN CF to 20 * TIGHTEN CR to 4
--- NOTE | 2017-04-14 11:44 | Pulmonology Progress Note ---
Pulmonary Progress Note Date of Service Apr 14, 2017. Attending Dr. Autumn Armas Subjective Patient seen and examined at bedside. He states that he is feeling better. He was able to ambulate to the bathroom this morning with minimal assistance. He denies any chest pain or shortness of breath. Still has mild cough. He denies any productive sputum. Objective VS reviewed. Tm 37.4, BP 126/72-146-81, P 89-112, RR 16-26, SaO2 92-96% on 10L via trach collar. He is about 2.5 L + balance since admission. Gen: AAOx3, NAD, speaking in full sentences with use of speaking device. No respiratory distress or use of accessory muscles of respiration. Neck: tracheostomy site--clean, no secretions. Lungs: coarse breath sound bilaterally Abd:soft/NT/ND, BS+ Ext: no edema bilaterally in LE, no cyanosis. Labs reviewed. WBC 26 , Hemoglobin 12.7 Bronch washing --No AFB seen, No fungal elements seen, bacterial culture- -pending Pathology--pending. Blood culture 04/12/2017--Group A Beta Strep Sputum from trach asp 04/12/2017--Group A Beta Strep Imaging reviewed. CXR post bronchoscopy 04/13/2017 FINDINGS: Linear subsegmental opacity of the right perihilar upper lobe suggest areas of atelectasis/scarring. Hazy perihilar, lateral left midlung and bibasilar opacities are again seen with mild right hemidiaphragm elevation and trace right pleural effusion. No postprocedural pneumothorax Medications reviewed. 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 Rodriguez is feeling better today. He is still requiring a large amount of oxygen via trach collar. Continue to taper as tolerated. Likely has sepsis from Group A strep pneumonia Continue with antibiotics for a least 2 weeks in duration. Recommend discontinuing vancomycin and zosyn. Discontinue steroids at this time. Continue with nebulizers and pulmonary toilet Recommend TTE to rule out endocarditis. I will repeat blood cultures. F/u bronch cultures and pathology. Will continue to follow with you. Data Medications: Current Inpatient Medications Medications (Trade) Dose Ordered Sig/Luis Route Start Time Stop Time Status Last Admin Dose Admin Ioversol (Optiray 320) 100 ml UD PRN IV 04/12/17 10:00 04/16/17 09:59 Acetaminophen (Tylenol Tab) 650 mg Q4H PRN PO 04/12/17 13:00 05/12/17 12:59 04/12/17 19:17 650 MG Ondansetron HCl (Zofran Inj) 4 mg Q6H PRN IV 04/12/17 13:00 05/12/17 12:59 Sodium Chloride 1,000 ml @ 125 mls/hr Q8H IV 04/12/17 14:30 05/12/17 14:29 04/14/17 05:35 125 MLS/HR Methylprednisolone Sodium Succinate 40 mg/Syringe 0.64 ml @ 1.5 mls/min Q8H IV 04/12/17 20:00 05/12/17 19:59 04/14/17 04:27 1.5 MLS/MIN Hydromorphone HCl (Dilaudid Inj) 0.5 mg Q4 PRN IV 04/12/17 13:30 04/26/17 13:29 04/13/17 17:39 0.5 MG Tramadol HCl (Ultram Tab) 50 mg Q6 PRN PO 04/12/17 13:30 05/12/17 13:29 04/13/17 23:15 50 MG Glucose (Glucose 40% Gel) 15-30 GRAMS 15 GRAMS... UD PRN PO 04/12/17 13:30 05/12/17 13:29 Glucose (Glucose Chew Tab) 4-8 Tablets 4 Tabl... UD PRN PO 04/12/17 13:30 05/12/17 13:29 Dextrose (Dextrose 50% 50ML Syringe) 25-50ML OF 50% DW IV FOR... UD PRN IV 04/12/17 13:30 05/12/17 13:29 Glucagon (Glucagon Inj) 1 mg UD PRN SQ 04/12/17 13:30 05/12/17 13:29 Miscellaneous Information (Consult Glycemic Management Pharmacy) 1 ea UD PRN N/A 04/12/17 13:42 05/12/17 13:41 Levofloxacin 750 mg/Prmx 150 ml @ 100 mls/hr Q24H IV 04/12/17 15:00 04/19/17 14:59 04/13/17 17:36 100 MLS/HR Vancomycin HCl (Consult) 1 ea UD PRN N/A 04/12/17 14:00 05/12/17 13:59 Piperacillin Sod/ Tazobactam Sod (Consult) 1 ea UD PRN N/A 04/12/17 14:00 05/12/17 13:59 Digoxin (Lanoxin Pediatric Elix) 0.125 mg DAILY@1600 PEG 04/12/17 16:00 05/12/17 15:59 04/13/17 17:57 0.125 MG Levothyroxine Sodium (Synthroid Tab) 175 mcg DAILYBB PO 04/13/17 06:00 05/13/17 05:59 04/14/17 05:40 175 MCG Metoprolol Succinate (Toprol Xl Tab) 25 mg BID PO 04/12/17 21:00 05/12/17 20:59 04/14/17 08:19 25 MG Ipratropium [place] (Atrovent 0.02% 0.5MG/2.5ML Neb) 0.5 mg Q6R INH 04/12/17 15:00 05/12/17 14:59 04/14/17 07:28 0.5 MG Levalbuterol (Xopenex 1.25MG/ 0.5ML Neb) 1.25 mg Q6R INH 04/12/17 15:00 05/12/17 14:59 04/14/17 07:28 1.25 MG Piperacillin Sod/ Tazobactam Sod 3.375 gm/Dextrose 115 ml @ 28.75 mls/ hr Q8H IV 04/12/17 18:00 04/19/17 17:59 04/14/17 05:35 28.75 MLS/HR Ibuprofen (Motrin Tab) 600 mg Q8 PRN PO 04/12/17 20:30 05/12/17 20:29 04/13/17 23:14 600 MG Levalbuterol (Xopenex 0.63 Mg/ 3 Ml Neb) 0.63 mg Q2R PRN INH 04/12/17 21:15 05/12/17 21:14 Ipratropium [place] (Atrovent 0.02% 0.5MG/2.5ML Neb) 0.5 mg Q2R PRN INH 04/12/17 21:15 05/12/17 21:14 Insulin Glargine (Lantus Solostar Pen) 25 units BID SC 04/13/17 09:00 05/13/17 08:59 04/14/17 08:25 25 UNITS Vancomycin HCl 1500 mg/Sodium Chloride 530 ml @ 200 mls/hr Q12H IV 04/13/17 11:00 04/19/17 11:59 04/13/17 23:15 200 MLS/HR Insulin Aspart (novoLOG ASPART) SLIDING SCALE If C... ACHS SC 04/13/17 12:45 05/13/17 12:44 04/14/17 08:24 12 UNITS Pantoprazole Sodium (Protonix Tab) 40 mg QAM PO 04/14/17 09:00 05/14/17 08:59 Vital Signs: Date Time Temp Pulse Resp B/P (MAP) Pulse Ox O2 Delivery O2 Flow Rate FiO2 04/14/17 10:30 36.5 101 20 126/72 (90) 92 Trach Collar 04/14/17 08:06 36.4 89 24 146/81 (102) 96 Trach Collar 11.0 50 04/14/17 08:00 Humidified Oxygen 40 Trach Collar 04/14/17 07:28 89 16 94 Trach Collar 40 04/14/17 04:47 36.7 95 26 131/74 (93) 93 Trach Collar 10.0 40 04/14/17 04:00 Humidified Oxygen 40 Trach Collar 04/14/17 02:03 103 16 96 Trach Collar 40 04/14/17 00:00 37.4 112 22 138/77 (97) 95 Humidified Air 50 Trach Collar 04/14/17 00:00 95 Humidified Oxygen 50 Trach Collar 04/13/17 20:00 96 Trach Collar 50 04/13/17 19:55 37.0 113 22 124/67 (86) 95 Trach Collar 7.0 40 04/13/17 19:04 111 18 97 Trach Collar 40 04/13/17 16:00 Trach Collar 50 04/13/17 15:46 37.1 110 18 138/79 (98) 95 Nasal Cannula 13.0 40 04/13/17 14:45 105 18 95 Trach Collar 70 04/13/17 12:00 Trach Collar 50 04/13/17 11:46 36.6 102 16 129/76 (09) 93 Trach Collar Laboratory Results: Last 24 Hours Test 04/13/17 11:40 04/13/17 16:14 04/13/17 20:13 04/14/17 06:43 Bedside Glucose 154 mg/dl 216 mg/dl 219 mg/dl 185 mg/dl Test 04/14/17 07:54 04/14/17 10:42 White Blood Count 26.64 K/uL Red Blood Count 3.88 M/uL Hemoglobin 12.7 g/dL Hematocrit 39.3 % Mean Corpuscular Volume 101.3 fL Mean Corpuscular Hemoglobin 32.7 pg Mean Corpuscular Hemoglobin Concent 32.3 g/dl Platelet Count 205 K/uL Mean Platelet Volume 12.6 fL Neutrophils (%) (Auto) 89.6 % Lymphocytes (%) (Auto) 2.9 % Monocytes (%) (Auto) 5.1 % Eosinophils (%) (Auto) 0.0 % Basophils (%) (Auto) 0.1 % Neutrophils # (Auto) 23.85 K/uL Lymphocytes # (Auto) 0.77 K/uL Monocytes # (Auto) 1.37 K/uL Eosinophils # (Auto) 0.01 K/uL Basophils # (Auto) 0.03 K/uL RDW Standard Deviation 57.8 fL RDW Coefficient of Variation 15.5 % Immature Granulocyte % (Auto) 2.3 % Immature Granulocyte # (Auto) 0.61 K/uL Nucleated RBC Absolute Count (auto) 0.04 K/uL Nucleated Red Blood Cells % 0.1 % Poikilocytosis PRESENT Basophilic Stippling 1+ [place] Bodies 2+ [place] Bodies 1+ Sodium Level 136 mmol/L Potassium Level 4.6 mmol/L Chloride Level 104 mmol/L Carbon Dioxide Level 27 mmol/L Anion Gap 5.0 mmol/L Blood Urea Nitrogen 24 mg/dl Creatinine 0.82 mg/dl Est Creatinine Clear Calc Drug Dose 110.5 ml/min Estimated GFR () 109.1 Estimated GFR (Non- 94.1 BUN/Creatinine Ratio 29.0 Random Glucose 150 mg/dl Calcium Level 8.2 mg/dl Chemistry Specimen Hemolysis
[2017-04-14] MEDS ORDERED: PHARMACY CONSULT IN PROGRESS PRN (13:00)
[2017-04-14] MEDS: HYDROmorphone INJ 0.5 MG/0.5 ML SYR IV PRN ×2 (15:04→22:05)
[2017-04-14] MEDS: LEVOFLOXACIN / D5W 750 MG in PREMIXED IN D5W 150 ML IV SCH (15:07)
[2017-04-14] MEDS: DIGOXIN 0.125 MG/2.5 ML UDP PEG SCH (17:36)
[2017-04-14] MEDS: AMPICILLIN IV 2,000 MG in SODIUM CHLOR 0.9% AD-VAN 100ML 100 ML IV SCH ×2 (17:39→20:31)
--- NOTE | 2017-04-14 19:34 | Progress Note ---
Medicine Progress Note Date & Time of Visit: Apr 14, 2017 at 19:34. Subjective Patient states he feels slightly better, but continues to complain about LLQ pain, mainly with movement. No overnight events noted. No other complaints at this time. Tolerating PO. Objective Last 8 Hrs Date Time Temp Pulse Resp B/P (MAP) Pulse Ox O2 Delivery O2 Flow Rate FiO2 04/14/17 16:00 Humidified Oxygen 40 Trach Collar 04/14/17 15:44 36.9 98 18 118/67 (84) 99 04/14/17 12:59 105 16 93 Trach Collar 40 04/14/17 12:00 Humidified Oxygen 40 Trach Collar Physical Exam: GENERAL: Patient is in no acute distress. HEENT: No acute trauma, mucous membranes moist, no nasal congestion, no scleral icterus. Tracheostomy stoma present NECK: No stridor, trachea is midline. LUNGS: Slight expiratory wheeze bilaterally, no rhonchi, breath sounds equal. HEART: Without murmurs gallops or rubs, regular rate and rhythm. ABDOMEN: Soft, nontender, bowel sounds positive, no hepatosplenomegaly EXTREMITIES: No cyanosis or edema NEUROLOGIC: Oriented x 3, no acute motor or sensory deficits, no focal weakness. SKIN: No rash, no jaundice, no diaphoresis. Laboratory Results: Last 24 Hours Test 04/13/17 20:13 04/14/17 06:43 04/14/17 07:54 04/14/17 10:42 Bedside Glucose 219 mg/dl 185 mg/dl White Blood Count 26.64 K/uL Red Blood Count 3.88 M/uL Hemoglobin 12.7 g/dL Hematocrit 39.3 % Mean Corpuscular Volume 101.3 fL Mean Corpuscular Hemoglobin 32.7 pg Mean Corpuscular Hemoglobin Concent 32.3 g/dl Platelet Count 205 K/uL Mean Platelet Volume 12.6 fL Neutrophils (%) (Auto) 89.6 % Lymphocytes (%) (Auto) 2.9 % Monocytes (%) (Auto) 5.1 % Eosinophils (%) (Auto) 0.0 % Basophils (%) (Auto) 0.1 % Neutrophils # (Auto) 23.85 K/uL Lymphocytes # (Auto) 0.77 K/uL Monocytes # (Auto) 1.37 K/uL Eosinophils # (Auto) 0.01 K/uL Basophils # (Auto) 0.03 K/uL RDW Standard Deviation 57.8 fL RDW Coefficient of Variation 15.5 % Immature Granulocyte % (Auto) 2.3 % Immature Granulocyte # (Auto) 0.61 K/uL Nucleated RBC Absolute Count (auto) 0.04 K/uL Nucleated Red Blood Cells % 0.1 % Poikilocytosis PRESENT Basophilic Stippling 1+ Pappenheimer Bodies 2+ Julian-B And E Bodies 1+ Sodium Level 136 mmol/L Potassium Level 4.6 mmol/L Chloride Level 104 mmol/L Carbon Dioxide Level 27 mmol/L Anion Gap 5.0 mmol/L Blood Urea Nitrogen 24 mg/dl Creatinine 0.82 mg/dl Est Creatinine Clear Calc Drug Dose 110.5 ml/min Estimated GFR () 109.1 Estimated GFR (Non- 94.1 BUN/Creatinine Ratio 29.0 Random Glucose 150 mg/dl Calcium Level 8.2 mg/dl Chemistry Specimen Hemolysis Vancomycin Level Trough 12.2 mcg/ml Test 04/14/17 11:51 04/14/17 16:09 Bedside Glucose 192 mg/dl 157 mg/dl Date/Time Source Procedure Growth Status 04/14/17 12:10 Blood Blood Culture Pending Received 04/14/17 12:01 Blood Blood Culture Pending Received Assessment & Plan SEPSIS: secondary to strep bacteremia and pneumonia -on presentation was tachycardic, tachypneic, with leukocytosis, lactic acidosis , elevated Procalcitonin -2 of 2 blood cultures growing group A beta strep, -tracheal suction culture also growing group A beta strep -treated with cefepime, vancomycin, solumedrol in ER; was then on vanco + zosyn + levaquin, and now only on levaquin and ampicillin (for strep) -influenza negative -has prior hx of MRSA -urine negative -AFB and cultures from bronchial washings pending ACUTE ON CHRONIC RESPIRATORY FAILURE: likely secondary to above -question if from pneumonia or aspiration pneumonia or less likely flare of IPF -continue O2 via trach mask -xopenex/atrovent nebs -solumedrol 40mg IV Q8h; now stopped -NSS @ 125ml/hr, will stop fluids now -dilaudid prn pain -tramadol prn pain -Pulmonology consulted, appreciate recommendations DM TYPE II: -HbA1c: 7.8 -NovoLog sliding scale per protocol -Glycemic pharmacy consulted, appreciate recs HYPOTHYROIDISM: -continue levothyroxine HTN: -normotensive now, was initially hypotensive -hold losartan -reduced metoprolol 25mg BID with hold parameters HX OF ARRHYTHMIAS: -remains sinus rhythm on monitor -continue digoxin; Dig level 0.4 GERD: -PPI Consultants: Pulmonary Procedures: Bronchoscopy Current Inpatient Medications: Current Inpatient Medications Medications (Trade) Dose Ordered Sig/Luis Route Start Time Stop Time Status Last Admin Dose Admin Ioversol (Optiray 320) 100 ml UD PRN IV 04/12/17 10:00 04/16/17 09:59 Acetaminophen (Tylenol Tab) 650 mg Q4H PRN PO 04/12/17 13:00 05/12/17 12:59 04/12/17 19:17 650 MG Ondansetron HCl (Zofran Inj) 4 mg Q6H PRN IV 04/12/17 13:00 05/12/17 12:59 Sodium Chloride 1,000 ml @ 125 mls/hr Q8H IV 04/12/17 14:30 05/12/17 14:29 04/14/17 15:08 125 MLS/HR Hydromorphone HCl (Dilaudid Inj) 0.5 mg Q4 PRN IV 04/12/17 13:30 04/26/17 13:29 04/14/17 15:04 0.5 MG Tramadol HCl (Ultram Tab) 50 mg Q6 PRN PO 04/12/17 13:30 05/12/17 13:29 04/13/17 23:15 50 MG Glucose (Glucose 40% Gel) 15-30 GRAMS 15 GRAMS... UD PRN PO 04/12/17 13:30 05/12/17 13:29 Glucose (Glucose Chew Tab) 4-8 Tablets 4 Tabl... UD PRN PO 04/12/17 13:30 05/12/17 13:29 Dextrose (Dextrose 50% 50ML Syringe) 25-50ML OF 50% DW IV FOR... UD PRN IV 04/12/17 13:30 05/12/17 13:29 Glucagon (Glucagon Inj) 1 mg UD PRN SQ 04/12/17 13:30 05/12/17 13:29 Miscellaneous Information (Consult Glycemic Management Pharmacy) 1 ea UD PRN N/A 04/12/17 13:42 05/12/17 13:41 Levofloxacin 750 mg/Prmx 150 ml @ 100 mls/hr Q24H IV 04/12/17 15:00 04/19/17 14:59 04/14/17 15:07 100 MLS/HR Digoxin (Lanoxin Pediatric Elix) 0.125 mg DAILY@1600 PEG 04/12/17 16:00 05/12/17 15:59 04/14/17 17:36 0.125 MG Levothyroxine Sodium (Synthroid Tab) 175 mcg DAILYBB PO 04/13/17 06:00 05/13/17 05:59 04/14/17 05:40 175 MCG Metoprolol Succinate (Toprol Xl Tab) 25 mg BID PO 04/12/17 21:00 05/12/17 20:59 04/14/17 08:19 25 MG Ipratropium [place] (Atrovent 0.02% 0.5MG/2.5ML Neb) 0.5 mg Q6R INH 04/12/17 15:00 05/12/17 14:59 04/14/17 19:08 0.5 MG Levalbuterol (Xopenex 1.25MG/ 0.5ML Neb) 1.25 mg Q6R INH 04/12/17 15:00 05/12/17 14:59 04/14/17 19:08 1.25 MG Ibuprofen (Motrin Tab) 600 mg Q8 PRN PO 04/12/17 20:30 05/12/17 20:29 04/13/17 23:14 600 MG Levalbuterol (Xopenex 0.63 Mg/ 3 Ml Neb) 0.63 mg Q2R PRN INH 04/12/17 21:15 05/12/17 21:14 Ipratropium [place] (Atrovent 0.02% 0.5MG/2.5ML Neb) 0.5 mg Q2R PRN INH 04/12/17 21:15 05/12/17 21:14 Insulin Aspart (novoLOG ASPART) SLIDING SCALE If C... ACHS SC 04/13/17 12:45 04/14/17 20:00 04/14/17 17:35 11 UNITS Pantoprazole Sodium (Protonix Tab) 40 mg QAM PO 04/14/17 09:00 05/14/17 08:59 04/14/17 09:00 40 MG Ampicillin Sodium 2000 mg/Sodium Chloride 108 ml @ 216 mls/hr Q4 IV 04/14/17 16:00 04/26/17 15:59 04/14/17 17:39 216 MLS/HR Miscellaneous Information 1 ea UD PRN N/A 04/14/17 13:00 05/14/17 12:59 Insulin Glargine (Lantus Solostar Pen) 20 units BID SC 04/14/17 21:00 05/14/17 20:59 Insulin Aspart (novoLOG ASPART) SLIDING SCALE If C... ACHS SC 04/14/17 21:00 05/14/17 20:59
--- NOTE | 2017-04-14 20:45 | ECHOCARDIOGRAM REPORT ---
*NOTICE TO RECEIVING DEMOCRAT AGENCY This information is strictly Confidential and protected under [place] law. [place] law prohibits you from making any further disclosure of this information unless further disclosure is expressly permitted by the written consent of the person to whom it pertains or is authorized by law. A general authorization for the release of medical or other information is not sufficient for this purpose. Hospital accepts no responsibility if the information is made available to any other person, INCLUDING THE PATIENT. Interpretation Summary * Name: CLAUDY CANALES Study Date: 04/14/2017 02:36 PM BP: 118/67 mmHg * Patient Location: C.2T\S\S244\S\1 HR: 98 * : 1955 (M/d/yyyy) Gender: Male Height: 71 in * Age: 61 yrs Ethnicity: CA Weight: 218 lb * Ordering Physician: Autumn Armas * Referring Physician: Self, Referred * Performed By: Jonas Dixon RCS * * Reason For Study: Endocarditis * BSA: 2.2 m2 * Limited views were obtained. * There is no evidence of a mass or vegetation. This does not rule out endocarditis. * -- Conclusions -- * Left ventricular systolic function is mildly reduced. * Ejection Fraction = 40-45%. * There is mild global hypokinesis of the left ventricle. * Aortic valve sclerosis mild, without significant aortic valvular stenosis. * There is trace mitral regurgitation. Procedure Details * A two-dimensional transthoracic echocardiogram with M-mode and Doppler was performed. * A two-dimensional transthoracic echocardiogram, with color flow Doppler was performed. * A two-dimensional transthoracic echocardiogram with pulsed and continuous Doppler was performed. * Limited views were obtained. * Patient supine for imagining. Left Ventricle * Left ventricular systolic function is mildly reduced. * Ejection Fraction = 40-45%. * There is mild global hypokinesis of the left ventricle. Right Ventricle * The right ventricle is grossly normal size. * The right ventricular systolic function is qualitatively normal. Atria * The left atrial size is normal. * Right atrial size is normal. Mitral Valve * The mitral valve anatomy is normal. * There is trace mitral regurgitation. Tricuspid Valve * The tricuspid valve is not well visualized. * There is trace tricuspid regurgitation. Aortic Valve * The aortic valve is not well visualized. * Aortic valve sclerosis mild, without significant aortic valvular stenosis. Pericardium/Pleural * Small circumferential pericardial effusion. Great Vessels * IVC not visualized.
[2017-04-14] MEDS: LEVALBUTEROL 0.63MG/3 ML NEB INH PRN (23:14)
[2017-04-14] MEDS: IPRATROPIUM BROMIDE NEB SOLN 0.02% 2.5 ML VIAL INH PRN (23:14)
[2017-04-15] VITALS (10 sets, daily range): BP systolic 148–174; BP diastolic 79–88; PULSE 84–102; TEMP 36.4–37.2; O2SAT 40–98
[2017-04-15] MEDS: AMPICILLIN IV 2,000 MG in SODIUM CHLOR 0.9% AD-VAN 100ML 100 ML IV SCH ×7 (00:09→23:44)
[2017-04-15] MEDS: SODIUM CHLORIDE 0.9% 1000ML 1,000 ML IV SCH ×2 (00:13→06:47)
[2017-04-15] MEDS: TRAMADOL HCL 50 MG TAB PO PRN ×3 (02:03→21:24)
[2017-04-15] MEDS: IPRATROPIUM BROMIDE NEB SOLN 0.02% 2.5 ML VIAL INH SCH ×4 (02:12→19:06)
[2017-04-15] MEDS: LEVALBUTEROL 1.25MG/0.5ML NEB INH SCH ×4 (02:12→19:06)
[2017-04-15] MEDS: HYDROmorphone INJ 0.5 MG/0.5 ML SYR IV PRN ×5 (04:33→22:12)
[2017-04-15] MEDS: LEVOTHYROXINE 175 MCG TAB PO SCH (04:37)
[2017-04-15] MEDS: INSULIN ASPART 100 UNITS/ML 3 ML PEN SC SCH ×4 (08:16→21:00)
[2017-04-15] MEDS: METOPROLOL SUCC 25MG EXT REL TAB PO SCH ×2 (08:16→22:11)
[2017-04-15] MEDS: PANTOprazole SOD 40 MG TAB PO SCH (08:16)
[2017-04-15] MEDS: INSULIN GLARGINE SOLOSTAR 100 UNITS/ML 3 ML PEN SC SCH ×2 (08:23→22:16)
[2017-04-15 09:21] LABS: BASO % 0.1 %; BASO ABS # 0.02 K/uL (0-0.2); EOS % 0.5 %; HEMATOCRIT 40.2 % (42-52); HEMOGLOBIN 13.2 g/dL (14.0-18.0); IG# 0.12 K/uL (0.00-0.02); LYMPH % 6.9 %; MEAN CELL VOLUME 99.8 fL (80-100); MEAN CORPUSCULAR HEMOGLOBIN 32.8 pg (25-34); MEAN CORPUSCULAR HGB CONC 32.8 g/dl (32-36); MEAN PLATELET VOLUME 13.3 fL (7.4-10.4); MONO % 9.6 %; MONO ABS # 1.81 K/uL (0.11-0.59); NEUT % 82.3 %; NEUT ABS # 15.51 K/uL (1.4-6.5); NUCLEATED RED BLOOD CELL ABS 0.06 K/uL (0-0); PLATELET COUNT 199 K/uL (130-400); RED CELL DISTRIBUTION WIDTH CV 15.4 % (11.5-14.5); RED CELL DISTRIBUTION WIDTH SD 56.3 fL (36.4-46.3); WHITE BLOOD COUNT 18.86 K/uL (4.8-10.8)
[2017-04-15 09:51] LABS: CALCIUM 8.2 mg/dl (8.5-10.1); CREATININE 0.76 mg/dl (0.60-1.40); POTASSIUM 4.1 mmol/L (3.5-5.1)
[2017-04-15 13:02] LABS: HERPES SIMPLEX VIRUS CULT NOT ISOLATED (NOT ISOLATED)
--- NOTE | 2017-04-15 14:32 | Pharmacy Progress Note ---
Pharmacy Glycemic Short Note 2 Date of Service Apr 15, 2017. OUTPATIENT ANTIDIABETIC REGIMEN: * Lantus 19-22 units BID * Trulicity 0.75 mg once weekly * A1c 7.8% on 04/13/17 ASSESSMENT: * Mr. Rodriguez received 77 units of insulin on 04/14, with BSGs ranging from 110- 192 mg/dL * IV steroids were discontinued after am dose administered on 04/14 * Fasting BSG below goal - decrease basal insulin * BSGs trending down throughout the day - loosen CF/CR further today * Anticipate patient needing ~65 units per day PLAN FOR INPATIENT GLYCEMIC CONTROL: * Basal insulin - decrease * Lantus 16-20 units SQ BID * 16 units for BSG less than 140, 20 units for BSG 140 or more * Bolus insulin - decrease * NovoLog per scale ACHS or Q6hrs while NPO * Goal Range: Low 120 mg/dL - High 150 mg/dL * Correction Factor: 25 mg/dL/unit * Nutritional / Prandial insulin per carb ratio of 1 unit per 8 grams CHO consumed Thank you.
[2017-04-15] MEDS: LEVOFLOXACIN / D5W 750 MG in PREMIXED IN D5W 150 ML IV SCH (15:00)
--- NOTE | 2017-04-15 15:26 | Pulmonology Progress Note ---
Pulmonary Progress Note Date of Service Apr 15, 2017. Attending Objective VS reviewed. Tm 37, BP 152/84-174/88, P 84-96, RR 18-26, SaO2 93-95% on 11L via trach collar. He is about 6 L + balance since admission. Gen: AAOx3, NAD, speaking in full sentences with use of speaking device. No respiratory distress or use of accessory muscles of respiration. Neck: tracheostomy site--clean, no secretions. Lungs: coarse breath sound bilaterally, with wheezing throughout. Abd:soft/NT/ND, BS+ Ext: no edema bilaterally in LE, no cyanosis. Labs reviewed. WBC 26-->18 , Hemoglobin 13.2 Bronch washing 04/13---No AFB seen, No fungal elements seen, bacterial culture- -Group A strep Blood culture 04/12/2017--Group A Beta Strep Sputum from trach asp 04/12/2017--Group A Beta Strep, staph aureus-sensitive Pathology LUNG, RIGHT LOWER LOBE, BRONCHIAL WASHINGS: 1. BENIGN BRONCHIAL EPITHELIUM AND SQUAMOUS EPITHELIUM WITH REACTIVE ATYPIA. 2. NO MALIGNANT CELLS SEEN. TRACHEA, BRUSHINGS: ATYPICAL EPITHELIAL CELLS CONSISTENT WITH ATYPICAL REPAIR. SEE COMMENT. COMMENT: The ThinPrep slide shows multiple cohesive groups of epithelial cells with increased nuclear to cytoplasmic ratios and vesicular chromatin with nucleoli. In some of these groups the cells are relatively uniform and organized but in other groups they are more pleomorphic and less organized. This raised the question of non-small cell carcinoma, however in my opinion the overall findings are most in keeping with atypical repair. This case was reviewed as an intradepartmental consultation with concurrence. Imaging reviewed. TTE from 04/14/2017--shows no vegetations. CXR post bronchoscopy 04/13/2017 FINDINGS: Linear subsegmental opacity of the right perihilar upper lobe suggest areas of atelectasis/scarring. Hazy perihilar, lateral left midlung and bibasilar opacities are again seen with mild right hemidiaphragm elevation and trace right pleural effusion. No postprocedural pneumothorax Medications reviewed. 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 Rodriguez complains of a lot of back left back pain today. He is also sounding worse from a respiratory standpoint. He is still requiring a large amount of oxygen via trach collar. Continue to taper as tolerated. Likely has sepsis from Group A strep pneumonia Continue with antibiotics for a least 2 weeks in duration. Continue with Levoquin and Unasyn to cover for MSSA and Group A strep. Repeat Blood cultures are still pending. Will start mucomyst BID and hypertonic saline for pulmonary toilet. Continue with nebulizers. Will resume steroids, did not tolerated discontinuation. He may benefit from a slow taper Trachea brushings show atypical cells consistent with abnormal healing, however there was question of possible non small carcinoma. Recommend repeat bronchoscopy with biopsy after pneumonia has resolved. He appears to be fluid overloaded today and has received a total of 6L since admission. I feel he may benefit from gentle diuresis Will continue to follow with you. Data Medications: Current Inpatient Medications Medications (Trade) Dose Ordered Sig/Luis Route Start Time Stop Time Status Last Admin Dose Admin Ioversol (Optiray 320) 100 ml UD PRN IV 04/12/17 10:00 04/16/17 09:59 Acetaminophen (Tylenol Tab) 650 mg Q4H PRN PO 04/12/17 13:00 05/12/17 12:59 04/12/17 19:17 650 MG Ondansetron HCl (Zofran Inj) 4 mg Q6H PRN IV 04/12/17 13:00 05/12/17 12:59 Hydromorphone HCl (Dilaudid Inj) 0.5 mg Q4 PRN IV 04/12/17 13:30 04/26/17 13:29 04/15/17 12:48 0.5 MG Tramadol HCl (Ultram Tab) 50 mg Q6 PRN PO 04/12/17 13:30 05/12/17 13:29 04/15/17 10:47 50 MG Glucose (Glucose 40% Gel) 15-30 GRAMS 15 GRAMS... UD PRN PO 04/12/17 13:30 05/12/17 13:29 Glucose (Glucose Chew Tab) 4-8 Tablets 4 Tabl... UD PRN PO 04/12/17 13:30 05/12/17 13:29 Dextrose (Dextrose 50% 50ML Syringe) 25-50ML OF 50% DW IV FOR... UD PRN IV 04/12/17 13:30 05/12/17 13:29 Glucagon (Glucagon Inj) 1 mg UD PRN SQ 04/12/17 13:30 05/12/17 13:29 Miscellaneous Information (Consult Glycemic Management Pharmacy) 1 ea UD PRN N/A 04/12/17 13:42 05/12/17 13:41 Levofloxacin 750 mg/Prmx 150 ml @ 100 mls/hr Q24H IV 04/12/17 15:00 04/19/17 14:59 04/14/17 15:07 100 MLS/HR Digoxin (Lanoxin Pediatric Elix) 0.125 mg DAILY@1600 PEG 04/12/17 16:00 05/12/17 15:59 04/14/17 17:36 0.125 MG Levothyroxine Sodium (Synthroid Tab) 175 mcg DAILYBB PO 04/13/17 06:00 05/13/17 05:59 04/15/17 04:37 175 MCG Metoprolol Succinate (Toprol Xl Tab) 25 mg BID PO 04/12/17 21:00 05/12/17 20:59 04/15/17 08:16 25 MG Ipratropium [place] (Atrovent 0.02% 0.5MG/2.5ML Neb) 0.5 mg Q6R INH 04/12/17 15:00 05/12/17 14:59 04/15/17 12:58 0.5 MG Levalbuterol (Xopenex 1.25MG/ 0.5ML Neb) 1.25 mg Q6R INH 04/12/17 15:00 05/12/17 14:59 04/15/17 12:58 1.25 MG Ibuprofen (Motrin Tab) 600 mg Q8 PRN PO 04/12/17 20:30 05/12/17 20:29 04/13/17 23:14 600 MG Levalbuterol (Xopenex 0.63 Mg/ 3 Ml Neb) 0.63 mg Q2R PRN INH 04/12/17 21:15 05/12/17 21:14 04/14/17 23:14 0.63 MG Ipratropium [place] (Atrovent 0.02% 0.5MG/2.5ML Neb) 0.5 mg Q2R PRN INH 04/12/17 21:15 05/12/17 21:14 04/14/17 23:14 0.5 MG Pantoprazole Sodium (Protonix Tab) 40 mg QAM PO 04/14/17 09:00 05/14/17 08:59 04/15/17 08:16 40 MG Ampicillin Sodium 2000 mg/Sodium Chloride 108 ml @ 216 mls/hr Q4 IV 04/14/17 16:00 04/26/17 15:59 04/15/17 12:51 216 MLS/HR Miscellaneous Information 1 ea UD PRN N/A 04/14/17 13:00 05/14/17 12:59 Insulin Glargine (Lantus Solostar Pen) 20 units BID SC 04/14/17 21:00 05/14/17 20:59 04/15/17 08:23 20 UNITS Insulin Aspart (novoLOG ASPART) SLIDING SCALE If C... ACHS SC 04/14/17 21:00 05/14/17 20:59 Vital Signs: Date Time Temp Pulse Resp B/P (MAP) Pulse Ox O2 Delivery O2 Flow Rate FiO2 04/15/17 12:58 90 18 93 Trach Collar 40 04/15/17 12:00 Humidified Oxygen 40 Trach Collar 04/15/17 11:05 36.4 96 24 174/88 (116) 93 Humidified Oxygen Trach Collar 04/15/17 08:00 Humidified Oxygen 40 Trach Collar 04/15/17 07:43 36.9 87 24 152/84 (106) 95 Trach Collar 11.0 40 04/15/17 07:02 84 18 94 Trach Collar 40 04/15/17 04:00 95 Humidified Oxygen 40 Trach Collar 04/15/17 04:00 37.0 92 26 156/83 (107) 95 Humidified Oxygen 40.0 Trach Collar 04/15/17 02:12 92 20 95 Trach Collar 40 04/15/17 00:00 94 Humidified Oxygen 40 Trach Collar 04/14/17 23:58 37.2 95 21 144/75 (98) 94 Humidified Oxygen 10.0 40 Trach Collar 04/14/17 22:10 93 16 95 Trach Collar 40 04/14/17 20:00 Trach Collar 10.0 40 04/14/17 19:39 36.9 75 18 125/77 (93) 98 04/14/17 19:08 94 16 96 Trach Collar 40 04/14/17 16:00 Humidified Oxygen 40 Trach Collar 04/14/17 15:44 36.9 98 18 118/67 (84) 99 Laboratory Results: Last 24 Hours Test 04/14/17 16:09 04/14/17 20:05 04/15/17 07:05 04/15/17 08:33 Bedside Glucose 157 mg/dl 110 mg/dl 71 mg/dl White Blood Count 18.86 K/uL Red Blood Count 4.03 M/uL Hemoglobin 13.2 g/dL Hematocrit 40.2 % Mean Corpuscular Volume 99.8 fL Mean Corpuscular Hemoglobin 32.8 pg Mean Corpuscular Hemoglobin Concent 32.8 g/dl Platelet Count 199 K/uL Mean Platelet Volume 13.3 fL Neutrophils (%) (Auto) 82.3 % Lymphocytes (%) (Auto) 6.9 % Monocytes (%) (Auto) 9.6 % Eosinophils (%) (Auto) 0.5 % Basophils (%) (Auto) 0.1 % Neutrophils # (Auto) 15.51 K/uL Lymphocytes # (Auto) 1.30 K/uL Monocytes # (Auto) 1.81 K/uL Eosinophils # (Auto) 0.10 K/uL Basophils # (Auto) 0.02 K/uL RDW Standard Deviation 56.3 fL RDW Coefficient of Variation 15.4 % Immature Granulocyte % (Auto) 0.6 % Immature Granulocyte # (Auto) 0.12 K/uL Nucleated RBC Absolute Count (auto) 0.06 K/uL Nucleated Red Blood Cells % 0.3 % Sodium Level 139 mmol/L Potassium Level 4.1 mmol/L Chloride Level 106 mmol/L Carbon Dioxide Level 28 mmol/L Anion Gap 5.0 mmol/L Blood Urea Nitrogen 21 mg/dl Creatinine 0.76 mg/dl Est Creatinine Clear Calc Drug Dose 121.6 ml/min Estimated GFR () 112.5 Estimated GFR (Non- 97.1 BUN/Creatinine Ratio 28.3 Random Glucose 102 mg/dl Calcium Level 8.2 mg/dl Test 04/15/17 11:12 Bedside Glucose 101 mg/dl
[2017-04-15] MEDS: DIGOXIN 0.125 MG/2.5 ML UDP PEG SCH (17:11)
[2017-04-15] MEDS: SODIUM CHLORIDE 7% 4 ML NEB INH SCH (19:07)
--- NOTE | 2017-04-15 19:49 | Progress Note ---
Medicine Progress Note Date & Time of Visit: Apr 15, 2017 at 19:49. Subjective Patient reports today was a bad day; he feels as though he has pain all over, mostly left sided in the lower back and his neck. He states he has not been out of bed much today. No overnight events noted. He is requesting more medication for pain control but appears to have difficulty keeping his eyes open when talking. Breathing was worse this AM and was restarted on steroids. Objective Last 8 Hrs Date Time Temp Pulse Resp B/P (MAP) Pulse Ox O2 Delivery O2 Flow Rate FiO2 04/15/17 19:07 96 18 91 Trach Collar 40 04/15/17 16:18 36.8 91 16 160/79 (106) 98 04/15/17 16:00 Humidified Oxygen 40 Trach Collar 04/15/17 12:58 90 18 93 Trach Collar 40 04/15/17 12:00 Humidified Oxygen 40 Trach Collar Physical Exam: GENERAL: Patient is in no acute distress. HEENT: No acute trauma, mucous membranes moist, no nasal congestion, no scleral icterus. Tracheostomy stoma present NECK: No stridor, trachea is midline. LUNGS: Slight expiratory wheeze bilaterally, no rhonchi, breath sounds equal. HEART: Without murmurs gallops or rubs, regular rate and rhythm. ABDOMEN: Soft, nontender, bowel sounds positive, no hepatosplenomegaly EXTREMITIES: No cyanosis or edema NEUROLOGIC: Oriented x 3, no acute motor or sensory deficits, no focal weakness. SKIN: No rash, no jaundice, no diaphoresis. Laboratory Results: Last 24 Hours Test 04/14/17 20:05 04/15/17 07:05 04/15/17 08:33 04/15/17 11:12 Bedside Glucose 110 mg/dl 71 mg/dl 101 mg/dl White Blood Count 18.86 K/uL Red Blood Count 4.03 M/uL Hemoglobin 13.2 g/dL Hematocrit 40.2 % Mean Corpuscular Volume 99.8 fL Mean Corpuscular Hemoglobin 32.8 pg Mean Corpuscular Hemoglobin Concent 32.8 g/dl Platelet Count 199 K/uL Mean Platelet Volume 13.3 fL Neutrophils (%) (Auto) 82.3 % Lymphocytes (%) (Auto) 6.9 % Monocytes (%) (Auto) 9.6 % Eosinophils (%) (Auto) 0.5 % Basophils (%) (Auto) 0.1 % Neutrophils # (Auto) 15.51 K/uL Lymphocytes # (Auto) 1.30 K/uL Monocytes # (Auto) 1.81 K/uL Eosinophils # (Auto) 0.10 K/uL Basophils # (Auto) 0.02 K/uL RDW Standard Deviation 56.3 fL RDW Coefficient of Variation 15.4 % Immature Granulocyte % (Auto) 0.6 % Immature Granulocyte # (Auto) 0.12 K/uL Nucleated RBC Absolute Count (auto) 0.06 K/uL Nucleated Red Blood Cells % 0.3 % Sodium Level 139 mmol/L Potassium Level 4.1 mmol/L Chloride Level 106 mmol/L Carbon Dioxide Level 28 mmol/L Anion Gap 5.0 mmol/L Blood Urea Nitrogen 21 mg/dl Creatinine 0.76 mg/dl Est Creatinine Clear Calc Drug Dose 121.6 ml/min Estimated GFR () 112.5 Estimated GFR (Non- 97.1 BUN/Creatinine Ratio 28.3 Random Glucose 102 mg/dl Calcium Level 8.2 mg/dl Test 04/15/17 16:44 Bedside Glucose 129 mg/dl Assessment & Plan SEPSIS: secondary to strep bacteremia and pneumonia -on presentation was tachycardic, tachypneic, with leukocytosis, lactic acidosis , elevated Procalcitonin -2 of 2 blood cultures growing group A beta strep, -tracheal suction culture also growing group A beta strep -treated with cefepime, vancomycin, solumedrol in ER; was then on vanco + zosyn + levaquin, and now only on levaquin and ampicillin (for strep) -influenza negative -has prior hx of MRSA -urine negative -AFB and cultures from bronchial washings pending; pathology from bronchial washings showing atypia with possible squamous cells but unknown significance -repeat blood cultures ordered and pending ACUTE ON CHRONIC RESPIRATORY FAILURE: likely secondary to above -question if from pneumonia or aspiration pneumonia or less likely flare of IPF -continue O2 via trach mask -xopenex/atrovent nebs -initially on solumedrol 40mg IV Q8h; now stopped -was on IV fluids, have since stopped fluids -dilaudid prn pain -tramadol prn pain -Pulmonology consulted, appreciate recommendations DM TYPE II: -HbA1c: 7.8% -NovoLog sliding scale per protocol -Glycemic pharmacy consulted, appreciate recs HYPOTHYROIDISM: -continue levothyroxine HTN: -normotensive now, was initially hypotensive -hold losartan -reduced metoprolol 25mg BID with hold parameters -BP is trending upwards, will adjust medications HX OF ARRHYTHMIAS: -remains sinus rhythm on monitor -continue digoxin; Dig level 0.4 GERD: -PPI Consultants: Pulmonary Procedures: Bronchoscopy Current Inpatient Medications: Current Inpatient Medications Medications (Trade) Dose Ordered Sig/Luis Route Start Time Stop Time Status Last Admin Dose Admin Ioversol (Optiray 320) 100 ml UD PRN IV 04/12/17 10:00 04/16/17 09:59 Acetaminophen (Tylenol Tab) 650 mg Q4H PRN PO 04/12/17 13:00 05/12/17 12:59 04/12/17 19:17 650 MG Ondansetron HCl (Zofran Inj) 4 mg Q6H PRN IV 04/12/17 13:00 05/12/17 12:59 Hydromorphone HCl (Dilaudid Inj) 0.5 mg Q4 PRN IV 04/12/17 13:30 04/26/17 13:29 04/15/17 17:10 0.5 MG Tramadol HCl (Ultram Tab) 50 mg Q6 PRN PO 04/12/17 13:30 05/12/17 13:29 04/15/17 10:47 50 MG Glucose (Glucose 40% Gel) 15-30 GRAMS 15 GRAMS... UD PRN PO 04/12/17 13:30 05/12/17 13:29 Glucose (Glucose Chew Tab) 4-8 Tablets 4 Tabl... UD PRN PO 04/12/17 13:30 05/12/17 13:29 Dextrose (Dextrose 50% 50ML Syringe) 25-50ML OF 50% DW IV FOR... UD PRN IV 04/12/17 13:30 05/12/17 13:29 Glucagon (Glucagon Inj) 1 mg UD PRN SQ 04/12/17 13:30 05/12/17 13:29 Miscellaneous Information (Consult Glycemic Management Pharmacy) 1 ea UD PRN N/A 04/12/17 13:42 05/12/17 13:41 Levofloxacin 750 mg/Prmx 150 ml @ 100 mls/hr Q24H IV 04/12/17 15:00 04/19/17 14:59 04/15/17 15:00 100 MLS/HR Digoxin (Lanoxin Pediatric Elix) 0.125 mg DAILY@1600 PEG 04/12/17 16:00 05/12/17 15:59 04/15/17 17:11 0.125 MG Levothyroxine Sodium (Synthroid Tab) 175 mcg DAILYBB PO 04/13/17 06:00 05/13/17 05:59 04/15/17 04:37 175 MCG Metoprolol Succinate (Toprol Xl Tab) 25 mg BID PO 04/12/17 21:00 05/12/17 20:59 04/15/17 08:16 25 MG Ipratropium [place] (Atrovent 0.02% 0.5MG/2.5ML Neb) 0.5 mg Q6R INH 04/12/17 15:00 05/12/17 14:59 04/15/17 19:06 0.5 MG Levalbuterol (Xopenex 1.25MG/ 0.5ML Neb) 1.25 mg Q6R INH 04/12/17 15:00 05/12/17 14:59 04/15/17 19:06 1.25 MG Ibuprofen (Motrin Tab) 600 mg Q8 PRN PO 04/12/17 20:30 05/12/17 20:29 04/13/17 23:14 600 MG Levalbuterol (Xopenex 0.63 Mg/ 3 Ml Neb) 0.63 mg Q2R PRN INH 04/12/17 21:15 05/12/17 21:14 04/14/17 23:14 0.63 MG Ipratropium [place] (Atrovent 0.02% 0.5MG/2.5ML Neb) 0.5 mg Q2R PRN INH 04/12/17 21:15 05/12/17 21:14 04/14/17 23:14 0.5 MG Pantoprazole Sodium (Protonix Tab) 40 mg QAM PO 04/14/17 09:00 05/14/17 08:59 04/15/17 08:16 40 MG Ampicillin Sodium 2000 mg/Sodium Chloride 108 ml @ 216 mls/hr Q4 IV 04/14/17 16:00 04/26/17 15:59 04/15/17 17:10 216 MLS/HR Miscellaneous Information 1 ea UD PRN N/A 04/14/17 13:00 05/14/17 12:59 Insulin Aspart (novoLOG ASPART) SLIDING SCALE If C... ACHS SC 04/14/17 21:00 05/14/17 20:59 Insulin Glargine (Lantus Solostar Pen) see protocol text BID SC 04/15/17 21:00 05/15/17 20:59 Prednisone (PredniSONE TAB) 40 mg DAILY PO 04/16/17 09:00 05/16/17 08:59 Acetylcysteine (Mucomyst 20% Inh Soln) 3 ml BID INH 04/15/17 21:00 05/15/17 20:59 Sodium Chloride (Sodium Chloride 7% Neb Solution) 4 ml BIDR INH 04/15/17 20:00 05/15/17 19:59 04/15/17 19:07 4 ML
[2017-04-15] MEDS: ACETYLCYSTEINE 20% INHAL SOLN ***DISPENSED BY RESP. INH SCH (21:00)
[2017-04-15] MEDS: IBUPROFEN 600 MG TAB PO PRN (21:24)
[2017-04-16] VITALS (16 sets, daily range): BP systolic 162–184; BP diastolic 77–104; PULSE 81–118; TEMP 36.7–37.1; O2SAT 18–96
[2017-04-16] MEDS: IPRATROPIUM BROMIDE NEB SOLN 0.02% 2.5 ML VIAL INH SCH ×4 (01:56→19:51)
[2017-04-16] MEDS: LEVALBUTEROL 1.25MG/0.5ML NEB INH SCH ×4 (01:56→19:50)
[2017-04-16] MEDS: AMPICILLIN IV 2,000 MG in SODIUM CHLOR 0.9% AD-VAN 100ML 100 ML IV SCH ×6 (04:07→23:45)
[2017-04-16] MEDS: IPRATROPIUM BROMIDE NEB SOLN 0.02% 2.5 ML VIAL INH PRN (06:04)
[2017-04-16] MEDS: LEVALBUTEROL 0.63MG/3 ML NEB INH PRN (06:05)
[2017-04-16] MEDS: LEVOTHYROXINE 175 MCG TAB PO SCH (06:34)
[2017-04-16] MEDS: SODIUM CHLORIDE 7% 4 ML NEB INH SCH ×2 (07:21→20:20)
[2017-04-16] MEDS: ACETYLCYSTEINE 20% INHAL SOLN ***DISPENSED BY RESP. INH SCH ×2 (07:21→19:51)
[2017-04-16 07:44] LABS: BASO % 0.1 %; BASO ABS # 0.02 K/uL (0-0.2); HEMATOCRIT 42.8 % (42-52); HEMOGLOBIN 14.3 g/dL (14.0-18.0); LYMPH % 6.3 %; LYMPH ABS # 0.84 K/uL (1.2-3.4); MEAN CELL VOLUME 99.3 fL (80-100); MEAN CORPUSCULAR HEMOGLOBIN 33.2 pg (25-34); MEAN CORPUSCULAR HGB CONC 33.4 g/dl (32-36); MEAN PLATELET VOLUME 13.4 fL (7.4-10.4); MONO % 9.8 %; MONO ABS # 1.31 K/uL (0.11-0.59); NEUT % 82.3 %; NEUT ABS # 11.02 K/uL (1.4-6.5); PLATELET COUNT 213 K/uL (130-400); RED CELL DISTRIBUTION WIDTH SD 55.2 fL (36.4-46.3); WHITE BLOOD COUNT 13.39 K/uL (4.8-10.8)
[2017-04-16 08:17] LABS: CALCIUM 8.5 mg/dl (8.5-10.1); CREATININE 0.59 mg/dl (0.60-1.40); POTASSIUM 4.3 mmol/L (3.5-5.1)
[2017-04-16] MEDS: METOPROLOL SUCC 50MG EXT REL TAB PO SCH ×2 (09:14→20:57)
[2017-04-16] MEDS: INSULIN ASPART 100 UNITS/ML 3 ML PEN SC SCH ×4 (09:17→20:53)
[2017-04-16] MEDS: INSULIN GLARGINE SOLOSTAR 100 UNITS/ML 3 ML PEN SC SCH ×2 (09:17→20:57)
[2017-04-16] MEDS: HYDROmorphone INJ 0.5 MG/0.5 ML SYR IV PRN ×4 (09:29→23:45)
[2017-04-16] MEDS: PANTOprazole SOD 40 MG TAB PO SCH (09:29)
--- NOTE | 2017-04-16 14:49 | Pharmacy Progress Note ---
Pharmacy Glycemic Short Note 2 Date of Service Apr 16, 2017. OUTPATIENT ANTIDIABETIC REGIMEN: * Lantus 19-22 units BID * Trulicity 0.75 mg once weekly * A1c 7.8% on 04/13/17 ASSESSMENT: * Mr. Rodriguez received 36 units of insulin on 04/15, with BSGs ranging from 71- 129 mg/dL (NOTE - this was off steroids) * IV steroids were discontinued on 04/14 after am dose, therefore basal and bolus insulin was decreased. Prednisone PO started the evening of 04/15, therefore these changes will be reversed today. * Will resume CF/CR from 04/14, which kept prandial BSGs well controlled. * Will consider initiating NPH at 0.4 unit/kg tomorrow to cover effect of prednisone. NPH is ideal with once daily prednisone because the insulin peaks around the same time the steroid induced hyperglycemia peaks. PLAN FOR INPATIENT GLYCEMIC CONTROL: * Basal insulin - increase * Lantus 20-25 units SQ BID * 20 units for BSG less than 140, 25 units for BSG 140 or more * Bolus insulin - increase * NovoLog per scale ACHS or Q6hrs while NPO * Goal Range: Low 120 mg/dL - High 150 mg/dL * Correction Factor: 20 mg/dL/unit * Nutritional / Prandial insulin per carb ratio of 1 unit per 4 grams CHO consumed * Add overnight check with coverage at 0200
[2017-04-16] MEDS: LEVOFLOXACIN / D5W 750 MG in PREMIXED IN D5W 150 ML IV SCH (15:43)
--- NOTE | 2017-04-16 15:50 | Progress Note ---
Medicine Progress Note Date & Time of Visit: Apr 16, 2017 at 15:50. Subjective Patient states he is still having significant pain in his left side. Also states he has some stiffness in his neck and back. States he still feels his breathing is about the same. Denies any worsening cough. No other complaints. Asking for more pain medication. Objective Last 8 Hrs Date Time Temp Pulse Resp B/P (MAP) Pulse Ox O2 Delivery O2 Flow Rate FiO2 04/16/17 13:56 84 18 90 Room Air 04/16/17 12:03 94 Humidified Oxygen 10.0 40 Trach Collar 04/16/17 11:42 37.0 97 22 175/77 (109) 96 11.0 04/16/17 08:00 94 Humidified Oxygen 10.0 40 Trach Collar 04/16/17 07:56 37.1 90 22 174/89 (117) 95 Trach Collar 12.0 50 Physical Exam: GENERAL: Patient is in no acute distress. HEENT: No acute trauma, mucous membranes moist, no nasal congestion, no scleral icterus. Tracheostomy stoma present NECK: No stridor, trachea is midline. LUNGS: Slight expiratory wheeze bilaterally, no rhonchi, breath sounds equal. HEART: Without murmurs gallops or rubs, regular rate and rhythm. ABDOMEN: Soft, nontender, bowel sounds positive, no hepatosplenomegaly EXTREMITIES: No cyanosis or edema NEUROLOGIC: Oriented x 3, no acute motor or sensory deficits, no focal weakness. SKIN: No rash, no jaundice, no diaphoresis. Laboratory Results: Last 24 Hours Test 04/15/17 16:44 04/15/17 20:17 04/16/17 01:24 04/16/17 06:54 Bedside Glucose 129 mg/dl 123 mg/dl 165 mg/dl White Blood Count 13.39 K/uL Red Blood Count 4.31 M/uL Hemoglobin 14.3 g/dL Hematocrit 42.8 % Mean Corpuscular Volume 99.3 fL Mean Corpuscular Hemoglobin 33.2 pg Mean Corpuscular Hemoglobin Concent 33.4 g/dl Platelet Count 213 K/uL Mean Platelet Volume 13.4 fL Neutrophils (%) (Auto) 82.3 % Lymphocytes (%) (Auto) 6.3 % Monocytes (%) (Auto) 9.8 % Eosinophils (%) (Auto) 0.0 % Basophils (%) (Auto) 0.1 % Neutrophils # (Auto) 11.02 K/uL Lymphocytes # (Auto) 0.84 K/uL Monocytes # (Auto) 1.31 K/uL Eosinophils # (Auto) 0.00 K/uL Basophils # (Auto) 0.02 K/uL RDW Standard Deviation 55.2 fL RDW Coefficient of Variation 15.0 % Immature Granulocyte % (Auto) 1.5 % Immature Granulocyte # (Auto) 0.20 K/uL Sodium Level 135 mmol/L Potassium Level 4.3 mmol/L Chloride Level 99 mmol/L Carbon Dioxide Level 31 mmol/L Anion Gap 5.0 mmol/L Blood Urea Nitrogen 14 mg/dl Creatinine 0.59 mg/dl Est Creatinine Clear Calc Drug Dose 153.6 ml/min Estimated GFR () 124.9 Estimated GFR (Non- 107.7 BUN/Creatinine Ratio 24.3 Random Glucose 160 mg/dl Calcium Level 8.5 mg/dl Test 04/16/17 07:16 04/16/17 10:43 Bedside Glucose 152 mg/dl 206 mg/dl Assessment & Plan SEPSIS: secondary to strep bacteremia and pneumonia -on presentation was tachycardic, tachypneic, with leukocytosis, lactic acidosis , elevated Procalcitonin -2 of 2 blood cultures growing group A beta strep, -tracheal suction culture also growing group A beta strep -treated with cefepime, vancomycin, solumedrol in ER; was then on vanco + zosyn + levaquin, and now only on levaquin and ampicillin (for strep) -influenza negative -has prior hx of MRSA -urine negative -AFB and cultures from bronchial washings pending; pathology from bronchial washings showing atypia with possible squamous cells but unknown significance -repeat blood cultures ordered and negative thus far ACUTE ON CHRONIC RESPIRATORY FAILURE: likely secondary to above -question if from pneumonia or aspiration pneumonia or less likely flare of IPF -continue O2 via trach mask -xopenex/atrovent nebs -initially on solumedrol 40mg IV Q8h; now stopped on prednisone 40mg -was on IV fluids, have since stopped fluids -dilaudid prn pain -tramadol prn pain -Pulmonology consulted, appreciate recommendations DM TYPE II: -HbA1c: 7.8% -NovoLog sliding scale per protocol -Glycemic pharmacy consulted, appreciate recs HYPOTHYROIDISM: -continue levothyroxine HTN: -was initially hypotensive, now BP elevated -restart losartan -increased metoprolol back to 50mg BID with hold parameters HX OF ARRHYTHMIAS: -remains sinus rhythm on monitor -continue digoxin; Dig level 0.4 GERD: -PPI Consultants: Pulmonary Procedures: Bronchoscopy Current Inpatient Medications: Current Inpatient Medications Medications (Trade) Dose Ordered Sig/Luis Route Start Time Stop Time Status Last Admin Dose Admin Acetaminophen (Tylenol Tab) 650 mg Q4H PRN PO 04/12/17 13:00 05/12/17 12:59 04/12/17 19:17 650 MG Ondansetron HCl (Zofran Inj) 4 mg Q6H PRN IV 04/12/17 13:00 05/12/17 12:59 Hydromorphone HCl (Dilaudid Inj) 0.5 mg Q4 PRN IV 04/12/17 13:30 04/26/17 13:29 04/16/17 09:29 0.5 MG Tramadol HCl (Ultram Tab) 50 mg Q6 PRN PO 04/12/17 13:30 05/12/17 13:29 04/15/17 21:24 50 MG Glucose (Glucose 40% Gel) 15-30 GRAMS 15 GRAMS... UD PRN PO 04/12/17 13:30 05/12/17 13:29 Glucose (Glucose Chew Tab) 4-8 Tablets 4 Tabl... UD PRN PO 04/12/17 13:30 05/12/17 13:29 Dextrose (Dextrose 50% 50ML Syringe) 25-50ML OF 50% DW IV FOR... UD PRN IV 04/12/17 13:30 05/12/17 13:29 Glucagon (Glucagon Inj) 1 mg UD PRN SQ 04/12/17 13:30 05/12/17 13:29 Miscellaneous Information (Consult Glycemic Management Pharmacy) 1 ea UD PRN N/A 04/12/17 13:42 05/12/17 13:41 Levofloxacin 750 mg/Prmx 150 ml @ 100 mls/hr Q24H IV 04/12/17 15:00 04/19/17 14:59 04/15/17 15:00 100 MLS/HR Digoxin (Lanoxin Pediatric Elix) 0.125 mg DAILY@1600 PEG 12/5/17 16:00 05/12/17 15:59 04/15/17 17:11 0.125 MG Levothyroxine Sodium (Synthroid Tab) 175 mcg DAILYBB PO 04/13/17 06:00 05/13/17 05:59 04/16/17 06:34 175 MCG Ipratropium [place] (Atrovent 0.02% 0.5MG/2.5ML Neb) 0.5 mg Q6R INH 04/12/17 15:00 05/12/17 14:59 04/16/17 13:52 0.5 MG Levalbuterol (Xopenex 1.25MG/ 0.5ML Neb) 1.25 mg Q6R INH 04/12/17 15:00 05/12/17 14:59 04/16/17 13:52 1.25 MG Ibuprofen (Motrin Tab) 600 mg Q8 PRN PO 04/12/17 20:30 05/12/17 20:29 04/15/17 21:24 600 MG Levalbuterol (Xopenex 0.63 Mg/ 3 Ml Neb) 0.63 mg Q2R PRN INH 04/12/17 21:15 05/12/17 21:14 04/16/17 06:05 0.63 MG Ipratropium [place] (Atrovent 0.02% 0.5MG/2.5ML Neb) 0.5 mg Q2R PRN INH 04/12/17 21:15 05/12/17 21:14 04/16/17 06:04 0.5 MG Pantoprazole Sodium (Protonix Tab) 40 mg QAM PO 04/14/17 09:00 05/14/17 08:59 04/16/17 09:29 40 MG Ampicillin Sodium 2000 mg/Sodium Chloride 108 ml @ 216 mls/hr Q4 IV 04/14/17 16:00 04/26/17 15:59 04/16/17 12:40 216 MLS/HR Miscellaneous Information 1 ea UD PRN N/A 04/14/17 13:00 05/14/17 12:59 Insulin Aspart (novoLOG ASPART) SLIDING SCALE If C... ACHS SC 04/14/17 21:00 05/14/17 20:59 04/16/17 12:50 16 UNITS Insulin Glargine (Lantus Solostar Pen) see protocol text BID SC 04/15/17 21:00 05/15/17 20:59 04/16/17 09:17 20 UNITS Prednisone (PredniSONE TAB) 40 mg DAILY PO 04/16/17 09:00 05/16/17 08:59 04/16/17 09:14 40 MG Acetylcysteine (Mucomyst 20% Inh Soln) 3 ml BID INH 04/15/17 21:00 05/15/17 20:59 04/16/17 07:21 3 ML Sodium Chloride (Sodium Chloride 7% Neb Solution) 4 ml BIDR INH 04/15/17 20:00 05/15/17 19:59 04/16/17 07:21 4 ML Metoprolol Succinate (Toprol Xl Tab) 50 mg BID PO 04/16/17 09:00 05/12/17 20:59 04/16/17 09:14 50 MG Insulin Aspart (novoLOG ASPART) SLIDING SCALE If C... 0200 [place] 04/17/17 02:00 04/17/17 02:01
[2017-04-16] MEDS: DIGOXIN 0.125 MG/2.5 ML UDP PEG SCH (18:03)
[2017-04-17] VITALS (11 sets, daily range): BP systolic 99–176; BP diastolic 63–95; PULSE 76–96; TEMP 36.6–37.1; O2SAT 91–95
[2017-04-17] MEDS: LEVALBUTEROL 1.25MG/0.5ML NEB INH SCH ×4 (01:39→20:19)
[2017-04-17] MEDS: IPRATROPIUM BROMIDE NEB SOLN 0.02% 2.5 ML VIAL INH SCH ×4 (01:39→20:18)
[2017-04-17] MEDS: TRAMADOL HCL 50 MG TAB PO PRN ×4 (02:00→21:03)
[2017-04-17] MEDS ORDERED: INSULIN ASPART 100 UNITS/ML 3 ML PEN SC SCH (02:00)
[2017-04-17] MEDS: AMPICILLIN IV 2,000 MG in SODIUM CHLOR 0.9% AD-VAN 100ML 100 ML IV SCH ×5 (03:49→21:06)
[2017-04-17] MEDS: HYDROmorphone INJ 0.5 MG/0.5 ML SYR IV PRN ×2 (03:50→09:20)
[2017-04-17] MEDS: LEVOTHYROXINE 175 MCG TAB PO SCH (05:35)
[2017-04-17 05:54] LABS: BASO % 0.2 %; BASO ABS # 0.03 K/uL (0-0.2); EOS ABS # 0.15 K/uL (0-0.5); HEMATOCRIT 42.2 % (42-52); HEMOGLOBIN 14.3 g/dL (14.0-18.0); IG# 0.26 K/uL (0.00-0.02); LYMPH % 9.7 %; LYMPH ABS # 1.39 K/uL (1.2-3.4); MEAN CELL VOLUME 97.9 fL (80-100); MEAN CORPUSCULAR HEMOGLOBIN 33.2 pg (25-34); MEAN CORPUSCULAR HGB CONC 33.9 g/dl (32-36); MEAN PLATELET VOLUME 12.9 fL (7.4-10.4); MONO % 15.9 %; MONO ABS # 2.28 K/uL (0.11-0.59); NEUT % 71.4 %; NEUT ABS # 10.26 K/uL (1.4-6.5); NUCLEATED RED BLOOD CELL ABS 0.03 K/uL (0-0); PLATELET COUNT 233 K/uL (130-400); RED CELL DISTRIBUTION WIDTH CV 14.6 % (11.5-14.5); RED CELL DISTRIBUTION WIDTH SD 52.4 fL (36.4-46.3); WHITE BLOOD COUNT 14.37 K/uL (4.8-10.8)
[2017-04-17 06:34] LABS: CALCIUM 8.2 mg/dl (8.5-10.1); CREATININE 0.57 mg/dl (0.60-1.40); POTASSIUM 3.6 mmol/L (3.5-5.1)
[2017-04-17] MEDS: ACETYLCYSTEINE 20% INHAL SOLN ***DISPENSED BY RESP. INH SCH ×2 (07:22→20:19)
[2017-04-17] MEDS: SODIUM CHLORIDE 7% 4 ML NEB INH SCH ×2 (07:22→20:00)
[2017-04-17] MEDS: PANTOprazole SOD 40 MG TAB PO SCH (08:06)
[2017-04-17] MEDS: METOPROLOL SUCC 50MG EXT REL TAB PO SCH ×2 (08:06→21:06)
[2017-04-17] MEDS: INSULIN ASPART 100 UNITS/ML 3 ML PEN SC SCH ×4 (08:07→21:23)
[2017-04-17] MEDS: INSULIN GLARGINE SOLOSTAR 100 UNITS/ML 3 ML PEN SC SCH ×2 (08:24→21:23)
[2017-04-17] MEDS: IBUPROFEN 600 MG TAB PO PRN (11:36)
--- NOTE | 2017-04-17 13:52 | Pulmonology Progress Note ---
Pulmonary Progress Note Date of Service Apr 17, 2017. Attending Dr. Armas Subjective Patient seen and examined at bedside. His main complaint is neck, lower back and left hip pain. He is receiving tramadol and Dilaudid. He states that his breathing is okay. She is still concerned that he is requiring increased amounts of oxygen. He still has intermittent coughing. He denies any chest pain. Independently ambulating to the bathroom. Objective VS reviewed. Tm 37.1, BP 161/85-176/91, P 76-96, RR 16-22, SaO2 92-95 % on 30 % via trach collar. He is about 5 L - balance since admission. Gen: AAOx3, appears tired. Speaking in full sentences with use of speaking device. No respiratory distress or use of accessory muscles of respiration. Neck: tracheostomy site--clean, no secretions. Lungs: coarse breath sound bilaterally, with wheezing throughout. Abd:soft/NT/ND, BS+ Ext: no edema bilaterally in LE, no cyanosis. Labs reviewed. WBC 26-->18-->13-->14 , Hemoglobin 13.2-->14 C diff 04/17/2017-no C. diff. Bronch washing 04/13---No AFB seen, No fungal elements seen, bacterial culture- -Group A strep Blood culture 04/12/2017--Group A Beta Strep Sputum from trach asp 04/12/2017--Group A Beta Strep, staph aureus-sensitive Pathology LUNG, RIGHT LOWER LOBE, BRONCHIAL WASHINGS: 1. BENIGN BRONCHIAL EPITHELIUM AND SQUAMOUS EPITHELIUM WITH REACTIVE ATYPIA. 2. NO MALIGNANT CELLS SEEN. TRACHEA, BRUSHINGS: ATYPICAL EPITHELIAL CELLS CONSISTENT WITH ATYPICAL REPAIR. SEE COMMENT. COMMENT: The ThinPrep slide shows multiple cohesive groups of epithelial cells with increased nuclear to cytoplasmic ratios and vesicular chromatin with nucleoli. In some of these groups the cells are relatively uniform and organized but in other groups they are more pleomorphic and less organized. This raised the question of non-small cell carcinoma, however in my opinion the overall findings are most in keeping with atypical repair. This case was reviewed as an intradepartmental consultation with concurrence. Imaging reviewed. TTE from 04/14/2017--shows no vegetations. CXR post bronchoscopy 04/13/2017 FINDINGS: Linear subsegmental opacity of the right perihilar upper lobe suggest areas of atelectasis/scarring. Hazy perihilar, lateral left midlung and bibasilar opacities are again seen with mild right hemidiaphragm elevation and trace right pleural effusion. No postprocedural pneumothorax Medications reviewed . 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 Rodriguez main complaint is back and lower left hip pain. He denies any worsened shortness of breath or cough. He is still requiring a large amount of oxygen via trach collar. Continue to taper as tolerated. Likely has sepsis from Group A strep pneumonia Will continue with antibiotics for a least 2 weeks in duration. Continue with Levoquin and Unasyn to cover for MSSA and Group A strep. Repeat Blood cultures are negative to date. Continue with mucomyst BID and hypertonic saline for pulmonary toilet. Continue with nebulizers. Continue with prednisone 40 mg daily and slow taper. Trachea brushings show atypical cells consistent with abnormal healing, however there was question of possible non small carcinoma. Recommend repeat bronchoscopy with biopsy after pneumonia has resolved. Continue to keep him in negative balance as his kidney function tolerates. Currently 5 L diuresis in the last 24 hours. Data Medications: Current Inpatient Medications Medications (Trade) Dose Ordered Sig/Luis Route Start Time Stop Time Status Last Admin Dose Admin Acetaminophen (Tylenol Tab) 650 mg Q4H PRN PO 04/12/17 13:00 05/12/17 12:59 04/12/17 19:17 650 MG Ondansetron HCl (Zofran Inj) 4 mg Q6H PRN IV 04/12/17 13:00 05/12/17 12:59 Hydromorphone HCl (Dilaudid Inj) 0.5 mg Q4 PRN IV 04/12/17 13:30 04/26/17 13:29 04/17/17 09:20 0.5 MG Tramadol HCl (Ultram Tab) 50 mg Q6 PRN PO 04/12/17 13:30 05/12/17 13:29 04/17/17 08:04 50 MG Glucose (Glucose 40% Gel) 15-30 GRAMS 15 GRAMS... UD PRN PO 04/12/17 13:30 05/12/17 13:29 Glucose (Glucose Chew Tab) 4-8 Tablets 4 Tabl... UD PRN PO 04/12/17 13:30 05/12/17 13:29 Dextrose (Dextrose 50% 50ML Syringe) 25-50ML OF 50% DW IV FOR... UD PRN IV 04/12/17 13:30 05/12/17 13:29 Glucagon (Glucagon Inj) 1 mg UD PRN SQ 04/12/17 13:30 05/12/17 13:29 Miscellaneous Information (Consult Glycemic Management Pharmacy) 1 ea UD PRN N/A 04/12/17 13:42 05/12/17 13:41 Levofloxacin 750 mg/Prmx 150 ml @ 100 mls/hr Q24H IV 04/12/17 15:00 04/19/17 14:59 04/16/17 15:43 100 MLS/HR Digoxin (Lanoxin Pediatric Elix) 0.125 mg DAILY@1600 PEG 04/12/17 16:00 05/12/17 15:59 04/16/17 18:03 0.125 MG Levothyroxine Sodium (Synthroid Tab) 175 mcg DAILYBB PO 04/13/17 06:00 05/13/17 05:59 04/17/17 05:35 175 MCG Ipratropium [place] (Atrovent 0.02% 0.5MG/2.5ML Neb) 0.5 mg Q6R INH 04/12/17 15:00 05/12/17 14:59 04/17/17 07:22 0.5 MG Levalbuterol (Xopenex 1.25MG/ 0.5ML Neb) 1.25 mg Q6R INH 04/12/17 15:00 05/12/17 14:59 04/17/17 07:22 1.25 MG Ibuprofen (Motrin Tab) 600 mg Q8 PRN PO 04/12/17 20:30 05/12/17 20:29 04/17/17 11:36 600 MG Levalbuterol (Xopenex 0.63 Mg/ 3 Ml Neb) 0.63 mg Q2R PRN INH 04/12/17 21:15 05/12/17 21:14 04/16/17 06:05 0.63 MG Ipratropium [place] (Atrovent 0.02% 0.5MG/2.5ML Neb) 0.5 mg Q2R PRN INH 04/12/17 21:15 05/12/17 21:14 04/16/17 06:04 0.5 MG Pantoprazole Sodium (Protonix Tab) 40 mg QAM PO 04/14/17 09:00 05/14/17 08:59 04/17/17 08:06 40 MG Ampicillin Sodium 2000 mg/Sodium Chloride 108 ml @ 216 mls/hr Q4 IV 04/14/17 16:00 04/26/17 15:59 04/17/17 11:33 216 MLS/HR Miscellaneous Information 1 ea UD PRN N/A 04/14/17 13:00 05/14/17 12:59 Insulin Aspart (novoLOG ASPART) SLIDING SCALE If C... ACHS SC 04/14/17 21:00 05/14/17 20:59 04/16/17 18:08 15 UNITS Insulin Glargine (Lantus Solostar Pen) see protocol text BID SC 04/15/17 21:00 05/15/17 20:59 04/17/17 08:24 18 UNITS Prednisone (PredniSONE TAB) 40 mg DAILY PO 04/16/17 09:00 05/16/17 08:59 04/17/17 08:05 40 MG Acetylcysteine (Mucomyst 20% Inh Soln) 3 ml BID INH 04/15/17 21:00 05/15/17 20:59 04/17/17 07:22 3 ML Sodium Chloride (Sodium Chloride 7% Neb Solution) 4 ml BIDR INH 04/15/17 20:00 05/15/17 19:59 04/17/17 07:22 4 ML Metoprolol Succinate (Toprol Xl Tab) 50 mg BID PO 04/16/17 09:00 05/12/17 20:59 04/17/17 08:06 50 MG Losartan Potassium (coZAAR TAB) 12.5 mg DAILY PO 04/18/17 09:00 05/18/17 08:59 Tizanidine HCl (Zanaflex Tab) 2 mg TID PO 04/17/17 14:00 05/17/17 13:59 Lactobacillus Acidophilus (Floranex Tab) 4 tab TIDM PO 04/17/17 16:45 05/17/17 16:44 Vital Signs: Date Time Temp Pulse Resp B/P (MAP) Pulse Ox O2 Delivery O2 Flow Rate FiO2 04/17/17 12:00 Humidified Oxygen 30 Trach Collar 04/17/17 10:44 36.6 76 22 176/91 (119) 92 Trach Collar 04/17/17 08:04 37.1 88 20 167/95 (119) 92 Trach Collar 04/17/17 08:00 Humidified Oxygen 30 Trach Collar 04/17/17 07:23 86 18 94 Trach Collar 30 04/17/17 04:00 36.9 96 16 161/85 (110) 95 Trach Collar 30 04/17/17 04:00 Humidified Oxygen 30 Trach Collar 04/17/17 01:41 91 18 94 Trach Collar 40 04/17/17 00:35 36.9 90 18 171/86 (114) 94 Trach Collar 04/17/17 00:00 Humidified Oxygen 30 Trach Collar 04/16/17 20:00 94 Humidified Oxygen 30 Trach Collar 04/16/17 19:59 92 18 94 Trach Collar 40 04/16/17 19:36 37.0 100 20 177/94 (121) 94 04/16/17 16:24 36.9 81 20 164/81 (108) 18 04/16/17 16:00 94 Humidified Oxygen 10.0 30 Trach Collar 04/16/17 13:56 84 18 90 Room Air Laboratory Results: Last 24 Hours Test 04/16/17 16:27 04/16/17 20:22 04/17/17 01:57 04/17/17 05:12 Bedside Glucose 160 mg/dl 88 mg/dl 123 mg/dl White Blood Count 14.37 K/uL Red Blood Count 4.31 M/uL Hemoglobin 14.3 g/dL Hematocrit 42.2 % Mean Corpuscular Volume 97.9 fL Mean Corpuscular Hemoglobin 33.2 pg Mean Corpuscular Hemoglobin Concent 33.9 g/dl Platelet Count 233 K/uL Mean Platelet Volume 12.9 fL Neutrophils (%) (Auto) 71.4 % Lymphocytes (%) (Auto) 9.7 % Monocytes (%) (Auto) 15.9 % Eosinophils (%) (Auto) 1.0 % Basophils (%) (Auto) 0.2 % Neutrophils # (Auto) 10.26 K/uL Lymphocytes # (Auto) 1.39 K/uL Monocytes # (Auto) 2.28 K/uL Eosinophils # (Auto) 0.15 K/uL Basophils # (Auto) 0.03 K/uL RDW Standard Deviation 52.4 fL RDW Coefficient of Variation 14.6 % Immature Granulocyte % (Auto) 1.8 % Immature Granulocyte # (Auto) 0.26 K/uL Nucleated RBC Absolute Count (auto) 0.03 K/uL Nucleated Red Blood Cells % 0.2 % Sodium Level 135 mmol/L Potassium Level 3.6 mmol/L Chloride Level 97 mmol/L Carbon Dioxide Level 36 mmol/L Anion Gap 2.0 mmol/L Blood Urea Nitrogen 13 mg/dl Creatinine 0.57 mg/dl Est Creatinine Clear Calc Drug Dose 156.5 ml/min Estimated GFR () 126.7 Estimated GFR (Non- 109.3 BUN/Creatinine Ratio 23.1 Random Glucose 86 mg/dl Calcium Level 8.2 mg/dl Test 04/17/17 06:31 04/17/17 10:36 Bedside Glucose 82 mg/dl 96 mg/dl
--- NOTE | 2017-04-17 14:03 | Progress Note ---
Medicine Progress Note Date & Time of Visit: Apr 17, 2017 at 14:02. Subjective Patient only complains of pain on left side and some neck pain; no overnight events noted. Tolerating PO. Breathing has improved. Still has some diarrhea. Objective Last 8 Hrs Date Time Temp Pulse Resp B/P (MAP) Pulse Ox O2 Delivery O2 Flow Rate FiO2 04/17/17 12:00 Humidified Oxygen 30 Trach Collar 04/17/17 10:44 36.6 76 22 176/91 (119) 92 Trach Collar 04/17/17 08:04 37.1 88 20 167/95 (119) 92 Trach Collar 04/17/17 08:00 Humidified Oxygen 30 Trach Collar 04/17/17 07:23 86 18 94 Trach Collar 30 Physical Exam: GENERAL: Patient is in no acute distress. HEENT: No acute trauma, mucous membranes moist, no nasal congestion, no scleral icterus. Tracheostomy stoma present NECK: No stridor, trachea is midline. LUNGS: Diminished bilaterally, no rhonchi, breath sounds equal. HEART: Without murmurs gallops or rubs, regular rate and rhythm. ABDOMEN: Soft, nontender, bowel sounds positive, no hepatosplenomegaly EXTREMITIES: No cyanosis or edema NEUROLOGIC: Oriented x 3, no acute motor or sensory deficits, no focal weakness. SKIN: No rash, no jaundice, no diaphoresis. Laboratory Results: Last 24 Hours Test 04/16/17 16:27 04/16/17 20:22 04/17/17 01:57 04/17/17 05:12 Bedside Glucose 160 mg/dl 88 mg/dl 123 mg/dl White Blood Count 14.37 K/uL Red Blood Count 4.31 M/uL Hemoglobin 14.3 g/dL Hematocrit 42.2 % Mean Corpuscular Volume 97.9 fL Mean Corpuscular Hemoglobin 33.2 pg Mean Corpuscular Hemoglobin Concent 33.9 g/dl Platelet Count 233 K/uL Mean Platelet Volume 12.9 fL Neutrophils (%) (Auto) 71.4 % Lymphocytes (%) (Auto) 9.7 % Monocytes (%) (Auto) 15.9 % Eosinophils (%) (Auto) 1.0 % Basophils (%) (Auto) 0.2 % Neutrophils # (Auto) 10.26 K/uL Lymphocytes # (Auto) 1.39 K/uL Monocytes # (Auto) 2.28 K/uL Eosinophils # (Auto) 0.15 K/uL Basophils # (Auto) 0.03 K/uL RDW Standard Deviation 52.4 fL RDW Coefficient of Variation 14.6 % Immature Granulocyte % (Auto) 1.8 % Immature Granulocyte # (Auto) 0.26 K/uL Nucleated RBC Absolute Count (auto) 0.03 K/uL Nucleated Red Blood Cells % 0.2 % Sodium Level 135 mmol/L Potassium Level 3.6 mmol/L Chloride Level 97 mmol/L Carbon Dioxide Level 36 mmol/L Anion Gap 2.0 mmol/L Blood Urea Nitrogen 13 mg/dl Creatinine 0.57 mg/dl Est Creatinine Clear Calc Drug Dose 156.5 ml/min Estimated GFR () 126.7 Estimated GFR (Non- 109.3 BUN/Creatinine Ratio 23.1 Random Glucose 86 mg/dl Calcium Level 8.2 mg/dl Test 04/17/17 06:31 04/17/17 10:36 Bedside Glucose 82 mg/dl 96 mg/dl Date/Time Source Procedure Growth Status 04/17/17 00:00 Stool C.difficile Toxin B Gene (PCR) - Final No C. difficile toxin B gene detected Complete Assessment & Plan SEPSIS: secondary to strep bacteremia and pneumonia -on presentation was tachycardic, tachypneic, with leukocytosis, lactic acidosis , elevated Procalcitonin -2 of 2 blood cultures growing group A beta strep, -tracheal suction culture also growing group A beta strep -treated with cefepime, vancomycin, solumedrol in ER; was then on vanco + zosyn + levaquin, and now only on levaquin and ampicillin (for strep) -influenza negative -has prior hx of MRSA -urine negative -AFB and cultures from bronchial washings pending; pathology from bronchial washings showing atypia with possible squamous cells but unknown significance, likely related to infection per Pulm, but plan for a follow up bronch in the future when infection has been treated -repeat blood cultures ordered and are negative ACUTE ON CHRONIC RESPIRATORY FAILURE: likely secondary to above -likely from pneumonia -continue O2 via trach mask; weaning oxygen as tolerated -xopenex/atrovent nebs -initially on solumedrol 40mg but weaned to PO steroids on a slow taper ( decrease by 5 mg) -was on IV fluids, have since stopped fluids -dilaudid prn pain -tramadol prn pain -Pulmonology consulted, appreciate recommendations DM TYPE II: -HbA1c: 7.8% -NovoLog sliding scale per protocol -Glycemic pharmacy consulted, appreciate recs HYPOTHYROIDISM: -continue levothyroxine HTN: -was initially hypotensive, now BP elevated -restart losartan -increased metoprolol back to 50mg BID with hold parameters HX OF ARRHYTHMIAS: -remains sinus rhythm on monitor -continue digoxin; Dig level 0.4 GERD: -PPI Consultants: Pulmonary Procedures: Bronchoscopy Current Inpatient Medications: Current Inpatient Medications Medications (Trade) Dose Ordered Sig/Luis Route Start Time Stop Time Status Last Admin Dose Admin Acetaminophen (Tylenol Tab) 650 mg Q4H PRN PO 04/12/17 13:00 05/12/17 12:59 04/12/17 19:17 650 MG Ondansetron HCl (Zofran Inj) 4 mg Q6H PRN IV 04/12/17 13:00 05/12/17 12:59 Hydromorphone HCl (Dilaudid Inj) 0.5 mg Q4 PRN IV 04/12/17 13:30 04/26/17 13:29 04/17/17 09:20 0.5 MG Tramadol HCl (Ultram Tab) 50 mg Q6 PRN PO 04/12/17 13:30 05/12/17 13:29 04/17/17 08:04 50 MG Glucose (Glucose 40% Gel) 15-30 GRAMS 15 GRAMS... UD PRN PO 04/12/17 13:30 05/12/17 13:29 Glucose (Glucose Chew Tab) 4-8 Tablets 4 Tabl... UD PRN PO 04/12/17 13:30 05/12/17 13:29 Dextrose (Dextrose 50% 50ML Syringe) 25-50ML OF 50% DW IV FOR... UD PRN IV 04/12/17 13:30 05/12/17 13:29 Glucagon (Glucagon Inj) 1 mg UD PRN SQ 04/12/17 13:30 05/12/17 13:29 Miscellaneous Information (Consult Glycemic Management Pharmacy) 1 ea UD PRN N/A 04/12/17 13:42 05/12/17 13:41 Levofloxacin 750 mg/Prmx 150 ml @ 100 mls/hr Q24H IV 04/12/17 15:00 04/19/17 14:59 04/16/17 15:43 100 MLS/HR Digoxin (Lanoxin Pediatric Elix) 0.125 mg DAILY@1600 PEG 04/12/17 16:00 05/12/17 15:59 04/16/17 18:03 0.125 MG Levothyroxine Sodium (Synthroid Tab) 175 mcg DAILYBB PO 04/13/17 06:00 05/13/17 05:59 04/17/17 05:35 175 MCG Ipratropium [place] (Atrovent 0.02% 0.5MG/2.5ML Neb) 0.5 mg Q6R INH 04/12/17 15:00 05/12/17 14:59 04/17/17 07:22 0.5 MG Levalbuterol (Xopenex 1.25MG/ 0.5ML Neb) 1.25 mg Q6R INH 04/12/17 15:00 05/12/17 14:59 04/17/17 07:22 1.25 MG Ibuprofen (Motrin Tab) 600 mg Q8 PRN PO 04/12/17 20:30 05/12/17 20:29 04/17/17 11:36 600 MG Levalbuterol (Xopenex 0.63 Mg/ 3 Ml Neb) 0.63 mg Q2R PRN INH 04/12/17 21:15 05/12/17 21:14 04/16/17 06:05 0.63 MG Ipratropium [place] (Atrovent 0.02% 0.5MG/2.5ML Neb) 0.5 mg Q2R PRN INH 04/12/17 21:15 05/12/17 21:14 04/16/17 06:04 0.5 MG Pantoprazole Sodium (Protonix Tab) 40 mg QAM PO 04/14/17 09:00 05/14/17 08:59 04/17/17 08:06 40 MG Ampicillin Sodium 2000 mg/Sodium Chloride 108 ml @ 216 mls/hr Q4 IV 04/14/17 16:00 04/26/17 15:59 04/17/17 11:33 216 MLS/HR Miscellaneous Information 1 ea UD PRN N/A 04/14/17 13:00 05/14/17 12:59 Insulin Aspart (novoLOG ASPART) SLIDING SCALE If C... ACHS SC 04/14/17 21:00 05/14/17 20:59 04/16/17 18:08 15 UNITS Insulin Glargine (Lantus Solostar Pen) see protocol text BID SC 04/15/17 21:00 05/15/17 20:59 04/17/17 08:24 18 UNITS Prednisone (PredniSONE TAB) 40 mg DAILY PO 04/16/17 09:00 05/16/17 08:59 04/17/17 08:05 40 MG Acetylcysteine (Mucomyst 20% Inh Soln) 3 ml BID INH 04/15/17 21:00 05/15/17 20:59 04/17/17 07:22 3 ML Sodium Chloride (Sodium Chloride 7% Neb Solution) 4 ml BIDR INH 04/15/17 20:00 05/15/17 19:59 04/17/17 07:22 4 ML Metoprolol Succinate (Toprol Xl Tab) 50 mg BID PO 04/16/17 09:00 05/12/17 20:59 04/17/17 08:06 50 MG Losartan Potassium (coZAAR TAB) 12.5 mg DAILY PO 04/18/17 09:00 05/18/17 08:59 Tizanidine HCl (Zanaflex Tab) 2 mg TID PO 04/17/17 14:00 05/17/17 13:59 Lactobacillus Acidophilus (Floranex Tab) 4 tab TIDM PO 04/17/17 16:45 05/17/17 16:44
[2017-04-17] MEDS: LEVOFLOXACIN / D5W 750 MG in PREMIXED IN D5W 150 ML IV SCH (14:15)
[2017-04-17] MEDS: DIGOXIN 0.125 MG/2.5 ML UDP PEG SCH (16:40)
[2017-04-17] MEDS: ACETAMINOPHEN 325 MG TAB PO PRN (16:59)
[2017-04-17] MEDS: LACTOBACILLUS ACIDOPHILUS (FLORANEX) TAB PO SCH (17:38)
[2017-04-18] VITALS (10 sets, daily range): BP systolic 105–159; BP diastolic 58–87; PULSE 62–104; TEMP 36.4–36.7; O2SAT 91–98
[2017-04-18] MEDS: AMPICILLIN IV 2,000 MG in SODIUM CHLOR 0.9% AD-VAN 100ML 100 ML IV SCH ×7 (01:07→23:36)
[2017-04-18] MEDS: ACETAMINOPHEN 325 MG TAB PO PRN (01:12)
[2017-04-18] MEDS: LEVALBUTEROL 1.25MG/0.5ML NEB INH SCH ×4 (01:42→19:06)
[2017-04-18] MEDS: IPRATROPIUM BROMIDE NEB SOLN 0.02% 2.5 ML VIAL INH SCH ×4 (01:42→19:06)
[2017-04-18] MEDS: HYDROmorphone INJ 0.5 MG/0.5 ML SYR IV PRN ×2 (02:11→23:31)
[2017-04-18] MEDS: TRAMADOL HCL 50 MG TAB PO PRN ×3 (05:04→23:56)
[2017-04-18] MEDS: LEVOTHYROXINE 175 MCG TAB PO SCH (05:05)
[2017-04-18] MEDS: IBUPROFEN 600 MG TAB PO PRN (06:13)
[2017-04-18 06:51] LABS: BASO % 0.2 %; BASO ABS # 0.02 K/uL (0-0.2); EOS % 3.1 %; EOS ABS # 0.31 K/uL (0-0.5); HEMATOCRIT 44.1 % (42-52); HEMOGLOBIN 14.7 g/dL (14.0-18.0); LYMPH % 17.2 %; LYMPH ABS # 1.74 K/uL (1.2-3.4); MEAN CELL VOLUME 95.5 fL (80-100); MEAN CORPUSCULAR HEMOGLOBIN 31.8 pg (25-34); MEAN CORPUSCULAR HGB CONC 33.3 g/dl (32-36); MEAN PLATELET VOLUME 12.9 fL (7.4-10.4); MONO % 16.2 %; MONO ABS # 1.64 K/uL (0.11-0.59); NEUT % 59.3 %; NEUT ABS # 5.99 K/uL (1.4-6.5); PLATELET COUNT 264 K/uL (130-400); RED CELL DISTRIBUTION WIDTH CV 14.4 % (11.5-14.5); RED CELL DISTRIBUTION WIDTH SD 50.8 fL (36.4-46.3)
[2017-04-18] MEDS: SODIUM CHLORIDE 7% 4 ML NEB INH SCH ×2 (07:09→19:06)
[2017-04-18] MEDS: ACETYLCYSTEINE 20% INHAL SOLN ***DISPENSED BY RESP. INH SCH ×2 (07:09→19:06)
[2017-04-18 07:17] LABS: CREATININE 0.7 mg/dl (0.60-1.40); POTASSIUM 3.6 mmol/L (3.5-5.1)
[2017-04-18] MEDS: PANTOprazole SOD 40 MG TAB PO SCH (08:45)
[2017-04-18] MEDS: METOPROLOL SUCC 50MG EXT REL TAB PO SCH ×2 (08:45→20:21)
[2017-04-18] MEDS: LACTOBACILLUS ACIDOPHILUS (FLORANEX) TAB PO SCH ×3 (08:46→16:45)
[2017-04-18] MEDS: INSULIN ASPART 100 UNITS/ML 3 ML PEN SC SCH ×4 (08:53→20:25)
[2017-04-18] MEDS: INSULIN GLARGINE SOLOSTAR 100 UNITS/ML 3 ML PEN SC SCH ×2 (08:54→20:25)
--- NOTE | 2017-04-18 10:40 | Pharmacy Progress Note ---
Pharmacy Glycemic Short Note 2 Date of Service Apr 18, 2017. OUTPATIENT ANTIDIABETIC REGIMEN: * Lantus 19-22 units BID * Trulicity 0.75 mg once weekly * A1c 7.8% on 04/13/17 ASSESSMENT: * BSGs 86-163 mg/dl over the past 24hrs * Patient received 39 units of insulin over the past 24hrs * Lantus 18-20 units SQ BID * NovoLog ACHS per CF = 20 & CR = 5 * AM fasting BSG below goal range this AM at 80mg/dl * Will empirically decrease basal insulin to prevent low * Post-prandial BSGs are in goal range but pt has had little PO intake. CF/CR are likely too aggressive for when patient does start eating better. * Will empirically loosen to prevent low PLAN FOR INPATIENT GLYCEMIC CONTROL: * Hold outpatient diabetes medications * Basal insulin: decrease dose * Lantus 17 units SQ BID * Bolus insulin: loosen parameters * NovoLog per scale ACHS or Q6hrs while NPO * Goal Range: Low 120 mg/dL - High 150 mg/dL * Correction Factor: 25 mg/dL/unit * Nutritional / Prandial insulin per carb ratio of 1 unit per 6 grams CHO consumed
[2017-04-18] MEDS: LOSARTAN POTASSIUM 25 MG TAB PO SCH (11:37)
[2017-04-18] MEDS: LEVOFLOXACIN / D5W 750 MG in PREMIXED IN D5W 150 ML IV SCH (14:46)
--- NOTE | 2017-04-18 15:48 | Pulmonology Progress Note ---
Pulmonary Progress Note Date of Service Apr 18, 2017. Attending Dr. Forrester Subjective Patient doing well sitting up in his bed with normoactive pulmonary complaints. Objective Patient is sitting up in bed without oxygen on able to complete full sentences without tachypnea or accessory muscle use. VS: I/Os: -3.6L SaO2%: 92-98% FiO2: 9L RR: 16-20 HR: 77-84 Resp: Minimal rhonchi bilaterally Card: S1 S2 no murmurs rubs or gallops Abd: soft, none tender Ext: No clubbing cyanosis or edema Studies WBC: 26K--10K CO2: 25--35mmol/L Influ A&B Ag & PCR: negative Micro o Blood (04/12/17) Group A Beta Strep x2 (Gonzalez Sensitive) o Trach (04/12/17) Group A Beta Strep and MSSA o Bronchial Washing RLL (04/13/17) Group A Beta Strep Pathology o Washing (04/13/17) no malignant cells noted o Cytology Brushing Trachea (04/13/17) Atypical cells noted Imaging o CT ABD (04/12/17) RLL atelectasis and small associated pleural effusion not seen CT Chest (12/22/16) o CT Chest (04/12/17) RLL atelectasis and small associated pleural effusion not seen CT Chest (12/22/16) continued mediastinal adenopathy with RUL interstitial changes Cardiac Echo (04/14/17) o LV: EF=40-45%, global hypokenesis o RV: WNL o [place]: WNL o [place]: grossly WNL o Pericardial effusion Active pulmonary Medications: 1. Prednisone 40mg QD 2. Mucomyst 20% Neb BID 3. 7% Saline BID 4. Ampicillin 2,000mg Q4 5. Levaquin 750mg QD 6. Protonix 40mg 7. Xopenex/Atrovent 0.5mg Q6 and Q2 PRN Assessment & Plan 61-year-old male admitted with sepsis/bacteremia and associated hypoxemia #1 Hypoxemia: Patient's hypoxemia is most likely and added effect between his septicemia(Group A Beta Strep)/ARDS and underlying chronic lung disease. At this time the patient is sitting up in his chair saturating at 88% on room air and 92% on 4-5 L via trach mask. His baseline saturations are 93-96 on room air as seen in the clinic. At this time continue the patient's current prednisone with slow taper over the next 10 days along with current nebulizers is warranted. I'll drop the patient down to 35 mg of prednisone starting tomorrow. #2 Abnormal Tracheal Cells: The cytology breast from the patient's bronchoscopy performed on the tracheal wall showed abnormal cells initially consistent with carcinoma and finally called atypical noncarcinoma test. I've spoken to the patient in the family about this and would prefer follow-up in the next 2-3 months with bronchoscopy and repeat cytology brushing as well as possible biopsies. The patient is family are discussing possible follow-up. I should note these atypical cells are most consistent with active infection but I still believe follow-up once again is warranted. Sign off: At this time the pulmonary service will sign off as the patient is notably progressing. Prior to discharge will perform 6 minute walk study to have the patient's oxygen properly titrated. After this the patient would require a 2 to three-week follow-up with the pulmonary clinic with myself. Data Medications: Current Inpatient Medications Medications (Trade) Dose Ordered Sig/Luis Route Start Time Stop Time Status Last Admin Dose Admin Acetaminophen (Tylenol Tab) 650 mg Q4H PRN PO 04/12/17 13:00 05/12/17 12:59 04/18/17 01:12 650 MG Ondansetron HCl (Zofran Inj) 4 mg Q6H PRN IV 04/12/17 13:00 05/12/17 12:59 Hydromorphone HCl (Dilaudid Inj) 0.5 mg Q4 PRN IV 04/12/17 13:30 04/26/17 13:29 04/18/17 02:11 0.5 MG Tramadol HCl (Ultram Tab) 50 mg Q6 PRN PO 04/12/17 13:30 05/12/17 13:29 04/18/17 14:57 50 MG Glucose (Glucose 40% Gel) 15-30 GRAMS 15 GRAMS... UD PRN PO 04/12/17 13:30 05/12/17 13:29 Glucose (Glucose Chew Tab) 4-8 Tablets 4 Tabl... UD PRN PO 04/12/17 13:30 05/12/17 13:29 Dextrose (Dextrose 50% 50ML Syringe) 25-50ML OF 50% DW IV FOR... UD PRN IV 04/12/17 13:30 05/12/17 13:29 Glucagon (Glucagon Inj) 1 mg UD PRN SQ 04/12/17 13:30 05/12/17 13:29 Miscellaneous Information (Consult Glycemic Management Pharmacy) 1 ea UD PRN N/A 04/12/17 13:42 05/12/17 13:41 Levofloxacin 750 mg/Prmx 150 ml @ 100 mls/hr Q24H IV 04/12/17 15:00 04/19/17 14:59 04/18/17 14:46 100 MLS/HR Digoxin (Lanoxin Pediatric Elix) 0.125 mg DAILY@1600 PEG 04/12/17 16:00 05/12/17 15:59 04/17/17 16:40 0.125 MG Levothyroxine Sodium (Synthroid Tab) 175 mcg DAILYBB PO 04/13/17 06:00 05/13/17 05:59 04/18/17 05:05 175 MCG Ipratropium [place] (Atrovent 0.02% 0.5MG/2.5ML Neb) 0.5 mg Q6R INH 04/12/17 15:00 05/12/17 14:59 04/18/17 15:28 0.5 MG Levalbuterol (Xopenex 1.25MG/ 0.5ML Neb) 1.25 mg Q6R INH 04/12/17 15:00 05/12/17 14:59 04/18/17 15:27 1.25 MG Ibuprofen (Motrin Tab) 600 mg Q8 PRN PO 04/12/17 20:30 05/12/17 20:29 04/18/17 06:13 600 MG Levalbuterol (Xopenex 0.63 Mg/ 3 Ml Neb) 0.63 mg Q2R PRN INH 04/12/17 21:15 05/12/17 21:14 04/16/17 06:05 0.63 MG Ipratropium [place] (Atrovent 0.02% 0.5MG/2.5ML Neb) 0.5 mg Q2R PRN INH 04/12/17 21:15 05/12/17 21:14 04/16/17 06:04 0.5 MG Pantoprazole Sodium (Protonix Tab) 40 mg QAM PO 04/14/17 09:00 05/14/17 08:59 04/18/17 08:45 40 MG Ampicillin Sodium 2000 mg/Sodium Chloride 108 ml @ 216 mls/hr Q4 IV 04/14/17 16:00 04/26/17 15:59 04/18/17 13:06 216 MLS/HR Miscellaneous Information 1 ea UD PRN N/A 04/14/17 13:00 05/14/17 12:59 Insulin Aspart (novoLOG ASPART) SLIDING SCALE If C... ACHS SC 04/14/17 21:00 05/14/17 20:59 04/18/17 13:09 12 UNITS Prednisone (PredniSONE TAB) 40 mg DAILY PO 04/16/17 09:00 05/16/17 08:59 04/18/17 08:45 40 MG Acetylcysteine (Mucomyst 20% Inh Soln) 3 ml BID INH 04/15/17 21:00 05/15/17 20:59 04/18/17 07:09 3 ML Sodium Chloride (Sodium Chloride 7% Neb Solution) 4 ml BIDR INH 04/15/17 20:00 05/15/17 19:59 04/18/17 07:09 4 ML Metoprolol Succinate (Toprol Xl Tab) 50 mg BID PO 04/16/17 09:00 05/12/17 20:59 04/18/17 08:45 50 MG Losartan Potassium (coZAAR TAB) 12.5 mg DAILY PO 04/18/17 08:00 05/18/17 08:59 04/18/17 11:37 12.5 MG Tizanidine HCl (Zanaflex Tab) 2 mg TID PO 04/17/17 14:00 05/17/17 13:59 04/18/17 14:46 2 MG Lactobacillus Acidophilus (Floranex Tab) 4 tab TIDM PO 04/17/17 16:45 05/17/17 16:44 04/18/17 13:06 4 TAB Insulin Glargine (Lantus Solostar Pen) 17 units BID SC 04/18/17 08:00 05/18/17 07:59 04/18/17 08:54 17 UNITS I & O: 24-Hour Column 04/19/17 08:00 Intake Total 1426 ml Output Total 1000 ml Balance 426 ml Vital Signs: Date Time Temp Pulse Resp B/P (MAP) Pulse Ox O2 Delivery O2 Flow Rate FiO2 04/18/17 15:29 62 16 93 Trach Collar 30 04/18/17 08:45 93 Trach Collar 9.0 30 04/18/17 07:28 36.4 81 20 159/87 (111) 93 Nebulizer 04/18/17 07:12 84 18 92 Trach Collar 30 04/18/17 01:43 82 16 93 Trach Collar 30 04/18/17 00:27 36.7 77 20 154/82 (106) 98 Trach Collar 9.0 04/18/17 00:00 Humidified Oxygen 9.0 Trach Collar 04/17/17 20:19 89 18 95 Trach Collar 30 04/17/17 20:00 Humidified Oxygen 9.0 Trach Collar 04/17/17 16:05 91 Humidified Oxygen 8.0 30 Trach Collar 04/17/17 15:52 36.7 85 20 99/63 (75) 91 Humidified Oxygen 8.0 30 Trach Collar Laboratory Results: Last 24 Hours Test 04/17/17 16:34 04/17/17 20:06 04/18/17 05:49 04/18/17 07:38 Bedside Glucose 162 mg/dl 163 mg/dl 80 mg/dl White Blood Count 10.10 K/uL Red Blood Count 4.62 M/uL Hemoglobin 14.7 g/dL Hematocrit 44.1 % Mean Corpuscular Volume 95.5 fL Mean Corpuscular Hemoglobin 31.8 pg Mean Corpuscular Hemoglobin Concent 33.3 g/dl Platelet Count 264 K/uL Mean Platelet Volume 12.9 fL Neutrophils (%) (Auto) 59.3 % Lymphocytes (%) (Auto) 17.2 % Monocytes (%) (Auto) 16.2 % Eosinophils (%) (Auto) 3.1 % Basophils (%) (Auto) 0.2 % Neutrophils # (Auto) 5.99 K/uL Lymphocytes # (Auto) 1.74 K/uL Monocytes # (Auto) 1.64 K/uL Eosinophils # (Auto) 0.31 K/uL Basophils # (Auto) 0.02 K/uL RDW Standard Deviation 50.8 fL RDW Coefficient of Variation 14.4 % Immature Granulocyte % (Auto) 4.0 % Immature Granulocyte # (Auto) 0.40 K/uL Sodium Level 136 mmol/L Potassium Level 3.6 mmol/L Chloride Level 97 mmol/L Carbon Dioxide Level 35 mmol/L Anion Gap 4.0 mmol/L Blood Urea Nitrogen 19 mg/dl Creatinine 0.70 mg/dl Est Creatinine Clear Calc Drug Dose 127.4 ml/min Estimated GFR () 116.4 Estimated GFR (Non- 100.4 BUN/Creatinine Ratio 27.0 Random Glucose 109 mg/dl Calcium Level 8.0 mg/dl Test 04/18/17 11:30 Bedside Glucose 120 mg/dl
[2017-04-18] MEDS: DIGOXIN 0.125 MG/2.5 ML UDP PEG SCH (16:44)
--- NOTE | 2017-04-18 20:25 | Progress Note ---
Medicine Progress Note Date & Time of Visit: Apr 18, 2017 at 20:24. Subjective Patient states he is feeling ok, but feels as though he didn't get suctioned thoroughly enough today and feels it is affecting his breathing. The lowest he seemed to desat to while talking was 88%. No overnight events noted. Objective Last 8 Hrs Date Time Temp Pulse Resp B/P (MAP) Pulse Ox O2 Delivery O2 Flow Rate FiO2 04/18/17 19:07 75 18 93 Trach Collar 30 04/18/17 16:30 93 Trach Collar 9.0 04/18/17 15:43 36.5 82 18 105/58 (74) 93 Trach Collar 6.0 04/18/17 15:29 62 16 93 Trach Collar 30 Physical Exam: GENERAL: Patient is in no acute distress. HEENT: No acute trauma, mucous membranes moist, no nasal congestion, no scleral icterus. Tracheostomy stoma present NECK: No stridor, trachea is midline. LUNGS: Diminished bilaterally, no rhonchi, no wheeze, breath sounds equal. HEART: Without murmurs gallops or rubs, regular rate and rhythm. ABDOMEN: Soft, nontender, bowel sounds positive, no hepatosplenomegaly EXTREMITIES: No cyanosis or edema NEUROLOGIC: Oriented x 3, no acute motor or sensory deficits, no focal weakness. SKIN: No rash, no jaundice, no diaphoresis. Laboratory Results: Last 24 Hours Test 04/18/17 05:49 04/18/17 07:38 04/18/17 11:30 04/18/17 16:39 White Blood Count 10.10 K/uL Red Blood Count 4.62 M/uL Hemoglobin 14.7 g/dL Hematocrit 44.1 % Mean Corpuscular Volume 95.5 fL Mean Corpuscular Hemoglobin 31.8 pg Mean Corpuscular Hemoglobin Concent 33.3 g/dl Platelet Count 264 K/uL Mean Platelet Volume 12.9 fL Neutrophils (%) (Auto) 59.3 % Lymphocytes (%) (Auto) 17.2 % Monocytes (%) (Auto) 16.2 % Eosinophils (%) (Auto) 3.1 % Basophils (%) (Auto) 0.2 % Neutrophils # (Auto) 5.99 K/uL Lymphocytes # (Auto) 1.74 K/uL Monocytes # (Auto) 1.64 K/uL Eosinophils # (Auto) 0.31 K/uL Basophils # (Auto) 0.02 K/uL RDW Standard Deviation 50.8 fL RDW Coefficient of Variation 14.4 % Immature Granulocyte % (Auto) 4.0 % Immature Granulocyte # (Auto) 0.40 K/uL Sodium Level 136 mmol/L Potassium Level 3.6 mmol/L Chloride Level 97 mmol/L Carbon Dioxide Level 35 mmol/L Anion Gap 4.0 mmol/L Blood Urea Nitrogen 19 mg/dl Creatinine 0.70 mg/dl Est Creatinine Clear Calc Drug Dose 127.4 ml/min Estimated GFR () 116.4 Estimated GFR (Non- 100.4 BUN/Creatinine Ratio 27.0 Random Glucose 109 mg/dl Calcium Level 8.0 mg/dl Bedside Glucose 80 mg/dl 120 mg/dl 213 mg/dl Test 04/18/17 19:54 Bedside Glucose 187 mg/dl Assessment & Plan SEPSIS: secondary to strep bacteremia and pneumonia -on presentation was tachycardic, tachypneic, with leukocytosis, lactic acidosis , elevated Procalcitonin -2 of 2 blood cultures growing group A beta strep, -tracheal suction culture also growing group A beta strep -treated with cefepime, vancomycin, solumedrol in ER; was then on vanco + zosyn + levaquin, and now only on levaquin and ampicillin (for strep); total of at least 14 days per Pulm -influenza negative -has prior hx of MRSA -urine negative -AFB and cultures from bronchial washings pending; pathology from bronchial washings showing atypia with possible squamous cells but unknown significance, likely related to infection per Pulm, but plan for a follow up bronch in the future after the infection has been treated -repeat blood cultures ordered and are negative ACUTE ON CHRONIC RESPIRATORY FAILURE: likely secondary to above -likely from pneumonia -continue O2 via trach mask; weaning oxygen as tolerated -xopenex/atrovent nebs -initially on solumedrol 40mg but weaned to PO steroids on a slow taper ( decrease by 5 mg) -was on IV fluids, but have since stopped fluids; now in negative fluid balance -Pulmonology consulted, appreciate recommendations L HIP PAIN: -per patient is chronic -ct pelvis did not show any hardware issues or any intra-abdominal pathology to account for pain; likely muscular and will give a trial of muscle relaxant -dilaudid prn pain -tramadol prn pain DM TYPE II: -HbA1c: 7.8% -NovoLog sliding scale per protocol -Glycemic pharmacy consulted, appreciate recsneha HYPOTHYROIDISM: -continue levothyroxine HTN: -was initially hypotensive, now BP elevated -restarted losartan -increased metoprolol back to 50mg BID with hold parameters HX OF ARRHYTHMIAS: -remains sinus rhythm on monitor -continue digoxin; Dig level 0.4 GERD: -continue PPI Consultants: Pulmonary Procedures: Bronchoscopy Current Inpatient Medications: Current Inpatient Medications Medications (Trade) Dose Ordered Sig/Luis Route Start Time Stop Time Status Last Admin Dose Admin Acetaminophen (Tylenol Tab) 650 mg Q4H PRN PO 04/12/17 13:00 05/12/17 12:59 04/18/17 01:12 650 MG Ondansetron HCl (Zofran Inj) 4 mg Q6H PRN IV 04/12/17 13:00 05/12/17 12:59 Hydromorphone HCl (Dilaudid Inj) 0.5 mg Q4 PRN IV 04/12/17 13:30 04/26/17 13:29 04/18/17 02:11 0.5 MG Tramadol HCl (Ultram Tab) 50 mg Q6 PRN PO 04/12/17 13:30 05/12/17 13:29 04/18/17 14:57 50 MG Glucose (Glucose 40% Gel) 15-30 GRAMS 15 GRAMS... UD PRN PO 04/12/17 13:30 05/12/17 13:29 Glucose (Glucose Chew Tab) 4-8 Tablets 4 Tabl... UD PRN PO 04/12/17 13:30 05/12/17 13:29 Dextrose (Dextrose 50% 50ML Syringe) 25-50ML OF 50% DW IV FOR... UD PRN IV 04/12/17 13:30 05/12/17 13:29 Glucagon (Glucagon Inj) 1 mg UD PRN SQ 04/12/17 13:30 05/12/17 13:29 Miscellaneous Information (Consult Glycemic Management Pharmacy) 1 ea UD PRN N/A 04/12/17 13:42 05/12/17 13:41 Levofloxacin 750 mg/Prmx 150 ml @ 100 mls/hr Q24H IV 04/12/17 15:00 04/19/17 14:59 04/18/17 14:46 100 MLS/HR Digoxin (Lanoxin Pediatric Elix) 0.125 mg DAILY@1600 PEG 04/12/17 16:00 05/12/17 15:59 04/18/17 16:44 0.125 MG Levothyroxine Sodium (Synthroid Tab) 175 mcg DAILYBB PO 04/13/17 06:00 05/13/17 05:59 04/18/17 05:05 175 MCG Ipratropium [place] (Atrovent 0.02% 0.5MG/2.5ML Neb) 0.5 mg Q6R INH 04/12/17 15:00 05/12/17 14:59 04/18/17 19:06 0.5 MG Levalbuterol (Xopenex 1.25MG/ 0.5ML Neb) 1.25 mg Q6R INH 04/12/17 15:00 05/12/17 14:59 04/18/17 19:06 1.25 MG Ibuprofen (Motrin Tab) 600 mg Q8 PRN PO 04/12/17 20:30 05/12/17 20:29 04/18/17 06:13 600 MG Levalbuterol (Xopenex 0.63 Mg/ 3 Ml Neb) 0.63 mg Q2R PRN INH 04/12/17 21:15 05/12/17 21:14 04/16/17 06:05 0.63 MG Ipratropium [place] (Atrovent 0.02% 0.5MG/2.5ML Neb) 0.5 mg Q2R PRN INH 04/12/17 21:15 05/12/17 21:14 04/16/17 06:04 0.5 MG Pantoprazole Sodium (Protonix Tab) 40 mg QAM PO 04/14/17 09:00 05/14/17 08:59 04/18/17 08:45 40 MG Ampicillin Sodium 2000 mg/Sodium Chloride 108 ml @ 216 mls/hr Q4 IV 04/14/17 16:00 04/26/17 15:59 04/18/17 16:44 216 MLS/HR Miscellaneous Information 1 ea UD PRN N/A 04/14/17 13:00 05/14/17 12:59 Insulin Aspart (novoLOG ASPART) SLIDING SCALE If C... ACHS SC 04/14/17 21:00 05/14/17 20:59 04/18/17 18:25 11 UNITS Prednisone (PredniSONE TAB) 40 mg DAILY PO 04/16/17 09:00 05/16/17 08:59 04/18/17 08:45 40 MG Acetylcysteine (Mucomyst 20% Inh Soln) 3 ml BID INH 04/15/17 21:00 05/15/17 20:59 04/18/17 19:06 3 ML Sodium Chloride (Sodium Chloride 7% Neb Solution) 4 ml BIDR INH 04/15/17 20:00 05/15/17 19:59 04/18/17 19:06 4 ML Metoprolol Succinate (Toprol Xl Tab) 50 mg BID PO 04/16/17 09:00 05/12/17 20:59 04/18/17 08:45 50 MG Losartan Potassium (coZAAR TAB) 12.5 mg DAILY PO 04/18/17 08:00 05/18/17 08:59 04/18/17 11:37 12.5 MG Tizanidine HCl (Zanaflex Tab) 2 mg TID PO 04/17/17 14:00 05/17/17 13:59 04/18/17 14:46 2 MG Lactobacillus Acidophilus (Floranex Tab) 4 tab TIDM PO 04/17/17 16:45 05/17/17 16:44 04/18/17 16:45 4 TAB Insulin Glargine (Lantus Solostar Pen) 17 units BID SC 04/18/17 08:00 05/18/17 07:59 04/18/17 08:54 17 UNITS
[2017-04-19] VITALS (8 sets, daily range): BP systolic 112–160; BP diastolic 61–84; PULSE 48–95; TEMP 36.6–36.7; O2SAT 91–94
[2017-04-19] MEDS: IPRATROPIUM BROMIDE NEB SOLN 0.02% 2.5 ML VIAL INH SCH ×4 (02:20→20:13)
[2017-04-19] MEDS: LEVALBUTEROL 1.25MG/0.5ML NEB INH SCH ×4 (02:20→20:13)
[2017-04-19] MEDS: ACETAMINOPHEN 325 MG TAB PO PRN (02:49)
[2017-04-19] MEDS: AMPICILLIN IV 2,000 MG in SODIUM CHLOR 0.9% AD-VAN 100ML 100 ML IV SCH ×3 (04:10→14:06)
[2017-04-19] MEDS: HYDROmorphone INJ 0.5 MG/0.5 ML SYR IV PRN ×2 (04:12→22:11)
[2017-04-19] MEDS: LEVOTHYROXINE 175 MCG TAB PO SCH (05:51)
[2017-04-19] MEDS: TRAMADOL HCL 50 MG TAB PO PRN ×2 (05:54→23:28)
[2017-04-19] MEDS ORDERED: HYDROmorphone INJ 0.5 MG/0.5 ML SYR IV STA (06:39)
[2017-04-19] MEDS: ACETYLCYSTEINE 20% INHAL SOLN ***DISPENSED BY RESP. INH SCH ×2 (07:06→20:13)
[2017-04-19] MEDS: SODIUM CHLORIDE 7% 4 ML NEB INH SCH ×2 (07:06→20:13)
[2017-04-19] MEDS ORDERED: INSULIN GLARGINE SOLOSTAR 100 UNITS/ML 3 ML PEN SC SCH ×2 (08:00→21:00)
[2017-04-19] MEDS: LOSARTAN POTASSIUM 25 MG TAB PO SCH (08:33)
[2017-04-19] MEDS: LACTOBACILLUS ACIDOPHILUS (FLORANEX) TAB PO SCH ×3 (08:33→17:35)
[2017-04-19] MEDS: PANTOprazole SOD 40 MG TAB PO SCH (08:34)
[2017-04-19] MEDS: METOPROLOL SUCC 50MG EXT REL TAB PO SCH ×2 (08:34→19:32)
[2017-04-19] MEDS: INSULIN ASPART 100 UNITS/ML 3 ML PEN SC SCH ×4 (08:43→19:36)
[2017-04-19] MEDS: INSULIN GLARGINE SOLOSTAR 100 UNITS/ML 3 ML PEN SC SCH (09:13)
--- NOTE | 2017-04-19 14:24 | Pharmacy Progress Note ---
Pharmacy Glycemic Short Note 2 Date of Service Apr 19, 2017. OUTPATIENT ANTIDIABETIC REGIMEN: * Lantus 19-22 units BID * Trulicity 0.75 mg once weekly * A1c 7.8% on 04/13/17 ASSESSMENT: * BSGs 97-213 mg/dl over the past 24hrs * Patient received ~70 units of insulin over the past 24hrs * Lantus 17 units SQ BID * NovoLog ACHS per CF = 20 & CR = 5 (35 units over 24hrs) * AM fasting BSG below goal range this AM at 97mg/dl * Will empirically decrease basal insulin to prevent low * Discussed steroids with Dr Alcala today is day #5 for prednisone 40mg. He will start to taper dosing. * Post-prandial BSGs rise throughout the day. Post-prandial hyperglycemia aggravated by steroids. Will continue aggressive dosing for steroid associated hyperglycemia. PLAN FOR INPATIENT GLYCEMIC CONTROL: * Hold outpatient diabetes medications * Basal insulin: decrease dose * Lantus 16 units SQ BID * Pt already received 17 units this morning, will give 15 units tonight and start 16 units BID tomorrow AM. * Bolus insulin: tighten parameters * NovoLog per scale ACHS or Q6hrs while NPO * Goal Range: Low 120 mg/dL - High 150 mg/dL * Correction Factor: 20 mg/dL/unit * Nutritional / Prandial insulin per carb ratio of 1 unit per 5 grams CHO consumed
--- NOTE | 2017-04-19 17:08 | Progress Note ---
Internal Med Progress Note Date of Service: Apr 19, 2017. Provider Documentation: SUBJECTIVE: The patient was seen and examined Clinically much better today Blood sugar is running high OBJECTIVE: Vital Signs-as noted below Exam: General-NO distress at rest Eyes-normal ENT-Normal Neck-supple.Has tracheotomy Lungs-decreased breath sound bilaterally Heart-Regular,no murmur appreciated Abdomen-Benign,no masses,bowel sound present Extremities-No edema Neuro-AAOx3 Lab data as noted below. ASSESSMENT & PLAN: SEPSIS: secondary to strep bacteremia and pneumonia -on presentation was tachycardic, tachypneic, with leukocytosis, lactic acidosis , elevated Procalcitonin -2 of 2 blood cultures growing group A beta strep, -tracheal suction culture also growing group A beta strep -started with cefepime, vancomycin, solumedrol in ER; was then on vanco + zosyn + levaquin, and now only on Levaquin and ampicillin (for strep); total of at least 14 days per Pulm -influenza negative -has prior hx of MRSA -urine culture-negative -AFB and cultures from bronchial washings pending; -pathology from bronchial washings showing atypia with possible squamous cells but unknown significance, -likely related to infection per Pulm, but plan for a follow up bronch in the future after the infection has been treated -repeat blood cultures ordered and are negative -clinically a lot better -antibiotic changed to Augmentin ACUTE ON CHRONIC RESPIRATORY FAILURE: likely secondary to above -continue O2 via trach mask; weaning oxygen as tolerated -Xopenex/Atrovent nebs -initially on solumedrol 40mg but weaned to PO steroids on a slow taper ( decrease by 5 mg) -was on IV fluids, but have since stopped fluids; now in negative fluid balance -Pulmonology consulted, appreciate recommendations -will taper down steroid L HIP PAIN: -per patient is chronic -ct pelvis did not show any hardware issues or any intra-abdominal pathology to account for pain; likely muscular and will give a trial of muscle relaxant -Dilaudid prn pain -tramadol prn pain -pain is controlled DM TYPE II: -HbA1c: 7.8% -NovoLog sliding scale per protocol -Glycemic pharmacy consulted, appreciate recs -will taper down steroid HYPOTHYROIDISM: -continue levothyroxine HTN: -was initially hypotensive, now BP elevated -restarted losartan -increased metoprolol back to 50mg BID with hold parameters HX OF ARRHYTHMIAS: -remains sinus rhythm on monitor -continue digoxin; Dig level 0.4 GERD: -continue PPI Consultants: Pulmonary Procedures: Bronchoscopy Vital Signs: Date Time Temp Pulse Resp B/P (MAP) Pulse Ox O2 Delivery O2 Flow Rate FiO2 04/19/17 16:00 94 Trach Collar 04/19/17 15:01 36.6 48 20 112/61 (78) 93 Trach Collar 35.0 Free Flow/[place] 04/19/17 14:18 95 16 91 Trach Collar 30 04/19/17 08:00 94 Trach Collar 04/19/17 07:17 36.6 87 18 160/84 (109) 94 Free Flow/[place] 35.0 04/19/17 07:07 86 18 94 Trach Collar 30 04/19/17 00:00 Trach Collar 6.0 04/18/17 23:51 36.7 104 20 130/66 (87) 91 Trach Collar 7.0 04/18/17 20:00 Trach Collar 6.0 04/18/17 19:07 75 18 93 Trach Collar 30 Lab Results: Results Past 24 Hours Test 04/18/17 19:54 04/19/17 07:36 04/19/17 11:25 04/19/17 16:38 Range/Units Bedside Glucose 187 97 123 175 70-99 mg/dl
[2017-04-19] MEDS: DIGOXIN 0.125 MG/2.5 ML UDP PEG SCH (17:34)
[2017-04-20] MEDS ORDERED: KETOROLAC TROMETHAMINE 30 MG/ML VIAL IV PRN (01:45)
[2017-04-20] MEDS ORDERED: KETOROLAC TROMETHAMINE 30 MG/ML VIAL IV STA (01:45)
[2017-04-20] MEDS: LEVALBUTEROL 1.25MG/0.5ML NEB INH SCH ×3 (01:54→14:30)
[2017-04-20] MEDS: IPRATROPIUM BROMIDE NEB SOLN 0.02% 2.5 ML VIAL INH SCH ×3 (01:54→14:30)
[2017-04-20] MEDS ORDERED: TRAMADOL HCL 50 MG TAB PO PRN (02:00)
[2017-04-20] MEDS: HYDROmorphone INJ 0.5 MG/0.5 ML SYR IV PRN (02:17)
[2017-04-20] MEDS: LEVOTHYROXINE 175 MCG TAB PO SCH (05:15)
[2017-04-20] MEDS: ACETYLCYSTEINE 20% INHAL SOLN ***DISPENSED BY RESP. INH SCH (07:00)
[2017-04-20] MEDS: SODIUM CHLORIDE 7% 4 ML NEB INH SCH (07:00)
[2017-04-20 07:03] VITALS: PULSE 68; O2SAT 94
[2017-04-20 07:48] VITALS: BP 155/82; PULSE 86; TEMP 36.4; O2SAT 94
[2017-04-20] MEDS ORDERED: AMOXICILLIN/CLAVULANATE TAB 875 MG TAB PO SCH (08:00)
[2017-04-20] MEDS ORDERED: INSULIN GLARGINE SOLOSTAR 100 UNITS/ML 3 ML PEN SC SCH ×3 (08:00→20:00)
[2017-04-20] MEDS: LACTOBACILLUS ACIDOPHILUS (FLORANEX) TAB PO SCH ×2 (09:08→12:26)
[2017-04-20] MEDS: LOSARTAN POTASSIUM 25 MG TAB PO SCH (09:10)
[2017-04-20] MEDS: METOPROLOL SUCC 50MG EXT REL TAB PO SCH (09:10)
[2017-04-20] MEDS: PANTOprazole SOD 40 MG TAB PO SCH (09:11)
[2017-04-20] MEDS: INSULIN ASPART 100 UNITS/ML 3 ML PEN SC SCH ×2 (09:18→12:26)
--- NOTE | 2017-04-20 10:55 | Pharmacy Progress Note ---
Pharmacy Glycemic Short Note 2 Date of Service Apr 20, 2017. OUTPATIENT ANTIDIABETIC REGIMEN: * Lantus 19-25 units SQ BID (when on steroids takes around 22-25 units twice daily); Trulicity 0.75 mg /week ASSESSMENT: * Mr Rodriguez is a 61 y/o M currently admitted with pneumonia. During his hospitalization, the patient has required between 36-80 units of insulin per day (lower end of scale whenever not eating much). The patient has been on a prednisone taper since 04/15/17 and his receiving his first day of prednisone 20 mg PO today. * Yesterday, the patient received around 71 units of insulin (32 units of Lantus and 39 units of Novolog); blood sugars ranged from 97-225 mg/dL. His blood sugars climbed significantly throughout the day. This is most likely a reflection of the fact that two days ago the patient received on 39 units of Lantus. Still though, the patient's blood sugar this morning was 242 mg/dL which is significantly higher than yesterday's fasting and above goal. Therefore , increase Lantus slightly to 19 units twice daily. (still below range of what patient takes at home). * Since post-prandial blood sugars are not controlled, tighten both carbohydrate and correction factor to weight-based stress of 3. Lunch blood sugar was decreased significantly to 79 mg/dL at lunchtime. Continued same parameters as expect supper to be elevated (subtraction from carbohydrate coverage since blood sugar lower than goal). Will set up scale for evening and tomorrow as expect blood sugars to decrease with decreasing steroids. PLAN FOR INPATIENT GLYCEMIC CONTROL: * Hold outpatient Trulicity * Basal insulin * Lantus 19 units SQ x 1 then 16-19 units SQ BID * Bolus insulin * NovoLog per scale ACHS or Q6hrs while NPO * Goal Range: Low 110 mg/dL - High 150 mg/dL * Correction Factor: 15 mg/dL/unit * Nutritional / Prandial insulin per carb ratio of 1 unit per 5 grams CHO consumed PLAN FOR DISCHARGE: * see note from 04/13/17
--- NOTE | 2017-04-20 11:48 | Progress Note ---
Internal Med Progress Note Date of Service: Apr 20, 2017. Provider Documentation: SUBJECTIVE: The patient was seen and examined Clinically much better today No complaints today Ready to be discharged OBJECTIVE: Vital Signs-as noted below Exam: General-NO distress at rest Eyes-normal ENT-Normal Neck-supple.Has tracheotomy Lungs-decreased breath sound bilaterally No crackles and or wheezing Heart-Regular,no murmur appreciated Abdomen-Benign,no masses,bowel sound present Extremities-No edema Neuro-AAOx3 Lab data as noted below. ASSESSMENT & PLAN: SEPSIS: secondary to strep bacteremia and pneumonia -on presentation was tachycardic, tachypneic, with leukocytosis, lactic acidosis , elevated Procalcitonin -2 of 2 blood cultures growing group A beta strep, -tracheal suction culture also growing group A beta strep -started with cefepime, vancomycin, solumedrol in ER; was then on vanco + zosyn + levaquin, and now only on Levaquin and ampicillin (for strep); total of at least 14 days per Pulm -influenza negative -has prior hx of MRSA -urine culture-negative -AFB and cultures from bronchial washings pending; -pathology from bronchial washings showing atypia with possible squamous cells but unknown significance, -likely related to infection per Pulm, but plan for a follow up bronch in the future after the infection has been treated -repeat blood cultures ordered and are negative -clinically a lot better and wants to be discharged today -antibiotic changed to Augmentin ACUTE ON CHRONIC RESPIRATORY FAILURE: likely secondary to above -continue O2 via trach mask; weaning oxygen as tolerated -Xopenex/Atrovent nebs -initially on solumedrol 40mg but weaned to PO steroids on a slow taper ( decrease by 5 mg) -was on IV fluids, but have since stopped fluids; now in negative fluid balance -Pulmonology consulted, appreciate recommendations -will taper down steroid -blood sugar is controlled L HIP PAIN: -per patient is chronic -ct pelvis did not show any hardware issues or any intra-abdominal pathology to account for pain; likely muscular and will give a trial of muscle relaxant -Dilaudid prn pain -tramadol prn pain -pain is controlled DM TYPE II: -HbA1c: 7.8% -NovoLog sliding scale per protocol -Glycemic pharmacy consulted, appreciate recs -will taper down steroid HYPOTHYROIDISM: -continue levothyroxine HTN: -was initially hypotensive, now BP elevated -restarted losartan -increased metoprolol back to 50mg BID with hold parameters -BP is reasonably controlled HX OF ARRHYTHMIAS: -remains sinus rhythm on monitor -continue digoxin; Dig level 0.4 GERD: -continue PPI Consultants: Pulmonary Procedures: Bronchoscopy Discharge today Vital Signs: Date Time Temp Pulse Resp B/P (MAP) Pulse Ox O2 Delivery O2 Flow Rate FiO2 04/20/17 08:00 Trach Collar 6.0 04/20/17 07:48 36.4 86 18 155/82 (106) 94 6.0 04/20/17 07:03 68 18 94 Trach Collar 30 04/20/17 00:00 Trach Collar 6.0 30 04/19/17 23:32 36.7 88 20 137/72 (93) 94 Trach Collar 6.0 04/19/17 20:13 63 16 92 Trach Collar 30 04/19/17 20:00 Trach Collar 6.0 30 04/19/17 16:00 94 Trach Collar 04/19/17 15:01 36.6 48 20 112/61 (78) 93 Trach Collar 35.0 Free Flow/Blowby 04/19/17 14:18 95 16 91 Trach Collar 30 Lab Results: Results Past 24 Hours Test 04/19/17 16:38 04/19/17 19:28 04/20/17 07:43 Range/Units Bedside Glucose 175 225 242 70-99 mg/dl
[2017-04-20] MEDS ORDERED: ULT50X PO (14:19)
[2017-04-20] MEDS ORDERED: AMOX1TAB43 PO (14:19)
[2017-04-20] MEDS ORDERED: PRED10TA PO (14:19)
--- NOTE | 2017-04-20 14:28 | Discharge Instructions ---
Discharge Instructions Date of Service Apr 20, 2017. Admission Reason for Admission: Hypoxia, Leukocytosis Discharge Discharge Diagnosis / Problem: Sepsis due to pneumonia,Respiratory failure,DM Discharge Goals Goal(s): Prevent Disease Progression Activity Recommendations Activity Limitations: resume your previous activity . Instructions / Follow-Up Instructions / Follow-Up Dr Lugo on 04/27/17 at 11:05 AM.Please keep appointment with Pulmonary Current Hospital Diet Patient's current hospital diet: Diabetes Type 2 Diet Discharge Diet Recommended Diet: Diabetes Type 2 Diet Pending Studies Studies pending at discharge: no Laboratory Results Hemoglobin A1c Test 04/13/17 06:49 Range/Units Estimated Average Glucose 177 mg/dl Hemoglobin A1c 7.8 H 4.5-5.6 % Medical Emergencies . Who to Call and When: Medical Emergencies: If at any time you feel your situation is an emergency, please call 911 immediately. . Non-Emergent Contact Non-Emergency issues call your: Primary Care Provider . Past History Medical & Surgical History: (1) Pneumonia (2) Tracheostomy in place (3) Back pain (4) Hypoxia (5) GERD (gastroesophageal reflux disease) (6) Hx of Hodgkin's disease (7) Hx of benign neoplasm of colon (8) Status post laryngectomy . "Provider Documentation" section prepared by Shani Alcala. . VTE Core Measure Inpt VTE Proph given/why not?: SCD's (Required Bronchoscopy)
[2017-04-20 14:32] VITALS: PULSE 81; O2SAT 93
[2017-04-20 14:50] VITALS: BP 155/82; PULSE 81; TEMP 36.4; O2SAT 93
[2017-04-20] MEDS: DIGOXIN 0.125 MG/2.5 ML UDP PEG SCH (16:32)
--- NOTE | 2017-04-21 08:15 | Discharge Summary ---
Discharge Summary Date of Service Apr 21, 2017. Discharge Summary Admission Date: Apr 12, 2017 at 12:46 Discharge Date: Apr 20, 2017 Principal Diagnosis: Sepsis due to pneumonia,Respiratory failure,DM Secondary Diagnoses/Problems: Please see H&P and Hospital Progress note Procedures: Bronchoscopy Consultations: Pulmonary Medication Reconciliation New Medications: Prednisone Tab (Prednisone) 10 Mg Tab 10 MG PO UD for 9 Days, #18 TAB 3 po daily for 3 days ,2 po daily for 3 datys and then 1 po daily for 3 days Amoxicillin & Pot Clavulanate (Amoxicillin/Clavulanate P) 1 Tab Tab 875 MG PO BIDM for 3 Days, #6 TAB Tramadol HCl (Tramadol HCl) 50 Mg Tab 50 MG PO Q4H PRN for Pain for 10 Days, #30 TAB Continued Medications: Acetylcysteine (Acetylcysteine) 10 % Sarika 3 ML INH DAILY for Shortness of Breath Atorvastatin (Lipitor) 10 Mg Tab 10 MG PO DAILY, TAB Digoxin (Digoxin) 0.125 Mg Tab 0.125 MG PEG 5XWK TAKES TUE,,TUE,,TUE Dulaglutide (Trulicity) 0.75 Mg/0.5 Ml Inj 1 WK takes on fridays Insulin Glargine (Lantus Solostar) 100 Unit/Ml Inj 19-22 UNITS SC AMHS, PEN Ipratropium-Albuterol (Duoneb) 3 Ml Nebu 1 TREATMENT INH Q4H for SOB/Wheezing, INHA Levothyroxine Sodium (Levothyroxine Sodium) 175 Mcg Tab 175 MCG PO DAILY, TAB Losartan Potassium (Cozaar) 25 Mg Tab 12.5 MG PO DAILY, TAB Metoprolol Succinate (Toprol Xl) 50 Mg Tab 50 MG PO BID, TAB Omeprazole (Prilosec) 40 Mg Cap 40 MG PO DAILY, CAP Discontinued Medications: Naproxen (Aleve) 220 Mg Tab 220 MG PO UD PRN for Pain TAKE PER PACKAGE DIRECTIONS Admission Information HPI (per Admitting provider): Pt is 61 y/o M with PMH Hodgkins disease, treated with radiation with secondary pulmonary fibrosis, hx tracheostomy/laryngectomy secondary to recurrent aspiration in past and vocal cord problems, hx arrhythmias, DM II, hyperlipidemia, hypothyroidism, GERD, hx partial nephrectomy, hx splenectomy presented to ER with c/o left back pain started last night after coughing episode. [place] chilled last night. Reports SOB worse with ambulation, worsens during winter months and feels like has worsened since weather cold. C/O rhinorrhea, increased cough past week. C/O left CVA and left lateral posterior rib tenderness with any movement or deep inspiration. Pt reports has chronic brown sputum tinged with blood that coughs/suctions. Feels like increased sputum today. He self suctions at home 1-4 times a day. He also admits to using a wire down his trach to try to remove secretions and in past has had to have surgically retrieved from trachea. Denies any choking since previous surgeries. Pt uses electric larynx to communicate. Pt has O2 to use at home, states can use it continuously, but tends to just use at night and sometimes during the day. Uses duonebs, has been using twice daily over past week. Follows with Dr Forrester. Hx bronchoscopy several times in past for mucous plugging, last was 01/2017. Reports having influenza vaccine this season. Denies fever/chills, diaphoresis, N/V/D/C, melena, hematochezia, BURGOS, dizziness, syncope, vision changes, neck pain, CP, orthopnea, palpitations, otalgia, abdominal pain, paresthesias, weakness, extremity edema, rashes, urinary symptoms. In ER afebrile, tachy low 100's, R: 24, BP: 95/49, O2 85% on RA, increased to 93 % on 6L. WBC: 23, Lactic acid: 3.0. U/A: neg. CT chest: wall thickening tracheobronchial tree. Pt given cefepime, vancomycin, solumedrol. Also given zofran, morphine and then dose Dilaudid with little relief of back pain. Past Medical/Surgical History Medical Problems: (1) GERD (gastroesophageal reflux disease) Status: Chronic (2) Hx of bacterial pneumonia Status: Resolved (3) Hx of benign neoplasm of colon Permanent Comment: 2003 - tubular adenoma - adenomatous polyp Status: Chronic (4) Hx of Hodgkin's disease Permanent Comment: 1977, 1980 - nodular sclerosing stage III - s/p radiation therapy and chemo - [facility] Hosp Status: Chronic (5) Hx of pulmonary fibrosis Status: Chronic (6) Tracheostomy in place Status: Chronic Surgical Problems: (1) History of bronchoscopy Status: Resolved (2) History of left hip replacement Status: Resolved (3) Hx of kidney removal Permanent Comment: 1999 - hx partial removal L kidney d/t kidney mass - benign Status: Resolved (4) Hx of kidney removal Permanent Comment: partial L kidney removal Status: Resolved (5) Hx of splenectomy Status: Resolved Family History Colon cancer BROTHER (colon) FATHER (colon CA) FH: CAD (coronary artery disease) MOTHER Social History Smoking Status: Former Smoker (smoked 1 cigarette daily x 1 year) Smokeless Tobacco Use: No Alcohol Use: none Drug Use: none Marital Status: Housing status: lives with significant other Occupational Status: disabled Immunizations History of Influenza Vaccine: Yes History of Tetanus Vaccine?: No History of Pneumococcal: Yes History of Hepatitis B Vaccine: No Multi-Drug Resistant Organisms History of MDRO: Yes Allergies Coded Allergies: No Known Allergies (Verified , 04/12/17) Home Medications Scheduled Acetylcysteine (Acetylcysteine), 3 ML INH DAILY Atorvastatin (Lipitor), 10 MG PO DAILY Digoxin (Digoxin), 0.125 MG PEG 5XWK Dulaglutide (Trulicity), 1 WK Insulin Glargine (Lantus Solostar), 19-22 UNITS SC AMHS Ipratropium-Albuterol (Duoneb), 1 TREATMENT INH Q4H Levothyroxine Sodium (Levothyroxine Sodium), 175 MCG PO DAILY Losartan Potassium (Cozaar), 12.5 MG PO DAILY Metoprolol Succinate (Toprol Xl), 50 MG PO BID Omeprazole (Prilosec), 40 MG PO DAILY Scheduled PRN Naproxen (Aleve), 220 MG PO UD PRN for Pain Review of Systems Constitutional: + problem reported (see HPI), No weight loss Eyes: No eye pain, No redness, No discharge, No diplopia ENT: + problem reported (see HPI), No unusual epistaxis Respiratory: + problem reported (see HPI) Cardiovascular: + problem reported (See HPI) Abdomen: No pain, No nausea, No vomiting, No diarrhea, No constipation, No GI bleeding Musculoskeletal: No calf pain Genitourinary - Male: No hematuria, No dysuria, No urinary frequency, No urinary urgency, No urinary hesitancy, No urinary retention Neurologic: No paralysis, No weakness, No numbness/tingling, No vertigo Psychiatric: No depression symptoms, No anxiety Endocrine: No excessive thirst, No excessive urination Hematologic / Lymphatic: No abnormal bleeding/bruising Integumentary: No rash, No itch Physical Ex - H&P Physical Exam Vital Signs Date Time Temp Pulse Resp B/P (MAP) Pulse Ox O2 Delivery O2 Flow Rate FiO2 04/12/17 13:50 36.9 107 20 151/84 (106) 97 Trach Collar 04/12/17 13:33 91 04/12/17 13:12 102 24 110/63 90 Trach Collar 10.0 40 04/12/17 12:50 93 Trach Collar 6.0 04/12/17 11:12 98 93 04/12/17 10:52 95 24 122/60 91 6.0 04/12/17 09:58 95 100/61 92 04/12/17 09:22 93 24 97/60 92 04/12/17 08:44 103 32 121/67 93 Venturi Mask 6.0 04/12/17 08:20 101 28 95/59 93 6.0 04/12/17 07:47 101 04/12/17 07:30 95 Oxymask 3.0 04/12/17 07:21 36.9 101 24 95/49 85 Room Air General Appearance: + pertinent finding (chronic ill appearance, mild work of breathing, able to talk in sentences with his electric larynx but does become winded) Head: normocephalic, atraumatic Eyes: normal inspection, PERRL, EOMI, sclerae normal ENT: hearing grossly normal, + pertinent finding (mucous membranes moist, no exudates noted) Neck: supple, no JVD, trachea midline, + pertinent finding (+tracheostomy) Respiratory/Chest: no accessory muscle use, + rhonchi (throughout), + wheezing (throughout), + pertinent finding (+tenderness to palpation left posterior lower ribs) Cardiovascular: no murmur, + tachycardia (low 100's) Abdomen/GI: non tender, soft, + pertinent finding (hypoactive BS) Back: + left CVA tenderness, + pertinent finding (limited ROM secondary to discomfort) Extremities/Musculoskelatal: no calf tenderness, normal capillary refill, no pedal edema, normal range of motion, non-tender Neurologic/Psych: alert, normal mood/affect, oriented x 3 Skin: warm/dry, no rash Diagnostics - H&P Diagnostics Laboratory Results Results Past 24 Hours Test 04/12/17 07:30 04/12/17 08:49 04/12/17 09:02 04/12/17 09:45 Range/Units White Blood Count 23.48 4.8-10.8 K/uL Red Blood Count 4.25 4.7-6.1 M/uL Hemoglobin 14.1 14.0-18.0 g/dL Hematocrit 42.9 42-52 % Mean Corpuscular Volume 100.9 80-100 fL Mean Corpuscular Hemoglobin 33.2 25-34 pg Mean Corpuscular Hemoglobin Concent 32.9 32-36 g/dl Platelet Count 273 130-400 K/uL Mean Platelet Volume 12.6 7.4-10.4 fL Neutrophils (%) (Auto) 91.0 % Lymphocytes (%) (Auto) 3.8 % Monocytes (%) (Auto) 3.6 % Eosinophils (%) (Auto) 0.0 % Basophils (%) (Auto) 0.1 % Neutrophils # (Auto) 21.35 1.4-6.5 K/uL Lymphocytes # (Auto) 0.89 1.2-3.4 K/uL Monocytes # (Auto) 0.85 0.11-0.59 K/uL Eosinophils # (Auto) 0.01 0-0.5 K/uL Basophils # (Auto) 0.03 0-0.2 K/uL RDW Standard Deviation 55.4 36.4-46.3 fL RDW Coefficient of Variation 15.1 11.5-14.5 % Immature Granulocyte % (Auto) 1.5 % Immature Granulocyte # (Auto) 0.35 0.00-0.02 K/uL Sodium Level 138 136-145 mmol/L Potassium Level 4.7 3.5-5.1 mmol/L Chloride Level 103 98-107 mmol/L Carbon Dioxide Level 25 21-32 mmol/L Anion Gap 10.0 3-11 mmol/L Blood Urea Nitrogen 22 7-18 mg/dl Creatinine 1.35 0.60-1.40 mg/dl Estimated GFR () 64.3 Estimated GFR (Non- 55.5 BUN/Creatinine Ratio 15.9 10-20 Random Glucose 118 70-99 mg/dl Calcium Level 8.5 8.5-10.1 mg/dl Total Bilirubin 1.1 0.2-1 mg/dl Direct Bilirubin 0.4 0-0.2 mg/dl Aspartate Amino Transf (AST/SGOT) 31 15-37 U/L Alanine Aminotransferase (ALT/SGPT) 42 12-78 U/L Alkaline Phosphatase 152 45-117 U/L Total Protein 7.0 6.4-8.2 gm/dl Albumin 2.9 3.4-5.0 gm/dl Lipase 30 73-393 U/L Lactic Acid Level 3.0 0.4-2.0 mmol/L Urine Color YELLOW Urine Appearance CLEAR CLEAR Urine pH 5.0 4.5-7.5 Urine Specific [place] 1.023 1.000-1.030 Urine Protein NEG NEG Urine Glucose (UA) 1+ NEG Urine Ketones NEG NEG Urine Occult Blood NEG NEG Urine Nitrite NEG NEG Urine Bilirubin NEG NEG Urine Urobilinogen NEG NEG Urine Leukocyte Esterase NEG NEG Test 04/12/17 12:46 04/12/17 13:05 04/12/17 13:29 Range/Units Microbiology Results 04/12/17 Blood Culture, Received Pending 04/12/17 Blood Culture, Received Pending 04/12/17 Urine Culture, Received Pending Diagnostic Radiology CXR: IMPRESSION: 1. Cardiomegaly with no acute cardiopulmonary abnormality. 2. Right paramediastinal fibrotic change is similar to previous.. CT CHEST/CT ABD/PELVIS: IMPRESSION: 1. There is marked wall thickening N calcification of the tracheobronchial tree. The tracheal lumen appears narrowed, and there is significant narrowing of the right mainstem bronchus as well as the left lower lobe bronchus. This may be related to chronic inflammation, or could represent pathology such as tracheobronchopathia osteochondroplastica versus amyloidosis. Clinical correlation will be essential. 2. There is evidence of previous tracheostomy. 3. There are small right and trace left pleural effusions with associated atelectasis. No airspace consolidation is seen typical for pneumonia. 4. Cardiomegaly and small to moderate pericardial effusion. There is evidence of pulmonary artery hypertension. 5. Right paramediastinal fibrosis is similar to previous. 6. There are foci of nodularity in the subcarinal space and in the right infrahilar region. Enlarged lymph nodes are suspected but difficult to delineate. Correlation with the patient's medical history will be essential. 7. Hepatomegaly and severe hepatic steatosis. 8. The spleen is not identified and presumed surgically absent. A splenule is suspected in the left upper quadrant. 9. The mid to distal pancreas is atrophic and there is dilatation of the pancreatic duct. The pancreatic tail is truncated and may be surgically absent. There is no clear evidence of mass lesion. Correlation with the medical/surgical history as well as any prior outside imaging studies will be required. 10. There is mild stranding suggested around the proximal pancreas. Correlate clinically and with serum lipase levels for evidence of mild acute pancreatitis. 11. 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 No bowel obstruction is seen. Moderate constipation is observed. EKG EKG: sinus tachy, rate 101, no ST elevations noted Impression - H&P Impression Assessment and Plan SEPSIS PRESUMED RESPIRATORY SOURCE WITH ACUTE ON CHRONIC RESPIRATORY FAILURE Pt tachycardic, tachypneic, WBC: 23 lactic acid: 3.0. Procalcitonin: 20.Possible early CAP, pt with hx laryngectomy so aspiration pneumonia. Possible flare pulmonary fibrosis. Treated with cefepime, vancomycin, solumedrol in ER. -blood cultures pending -check influenza swab -MRSA swab -ordered sputum culture -ordered urine culture -repeat lactic acid -continue O2 via trach mask -xopenex/atrovent nebs -vancomycin, zosyn, levaquin -solumedrol 40mg IV Q8h -NSS @ 125ml/hr -dilaudid prn pain -tramadol prn pain -pulmonology consult -repeat cbc, prp in am DM II -A1c in am -NovoLog sliding scale per protocol -consult pharm as pt on steroids HYPOTHYROIDISM TSH: 0.75 -continue levothyroxine HTN soft BP's currently -hold losartan -reduce metoprolol 25mg BID HX ARRHYTHMIAS Sinus rhythm at this time. Dig level 0.4 -continue digoxin GERD -PPI DVT PROPHYLAXIS -SCDs DISPOSITION -admit tele -Full Code as per discussion with pt -Follows with Dr Casanova for routine care Pt was seen with Dr Perry. See addendum ATTENDING ADDENDUM care coordinated with YAEL Peterson please refer to her notes for full details, I agree with her notes patient seen and examined, records reviewed by myself as well on exam, patient seen sitting up in bed, not in distress states breathing has improved compared to admission still able to suction thick sputum from trach site reports left hip pain- can be severe, worse with standing and walking no other symptoms VS noted and reviewed oriented x 3 , not in distress, speaks in sentences with no effort nor accessory muscle use normal rate, regular rhythm, no murmurs (+) crackles bilaterally non distended, soft, nontender no bipedal edema, erythema, warmth no neuro deficits WBC 23k crea 1.35 lactic acid 3.0 ASSESSMENT/PLAN> SEPSIS, LIKELY FROM PNEUMONIA ACUTE ON CHRONIC HYPOXIC RESPIRATORY FAILURE SECONDARY TO ABOVE, PULMONARY FIBROSIS - ff up cultures ff up lactic acid, on IV NSS empiric Vanc, Zosyn, Levaquin Pulm consulted, follows with Dr. Forrester - Solumedrol 40mg IV Nebs LEFT HIP PAIN - history of previous surgery - will consult Ortho other diagnoses and plan of care as per YAEL Peterson notes Crispin Perry MD Level of Care Telemetry Advanced Directives Existing Living Will: No Existing Power of Ebd Special Education Teacher: No Resuscitation Status FULL RESUSCITATION VTE Prophylaxis VTE Risk Assessment Done? Y/N: Yes Risk Level: Moderate Given or contraindicated: SCD's Additional Copies To Keyla Casanova D.O. Physical Exam (per Admitting): General Appearance: + pertinent finding (chronic ill appearance, mild work of breathing, able to talk in sentences with his electric larynx but does become winded) Head: normocephalic, atraumatic Eyes: normal inspection, PERRL, EOMI, sclerae normal ENT: hearing grossly normal, + pertinent finding (mucous membranes moist, no exudates noted) Neck: supple, no JVD, trachea midline, + pertinent finding (+tracheostomy) Respiratory/Chest: no accessory muscle use, + rhonchi (throughout), + wheezing (throughout), + pertinent finding (+tenderness to palpation left posterior lower ribs) Cardiovascular: no murmur, + tachycardia (low 100's) Abdomen/GI: non tender, soft, + pertinent finding (hypoactive BS) Back: + left CVA tenderness, + pertinent finding (limited ROM secondary to discomfort) Extremities/Musculoskelatal: no calf tenderness, normal capillary refill, no pedal edema, normal range of motion, non-tender Neurologic/Psych: alert, normal mood/affect, oriented x 3 Skin: warm/dry, no rash Hospital Course SEPSIS: secondary to strep bacteremia and pneumonia -on presentation was tachycardic, tachypneic, with leukocytosis, lactic acidosis , elevated Procalcitonin -2 of 2 blood cultures growing group A beta strep, -tracheal suction culture also growing group A beta strep -started with cefepime, vancomycin, solumedrol in ER; was then on vanco + zosyn + levaquin, and now only on Levaquin and ampicillin (for strep); total of at least 14 days per Pulm -influenza negative -has prior hx of MRSA -urine culture-negative -AFB and cultures from bronchial washings pending; -pathology from bronchial washings showing atypia with possible squamous cells but unknown significance, -likely related to infection per Pulm, but plan for a follow up bronch in the future after the infection has been treated -repeat blood cultures ordered and are negative -clinically a lot better and wants to be discharged today -antibiotic changed to Augmentin ACUTE ON CHRONIC RESPIRATORY FAILURE: likely secondary to above -continue O2 via trach mask; weaning oxygen as tolerated -Xopenex/Atrovent nebs -initially on solumedrol 40mg but weaned to PO steroids on a slow taper ( decrease by 5 mg) -was on IV fluids, but have since stopped fluids; now in negative fluid balance -Pulmonology consulted, appreciate recommendations -will taper down steroid -blood sugar is controlled L HIP PAIN: -per patient is chronic -ct pelvis did not show any hardware issues or any intra-abdominal pathology to account for pain; likely muscular and will give a trial of muscle relaxant -Dilaudid prn pain -tramadol prn pain -pain is controlled DM TYPE II: -HbA1c: 7.8% -NovoLog sliding scale per protocol -Glycemic pharmacy consulted, appreciate recs -will taper down steroid HYPOTHYROIDISM: -continue levothyroxine HTN: -was initially hypotensive, now BP elevated -restarted losartan -increased metoprolol back to 50mg BID with hold parameters -BP is reasonably controlled HX OF ARRHYTHMIAS: -remains sinus rhythm on monitor -continue digoxin; Dig level 0.4 GERD: -continue PPI Consultants: Pulmonary Procedures: Bronchoscopy Discharge today Total time spent on discharge = 40 minutes This includes examination of the patient, discharge planning, medication reconciliation, and communication with other providers. Discharge Instructions Date of Service Apr 20, 2017. Admission Reason for Admission: Hypoxia, Leukocytosis Discharge Discharge Diagnosis / Problem: Sepsis due to pneumonia,Respiratory failure,DM Discharge Goals Goal(s): Prevent Disease Progression Activity Recommendations Activity Limitations: resume your previous activity . Instructions / Follow-Up Instructions / Follow-Up Dr Lugo on 04/27/17 at 11:05 AM.Please keep appointment with Pulmonary Current Hospital Diet Patient's current hospital diet: Diabetes Type 2 Diet Discharge Diet Recommended Diet: Diabetes Type 2 Diet Pending Studies Studies pending at discharge: no Laboratory Results Hemoglobin A1c Test 04/13/17 06:49 Range/Units Estimated Average Glucose 177 mg/dl Hemoglobin A1c 7.8 H 4.5-5.6 % Medical Emergencies . Who to Call and When: Medical Emergencies: If at any time you feel your situation is an emergency, please call 911 immediately. . Non-Emergent Contact Non-Emergency issues call your: Primary Care Provider . Past History Medical & Surgical History: (1) Pneumonia (2) Tracheostomy in place (3) Back pain (4) Hypoxia (5) GERD (gastroesophageal reflux disease) (6) Hx of Hodgkin's disease (7) Hx of benign neoplasm of colon (8) Status post laryngectomy . "Provider Documentation" section prepared by Shani Alcala. . VTE Core Measure Inpt VTE Proph given/why not?: SCD's (Required Bronchoscopy) <Electronically signed by Shani Alcala M.D.> Signed: 04/20/17 6725 Additional Copies To Alvaro Lugo ATC, MPT
== END 2017-04-20 17:00 | disposition home or self-care (01) | DRG 853 ==
LOC: C.EDB 07:17 → C.2T 12:46 → ENRESERV 12:50 → C.2T 04-16 17:57 → ENRESERV 04-17 14:13 → C.4E 04-17 15:09
PROVIDERS: ADMIT Internal Medicine; ATTEND Internal Medicine
PROC: 0BD18ZX Extraction of Trachea, Via Natural or Artificial Opening Endoscopic, Diagnostic (ICD-10-PCS; principal; 2017-04-13)
PROC: 0B9F8ZX Drainage of Right Lower Lung Lobe, Via Natural or Artificial Opening Endoscopic, Diagnostic (ICD-10-PCS; principal; 2017-04-13)
DX: A40.0 Sepsis due to streptococcus, group A (principal); J96.21 Acute and chronic respiratory failure with hypoxia; J15.4 Pneumonia due to other streptococci; J70.1 Chronic and other pulmonary manifestations due to radiation; Y84.2 Radiological procedure and radiotherapy as the cause of abnormal reaction of the patient, or of later complication, without mention of misadventure at the time of the procedure; R84.6 Abnormal cytological findings in specimens from respiratory organs and thorax; E87.70 Fluid overload, unspecified; M79.1 Myalgia; G89.29 Other chronic pain; I49.9 Cardiac arrhythmia, unspecified; I10 Essential (primary) hypertension; E78.5 Hyperlipidemia, unspecified; E11.9 Type 2 diabetes mellitus without complications; E03.9 Hypothyroidism, unspecified; K21.9 Gastro-esophageal reflux disease without esophagitis; Z90.5 Acquired absence of kidney; Z90.81 Acquired absence of spleen; Z90.02 Acquired absence of larynx; Z93.0 Tracheostomy status; Z99.81 Dependence on supplemental oxygen; Z96.642 Presence of left artificial hip joint; Z85.71 Personal history of Hodgkin lymphoma; Z86.14 Personal history of Methicillin resistant Staphylococcus aureus infection; Z87.891 Personal history of nicotine dependence; Z79.4 Long term (current) use of insulin; Z79.899 Other long term (current) drug therapy

== ENCOUNTER 2017-04-28 03:39 | Inpatient (IN) | payer OTHER ==
[~2017-04-28] VITALS: Ht 177.8 cm; Wt 95.0 kg
[~2017-04-28 03:39] MED LIST changes: +ACET10SO3 INH; +AMOX1TAB43 PO; +ATOR10TA82 PO; +DULA1INJ; -DULA1INJ SQ; +IPRASOL4 INH; -NAPR1TAB9 PO; +PRED10TA PO; +ULT50X PO; -cholesterol med
[2017-04-28] MEDS ORDERED: MoRPHine SULFATE 4 MG/ML 1 ML CARP\\VIAL IV STA ×2 (04:01→05:36)
--- NOTE | 2017-04-28 04:23 | EMERGENCY ROOM VISIT NOTE ---
ED Visit Note First contact with patient: 03:48 I saw this patient in conjunction with Danelle Mora PA-C. I agree with her treatment plan.
[2017-04-28 04:49] LABS: URINE APPEARANCE CLEAR (CLEAR); URINE BILIRUBIN NEG (NEG); URINE COLOR YELLOW; URINE NITRITE NEG (NEG); URINE PH 5.5 (4.5-7.5); URINE SPECIFIC GRAVITY 1.019 (1.000-1.030); UROBILINOGEN NEG (NEG); ZZURINE CULT IF INDIC CATH NO
[2017-04-28 05:05] LABS: MANUAL MICROSCOPIC REQUIRED? NO; REVIEW REQ? NO
[2017-04-28 05:31] LABS: BASO % 0.2 %; BASO ABS # 0.03 K/uL (0-0.2); COMPLETE YES; EOS % 0.1 %; HEMATOCRIT 41.3 % (42-52); IG% 1.1 %; LYMPH % 8.2 %; LYMPH ABS # 1.22 K/uL (1.2-3.4); MEAN CELL VOLUME 97.2 fL (80-100); MEAN CORPUSCULAR HEMOGLOBIN 33.2 pg (25-34); MEAN CORPUSCULAR HGB CONC 34.1 g/dl (32-36); MONO % 7.5 %; NEUT % 82.9 %; PLATELET COUNT 515 K/uL (130-400); RED BLOOD COUNT 4.25 M/uL (4.7-6.1); WHITE BLOOD COUNT 14.84 K/uL (4.8-10.8)
[2017-04-28 05:33] LABS: BUN/CREATININE RATIO 29.8 (10-20); CALCIUM 8.5 mg/dl (8.5-10.1); CREATININE 0.9 mg/dl (0.60-1.40); POTASSIUM 4.7 mmol/L (3.5-5.1)
[2017-04-28] MEDS ORDERED: SODIUM CHLORIDE 0.9% 500ML 500 ML IV STA (05:37)
[2017-04-28] MEDS ORDERED: OPTIRAY 320 IV PRN (05:45)
[2017-04-28] MEDS ORDERED: VANCOMYCIN IV STA (06:12)
[2017-04-28] MEDS ORDERED: CEFEPIME IV 2,000 MG in DEXTROSE 5% 100ML 100 ML IV STA (06:12)
[2017-04-28] MEDS ORDERED: SODIUM CHLORIDE 0.9% IV STA (06:12)
--- NOTE | 2017-04-28 06:28 | DIAGNOSTIC IMAGING REPORT ---
L PELVIS/UNILATERAL HIP 2-3VIEWS CLINICAL HISTORY: Left hip pain. No recent trauma. COMPARISON: CT of the abdomen and pelvis April 12, 2017. FINDINGS: Alignment of the left hip arthroplasty is in anatomic. There is no periprosthetic fracture or lucency. Acetabular screw is in place. There is no acute fracture within the pelvis or proximal right femur. There is severe arthritis of the right hip. There is ankylosis of the right sacroiliac joint and moderate osteoarthritis of the left sacroiliac joint. IMPRESSION: 1. Status post total left hip arthroplasty. No periprosthetic fracture or lucency. Hardware intact. 2. No acute fracture within the pelvis or hips. 3. Severe osteoarthritis of the right hip. Electronically signed by: Alvaro Diana M.D. 04/28/2017 6:26 AM Dictated Date/Time: 04/28/2017 6:24 AM
--- NOTE | 2017-04-28 06:40 | EMERGENCY ROOM VISIT NOTE ---
History First contact with patient: 03:48 Chief Complaint: HIP PAIN Stated Complaint: LEFT HIP PAIN History of Present Illness The patient is a 62 year old male who presents to the Emergency Room with complaints of left flank hip pain for the past 2 weeks that has gotten steadily worse. Patient was admitted 2 weeks ago for sepsis secondary to pneumonia. Patient had positive blood cultures for strep and a positive bronco washing for this. He has finished his Augmentin. He is tapering off his prednisone. He describes the pain as aching, ranging in severity 7 out of 10 worse with movement and better with rest. No injury to the area. No fall. He has had a hip replacement [address] Padgett. Patient denies spinal pain, leg pain, numbness, tingling, fever, chills, chest pain, dyspnea. Patient's been using Ultram with no improvement of symptoms. Patient also complains of difficulty urinating and not emptying his bladder. Review of Systems See HPI for pertinent positives & negatives. A total of 10 systems reviewed and were otherwise negative. Past Medical/Surgical History Medical Problems: (1) Back pain (2) Foreign body in trachea (3) GERD (gastroesophageal reflux disease) (4) Hx of bacterial pneumonia (5) Hx of benign neoplasm of colon (6) Hx of Hodgkin's disease (7) Hx of pulmonary fibrosis (8) Pneumonia (9) Tracheostomy in place Surgical Problems: (1) History of bronchoscopy (2) History of left hip replacement (3) Hx of kidney removal (4) Hx of kidney removal (5) Hx of splenectomy (6) Status post laryngectomy Family History Colon cancer BROTHER (colon) FATHER (colon CA) FH: CAD (coronary artery disease) MOTHER Social History Smoking Status: Never Smoker Drug Use: none Marital Status: Occupation Status: disabled Current/Historical Medications Scheduled Acetylcysteine (Acetylcysteine), 3 ML INH DAILY Atorvastatin (Lipitor), 10 MG PO DAILY Digoxin (Digoxin), 0.125 MG PEG 5XWK Dulaglutide (Trulicity), 1 WK Insulin Glargine (Lantus Solostar), 19-22 UNITS SC AMHS Ipratropium-Albuterol (Duoneb), 1 TREATMENT INH Q4H Levothyroxine Sodium (Levothyroxine Sodium), 175 MCG PO DAILY Losartan Potassium (Cozaar), 12.5 MG PO DAILY Metoprolol Succinate (Toprol Xl), 50 MG PO BID Omeprazole (Prilosec), 40 MG PO DAILY Prednisone Tab (Prednisone), 10 MG PO UD Scheduled PRN Tramadol HCl (Tramadol HCl), 50 MG PO Q4H PRN for Pain Physical Exam Vital Signs Date Time Temp Pulse Resp B/P (MAP) Pulse Ox O2 Delivery O2 Flow Rate FiO2 04/28/17 05:15 104 20 142/77 92 Room Air 04/28/17 03:43 37.0 111 18 121/72 93 Room Air Physical Exam VITALS: Vitals are noted on the nurse's note and reviewed by myself. Vital signs stable. GENERAL: Pleasant male speaking with his focal device as he had a prior trach, in no acute distress, nondiaphoretic, well-developed well-nourished. SKIN: The skin was without rashes, erythema, edema, or bruising. There is no tenting of the skin. Capillary reflex less than 2 seconds. HEAD: Normocephalic atraumatic. EARS: External auditory canals clear EYES: Pupils equal round and reactive to light and accommodation. Conjunctivae without injection, sclerae without icterus. NOSE: Patent, turbinates without inflammation or discharge. MOUTH: Mucous membranes moist. Pharynx without erythema or exudate. Uvula midline. Airway patent. Tongue does not deviate. NECK: Tracheostomy site without signs of infection, Supple without nuchal rigidity. No lymphadenopathy. No thyromegaly. Cervical spine is nontender. No JVD. HEART: Regular rate and rhythm LUNGS: Clear to auscultation bilaterally without wheezes, rales or rhonchi. No dullness to percussion. No retractions or accessory muscle use. ABDOMEN: Positive bowel sounds x 4. Normal tympanic percussion. Soft, nontender, without masses or organomegaly. Castellano sign negative. No guarding or rebound tenderness. Left CVA tenderness MUSCULOSKELETAL: No muscle atrophy, erythema, or edema noted. Pelvis stable with left pelvic region minimally tender to palpation with increased pain with range of motion of the left hip. No thoracic or lumbar tenderness on exam. Negative straight leg raise bilaterally. NEURO: Patient was alert and oriented to person place and time. Normal sensation to light and sharp touch. No focal neurological deficits. Medical Decision & Procedures Laboratory Results 04/28/17 04:59 Red Blood Count 4.25, Mean Corpuscular Volume 97.2, Mean Corpuscular Hemoglobin 33.2, Mean Corpuscular Hemoglobin Concent 34.1, Neutrophils (%) (Auto) 82.9, Lymphocytes (%) (Auto) 8.2, Monocytes (%) (Auto) 7.5, Eosinophils (%) (Auto) 0.1 , Basophils (%) (Auto) 0.2, Neutrophils # (Auto) 12.29, Lymphocytes # (Auto) 1.22, Monocytes # (Auto) 1.12, Eosinophils # (Auto) 0.01, Basophils # (Auto) 0.03 04/28/17 04:59 Test 04/28/17 04:39 04/28/17 04:59 04/28/17 06:19 Urine Color YELLOW Urine Appearance CLEAR (CLEAR) Urine pH 5.5 (4.5-7.5) Urine Specific [place] 1.019 (1.000-1.030) Urine Protein NEG (NEG) Urine Glucose (UA) 3+ (NEG) Urine Ketones NEG (NEG) Urine Occult Blood NEG (NEG) Urine Nitrite NEG (NEG) Urine Bilirubin NEG (NEG) Urine Urobilinogen NEG (NEG) Urine Leukocyte Esterase NEG (NEG) White Blood Count 14.84 K/uL (4.8-10.8) Red Blood Count 4.25 M/uL (4.7-6.1) Hemoglobin 14.1 g/dL (14.0-18.0) Hematocrit 41.3 % (42-52) Mean Corpuscular Volume 97.2 fL (80-100) Mean Corpuscular Hemoglobin 33.2 pg (25-34) Mean Corpuscular Hemoglobin Concent 34.1 g/dl (32-36) Platelet Count 515 K/uL (130-400) Neutrophils (%) (Auto) 82.9 % Lymphocytes (%) (Auto) 8.2 % Monocytes (%) (Auto) 7.5 % Eosinophils (%) (Auto) 0.1 % Basophils (%) (Auto) 0.2 % Neutrophils # (Auto) 12.29 K/uL (1.4-6.5) Lymphocytes # (Auto) 1.22 K/uL (1.2-3.4) Monocytes # (Auto) 1.12 K/uL (0.11-0.59) Eosinophils # (Auto) 0.01 K/uL (0-0.5) Basophils # (Auto) 0.03 K/uL (0-0.2) Immature Granulocyte % (Auto) 1.1 % Immature Granulocyte # (Auto) 0.17 K/uL (0.00-0.02) Nucleated RBC Absolute Count (auto) 0.03 K/uL (0-0) Nucleated Red Blood Cells % 0.2 % Erythrocyte Sedimentation Rate 48 mm/hr (0-14) Anion Gap 5.0 mmol/L (3-11) Est Creatinine Clear Calc Drug Dose 95.9 ml/min Estimated GFR () 104.2 Estimated GFR (Non- 89.9 BUN/Creatinine Ratio 29.8 (10-20) Calcium Level 8.5 mg/dl (8.5-10.1) C-Reactive Protein 6.50 mg/dl (0-0.29) Bedside Lactic Acid Venous 1.72 mmol/L (0.90-1.70) Medications Administered Medications (Trade) Dose Ordered Sig/Luis Route Start Time Stop Time Status Last Admin Dose Admin Morphine Sulfate (MoRPHine SULFATE INJ) 4 mg NOW STAT IV 04/28/17 04:01 04/28/17 04:04 DC 04/28/17 05:00 4 MG Morphine Sulfate (MoRPHine SULFATE INJ) 4 mg NOW STAT IV 04/28/17 05:36 04/28/17 05:37 DC 04/28/17 06:06 4 MG Sodium Chloride 500 ml @ 999 mls/hr Q31M STAT IV 04/28/17 05:37 04/28/17 06:07 DC 04/28/17 06:04 999 MLS/HR ED Course Prior records/ancillary studies reviewed. Triage Nursing notes reviewed. The patient's history was concerning for left hip/flank pain. Differential diagnosis: Etiologies such as muscle skeletal, urinary retention, renal colic, diverticulitis, mesenteric ischemia, aortic pathology, infections, inflammatory bowel disease,UTI, as well as others were entertained. Physical examination findings: As above. ER treatment provided: Morphine, cefepime, vancomycin, IV fluids Bladder scan showed 540mls of urine and Armas catheter was placed On reassessment the patient felt better. Diagnostic interpretation by me: The labs revealed hyperglycemia without DKA. Leukocytosis. Elevated sedimentation rate, CRP and lactic acid. Urinalysis revealed glucose. There was no sign of UTI. Blood culture from earlier this month was sensitive to everything Imaging studies: CT LEFT HIP: Left hip total arthroplasty. No kali-hardware lucency. Hardware appears intact. No acute fracture or dislocation. No osseous erosion. Radiologist: Jean Barth MD Pelvis and hip x-ray negative for fracture per my interpretation Consultation: A consultation was placed with Dr. Roth, hospitalist. The case was discussed and diagnostics were reviewed. The patient was evaluated in the ER for further treatment. It appears that the patient has severe left hip and flank pain that has gotten progressively worse over the past 2 weeks. Patient was admitted for pneumonia and sepsis. Patient states since being discharged the pain has gotten progressively worse and much more severe last night that he could not walk. Patient had elevated sed rate, CRP and lactic acid with leukocytosis. I believe their are concerns for possible septic joint and did have positive blood cultures upon admission. There is no erythema or edema over the joint. Patient also had urinary retention and Armas catheter was placed. He felt somewhat better after this also. A urine was negative for infection. By the evaluation outlined above emergent etiologies such as appendicitis, diverticulitis, mesenteric ischemia, aortic pathology, inflammatory bowel disease, PUD, biliary pathology, UTI, as well as others were deemed relatively unlikely. The pt informed about the findings as listed above. All questions were answered and pleased with the treatment. Case reviewed with my attending Medical Decision As above Medication Reconcilliation Current Medication List: was personally reviewed by me Blood Pressure Screening Patient's blood pressure: Normal blood pressure Impression Primary Impression: Left hip pain Additional Impressions: Left flank pain Hyperglycemia Departure Information Dispostion Being Evaluated By Hospitalist Condition FAIR Referrals Keyla Casanova D.O. (PCP) Patient Instructions My [facility] Problem Qualifiers
--- NOTE | 2017-04-28 06:54 | DIAGNOSTIC IMAGING REPORT ---
CT L HIP-LOWER EXTREMITY WITH CT DOSE: 402.34 mGy.cm CLINICAL HISTORY: Severe left hip pain. [place] sepsis. TECHNIQUE: Helical images were acquired in the transverse plane. The patient was scanned following administration of 93 cc of Optiray 320. A dose lowering technique was utilized adhering to the principles of ALARA. COMPARISON STUDY: Conventional radiographic study dated 04/28/2017 FINDINGS: On the training and development professional radiograph, moderate arthritic changes are present within the right hip. There are postsurgical changes of a total left hip arthroplasty. There is artifact secondary to the metallic implant. There is no radiographic evidence of a significant joint effusion. No fractures are visualized. No destructive lesions are evident. No soft tissue masses are visualized. IMPRESSION: 1. Total left hip arthroplasty 2. No evidence of fracture. 3. The hardware appears intact without evidence of periprostatic lucency 4. No evidence of a significant joint effusion Electronically signed by: Claudio Young M.D. 04/28/2017 6:53 AM Dictated Date/Time: 04/28/2017 6:50 AM
[2017-04-28 07:05] VITALS: BP 135/80; PULSE 95; TEMP 37; O2SAT 98; Ht 177.8 cm; Wt 95.0 kg
--- NOTE | 2017-04-28 07:58 | History and Physical ---
History & Physical Date & Time of Service: Apr 28, 2017 at 07:58 . Chief Complaint: severe left hip pain . Primary Care Physician: Keyla Casanova D.O. . History of Present Illness Source: patient, clinic records, hospital records 62 YO male followed by Dr. Casanova for Internal Medicine. Complicated medical history- Hodgkin's lymphoma, radiation pneumonitis, idiopathic cardiomyopathy, and other problems. Hospitalized at [facility] 04/12/17 with worsening respiratory status and sepsis. 2/2 blood cultures and sputum from bronchoscopy grew group A Strep. Treated with IV antibiotics and transitioned to oral therapy with amoxicillin / clavulanic acid. Discharged to home on amoxicillin / clavulanic acid and prednisone taper. Experience some mild left hip pain during hospital stay. A few days after discharge, the hip pain began to get worse and has steadily worsened. Pain seems to radiate to his left flank; it is aggravated by weight bearing and ambulation. Tried tramadol without benefit. Progressed from ambulating independently --> cane -- walker. Finished amoxicillin / clavulanic acid 2 days ago. Has 3 more days of prednisone taper. No fever, chills, sweats. . Past Medical/Surgical History Chronic and Resolved Medical Problems: (1) Chronic respiratory failure Permanent Comment: home O2 3 LPM via trach shield Status: Chronic (2) Diabetes Permanent Comment: adult onset ~ 2014, type 1 vs 2? 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 Padgett Status: Chronic (9) Status post splenectomy Permanent Comment: Hodgkin's lymphoma Status: Chronic (10) Status post tracheostomy Status: Chronic . Family History Colon cancer BROTHER (colon) FATHER (colon CA) FH: CAD (coronary artery disease) MOTHER Social History Smoking Status: Former Smoker Alcohol Use: none Drug Use: none Marital Status: Housing status: lives with significant other Occupational Status: disabled Immunizations History of Influenza Vaccine: Yes History of Tetanus Vaccine?: No History of Pneumococcal: Yes History of Hepatitis B Vaccine: No Multi-Drug Resistant Organisms History of MDRO: No Allergies Coded Allergies: No Known Allergies (Verified , 04/28/17) Home Medications Scheduled Acetylcysteine (Acetylcysteine), 3 ML INH DAILY Atorvastatin (Lipitor), 10 MG PO DAILY Digoxin (Digoxin), 0.125 MG PEG 5XWK Dulaglutide (Trulicity), 1 WK Insulin Glargine (Lantus Solostar), 19-22 UNITS SC AMHS Ipratropium-Albuterol (Duoneb), 1 TREATMENT INH Q4H Levothyroxine Sodium (Levothyroxine Sodium), 175 MCG PO DAILY Losartan Potassium (Cozaar), 12.5 MG PO DAILY Metoprolol Succinate (Toprol Xl), 50 MG PO BID Omeprazole (Prilosec), 40 MG PO DAILY Prednisone Tab (Prednisone), 10 MG PO UD Scheduled PRN Tramadol HCl (Tramadol HCl), 50 MG PO Q4H PRN for Pain Review of Systems Constitutional: No fever, No weight loss Eyes: No worsening of vision, No diplopia ENT: + problem reported (tracheostomy), No hearing loss, No sore throat Respiratory: + cough (improved), + dyspnea on exertion (chronic) Cardiovascular: No chest pain, No edema, No palpitations Abdomen: + GI bleeding (occasional rectal bleeding attributed to hemorrhods ( has had colonoscopies)), No pain, No nausea, No diarrhea Musculoskeletal: + problem reported (per HPI) Genitourinary - Male: + urinary frequency, + urinary urgency, + urinary hesitancy, No hematuria, No dysuria Neurologic: + problem reported (posterior headaches attributed to C-spine) Endocrine: No excessive thirst, No excessive urination Hematologic / Lymphatic: No abnormal bleeding/bruising, No swollen lymph nodes Integumentary: No rash Physical Exam Vital Signs Date Time Temp Pulse Resp B/P (MAP) Pulse Ox O2 Delivery O2 Flow Rate FiO2 04/28/17 07:05 37.0 95 20 135/80 98 Trach Collar 3.0 04/28/17 06:40 100 20 135/80 98 Trach Collar 3.0 04/28/17 05:15 104 20 142/77 92 Room Air 04/28/17 03:43 37.0 111 18 121/72 93 Room Air General Appearance: WD/WN, no apparent distress (after receiving IV morpine) Head: normocephalic, atraumatic Eyes: normal inspection, PERRL, EOMI, sclerae normal, + pertinent finding ( conjunctivae clear) ENT: normal ENT inspection, pharynx normal Neck: supple, no adenopathy, thyroid normal, no JVD, trachea midline, + pertinent finding (tracheostomy / trach shield) Respiratory/Chest: no respiratory distress, no accessory muscle use, + wheezing (mild, diffuse) Cardiovascular: regular rate, rhythm, no edema, no gallop, no JVD, no murmur, normal peripheral pulses Abdomen/GI: normal bowel sounds, non tender, soft, no organomegaly, no pulsatile mass Extremities/Musculoskelatal: normal inspection, no calf tenderness, normal capillary refill, no pedal edema, + pertinent finding (left hip pain with flexion; no erythema or warmth overlying greater trochanter; no point tenderness (after IV morphine)) Neurologic/Psych: blender / cook II-XII nml as tested (PERRL, EOMI, no facial palsy), no motor/sensory deficits (motor strength upper and lower extremities grossly intact), alert, normal mood/affect, oriented x 3 Skin: normal color, warm/dry, no rash Lymphatic: no adenopathy (cervical or axillary) Diagnostics Laboratory Results Results Past 24 Hours Test 04/28/17 04:39 04/28/17 04:59 04/28/17 06:19 Range/Units Urine Color YELLOW Urine Appearance CLEAR CLEAR Urine pH 5.5 4.5-7.5 Urine Specific [place] 1.019 1.000-1.030 Urine Protein NEG NEG Urine Glucose (UA) 3+ NEG Urine Ketones NEG NEG Urine Occult Blood NEG NEG Urine Nitrite NEG NEG Urine Bilirubin NEG NEG Urine Urobilinogen NEG NEG Urine Leukocyte Esterase NEG NEG White Blood Count 14.84 4.8-10.8 K/uL Red Blood Count 4.25 4.7-6.1 M/uL Hemoglobin 14.1 14.0-18.0 g/dL Hematocrit 41.3 42-52 % Mean Corpuscular Volume 97.2 80-100 fL Mean Corpuscular Hemoglobin 33.2 25-34 pg Mean Corpuscular Hemoglobin Concent 34.1 32-36 g/dl Platelet Count 515 130-400 K/uL Neutrophils (%) (Auto) 82.9 % Lymphocytes (%) (Auto) 8.2 % Monocytes (%) (Auto) 7.5 % Eosinophils (%) (Auto) 0.1 % Basophils (%) (Auto) 0.2 % Neutrophils # (Auto) 12.29 1.4-6.5 K/uL Lymphocytes # (Auto) 1.22 1.2-3.4 K/uL Monocytes # (Auto) 1.12 0.11-0.59 K/uL Eosinophils # (Auto) 0.01 0-0.5 K/uL Basophils # (Auto) 0.03 0-0.2 K/uL Immature Granulocyte % (Auto) 1.1 % Immature Granulocyte # (Auto) 0.17 0.00-0.02 K/uL Nucleated RBC Absolute Count (auto) 0.03 0-0 K/uL Nucleated Red Blood Cells % 0.2 % Erythrocyte Sedimentation Rate 48 0-14 mm/hr Sodium Level 131 136-145 mmol/L Potassium Level 4.7 3.5-5.1 mmol/L Chloride Level 96 98-107 mmol/L Carbon Dioxide Level 30 21-32 mmol/L Anion Gap 5.0 3-11 mmol/L Blood Urea Nitrogen 27 7-18 mg/dl Creatinine 0.90 0.60-1.40 mg/dl Est Creatinine Clear Calc Drug Dose 95.9 ml/min Estimated GFR () 104.2 Estimated GFR (Non- 89.9 BUN/Creatinine Ratio 29.8 10-20 Random Glucose 268 70-99 mg/dl Calcium Level 8.5 8.5-10.1 mg/dl C-Reactive Protein 6.50 0-0.29 mg/dl Bedside Lactic Acid Venous 1.72 0.90-1.70 mmol/L Diagnostic Radiology L PELVIS/UNILATERAL HIP 2-3VIEWS FINDINGS: Alignment of the left hip arthroplasty is in anatomic. There is no periprosthetic fracture or lucency. Acetabular screw is in place. There is no acute fracture within the pelvis or proximal right femur. There is severe arthritis of the right hip. There is ankylosis of the right sacroiliac joint and moderate osteoarthritis of the left sacroiliac joint. IMPRESSION: 1. Status post total left hip arthroplasty. No periprosthetic fracture or lucency. Hardware intact. 2. No acute fracture within the pelvis or hips. 3. Severe osteoarthritis of the right hip. Electronically signed by: Alvaro Diana M.D. 04/28/2017 6:[address] L HIP-LOWER EXTREMITY WITH FINDINGS: On the plasterer tender radiograph, moderate arthritic changes are present within the right hip. There are postsurgical changes of a total left hip arthroplasty. There is artifact secondary to the metallic implant. There is no radiographic evidence of a significant joint effusion. No fractures are visualized. No destructive lesions are evident. No soft tissue masses are visualized. IMPRESSION: 1. Total left hip arthroplasty 2. No evidence of fracture. 3. The hardware appears intact without evidence of periprostatic lucency 4. No evidence of a significant joint effusion Electronically signed by: Claudio Young M.D. 04/28/2017 6:53 AM Dictated Date/Time: 04/28/2017 6:50 AM . Impression Assessment and Plan LEFT HIP PAIN S/P left LINDSEY. Recent group A strep bacteremia. Worsening left hip pain, barely able to ambulate with walker. Afebrile. WBC 14,000 (on steroids). C-reactive protein elevated. No apparent infection, fracture, dislocation per plain films and CT of pelvis. Consider lumbar infection (osteomyelitis, discitis, epidural abscess). Received IV vancomycin and cefepime in ED. Check MRI lumbar spine. Consult Ortho and ID. RECENT SEPSIS Group A strep pulmonary infection with bacteremia. Completed course of antibiotics. IDIOPATHIC CARDIOMYOPATHY Compensated. Continue metoprolol succinate, digoxin, losartan. HYPERTENSION Hemodynamically stable. Continue metoprolol and losartan. CHRONIC RESPIRATORY FAILURE Due to pulmonary fibrosis attributed to radiation pneumonitis. Continue supplemental O2. Continue nebs. Complete prednisone taper. DIABETES Onset about 2 years ago. Unclear whether type [address] type [address] of abdomen last admission showed atrophy of pancreas. Hgb A1C 7.8 04/13/17. Random blood sugar in ED 268. Finishing prednisone taper. Lantus / NovoLog per protocol. HYPOTHYROIDISM Continue levothyroxine. ABNORMAL CT PANCREAS CT of abdomen 04/12/17 demonstrated: "The pancreas is atrophic. The pancreatic tail appears diminutive/atrophic and may be surgically absent. There is dilatation of the distal pancreatic duct which measures up to 4 mm in diameter. The pancreatic head is more normal in appearance. Mild stranding suggested around the proximal pancreas." ? need for further evaluation. Consider outpatient GI consultation. VTE PROPHYLAXIS Moderate risk for VTE. SQ enoxaparin. DISPOSITION Admit to Med-Surg Unit. Discharge disposition to be determined. May need skilled care or inpt rehab. Internal Medicine follow-up with Dr. Casanova. . Advanced Directives Existing Living Will: No Existing Power of Button Reclaimer: No VTE Prophylaxis VTE Risk Assessment Done? Y/N: Yes Risk Level: Moderate Given or contraindicated: Enoxaparin (Lovenox)SQ
[2017-04-28] MEDS ORDERED: OXYCODONE HCL IR 5 MG TAB (IMMEDIATE RELEASE) PO PRN (08:00)
[2017-04-28 09:10] VITALS: BP 142/87; PULSE 51; TEMP 36.9; O2SAT 97
[2017-04-28] MEDS ORDERED: GLUCOSE 10 TABS/TUBE PO PRN (09:30)
[2017-04-28] MEDS ORDERED: INSULIN ASPART 100 UNITS/ML 3 ML PEN SC SCH (09:30)
[2017-04-28] MEDS ORDERED: DEXTROSE 50% 50 ML SYR IV PRN (09:30)
[2017-04-28] MEDS ORDERED: GLUCOSE 40% GEL 15 GM TUBE PO PRN (09:30)
[2017-04-28] MEDS ORDERED: GLUCAGON FOR INJ 1 MG VIAL SQ PRN (09:30)
[2017-04-28] MEDS: INSULIN GLARGINE SOLOSTAR 100 UNITS/ML 3 ML PEN SC SCH ×2 (10:39→22:04)
[2017-04-28] MEDS: ATORVASTATIN 10 MG TAB PO SCH (10:41)
[2017-04-28] MEDS: PANTOprazole SOD 40 MG TAB PO SCH (10:41)
[2017-04-28] MEDS: METOPROLOL SUCC 50MG EXT REL TAB PO SCH ×2 (10:41→21:57)
[2017-04-28] MEDS: LOSARTAN POTASSIUM 25 MG TAB PO SCH (10:42)
[2017-04-28] MEDS: LEVOTHYROXINE 175 MCG TAB PO SCH (10:42)
[2017-04-28] MEDS: ALBUT/IPRATROP 3MG/0.5MG NEB 3 ML VIAL INH SCH ×3 (11:25→19:12)
[2017-04-28 11:30] VITALS: PULSE 64; O2SAT 95
[2017-04-28] MEDS: OXYCODONE HCL IR 5 MG TAB (IMMEDIATE RELEASE) PO PRN ×2 (12:08→22:28)
[2017-04-28] MEDS: INSULIN ASPART 100 UNITS/ML 3 ML PEN SC SCH ×3 (12:42→22:02)
--- NOTE | 2017-04-28 13:42 | DIAGNOSTIC IMAGING REPORT ---
ORBITS FOR MRI HISTORY: 62 years-old Male H/O METAL IN EYES screening for MRI. History of prior metal within the eyes. COMPARISON: None available TECHNIQUE: 3 views of the orbits FINDINGS: No opaque foreign body of the orbits identified. No acute fracture or subluxation. Imaged paranasal sinuses appear generally clear. IMPRESSION: No opaque foreign body of the orbits identified. The above report was generated using voice recognition software. It may contain grammatical, syntax or spelling errors. Electronically signed by: Isak Kirkland M.D. 04/28/2017 1:41 PM Dictated Date/Time: 04/28/2017 1:40 PM
[2017-04-28] MEDS ORDERED: VANCOMYCIN CONSULT ACTIVE PRN (14:00)
[2017-04-28] MEDS ORDERED: CEFEPIME IV 2,000 MG in DEXTROSE 5% 100ML 100 ML IV SCH (14:00)
--- NOTE | 2017-04-28 14:38 | Pharmacy Progress Note ---
Pharmacy Abx Initial Consult Date of Service Apr 28, 2017. Pharmacy Dosing Scope Date of Consult: 04/28/17 Consultation requested by: Dr. Roth Pharmacy is consulted to initiate Vancomycin IV dosing therapy, order appropriate labs and adjust drug dose/frequency. Subjective The patient is a 62 year old male admitted on Apr 28, 2017 at 07:47. Objective Height (Feet): 5 Height (Inches): 10.00 Weight (Kilograms): 95.000 Vital Signs (Past 12Hrs) Vital Signs Past 12 Hours Date Time Temp Pulse Resp B/P (MAP) Pulse Ox O2 Delivery O2 Flow Rate FiO2 04/28/17 11:30 64 12 95 Trach Collar 30 04/28/17 09:10 36.9 51 16 142/87 (105) 97 Trach Collar 4.0 04/28/17 08:51 97 118/74 97 04/28/17 07:05 37.0 95 20 135/80 98 Trach Collar 3.0 04/28/17 06:40 100 20 135/80 98 Trach Collar 3.0 04/28/17 05:15 104 20 142/77 92 Room Air 04/28/17 03:43 37.0 111 18 121/72 93 Room Air Lab Results (24Hrs) Laboratory Tests (24 Hours) Test 04/28/17 04:59 04/28/17 09:38 C-Reactive Protein 6.50 mg/dl (0-0.29) H Erythrocyte Sedimentation Rate 48 mm/hr (0-14) H White Blood Count 14.84 K/uL (4.8-10.8) H Red Blood Count 4.25 M/uL (4.7-6.1) L Hemoglobin 14.1 g/dL (14.0-18.0) Hematocrit 41.3 % (42-52) L Mean Corpuscular Volume 97.2 fL (80-100) Mean Corpuscular Hemoglobin 33.2 pg (25-34) Mean Corpuscular Hemoglobin Concent 34.1 g/dl (32-36) Platelet Count 515 K/uL (130-400) H Neutrophils (%) (Auto) 82.9 % Lymphocytes (%) (Auto) 8.2 % Monocytes (%) (Auto) 7.5 % Eosinophils (%) (Auto) 0.1 % Basophils (%) (Auto) 0.2 % Neutrophils # (Auto) 12.29 K/uL (1.4-6.5) H Lymphocytes # (Auto) 1.22 K/uL (1.2-3.4) Monocytes # (Auto) 1.12 K/uL (0.11-0.59) H Eosinophils # (Auto) 0.01 K/uL (0-0.5) Basophils # (Auto) 0.03 K/uL (0-0.2) Procalcitonin 0.15 ng/ml (0-0.5) Micro Results Date/Time Source Procedure Growth Status 04/28/17 09:38 Blood Blood Culture Pending Received Risk Factors for Resistance * Hospitalization 04/12/17 -04/20/17 for sepsis secondary to pneumonia * Initially treated with vanc, zosyn, levaquin -> transitioned to augmentin ( discharged on augmentin and prednisone taper) Assessment & Plan Assessment 62 year old male admitted with left hip pain, s/p LINDSEY in the setting of recent bacteremia with group A strep Plan Vancomycin + Cefepime Vancomycin * Loading dose: 2375 mg (25 mg/kg) * Maintenance dose: 2000 mg IV (21 mg/kg) every 12 hours * Empiric goal trough level for indication : 15 to 20 mcg/mL * Trough level ordered for 04/30/17 * *Note - ordered with indication of EMPIRIC (will d/c after 48 hours) Cefepime - not pharmacy consult Pharmacy will continue to follow and will adjust dose/frequency as necessary. Thank you.
[2017-04-28] MEDS: CEFEPIME IV 2,000 MG in SYRINGE 7.5 ML IV SCH ×2 (14:41→22:12)
[2017-04-28] MEDS: HYDROmorphone INJ 1 MG/ML SYR IV PRN (14:42)
[2017-04-28 15:15] VITALS: BP 169/88; PULSE 88; TEMP 36.6; O2SAT 94
[2017-04-28] MEDS ORDERED: DIGOXIN 0.125 MG TAB PO SCH (16:00)
[2017-04-28 16:06] VITALS: PULSE 95; O2SAT 95
[2017-04-28] MEDS: VANCOMYCIN INJ 2,000 MG in SODIUM CHLORIDE 0.9% 500ML 500 ML IV SCH (17:35)
--- NOTE | 2017-04-28 18:03 | Orthopedic Consultation ---
Orthopedic Consultation Date of Consultation: Apr 28, 2017. Attending Physician: Marley Avilez M.D. Reason for Consultation: Left hip and back pain History of Present Illness 62-year-old male with a fairly complicated past medical history including lymphoma, status post tracheostomy. He is previously undergone a left total hip arthroplasty per Dr. Padgett. He was admitted about 2 weeks ago for sepsis. He was discharged about a week ago. At that admission he was having a little bit of discomfort in his hip was able to ambulate. Over the last 3 or 4 days he has been having progressively increasing pain that he locates posteriorly. He is now having difficulty in bearing weight on the left side secondary to pain. He denies groin pain. He denies radicular pain. Denies numbness tingling. He states it feels a burning or somewhat stabbing him with a wedge he locates it to the buttocks and ischial tuberosity. Denies trauma. Past Medical/Surgical History Medical Problems: (1) Aspiration of foreign body Status: Acute (2) Elevated lactic acid level Status: Acute (3) Hyperkalemia Status: Acute (4) Hypoxia Status: Acute (5) Left flank pain Status: Acute (6) Left hip pain Status: Acute (7) Leukocytosis Status: Acute Family History Colon cancer BROTHER (colon) FATHER (colon CA) FH: CAD (coronary artery disease) MOTHER Social History Smoking Status: Former Smoker Alcohol Use: none Drug Use: none Marital Status: Occupation Status: disabled Allergies Coded Allergies: No Known Allergies (Verified , 04/28/17) Home Medications Scheduled Acetylcysteine (Acetylcysteine), 3 ML INH DAILY Atorvastatin (Lipitor), 10 MG PO DAILY Digoxin (Digoxin), 0.125 MG PEG 5XWK Dulaglutide (Trulicity), 1 WK Insulin Glargine (Lantus Solostar), 19-22 UNITS SC AMHS Ipratropium-Albuterol (Duoneb), 1 TREATMENT INH Q4H Levothyroxine Sodium (Levothyroxine Sodium), 175 MCG PO DAILY Losartan Potassium (Cozaar), 12.5 MG PO DAILY Metoprolol Succinate (Toprol Xl), 50 MG PO BID Omeprazole (Prilosec), 40 MG PO DAILY Prednisone Tab (Prednisone), 10 MG PO UD Scheduled PRN Tramadol HCl (Tramadol HCl), 50 MG PO Q4H PRN for Pain Current Inpatient Medications Current Inpatient Medications Medications (Trade) Dose Ordered Sig/Luis Route Start Time Stop Time Status Last Admin Dose Admin Ioversol (Optiray 320) 100 ml UD PRN IV 04/28/17 05:45 05/02/17 05:44 Oxycodone HCl (Roxicodone Immediate Rel Tab) 5 mg Q4H PRN PO 04/28/17 08:00 05/12/17 07:59 Oxycodone HCl (Roxicodone Immediate Rel Tab) 10 mg Q4H PRN PO 04/28/17 08:00 05/12/17 07:59 04/28/17 12:08 10 MG Hydromorphone HCl (Dilaudid Inj) 1 mg Q4H PRN IV 04/28/17 08:00 05/12/17 07:59 04/28/17 14:42 1 MG Atorvastatin Calcium (Lipitor Tab) 10 mg DAILY PO 04/28/17 10:00 05/28/17 09:59 04/28/17 10:41 10 MG Albuterol/ Ipratropium (Duoneb) 3 ml QIDR INH 04/28/17 12:00 05/28/17 11:59 04/28/17 15:12 3 ML Levothyroxine Sodium (Synthroid Tab) 175 mcg DAILYBB PO 04/28/17 11:00 05/28/17 10:59 04/28/17 10:42 175 MCG Losartan Potassium (coZAAR TAB) 12.5 mg DAILY PO 04/28/17 10:00 05/28/17 09:59 04/28/17 10:42 12.5 MG Metoprolol Succinate (Toprol Xl Tab) 50 mg BID PO 04/28/17 10:00 05/28/17 09:59 04/28/17 10:41 50 MG Miscellaneous Information (Order Awaiting Action) 1 ea QS N/A 04/28/17 16:00 05/28/17 15:59 Pantoprazole Sodium (Protonix Tab) 40 mg QAM PO 04/28/17 10:00 05/28/17 09:59 04/28/17 10:41 40 MG Digoxin (Lanoxin Tab) 0.125 mg MoTuWeThFr@1600 PO 04/28/17 16:00 05/28/17 15:59 Prednisone (PredniSONE TAB) 10 mg DAILY PO 04/28/17 10:00 04/30/17 09:01 04/28/17 10:41 10 MG Insulin Glargine (Lantus Solostar Pen) 20 units BID SC 04/28/17 09:30 05/28/17 09:29 04/28/17 10:39 20 UNITS Insulin Aspart (novoLOG ASPART) SLIDING SCALE G... ACHS SC 04/28/17 11:00 05/28/17 10:59 04/28/17 12:42 5 UNITS Glucose (Glucose 40% Gel) 15-30 GRAMS 15 GRAMS... UD PRN PO 04/28/17 09:30 05/28/17 09:29 Glucose (Glucose Chew Tab) 4-8 Tablets 4 Tabl... UD PRN PO 04/28/17 09:30 05/28/17 09:29 Dextrose (Dextrose 50% 50ML Syringe) 25-50ML OF 50% DW IV FOR... UD PRN IV 04/28/17 09:30 05/28/17 09:29 Glucagon (Glucagon Inj) 1 mg UD PRN SQ 04/28/17 09:30 05/28/17 09:29 Enoxaparin Sodium (Lovenox Inj) 40 mg HS SQ 04/28/17 21:00 05/28/17 20:59 Vancomycin HCl 2000 mg/Sodium Chloride 540 ml @ 200 mls/hr Q12H IV 04/28/17 16:00 04/30/17 07:00 Vancomycin HCl (Consult) 1 ea UD PRN N/A 04/28/17 14:00 05/28/17 13:59 Cefepime HCl 2000 mg/Syringe 20 ml @ 5 mls/min Q8 IV 04/28/17 14:00 04/30/17 13:59 04/28/17 14:41 5 MLS/MIN Review of Systems Constitutional: No fever Physical Exam Date Time Temp Pulse Resp B/P (MAP) Pulse Ox O2 Delivery O2 Flow Rate FiO2 04/28/17 16:06 95 12 95 Trach Collar 30 04/28/17 15:15 36.6 88 16 169/88 (115) 94 Trach Collar 04/28/17 15:00 Trach Collar 8.0 30 04/28/17 11:30 64 12 95 Trach Collar 30 04/28/17 09:10 36.9 51 16 142/87 (105) 97 Trach Collar 4.0 04/28/17 08:51 97 118/74 97 04/28/17 07:05 37.0 95 20 135/80 98 Trach Collar 3.0 04/28/17 06:40 100 20 135/80 98 Trach Collar 3.0 04/28/17 05:15 104 20 142/77 92 Room Air 04/28/17 03:43 37.0 111 18 121/72 93 Room Air Left hip: There is a well-healed posterior lateral scar consistent with prior total hip arthroplasty. There is no erythema. No swelling. No induration. He has normal range of motion at the hip that is without pain. He has no tenderness to palpation along the groin greater trochanter posteriorly. No tenderness to palpation regionally ischial tuberosity this is a region that he locates with this pain when he weightbears. Distally neurologically intact. Cap refill is less than 2 seconds. Skin is normal. Palpable pulses distally No tenderness to palpation along the lumbar spine General Appearance: WD/WN Head: normocephalic Eyes: normal inspection ENT: hearing grossly normal Neck: supple Respiratory/Chest: chest non-tender Cardiovascular: no edema Abdomen/GI: soft Laboratory Results Last 24 Hours Test 04/28/17 04:39 04/28/17 04:59 04/28/17 06:19 04/28/17 08:47 Urine Color YELLOW Urine Appearance CLEAR Urine pH 5.5 Urine Specific [place] 1.019 Urine Protein NEG Urine Glucose (UA) 3+ Urine Ketones NEG Urine Occult Blood NEG Urine Nitrite NEG Urine Bilirubin NEG Urine Urobilinogen NEG Urine Leukocyte Esterase NEG White Blood Count 14.84 K/uL Red Blood Count 4.25 M/uL Hemoglobin 14.1 g/dL Hematocrit 41.3 % Mean Corpuscular Volume 97.2 fL Mean Corpuscular Hemoglobin 33.2 pg Mean Corpuscular Hemoglobin Concent 34.1 g/dl Platelet Count 515 K/uL Neutrophils (%) (Auto) 82.9 % Lymphocytes (%) (Auto) 8.2 % Monocytes (%) (Auto) 7.5 % Eosinophils (%) (Auto) 0.1 % Basophils (%) (Auto) 0.2 % Neutrophils # (Auto) 12.29 K/uL Lymphocytes # (Auto) 1.22 K/uL Monocytes # (Auto) 1.12 K/uL Eosinophils # (Auto) 0.01 K/uL Basophils # (Auto) 0.03 K/uL Immature Granulocyte % (Auto) 1.1 % Immature Granulocyte # (Auto) 0.17 K/uL Nucleated RBC Absolute Count (auto) 0.03 K/uL Nucleated Red Blood Cells % 0.2 % Erythrocyte Sedimentation Rate 48 mm/hr Sodium Level 131 mmol/L Potassium Level 4.7 mmol/L Chloride Level 96 mmol/L Carbon Dioxide Level 30 mmol/L Anion Gap 5.0 mmol/L Blood Urea Nitrogen 27 mg/dl Creatinine 0.90 mg/dl Est Creatinine Clear Calc Drug Dose 95.9 ml/min Estimated GFR () 104.2 Estimated GFR (Non- 89.9 BUN/Creatinine Ratio 29.8 Random Glucose 268 mg/dl Calcium Level 8.5 mg/dl C-Reactive Protein 6.50 mg/dl Bedside Lactic Acid Venous 1.72 mmol/L Bedside Glucose 159 mg/dl Test 04/28/17 09:38 04/28/17 12:05 04/28/17 16:58 Prothrombin Time 10.0 SECONDS Prothromb Time International Ratio 1.0 Activated Partial Thromboplast Time 26.8 SECONDS Partial Thromboplastin Ratio 1.0 Procalcitonin 0.15 ng/ml Bedside Glucose 183 mg/dl 203 mg/dl Assessment & Plan Left posterior leg pain and back pain The x-rays of the left total hip wall. CT scan of the head is negative for fracture. There is no evidence of fusion on the CT scan. His left hip examination is normal. There is really no pain then was sitting on examination of the hip. I don't feel that there is a infectious etiology in the total hip that is causing symptoms. He was scheduled for an MRI of the lumbar spine to the MRI scanner went down is not been completed yet. I reviewed is certainly worth investigating his lumbar spine as a possible etiology for his pain but again I don't feel that is likely coming from the hip replacement.
--- NOTE | 2017-04-28 18:54 | Progress Note ---
Internal Med Progress Note Date of Service: Apr 28, 2017. Provider Documentation: SUBJECTIVE: pain in the hip is under control with pain meds having issues with urinary retention denies sob afebrile no cough no nauseas eating ok OBJECTIVE: Vital Signs-as noted below Exam: General-alert and oriented. not in distress HEENT-Normal hearing. Neck-no neck masses.HAs tracheostomy Lungs-Cta b/l no wheezing or crackles Heart-S1 and S2 heard regular No murmurs Abdomen-Soft Bowel sounds present Non tender No distension Extremities-No edema No erythema Neuro-alert and awake moves extremities Lab data as noted below. ASSESSMENT & PLAN: LEFT HIP PAIN S/P left LINDSEY. Hx of recent group A strep bacteremia. leukocytosis 14 but on steroids will f/u cx f/u MRI lumbar spine empirically on iv vanco and cefepime appreciate ortho inputs pain controlled with pain meds pt/ot RECENT SEPSIS With Group A strep pulmonary infection with bacteremia. Completed course of antibiotics. f/u blood cx IDIOPATHIC CARDIOMYOPATHY chronic systolic chf stable on metoprolol succinate, digoxin, losartan. will monitor HYPERTENSION on metoprolol and losartan. 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 on O2. on nebs. TO Complete prednisone taper. DIABETES As per H and P:"Onset about 2 years ago. Unclear whether type [address] of abdomen last admission showed atrophy of pancreas. Hgb A1C 7.8 04/13/17. Finishing prednisone taper. On Lantus / NovoLog per protocol." 185/159/183/203 Urinary retention started on Flomax straight cath prn HYPOTHYROIDISM Continue levothyroxine. ABNORMAL CT PANCREAS CT of abdomen 04/12/17 : "The pancreas is atrophic. The pancreatic tail appears diminutive/atrophic and may be surgically absent. There is dilatation of the distal pancreatic duct which measures up to 4 mm in diameter. The pancreatic head is more normal in appearance. Mild stranding suggested around the proximal pancreas." To Consider outpatient GI consultation. VTE PROPHYLAXIS SQ enoxaparin. DISPOSITION Monitor in Med-Surg Unit. pt/ot social service for d/c planning Internal Medicine follow-up with Dr. Casanova. . DVT PROPHYLAXIS [] DISPOSITION [] Vital Signs: Date Time Temp Pulse Resp B/P (MAP) Pulse Ox O2 Delivery O2 Flow Rate FiO2 04/28/17 17:44 80 04/28/17 16:06 95 12 95 Trach Collar 30 04/28/17 15:15 36.6 88 16 169/88 (115) 94 Trach Collar 04/28/17 15:00 Trach Collar 8.0 30 04/28/17 11:30 64 12 95 Trach Collar 30 04/28/17 09:10 36.9 51 16 142/87 (105) 97 Trach Collar 4.0 04/28/17 08:51 97 118/74 97 04/28/17 07:05 37.0 95 20 135/80 98 Trach Collar 3.0 04/28/17 06:40 100 20 135/80 98 Trach Collar 3.0 04/28/17 05:15 104 20 142/77 92 Room Air 04/28/17 03:43 37.0 111 18 121/72 93 Room Air Lab Results: Results Past 24 Hours Test 04/28/17 04:39 04/28/17 04:59 04/28/17 06:19 04/28/17 08:47 Range/Units Urine Color YELLOW Urine Appearance CLEAR CLEAR Urine pH 5.5 4.5-7.5 Urine Specific [place] 1.019 1.000-1.030 Urine Protein NEG NEG Urine Glucose (UA) 3+ NEG Urine Ketones NEG NEG Urine Occult Blood NEG NEG Urine Nitrite NEG NEG Urine Bilirubin NEG NEG Urine Urobilinogen NEG NEG Urine Leukocyte Esterase NEG NEG White Blood Count 14.84 4.8-10.8 K/uL Red Blood Count 4.25 4.7-6.1 M/uL Hemoglobin 14.1 14.0-18.0 g/dL Hematocrit 41.3 42-52 % Mean Corpuscular Volume 97.2 80-100 fL Mean Corpuscular Hemoglobin 33.2 25-34 pg Mean Corpuscular Hemoglobin Concent 34.1 32-36 g/dl Platelet Count 515 130-400 K/uL Neutrophils (%) (Auto) 82.9 % Lymphocytes (%) (Auto) 8.2 % Monocytes (%) (Auto) 7.5 % Eosinophils (%) (Auto) 0.1 % Basophils (%) (Auto) 0.2 % Neutrophils # (Auto) 12.29 1.4-6.5 K/uL Lymphocytes # (Auto) 1.22 1.2-3.4 K/uL Monocytes # (Auto) 1.12 0.11-0.59 K/uL Eosinophils # (Auto) 0.01 0-0.5 K/uL Basophils # (Auto) 0.03 0-0.2 K/uL Immature Granulocyte % (Auto) 1.1 % Immature Granulocyte # (Auto) 0.17 0.00-0.02 K/uL Nucleated RBC Absolute Count (auto) 0.03 0-0 K/uL Nucleated Red Blood Cells % 0.2 % Erythrocyte Sedimentation Rate 48 0-14 mm/hr Sodium Level 131 136-145 mmol/L Potassium Level 4.7 3.5-5.1 mmol/L Chloride Level 96 98-107 mmol/L Carbon Dioxide Level 30 21-32 mmol/L Anion Gap 5.0 3-11 mmol/L Blood Urea Nitrogen 27 7-18 mg/dl Creatinine 0.90 0.60-1.40 mg/dl Est Creatinine Clear Calc Drug Dose 95.9 ml/min Estimated GFR () 104.2 Estimated GFR (Non- 89.9 BUN/Creatinine Ratio 29.8 10-20 Random Glucose 268 70-99 mg/dl Calcium Level 8.5 8.5-10.1 mg/dl C-Reactive Protein 6.50 0-0.29 mg/dl Bedside Lactic Acid Venous 1.72 0.90-1.70 mmol/L Bedside Glucose 159 70-99 mg/dl Test 04/28/17 09:38 04/28/17 12:05 04/28/17 16:58 Range/Units Prothrombin Time 10.0 9.0-12.0 SECONDS Prothromb Time International Ratio 1.0 0.9-1.1 Activated Partial Thromboplast Time 26.8 21.0-31.0 SECONDS Partial Thromboplastin Ratio 1.0 Procalcitonin 0.15 0-0.5 ng/ml Bedside Glucose 183 203 70-99 mg/dl Microbiology Results 04/28/17 Blood Culture, Received Pending
[2017-04-28 19:13] VITALS: PULSE 95; O2SAT 95
[2017-04-28] MEDS ORDERED: ENOXAPARIN 40 MG/0.4 ML SYR SQ SCH (21:00)
[2017-04-28] MEDS ORDERED: TAMSULOSIN HCL 0.4 MG CAP PO SCH (21:00)
[2017-04-29] VITALS (7 sets, daily range): BP systolic 112–147; BP diastolic 57–71; PULSE 84–96; TEMP 36.9–37; O2SAT 95–98
[2017-04-29] MEDS ORDERED: GADAVIST IV PRN
[2017-04-29] MEDS: HYDROmorphone INJ 1 MG/ML SYR IV PRN ×4 (00:13→15:37)
--- NOTE | 2017-04-29 00:51 | Progress Note ---
Progress Note Date of Service Apr 29, 2017. Progress Note Received call from [facility]. MRI lumbar spine demonstrates epidural abscess. NPO. Consult Ortho Spine. .
[2017-04-29] MEDS ORDERED: NURSING VERBAL MED ORDER ONE (01:45)
[2017-04-29] MEDS: VANCOMYCIN INJ 2,000 MG in SODIUM CHLORIDE 0.9% 500ML 500 ML IV SCH ×2 (04:00→15:46)
[2017-04-29] MEDS: LEVOTHYROXINE 175 MCG TAB PO SCH (05:31)
[2017-04-29] MEDS: CEFEPIME IV 2,000 MG in SYRINGE 7.5 ML IV SCH ×2 (05:31→15:36)
[2017-04-29] MEDS: INSULIN ASPART 100 UNITS/ML 3 ML PEN SC SCH ×2 (05:55→12:00)
[2017-04-29] MEDS: D5W AND NSS 1,000 ML IV SCH ×2 (06:47→15:36)
[2017-04-29] MEDS: ALBUT/IPRATROP 3MG/0.5MG NEB 3 ML VIAL INH SCH ×3 (07:10→15:20)
[2017-04-29] MEDS ORDERED: ACETYLCYSTEINE 20% INHAL SOLN ***DISPENSED BY RESP. INH PRN (07:15)
--- NOTE | 2017-04-29 07:31 | DIAGNOSTIC IMAGING REPORT ---
LUMBAR SPINE COMBINATION CLINICAL HISTORY: 62 years-old Male presenting with back / left hip pain, recent bacteremia, unable to bear weight on left leg. TECHNIQUE: Multisequence, multiplanar MR imaging of the lumbar spine was performed before and after the administration of intravenous contrast. IV contrast: 9.5 mL of Gadavist. COMPARISON: CT of the abdomen and pelvis from 04/12/2017. FINDINGS: Localizer images: Distended bladder. Normal lumbar lordosis. Bony edema in the L4 and, to a lesser extent, in the L5 vertebral bodies. Sites of bony edema enhance on postcontrast imaging. Extensive inflammatory change and intramuscular edema along the left aspect of the spine and posterior elements at the level of L4-5. These regions also demonstrate intense enhancement. There is also a prominent epidural collection along the left posterior aspect of the thecal sac extending from L3-4 to L5-S1 which is T1 hypointense and T2 hyperintense with rim enhancement. This collection in combination with disc bulge at L3-4 results in severe spinal canal stenosis with complete effacement of CSF and displacement of the thecal sac into the right lateral recess (series 7 image 16). The effacement of the thecal sac is most severe at L3-4 though extends along the entire length of the epidural collection, which fully spans 2 vertebral body levels. Annular fissure of L3-4 also suggested (series 4 image 7). Facet arthropathy further narrows the spinal canal. The epidural collection does not appear to directly emanate from a facet joint. Furthermore, there is no convincing evidence of septic arthritis of the facet joints. There is mild right and moderate left neural foraminal narrowing also noted at L3-4. There is also abnormal enhancement of the spinal cord and cauda equina. The dura may also demonstrate abnormal pachymeningeal enhancement. Less significant degenerative change is also noted at L4-5 with minimal disc bulge and facet arthropathy resulting in mild bilateral neural foraminal narrowing. Minimal disc bulge and facet arthropathy also result in moderate bilateral neural foraminal narrowing at L5-S1. Extensive subcutaneous edema in the posterior lumbar region. IMPRESSION: 1. Findings consistent with epidural abscess extending from L2-3 to L4-5 with resultant severe stenosis of the spinal canal at L3-4. The severity of the stenosis is concerning for cauda equina impingement. Stenosis is further worsened by the presence of degenerative change at L3-4 as detailed above. 2. Extensive inflammatory changes eccentrically along the left aspect of the vertebral bodies and posterior elements at the levels of the epidural abscess. No clear evidence of septic arthritis of the facet joints. Edema and enhancement of the L3-4 vertebral bodies is concerning for osteomyelitis. 3. Neural foraminal narrowing as above. The report will be called/faxed according to standard departmental protocol. Electronically signed by: Naseem Morales M.D. 04/29/2017 7:30 AM Dictated Date/Time: 04/29/2017 6:39 AM
[2017-04-29 07:52] LABS: CREATININE 0.68 mg/dl (0.60-1.40)
[2017-04-29] MEDS: PANTOprazole SOD 40 MG TAB PO SCH (08:06)
[2017-04-29] MEDS: LOSARTAN POTASSIUM 25 MG TAB PO SCH (08:06)
[2017-04-29] MEDS: METOPROLOL SUCC 50MG EXT REL TAB PO SCH (08:07)
[2017-04-29] MEDS: INSULIN GLARGINE SOLOSTAR 100 UNITS/ML 3 ML PEN SC SCH (09:00)
--- NOTE | 2017-04-29 09:16 | Discharge Instructions ---
Discharge Instructions Date of Service Apr 29, 2017. Admission Reason for Admission: Left Hip Pain Discharge Discharge Diagnosis / Problem: EPidural abscess, left hip pain Discharge Goals Goal(s): Decrease discomfort Activity Recommendations Activity Level: Assistance Required . Additional Information Patient informed of condition: Yes Advance Directives: Yes DNR: No Level of Care: Other ([facility]. [facility]) Communicable Disease: No Prognosis: Stable Armas Catheter: Yes Instructions / Follow-Up Instructions / Follow-Up FOLLOWUP PER [facility] RECOMMENDATIONS Current Hospital Diet Patient's current hospital diet: AHA Diet (Heart Healthy), Diabetes Type 2 Diet Discharge Diet Recommended Diet: N/A (NPO NOW) Pending Studies Studies pending at discharge: no Physician Orders On Transfer Special Precautions: FALL AND ASPIRATION PRECAUTIONS IV Therapy: IV VANCOMYCIN IV CEFEPIME IV DILAUDID IV FLUIDS Additional Orders: PLEASE CHECK MEDICATION RECONCILIATION FOR ACCURATE MEDICATION LIST Laboratory Results Hemoglobin A1c Test 04/13/17 06:49 Range/Units Estimated Average Glucose 177 mg/dl Hemoglobin A1c 7.8 H 4.5-5.6 % Medical Emergencies . Who to Call and When: Medical Emergencies: If at any time you feel your situation is an emergency, please call 911 immediately. . Non-Emergent Contact Non-Emergency issues call your: Primary Care Provider . . "Provider Documentation" section prepared by Ramsey Loomis. . Core Measure Problem Core Measures: None
--- NOTE | 2017-04-29 09:25 | Progress Note ---
Internal Med Progress Note Date of Service: Apr 29, 2017. Provider Documentation: SUBJECTIVE: STILL HAVE SEVERE PAIN IN HIS LEFT HIP AND HE CANNOT PUT WEIGHT ON IT AFEBRILE NO NAUSEA NO SOB NO CHEST PAIN NO NAUSEA OK FOR TRANSFER TO [facility] FOR EPIDURAL ABSCESS OBJECTIVE: Vital Signs-as noted below Exam: General-alert and oriented. not in distress HEENT-Normal hearing. Neck-no neck masses.HAs tracheostomy Lungs-Cta b/l no wheezing or crackles Heart-S1 and S2 heard regular No murmurs Abdomen-Soft Bowel sounds present Non tender No distension Extremities-No edema No erythema Neuro-alert and awake moves extremities Lab data as noted below. ASSESSMENT & PLAN: 62YM with PMH of Hodgkin lymphoma, Pulmonary fibrosis form radiation, s/p tracheostomy, DM, Idiopathic cardiomyopathy who was recently in hospital for sepsis from pneumonia and Group B strep bacteremia presents with severe left hip pain.Patient was recently in hospital with LEFT HIP PAIN S/P left LINDSEY. Hx of recent group A strep bacteremia. leukocytosis 14 but on steroids cx pending empirically on iv vanco and cefepime appreciate ortho inputs pain controlled with pain meds MRI lumbar spine shows large epidural abscess at L2-3 to L4-5 region causing severe spinal stenosis concerning for cauda equina impingement .Also osteomyelitis L3-4. D?W with Neurosurgery and hospitalist at [facility] and was accepted in transfer. Currently NPO RECENT SEPSIS was in hospital from to . With Group A strep pulmonary infection with bacteremia. Completed course of antibiotics. f/u blood cx abx as above IDIOPATHIC CARDIOMYOPATHY chronic systolic chf stable on metoprolol succinate, digoxin, losartan. will monitor HYPERTENSION on metoprolol and losartan. 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 on O2. on nebs. hx of tracheostomy DIABETES As per H and P:"Onset about 2 years ago. Unclear whether type [address] of abdomen last admission showed atrophy of pancreas. Hgb A1C 7.8 04/13/17. Finishing prednisone taper. On Lantus / NovoLog per protocol." close monitor Urinary retention started on Flomax straight cath prn needs f/u with urology HYPOTHYROIDISM Continue levothyroxine. ABNORMAL CT PANCREAS CT of abdomen 04/12/17 : "The pancreas is atrophic. The pancreatic tail appears diminutive/atrophic and may be surgically absent. There is dilatation of the distal pancreatic duct which measures up to 4 mm in diameter. The pancreatic head is more normal in appearance. Mild stranding suggested around the proximal pancreas." To Consider outpatient GI consultation. VTE PROPHYLAXIS SQ enoxaparin. DISPOSITION Transferring To [facility] Vital Signs: Date Time Temp Pulse Resp B/P (MAP) Pulse Ox O2 Delivery O2 Flow Rate FiO2 04/29/17 07:12 84 16 98 Trach Collar 30 04/29/17 07:03 36.9 85 16 130/71 (90) 97 Trach Collar 04/29/17 00:20 Trach Collar 8.0 30 04/29/17 00:08 36.9 88 20 147/69 (95) 95 Room Air 04/28/17 19:13 95 16 95 Trach Collar 30 04/28/17 17:44 80 04/28/17 17:00 Trach Collar 8.0 30 04/28/17 16:06 95 12 95 Trach Collar 30 04/28/17 15:15 36.6 88 16 169/88 (115) 94 Trach Collar 04/28/17 15:00 Trach Collar 8.0 30 04/28/17 11:30 64 12 95 Trach Collar 30 Lab Results: Results Past 24 Hours Test 04/28/17 09:38 04/28/17 12:05 04/28/17 16:58 04/28/17 20:39 Range/Units Prothrombin Time 10.0 9.0-12.0 SECONDS Prothromb Time International Ratio 1.0 0.9-1.1 Activated Partial Thromboplast Time 26.8 21.0-31.0 SECONDS Partial Thromboplastin Ratio 1.0 Procalcitonin 0.15 0-0.5 ng/ml Bedside Glucose 183 203 206 70-99 mg/dl Test 04/29/17 05:54 04/29/17 06:58 Range/Units Bedside Glucose 90 70-99 mg/dl Creatinine 0.68 0.60-1.40 mg/dl Est Creatinine Clear Calc Drug Dose 127.0 ml/min Estimated GFR () 117.0 Estimated GFR (Non- 100.9 Microbiology Results 04/28/17 Blood Culture, Received Pending
--- NOTE | 2017-04-29 09:28 | Discharge Summary ---
Discharge Summary Date of Service Apr 29, 2017. Discharge Summary Admission Date: Apr 28, 2017 at 07:47 Discharge Date: Apr 29, 2017 Discharge Disposition: Acute care facility ([facility]) Principal Diagnosis: EPIDURAL ABSCESS LEFT HIP PAIN Secondary Diagnoses/Problems: 1) Chronic respiratory failure Permanent Comment: home O2 3 LPM via trach shield Status: Chronic (2) Diabetes Permanent Comment: adult onset ~ 2014, type 1 vs 2? atrophy of pancreas noted on CT Apr 2017 Status: Chronic (3) GERD (gastroesophageal reflux disease) Status: Chronic (4) History of skin cancer Status: Chronic (5) Hx of bacterial pneumonia Status: Resolved (6) Hx of benign neoplasm of colon Permanent Comment: 2003 - tubular adenoma - adenomatous polyp Status: Chronic (7) Hx of Hodgkin's disease Permanent Comment: 1977, 1980 - nodular sclerosing stage III - s/p radiation therapy and chemo - [facility] Status: Chronic (8) Hx of pulmonary fibrosis Status: Chronic (9) Hypertension Status: Chronic (10) Hypothyroidism Status: Chronic (11) Tracheostomy in place Status: Chronic Procedures: HIP PELVIS XRAY: 1. Status post total left hip arthroplasty. No periprosthetic fracture or lucency. Hardware intact. 2. No acute fracture within the pelvis or hips. 3. Severe osteoarthritis of the right hip. HIP CT: 1. Total left hip arthroplasty 2. No evidence of fracture. 3. The hardware appears intact without evidence of periprostatic lucency 4. No evidence of a significant joint effusion MRI LUMBAR SPINE: 1. Findings consistent with epidural abscess extending from L2-3 to L4-5 with resultant severe stenosis of the spinal canal at L3-4. The severity of the stenosis is concerning for cauda equina impingement. Stenosis is further worsened by the presence of degenerative change at L3-4 as detailed above. 2. Extensive inflammatory changes eccentrically along the left aspect of the vertebral bodies and posterior elements at the levels of the epidural abscess. No clear evidence of septic arthritis of the facet joints. Edema and enhancement of the L3-4 vertebral bodies is concerning for osteomyelitis. 3. Neural foraminal narrowing as above. Consultations: ORTHOPEDICS Medication Reconciliation Continued Medications: Acetylcysteine (Acetylcysteine) 10 % Sarika 3 ML INH DAILY for Shortness of Breath Atorvastatin (Lipitor) 10 Mg Tab 10 MG PO DAILY, TAB Digoxin (Digoxin) 0.125 Mg Tab 0.125 MG PEG 5XWK TAKES MON,TUES,TUE,,TUE Dulaglutide (Trulicity) 0.75 Mg/0.5 Ml Inj 1 WK takes on fridays Insulin Glargine (Lantus Solostar) 100 Unit/Ml Inj 19-22 UNITS SC AMHS, PEN Ipratropium-Albuterol (Duoneb) 3 Ml Nebu 1 TREATMENT INH Q4H for SOB/Wheezing, INHA Levothyroxine Sodium (Levothyroxine Sodium) 175 Mcg Tab 175 MCG PO DAILY, TAB Losartan Potassium (Cozaar) 25 Mg Tab 12.5 MG PO DAILY, TAB Metoprolol Succinate (Toprol Xl) 50 Mg Tab 50 MG PO BID, TAB Omeprazole (Prilosec) 40 Mg Cap 40 MG PO DAILY, CAP Tramadol HCl (Tramadol HCl) 50 Mg Tab 50 MG PO Q4H PRN for Pain for 10 Days, #30 TAB Discontinued Medications: Prednisone Tab (Prednisone) 10 Mg Tab 10 MG PO UD for 9 Days, #18 TAB 3 po daily for 3 days ,2 po daily for 3 datys and then 1 po daily for 3 days Admission Information HPI (per Admitting provider): 62 YO male followed by Dr. Casanova for Internal Medicine. Complicated medical history- Hodgkin's lymphoma, radiation pneumonitis, idiopathic cardiomyopathy, and other problems. Hospitalized at [facility] 04/12/17 with worsening respiratory status and sepsis. 2/2 blood cultures and sputum from bronchoscopy grew group A Strep. Treated with IV antibiotics and transitioned to oral therapy with amoxicillin / clavulanic acid. Discharged to home on amoxicillin / clavulanic acid and prednisone taper. Experience some mild left hip pain during hospital stay. A few days after discharge, the hip pain began to get worse and has steadily worsened. Pain seems to radiate to his left flank; it is aggravated by weight bearing and ambulation. Tried tramadol without benefit. Progressed from ambulating independently --> cane -- walker. Finished amoxicillin / clavulanic acid 2 days ago. Has 3 more days of prednisone taper. No fever, chills, sweats. . Physical Exam (per Admitting): General Appearance: WD/WN, no apparent distress (after receiving IV morpine) Head: normocephalic, atraumatic Eyes: normal inspection, PERRL, EOMI, sclerae normal, + pertinent finding ( conjunctivae clear) ENT: normal ENT inspection, pharynx normal Neck: supple, no adenopathy, thyroid normal, no JVD, trachea midline, + pertinent finding (tracheostomy / trach shield) Respiratory/Chest: no respiratory distress, no accessory muscle use, + wheezing (mild, diffuse) Cardiovascular: regular rate, rhythm, no edema, no gallop, no JVD, no murmur , normal peripheral pulses Abdomen/GI: normal bowel sounds, non tender, soft, no organomegaly, no pulsatile mass Extremities/Musculoskelatal: normal inspection, no calf tenderness, normal capillary refill, no pedal edema, + pertinent finding (left hip pain with flexion; no erythema or warmth overlying greater trochanter; no point tenderness (after IV morphine)) Neurologic/Psych: bean weigher II-XII nml as tested (PERRL, EOMI, no facial palsy), no motor/sensory deficits (motor strength upper and lower extremities grossly intact), alert, normal mood/affect, oriented x 3 Skin: normal color, warm/dry, no rash Lymphatic: no adenopathy (cervical or axillary) Hospital Course 62YM with PMH of Hodgkin lymphoma, Pulmonary fibrosis form radiation, s/p tracheostomy, DM, Idiopathic cardiomyopathy who was recently in hospital for sepsis from pneumonia and Group B strep bacteremia presents with severe left hip pain. LEFT HIP PAIN S/P left LINDSEY. Hx of recent group A strep bacteremia. leukocytosis 14 but on steroids cx pending empirically on iv vanco and cefepime appreciate ortho inputs pain controlled with pain meds MRI lumbar spine shows large epidural abscess at L2-3 to L4-5 region causing severe spinal stenosis concerning for cauda equina impingement .Also osteomyelitis L3-4. Discussed with Neurosurgery and hospitalist at [facility] and was accepted in transfer. Currently NPO RECENT SEPSIS was in hospital from to . With Group A strep pulmonary infection with bacteremia. Completed course of antibiotics. f/u blood cx abx as above IDIOPATHIC CARDIOMYOPATHY chronic systolic chf stable on metoprolol succinate, digoxin, losartan. will monitor HYPERTENSION on metoprolol and losartan. 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 on O2. on nebs. hx of tracheostomy DIABETES As per H and P:"Onset about 2 years ago. Unclear whether type [address] of abdomen last admission showed atrophy of pancreas. Hgb A1C 7.8 04/13/17. Finished prednisone taper. On Lantus / NovoLog per protocol." close monitor Urinary retention started on Flomax straight cath prn needs f/u with urology HYPOTHYROIDISM Continue levothyroxine. ABNORMAL CT PANCREAS CT of abdomen 04/12/17 : "The pancreas is atrophic. The pancreatic tail appears diminutive/atrophic and may be surgically absent. There is dilatation of the distal pancreatic duct which measures up to 4 mm in diameter. The pancreatic head is more normal in appearance. Mild stranding suggested around the proximal pancreas." To Consider outpatient GI consultation. VTE PROPHYLAXIS received Lovenox 04/28/17 at 21:57 scds DISPOSITION Transferring To [facility] Total time spent on discharge = 50 MINUTES This includes examination of the patient, discharge planning, medication reconciliation, and communication with other providers. Discharge Instructions Discharge Instructions Date of Service Apr 29, 2017. Admission Reason for Admission: Left Hip Pain Discharge Discharge Diagnosis / Problem: EPidural abscess, left hip pain Discharge Goals Goal(s): Decrease discomfort Activity Recommendations Activity Level: Assistance Required . Additional Information Patient informed of condition: Yes Advance Directives: Yes DNR: No Level of Care: Other ([facility]. [facility]) Communicable Disease: No Prognosis: Stable Armas Catheter: Yes Instructions / Follow-Up Instructions / Follow-Up FOLLOWUP PER [facility] RECOMMENDATIONS Current Hospital Diet Patient's current hospital diet: AHA Diet (Heart Healthy), Diabetes Type 2 Diet Discharge Diet Recommended Diet: N/A (NPO NOW) Pending Studies Studies pending at discharge: no Physician Orders On Transfer Special Precautions: FALL AND ASPIRATION PRECAUTIONS IV Therapy: IV VANCOMYCIN IV CEFEPIME IV DILAUDID IV FLUIDS Additional Orders: PLEASE CHECK MEDICATION RECONCILIATION FOR ACCURATE MEDICATION LIST Laboratory Results Hemoglobin A1c Test 04/13/17 06:49 Range/Units Estimated Average Glucose 177 mg/dl Hemoglobin A1c 7.8 H 4.5-5.6 % Medical Emergencies . Who to Call and When: Medical Emergencies: If at any time you feel your situation is an emergency, please call 911 immediately. . Non-Emergent Contact Non-Emergency issues call your: Primary Care Provider . .
[2017-04-29] MEDS: ATORVASTATIN 10 MG TAB PO SCH (10:01)
--- NOTE | 2017-04-29 10:35 | Progress Note ---
Progress Note Date of Service Apr 29, 2017. Progress Note ID Consult Dictated #[id number] A/P: 1. Epidural abscess/vertebral osteo 2. Recent group A strep septicemia -Continue abx, follow culture -Arrangements made for transfer for neurosurgery lino mcpherson with this -Thank you
--- NOTE | 2017-04-29 10:52 | INFECT. DISEASE CONSULTATION ---
DATE OF CONSULTATION: 04/29/2017 DATE OF CONSULTATION: 04/29/2017 HISTORY OF PRESENT ILLNESS: This is a 62-year-old gentleman who was admitted to the hospital with worsening back pain. He was recently here in early April and at that time was found to have group B strep pneumonia which was diagnosed by bronchoscopy cultures. He also had blood cultures on the which grew group B strep as well. This was pansensitive. Repeat cultures were obtained on the and were negative. An echocardiogram was done and was reportedly negative. Infectious diseases was not involved in his care at that time. He was discharged home and completed a 2-week course of antibiotics. He states at the time of his previous discharge he did not have any back pain, was able to ambulate without difficulty; however, over the past 2 weeks and even more so in the past 3-4 days he has had new onset of worsening back pain with no associated trauma. He presented to the hospital yesterday with worsening back pain. He did have an MRI which showed prominent epidural collection at L3-L4 and L5-S1. Repeat blood cultures are pending. He was started on vancomycin and cefepime. He has been afebrile since admission to the hospital. He denies having any fevers at home. His sed rate is 48. His white blood cell count of 14.8. Procalcitonin was negative. He remains on broad spectrum antibiotics and he is tolerating these well. He tells me on my examination today that he will be transferred [facility] for additional surgical evaluation. He is able to move all extremities without difficulty. He states his pain is much improved with narcotics as well as lying in bed. He currently is not having any pain, but he will have pain with movement of his legs. He denies any fevers or chills. Currently, he has no shortness of breath, cough or chest pain. His remaining review of systems are reviewed and are negative. PAST MEDICAL HISTORY: Significant for Hodgkin's lymphoma with radiation and subsequent pneumonitis, cardiomyopathy, GERD, type 2 diabetes, skin cancer, neoplasm of the colon, pulmonary fibrosis, hypothyroidism. PAST SURGICAL HISTORY: Significant for partial nephrectomy, laryngectomy, left hip replacement, splenectomy. FAMILY HISTORY: Noncontributory. SOCIAL HISTORY: Significant for history of tobacco use. He denies any alcohol or drug use. ALLERGIES: He has no known drug allergies. CURRENT MEDICATIONS: Include Mucomyst, insulin, Flomax, digoxin, vancomycin, cefepime, DuoNeb, Synthroid, Lipitor, Cozaar, Toprol-XL, Protonix, prednisone, oxycodone, Roxicodone and Dilaudid. PHYSICAL EXAMINATION: VITAL SIGNS: He is afebrile, pulse 85, respiratory rate 16, blood pressure 130/71, oxygen saturation is 98% on 30% trach collar. GENERAL: He is awake, alert and oriented x3. He is in no acute distress. HEAD, EYES, EARS, NOSE, AND THROAT: Mucous membranes are moist. Trach site is clean, dry and intact. HEART: Regular. LUNGS: Clear with decreased breath sounds at the bases bilaterally. ABDOMEN: Soft and nondistended. EXTREMITIES: There is no rash. He is able to move all extremities. There is no lower extremity edema bilaterally. LABORATORY STUDIES: CBC on the reveals a white blood cell count of 14.8, hemoglobin 14.1 and platelets are 515, sed rate is 48. Chemistry panel reveals a sodium of 131, potassium 4.7, chloride 96, bicarbonate 30, BUN 27, creatinine 0.9, glucose is 268. Lactic acid was 1.7 on admission. CRP was 6.5. Procalcitonin 0.1. Blood cultures are pending from the . MRI again shows epidural abscess L2-L3 to L4-L5 with severe stenosis of the spinal canal at L3-L4 that is concerning for equina impingement. Inflammatory changes of the vertebral bodies concerning for L3-L4 osteomyelitis. Previous cultures from 04/12/2017 grew group B strep which was pansensitive. Repeat blood cultures on the were negative and final. ASSESSMENT AND PLAN: Epidural abscess. He will remain on broad spectrum antibiotics pending results of blood cultures. He states he is due to be transferred to [facility] for further surgical evaluation. I am in agreement with this. Thank you for this consultation.
[2017-04-29] MEDS: OXYCODONE HCL IR 5 MG TAB (IMMEDIATE RELEASE) PO PRN (11:59)
[2017-04-30] MEDS ORDERED: VANCOMYCIN TROUGH ONE (03:30)
== END 2017-04-29 17:19 | disposition short-term general hospital (02) | DRG 95 ==
LOC: C.EDB 03:40 → C.MSW 07:47 → ENRESERV 08:08 → EDBEDREQ 08:57 → CMPBEDREQ 09:28 → UNDODEPER 09:32
PROVIDERS: ADMIT Hospitalist; ATTEND Internal Medicine
DX: G06.2 Extradural and subdural abscess, unspecified (principal); J96.10 Chronic respiratory failure, unspecified whether with hypoxia or hypercapnia; I42.9 Cardiomyopathy, unspecified; I50.22 Chronic systolic (congestive) heart failure; K21.9 Gastro-esophageal reflux disease without esophagitis; I11.0 Hypertensive heart disease with heart failure; E11.9 Type 2 diabetes mellitus without complications; E03.9 Hypothyroidism, unspecified; J84.10 Pulmonary fibrosis, unspecified; R33.9 Retention of urine, unspecified; Z79.4 Long term (current) use of insulin; Z79.52 Long term (current) use of systemic steroids; Z79.899 Other long term (current) drug therapy; Z99.81 Dependence on supplemental oxygen; Z96.642 Presence of left artificial hip joint; Z87.891 Personal history of nicotine dependence

== ENCOUNTER 2017-05-23 09:12 | Emergency (ER) | payer OTHER ==
[~2017-05-23] VITALS: Ht 177.8 cm; Wt 86.6 kg
[~2017-05-23 09:12] MED LIST changes: -ACET10SO3 INH; +ACET10SO3 NEB; -AMOX1TAB43 PO; -DULA1INJ; +DULA1INJ SQ; -PRED10TA PO
[2017-05-23 09:23] VITALS: O2SAT 92
[2017-05-23 09:26] VITALS: TEMP 37.2; Ht 177.8 cm; Wt 86.6 kg
--- NOTE | 2017-05-23 09:41 | EMERGENCY ROOM VISIT NOTE ---
History Report prepared by Alvin: Caden Brady Under the Supervision of: Dr. Apolonia Guajardo M.D. First contact with patient: 09:15 Stated Complaint: LOW SPO2 History of Present Illness The patient is a 62 year old male with a history of chronic respiratory failure with a tracheostomy who presents to the Emergency Room via EMS with an episode of worsening low back pain and bilateral hand pain yesterday. He states that he is coming from the [facility], and was recently in [place] for an epidural abscess. The patient says that he was told that the abscess was most likely from his lungs, but was told that "everything was looking good". 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 The patient says that he mostly does not need to wear oxygen during the day unless he is exerting himself, but he can range from 88 to 90% oxygen saturation. He states that he does need to wear oxygen every night. The patient notes that he has been running a low-grade fever the past couple days. He states that he is occasionally short of breath, but it is not bad today. He adds that the low back pain and bilateral hand pain is not as bad as it was yesterday. Source of History: patient Onset: Yesterday Position: hand (bilateral), back (lower) Quality: other (pain) Timing: worsening, other (episode) Associated Symptoms: + fevers (low grade), No SOB (no worsened) Review of Systems See HPI for pertinent positives & negatives. A total of 10 systems reviewed and were otherwise negative. Past Medical & Surgical Medical Problems: (1) Back pain (2) Chronic respiratory failure (3) Diabetes (4) GERD (gastroesophageal reflux disease) (5) History of skin cancer (6) Hx of bacterial pneumonia (7) Hx of benign neoplasm of colon (8) Hx of Hodgkin's disease (9) Hx of pulmonary fibrosis (10) Hypertension (11) Hypothyroidism (12) Tracheostomy in place Surgical Problems: (1) History of bronchoscopy (2) History of left hip replacement (3) History of partial nephrectomy (4) Hx of kidney removal (5) Hx of kidney removal (6) Hx of splenectomy (7) Status post laryngectomy (8) Status post left hip replacement (9) Status post splenectomy (10) Status post tracheostomy Family History Colon cancer BROTHER (colon) FATHER (colon CA) FH: CAD (coronary artery disease) MOTHER Social History Smoking Status: Former Smoker Drug Use: none Marital Status: Occupation Status: disabled Current/Historical Medications Scheduled Acetylcysteine (Acetylcysteine), 3 ML NEB [id number] Apixaban (Eliquis), 5 MG PO BID Atorvastatin (Lipitor), 10 MG PO QPM Bisacodyl (Bisacodyl), 10 MG RE DAILY Bisacodyl (Bisacodyl Ec), 10 MG PO HS Ceftriaxone Sod (Ceftriaxone Sodium), 2 GM IV BID Cyclobenzaprine Hcl (Flexeril), 10 MG PO TID Digoxin (Digoxin), 0.125 MG PEG 5XWK Docusate Sodium (Colace), 100 MG PO BID Dulaglutide (Trulicity), 0.75 MG SQ WK Fluconazole (Diflucan), 100 MG PO DAILY@1700 Heparin Sod (Porcine) (Heparin Lock Flush), 5 ML IV UD Home O2 Therapy (Oxygen), 3 LITERS TR CONTINOUS Insulin Glargine (Lantus Solostar), 10 UNITS SC HS Insulin Lispro (Human) (Humalog), 4 UNITS SQ TIDM Ipratropium-Albuterol (Duoneb), 1 TREATMENT INH Q4H Levothyroxine Sodium (Levothyroxine Sodium), 175 MCG PO DAILY Melatonin (Melatonin Maximum Strengt), 5 MG PO HS Metoprolol Succinate (Toprol Xl), 50 MG PO DAILY Nystatin (Topical) (Nystatin), 1 APPLN TOP BID Pantoprazole (Protonix), 40 MG PO DAILY Tamsulosin Hcl (Flomax), 0.4 MG PO QAM Scheduled PRN Acetaminophen Tab (Tylenol), 650 MG PO Q6H PRN for Pain Diazepam (Valium), 5 MG PO TID PRN for Muscle Spasms Oxycodone Hcl (Oxycodone Hcl), 10 MG PO Q6H PRN for SEVERE PAIN Oxycodone Hcl (Oxycodone Hcl), 5 MG PO Q4H PRN for Moderate Pain Allergies Coded Allergies: No Known Allergies (Verified , 04/28/17) Physical Exam Vital Signs Date Time Temp Pulse Resp B/P (MAP) Pulse Ox O2 Delivery O2 Flow Rate FiO2 05/23/17 17:10 111 20 166/68 05/23/17 15:28 111 20 158/98 92 Trach Collar 05/23/17 13:28 110 22 166/88 92 Trach Collar 4.0 05/23/17 11:18 109 20 142/84 93 Trach Collar 4.0 05/23/17 09:26 37.2 111 20 171/96 92 Trach Collar 3.0 05/23/17 09:23 92 Trach Collar 3.0 05/23/17 09:23 92 Trach Collar 3.0 05/23/17 09:19 112 Physical Exam Vital signs reviewed. General: Chronically ill-appearing 62 year old male, tracheostomy in place, trach collar at 4 liters, in no significant distress. HEENT: No scleral icterus, PERRLA, neck supple. Atraumatic. Cardiovascular: Regular rate and rhythm, no extra sounds. Pulmonary: Lungs are generally clear. Normal WOB Abdomen: Soft, nontender, nondistended, positive bowel sounds. Musculoskeletal: Well-healing incision along lumbar spine, no peripheral edema. Compression stockings in place. Neurologic: Patient awake alert and oriented x 3, 4/5 strength to bilateral lower extremities. Cranial nerves 2 through 12 grossly intact. Skin: Warm, dry, no rash Medical Decision & Procedures ER Provider Diagnostic Interpretation: Radiology results as stated below per my review and radiologist interpretation: VENOUS DOPPLER LWR EXT BILA HISTORY: Pain. Edema. 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 FINDINGS: There is normal compressibility, flow, and augmentation within the bilateral lower extremity deep venous systems. IMPRESSION: No DVT within the right or left lower extremity. The above report was generated using voice recognition software. It may contain grammatical, syntax or spelling errors. Electronically signed by: Bobby Carrington M.D. 05/23/2017 11:11 AM Dictated Date/Time: 05/23/2017 11:10 AM CHEST ONE VIEW PORTABLE HISTORY: 62 years-old Male SOB, trach, fever acute shortness of breath with tachycardia COMPARISON: Chest radiograph 04/13/2017, chest CT 04/12/2017 TECHNIQUE: AP view the chest FINDINGS: Cardiac silhouette is again moderately enlarged. Right-sided PICC is noted with distal tip terminating in the region of the right atrium. Atherosclerosis of the aorta. No pneumothorax or large pleural effusion. Lungs are mildly hypoinflated with bronchovascular crowding. Unchanged areas of interstitial coarsening are noted within the perihilar distributions. Patchy bibasilar opacities are noted. Bones of the chest appear grossly intact. Surgical clips project over the left upper abdomen. IMPRESSION: 1. Patchy bibasilar opacities suggest atelectasis or pneumonia. 2. Unchanged perihilar interstitial opacities suggest areas of scarring. 3. Cardiomegaly without overt pulmonary edema. The above report was generated using voice recognition software. It may contain grammatical, syntax or spelling errors. Electronically signed by: Isak Kirkland M.D. 05/23/2017 10:17 AM Dictated Date/Time: 05/23/2017 10:13 AM Laboratory Results 05/23/17 10:00 Red Blood Count 3.51, Mean Corpuscular Volume 98.6, Mean Corpuscular Hemoglobin 32.2, Mean Corpuscular Hemoglobin Concent 32.7, Mean Platelet Volume 13.2, Neutrophils (%) (Auto) 71.1, Lymphocytes (%) (Auto) 8.6, Monocytes (%) (Auto) 18.4, Eosinophils (%) (Auto) 1.3, Basophils (%) (Auto) 0.2, Neutrophils # (Auto ) 7.49, Lymphocytes # (Auto) 0.91, Monocytes # (Auto) 1.94, Eosinophils # (Auto ) 0.14, Basophils # (Auto) 0.02 05/23/17 10:00 Test 05/23/17 10:00 05/23/17 10:06 05/23/17 10:10 05/23/17 12:10 White Blood Count 10.54 K/uL (4.8-10.8) Red Blood Count 3.51 M/uL (4.7-6.1) Hemoglobin 11.3 g/dL (14.0-18.0) Hematocrit 34.6 % (42-52) Mean Corpuscular Volume 98.6 fL (80-100) Mean Corpuscular Hemoglobin 32.2 pg (25-34) Mean Corpuscular Hemoglobin Concent 32.7 g/dl (32-36) Platelet Count 302 K/uL (130-400) Mean Platelet Volume 13.2 fL (7.4-10.4) Neutrophils (%) (Auto) 71.1 % Lymphocytes (%) (Auto) 8.6 % Monocytes (%) (Auto) 18.4 % Eosinophils (%) (Auto) 1.3 % Basophils (%) (Auto) 0.2 % Neutrophils # (Auto) 7.49 K/uL (1.4-6.5) Lymphocytes # (Auto) 0.91 K/uL (1.2-3.4) Monocytes # (Auto) 1.94 K/uL (0.11-0.59) Eosinophils # (Auto) 0.14 K/uL (0-0.5) Basophils # (Auto) 0.02 K/uL (0-0.2) RDW Standard Deviation 56.3 fL (36.4-46.3) RDW Coefficient of Variation 15.7 % (11.5-14.5) Immature Granulocyte % (Auto) 0.4 % Immature Granulocyte # (Auto) 0.04 K/uL (0.00-0.02) Anion Gap 7.0 mmol/L (3-11) Est Creatinine Clear Calc Drug Dose 140.1 ml/min Estimated GFR () 127.6 Estimated GFR (Non- 110.1 BUN/Creatinine Ratio 12.4 (10-20) Calcium Level 8.9 mg/dl (8.5-10.1) Magnesium Level 1.7 mg/dl (1.8-2.4) Total Bilirubin 0.4 mg/dl (0.2-1) Direct Bilirubin < 0.1 mg/dl (0-0.2) Aspartate Amino Transf (AST/SGOT) 13 U/L (15-37) Alanine Aminotransferase (ALT/SGPT) 18 U/L (12-78) Alkaline Phosphatase 172 U/L (45-117) Total Creatine Kinase 24 U/L (39-308) Creatine Kinase MB < 0.5 ng/ml (0.5-3.6) Creatine Kinase MB Ratio (0-3.0) Total Protein 6.5 gm/dl (6.4-8.2) Albumin 2.1 gm/dl (3.4-5.0) Bedside Troponin I < 0.030 ng/ml (0-0.045) Bedside Lactic Acid Venous 0.63 mmol/L (0.90-1.70) Urine Color YELLOW Urine Appearance CLEAR (CLEAR) Urine pH 7.0 (4.5-7.5) Urine Specific [place] 1.014 (1.000-1.030) Urine Protein NEG (NEG) Urine Glucose (UA) NEG (NEG) Urine Ketones NEG (NEG) Urine Occult Blood NEG (NEG) Urine Nitrite NEG (NEG) Urine Bilirubin NEG (NEG) Urine Urobilinogen NEG (NEG) Urine Leukocyte Esterase NEG (NEG) Laboratory results per my review. Medications Administered Medications (Trade) Dose Ordered Sig/Luis Route Start Time Stop Time Status Last Admin Dose Admin Sodium Chloride 1,000 ml @ 125 mls/hr Q8H STAT IV 05/23/17 09:46 05/23/17 17:45 DC 05/23/17 10:03 125 MLS/HR Vancomycin HCl 1500 mg/Sodium Chloride 530 ml @ 200 mls/hr ONE STAT IV 05/23/17 13:02 05/23/17 15:40 DC 05/23/17 13:28 200 MLS/HR ECG Indication: SOB/dyspnea Rate (beats per minute): 111 Rhythm: sinus tachycardia Findings: no ectopy, other (possible LVH, previous inferior infarct) ED Course 09: Past medical records reviewed. The patient was evaluated in room B9. A complete history and physical examination was performed. 0946: Ordered NSS 1000 ml @ 125 mls/hr IV. 1244: Upon reevaluation, the patient appears to be resting comfortably. The patient's family is in the room, and they think that the patient has taking a lot of pain medicine, and has not been eating much. They have a family meeting scheduled at the rehab in 2 days. I discussed findings with him and family. They verbalized agreement of the treatment plan. The patient will be discharged back to the snf. 1302: Ordered Vancomycin HCl 1500 mg/Sodium Chloride 530 ml @ 200 mls/hr IV. Medical Decision Differential diagnosis: Etiologies such as infections, reactive airway disease, pneumonia, pneumothorax , COPD, CHF, cardiac ischemia, pulmonary embolism, musculoskeletal, gastrointestinal, as well as others were entertained. This patient was evaluated and appeared to be in no significant distress. IV access was obtained and laboratory work was drawn. Chest x-ray reveals no focal lung consolidation. Dopplers of lower extremities are negative for DVT. 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 He does have a trach and a trach mask. Patient is on 4 L saturating around 90%. He states this is his baseline, particularly when he is sleeping. I do not find an acute metabolic or infectious derangement. After speaking with the patient's family, is clear he has been taking his pain medication around the clock in order "to sleep." They feel he has not been eating and drinking much because he has been sleeping so much. I feel the patient is stable for d/c to the snf for further management. The patient has a family meeting scheduled with the prescribing physician. They will address concerns over depression and medication overuse. They're comfortable with the plan for discharge and agree. He will return to the ER for worsening of symptoms or any medical concerns. Medication Reconcilliation Current Medication List: was personally reviewed by me Blood Pressure Screening Patient's blood pressure: Elevated blood pressure Blood pressure disposition: Elevated BP felt to be situational Impression Primary Impression: Post-operative pain Additional Impression: Chronic respiratory failure Scribe Attestation The scribe's documentation has been prepared under my direction and personally reviewed by me in its entirety. I confirm that the note above accurately reflects all work, treatment, procedures, and medical decision making performed by me. Departure Information Dispostion Home / Self-Care Referrals Keyla Casanova D.O. (PCP) Additional Instructions Diagnosis: Postoperative pain, chronic respiratory failure Continue oxygen supplementation as prescribed. Minimize narcotic therapy to avoid oversedation. Consider evaluation by speech therapy for swallow evaluation. Follow-up with your primary care physician for reevaluation this week. Return to the ER for worsening of symptoms or any medical concerns. Problem Qualifiers
[2017-05-23] MEDS ORDERED: SODIUM CHLORIDE 0.9% 1000ML 1,000 ML IV STA (09:46)
--- NOTE | 2017-05-23 10:19 | DIAGNOSTIC IMAGING REPORT ---
CHEST ONE VIEW PORTABLE HISTORY: 62 years-old Male SOB, trach, fever acute shortness of breath with tachycardia COMPARISON: Chest radiograph 04/13/2017, chest CT 04/12/2017 TECHNIQUE: AP view the chest FINDINGS: Cardiac silhouette is again moderately enlarged. Right-sided PICC is noted with distal tip terminating in the region of the right atrium. Atherosclerosis of the aorta. No pneumothorax or large pleural effusion. Lungs are mildly hypoinflated with bronchovascular crowding. Unchanged areas of interstitial coarsening are noted within the perihilar distributions. Patchy bibasilar opacities are noted. Bones of the chest appear grossly intact. Surgical clips project over the left upper abdomen. IMPRESSION: 1. Patchy bibasilar opacities suggest atelectasis or pneumonia. 2. Unchanged perihilar interstitial opacities suggest areas of scarring. 3. Cardiomegaly without overt pulmonary edema. The above report was generated using voice recognition software. It may contain grammatical, syntax or spelling errors. Electronically signed by: Isak Kirkland M.D. 05/23/2017 10:17 AM Dictated Date/Time: 05/23/2017 10:13 AM
[2017-05-23 10:37] LABS: BASO % 0.2 %; BASO ABS # 0.02 K/uL (0-0.2); EOS % 1.3 %; EOS ABS # 0.14 K/uL (0-0.5); HEMATOCRIT 34.6 % (42-52); HEMOGLOBIN 11.3 g/dL (14.0-18.0); IG# 0.04 K/uL (0.00-0.02); LYMPH % 8.6 %; LYMPH ABS # 0.91 K/uL (1.2-3.4); MEAN CELL VOLUME 98.6 fL (80-100); MEAN CORPUSCULAR HEMOGLOBIN 32.2 pg (25-34); MEAN CORPUSCULAR HGB CONC 32.7 g/dl (32-36); MEAN PLATELET VOLUME 13.2 fL (7.4-10.4); MONO % 18.4 %; MONO ABS # 1.94 K/uL (0.11-0.59); NEUT % 71.1 %; NEUT ABS # 7.49 K/uL (1.4-6.5); PLATELET COUNT 302 K/uL (130-400); RED CELL DISTRIBUTION WIDTH CV 15.7 % (11.5-14.5); RED CELL DISTRIBUTION WIDTH SD 56.3 fL (36.4-46.3); WHITE BLOOD COUNT 10.54 K/uL (4.8-10.8)
[2017-05-23] MEDS ORDERED: RCPAV2 IV (10:37)
[2017-05-23] MEDS ORDERED: BISA10SU5 RE (10:37)
[2017-05-23] MEDS ORDERED: BISA1TAB25 PO (10:37)
[2017-05-23] MEDS ORDERED: DOCU-94 PO (10:38)
[2017-05-23] MEDS ORDERED: FLUC100T4 PO (10:40)
[2017-05-23] MEDS ORDERED: APIX1TAB3 PO (10:41)
[2017-05-23] MEDS ORDERED: CYCL10TA6 PO (10:42)
[2017-05-23] MEDS ORDERED: TAMS0.4C38 PO (10:42)
[2017-05-23] MEDS ORDERED: HPRF5 IV (10:45)
[2017-05-23] MEDS ORDERED: INSU100I SQ (10:45)
[2017-05-23] MEDS ORDERED: MELATAB2 PO (10:47)
[2017-05-23] MEDS ORDERED: PANT40TA PO (10:48)
[2017-05-23] MEDS ORDERED: NYST80OI TOP (10:50)
[2017-05-23] MEDS ORDERED: OXGN TR (10:51)
[2017-05-23] MEDS ORDERED: OXYC-164 PO (10:52)
[2017-05-23] MEDS ORDERED: DIAZ-165 PO (10:52)
[2017-05-23 10:54] LABS: ALBUMIN 2.1 gm/dl (3.4-5.0); ALT/SGPT 18 U/L (12-78); BLOOD UREA NITROGEN 7 mg/dl (7-18); CALCIUM 8.9 mg/dl (8.5-10.1); CARBON DIOXIDE 32 mmol/L (21-32); CREATININE 0.55 mg/dl (0.60-1.40); GLUCOSE 154 mg/dl (70-99); POTASSIUM 4.2 mmol/L (3.5-5.1); SODIUM 133 mmol/L (136-145)
[2017-05-23] MEDS ORDERED: OXYC1CAP5 PO (10:54)
[2017-05-23] MEDS ORDERED: ACET325T96 PO (10:55)
[2017-05-23 10:59] LABS: ALKALINE PHOSPHATASE 172 U/L (45-117); AST/SGOT 13 U/L (15-37); CKMB < 0.5 ng/ml (0.5-3.6); TOTAL PROTEIN 6.5 gm/dl (6.4-8.2)
--- NOTE | 2017-05-23 11:12 | DIAGNOSTIC IMAGING REPORT ---
VENOUS DOPPLER LWR EXT BILA HISTORY: Pain. Edema. fever, continuous churn buttermaker hospitalization COMPARISON STUDY: None. FINDINGS: There is normal compressibility, flow, and augmentation within the bilateral lower extremity deep venous systems. IMPRESSION: No DVT within the right or left lower extremity. The above report was generated using voice recognition software. It may contain grammatical, syntax or spelling errors. Electronically signed by: Bobby Carrington M.D. 05/23/2017 11:11 AM Dictated Date/Time: 05/23/2017 11:10 AM
[2017-05-23] MEDS ORDERED: VANCOMYCIN INJ 1,500 MG in SODIUM CHLORIDE 0.9% 500ML 500 ML IV STA (13:02)
[2017-05-23 15:28] VITALS: O2SAT 92
[2017-05-23 17:10] VITALS: BP 166/68; PULSE 111
== END 2017-05-23 17:40 | disposition home or self-care (01) ==
LOC: EDBD 09:12 → C.EDB 09:13
DX: G89.18 Other acute postprocedural pain (principal); J96.10 Chronic respiratory failure, unspecified whether with hypoxia or hypercapnia; Z93.0 Tracheostomy status; E11.9 Type 2 diabetes mellitus without complications; K21.9 Gastro-esophageal reflux disease without esophagitis; Z85.828 Personal history of other malignant neoplasm of skin; I10 Essential (primary) hypertension; E03.9 Hypothyroidism, unspecified; J84.10 Pulmonary fibrosis, unspecified; Z87.01 Personal history of pneumonia (recurrent); Z85.71 Personal history of Hodgkin lymphoma; Z96.642 Presence of left artificial hip joint; Z80.9 Family history of malignant neoplasm, unspecified; Z82.49 Family history of ischemic heart disease and other diseases of the circulatory system; Z87.891 Personal history of nicotine dependence; Z79.4 Long term (current) use of insulin; Z79.899 Other long term (current) drug therapy; Z99.81 Dependence on supplemental oxygen

== ENCOUNTER 2020-11-27 09:34 | Inpatient (IN) ==
[2020-11-27] MEDS ORDERED: ONDANSETRON INJ 2 MG/ML 2 ML VIAL IV STA (10:14)
--- NOTE | 2020-11-27 10:22 | Emergency Department Note ---
Impression & Plan Obstructive jaundice, Hx of Hodgkin's disease, Mass of pancreas ED Provider Note Provider: Dougie Romano MD DATE OF SERVICE: 11/27/2020 CHIEF COMPLAINT: Weakness, decreased intake HISTORY OF PRESENT ILLNESS: Patient is a 65-year-old gentleman extensive past medical history including Hodgkin's disease status post chemoradiation, splenectomy, diabetes, laryngectomy tracheostomy, pulmonary fibrosis, and cardiomyopathy presenting here today referred from the outpatient clinic due to lab abnormalities. Patient reports over the proximal leg past 3 weeks he has been having increased bloating and nausea at times and is not been eating well. States evening a small amount causes these problems. Denies significant abdominal pain. States has had some intermittent diarrhea issues. Seen in the outpatient setting yesterday and provider questioned if he looked a bit off/pale and had basic labs obtained. Call today with these findings and referred here with concern for possible biliary obstruction. Patient denies fever. Denies significant shortness of breath. REVIEW OF SYSTEMS: A total of 10 review of systems was obtained and negative except as stated above in the HPI. PAST MEDICAL HISTORY: As noted above MEDICATIONS: Reviewed home medications SOCIAL HISTORY: Lives at home, non-smoker PHYSICAL EXAM: GENERAL: alert and oriented in no acute distress on stretcher Head: normocephalic and atraumatic EYES: No injection, discharge or icterus. PERRL NECK: Tracheostomy in place without significant erythema ENT: Mucous membranes pink and moist. LUNGS: Airway patent. No retractions. Breath sounds clear HEART: Regular rate and rhythm. No chest wall tenderness ABDOMEN: Soft and non-tender, without guarding or rebound. SKIN: Acyanotic, warm, dry, without rashes EXTREMITIES: With minimal 1+ lower extremity edema but no significant tenderness. NEUROLOGICAL: No focal deficits. No aphasia. No facial droop or slurred speech. EK beats per normal sinus rhythm. No PVC or PAC. Left ventricular fascicular block without acute ST segment elevation or depression with inferior T wave inversions. Similar compared to previous from May 23, 2017. CONTINUOUS CARDIAC MONITORING: was ordered and showed a heart rate of 80s bpm in NSR Patient's laboratory studies and imaging reviewed. Differential includes Infection, dehydration, metabolic abnormality, hypo/hyperglycemia, electrolyte disturbance, anemia, hypoxia, cardiac sources, intracerebral event, toxicologic, neurologic, as well as other pathologies. IMPRESSION/MEDICAL DECISION MAKING: Patient presents stating about several weeks he has had early satiety and decreased ability to eat. Seen in the outpatient setting yesterday with blood work completed concerning for obstructive jaundice and thus sent to ED. Patient now without significant abdominal pain but CT completed here. Labs show continued elevation of bilirubin (9.1 from 7.8 yesterday) with alk phos elevation. No evidence of acute pancreatitis based on labs. Doubt this is acutely cardiac in nature. Patient does have a white count but not acutely febrile and lower suspicion at this time for sepsis/cholangitis. CT imaging concerning for a pancreatic head mass with biliary pancreatic ductal dilation and some narrowing of the portal vein and common hepatic artery. There is evidence of some rectal inflammation as well questioning inflammation versus neoplasm here. Patient does have significant history again of radiation and chemo from Hodgkin's disease decades ago. Bilirubin elevated. Discussed with GI. They felt comfortable with the patient being admitted medicine service and they will evaluate the patient for ERCP and possible stent placement and biopsy. Hospitalist team was contacted. Patient went directly to the GI suite for further care. DIAGNOSIS: Obstructive jaundice, pancreatic head mass DISPOSITION: Hospitalist will evaluate along with GI Patient was agreeable with this plan. Past Med/Surg History Medical History Chronic respiratory failure "home O2 3 LPM via trach shield at HS" Diabetes "adult onset ~ 2014, type 1 vs 2? 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" Hx of pulmonary fibrosis Hypertension Hypothyroidism Osteoarthritis Tracheostomy in place Surgical History History of back surgery abscess in spinal cord d/t sepsis History of bronchoscopy History of colonoscopy with polypectomy History of esophagogastroduodenoscopy (EGD) History of hand surgery d/t sepsis "had pus pockets on back of hands" History of Mohs micrographic surgery for skin cancer multiple times History of partial nephrectomy removed off left kidney "benign oncocytoma" Status post laryngectomy "Dr. 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 Padgett" Status post splenectomy "Hodgkin's lymphoma" Status post surgical removal of malignant neoplasm of skin right ear skin cancer removal Status post tracheostomy Family History Family/Other Family history of diabetes mellitus cousin Father Family hx of colon cancer Brother Family hx of colon cancer Other No family history of adverse response to anesthesia Social History Smoking Status: Never smoker Second Hand Exposure: No; Do You Dip or Chew Tobacco: No; Tobacco Cessation Education Requested by Patient: No Hx Alcohol Use: No Hx Substance Use: No Preferred Language: Khmer Communication Ability: Effective Diesel Locomotive Engineer Required: Voice Beliefs That Will Affect Care: None Current Living Situation: Significant Other Other Information That Helps Us Care for You: No Feels Safe at Home: Yes Safety Concerns: Feels Safe At This Time Assistive Devices: Cane, Glasses and Oxygen - Continuous Allergies Allergies Allergy/AdvReac Type Severity Reaction Status Date / Time tamsulosin [From Flomax] AdvReac Mild Dizziness Verified 11/27/20 12:53 Home Meds Home Medications Medication Instructions Recorded Confirmed insulin glargine 100 unit/mL (3 18 units SUBCUT BID 04/09/18 11/27/20 mL) subcutaneous pen levothyroxine 175 mcg tablet 175 mcg PO DAILY 04/09/18 11/27/20 metoprolol succinate 50 mg See Rx Instructions .ROUTE .COMPLEX 04/09/18 11/27/20 tablet,extended release 24 hr omeprazole 40 mg capsule,delayed 40 mg PO QAM 04/09/18 11/27/20 release acetylcysteine 100 mg/mL (10 %) 3 ml INHALATION BID 05/05/20 11/27/20 solution alfuzosin 10 mg tablet,extended 10 mg PO QPM 05/05/20 11/27/20 release 24 hr budesonide 1 mg/2 mL suspension 1 mg INHALATION DAILY 05/05/20 11/27/20 for nebulization finasteride 5 mg tablet 5 mg PO QAM 05/05/20 11/27/20 ipratropium 0.5 mg-albuterol 3 mg 3 ml INHALATION Q4H PRN 05/05/20 11/27/20 (2.5 mg base)/3 mL nebulization soln melatonin 10 mg tablet 10 mg PO HS 05/05/20 11/27/20 triamcinolone acetonide 55 mcg 1 spray INTRANASAL DAILY PRN 05/05/20 11/27/20 nasal spray aerosol torsemide 20 mg tablet 0 mg PO DAILY 11/27/20 11/27/20 Results & Data (ED) Vital Signs Vital Signs - 24 hr 11/27/20 09:50 11/27/20 12:28 Temperature 37 C Temperature Source Oral Pulse Rate 84 Pulse Rate [Apical] 86 Respiratory Rate 18 17 Respiratory Effort / Characteristics Non-Labored Spontaneous Non-Labored Respiratory Depth Normal Normal Blood Pressure 121/68 Blood Pressure [Right Arm] 153/78 H Blood Pressure Mean 85 Blood Pressure Mean [Right Arm] 103 Blood Pressure Position Sitting Blood Pressure Position [Right Arm] Sitting Pulse Oximetry 89 L Oxygen Delivery Method Room Air Sepsis Recent Fever Within 48 Hours No Sepsis New/Unexplained Change in Mental Status N/A Sepsis Action Taken by Nursing No Action Required Laboratory Data Result diagrams: 11/27/20 10:50 11/27/20 11:39 Lab Results 11/27/20 11/27/20 11/27/20 Range/Units 10:50 10:50 10:50 WBC 14.50 H (4.8-10.8) K/uL RBC 3.27 L (4.7-6.1) M/uL Hgb 10.8 L (14.0-18.0) g/dL Hct 30.8 L (42-52) % MCV 94.2 (80-100) fL MCH 33.0 (25-34) pg MCHC 35.1 (32-36) g/dL RDW Std Deviation 59.1 H (36.4-46.3) fL RDW Coeff of Junior 18.3 H (11.5-14.5) % Plt Count 437 H (130-400) K/uL MPV 14.1 H (7.4-10.4) fL Immature Gran % (Auto) 0.9 % Neut % (Auto) 77.4 % Lymph % (Auto) 7.4 % [place] % (Auto) 12.1 % Eos % (Auto) 1.9 % Baso % (Auto) 0.3 % Neut # (Auto) 11.22 H (1.4-6.5) K/uL Lymph # (Auto) 1.08 L (1.2-3.4) K/uL [place] # (Auto) 1.75 H (0.11-0.59) K/uL Eos # (Auto) 0.27 (0-0.5) K/uL Baso # (Auto) 0.05 (0-0.2) K/uL Immature Gran # (Auto) 0.13 H (0.00-0.02) K/uL PT Cancelled INR Cancelled APTT (21.0-31.0) Seconds PTT Ratio Sodium 135 L (136-145) mmol/L Potassium (3.5-5.1) mmol/L Chloride 103 (98-107) mmol/L Carbon Dioxide 32 (21-32) mmol/L Anion Gap 0 L (3-11) BUN 16 (7-18) mg/dl Creatinine 0.68 (0.6-1.4) mg/dl Est Cr Clr Drug Dosing 112.3 ml/min Est GFR ( Amer) 114.5 ml/min Est GFR (Non-Af Amer) 98.8 ml/min BUN/Creatinine Ratio 23.0 H (10-20) Glucose 114 H (70-99) mg/dl Calcium 8.6 (8.5-10.1) mg/dl Total Bilirubin 9.1 H (0.2-1) mg/dl Direct Bilirubin (0-0.2) mg/dl AST (15-37) U/L ALT 88 H (12-78) U/L Alkaline Phosphatase 1086 H (45-117) U/L Troponin I < 0.015 (0-0.045) ng/ml Total Protein 6.3 L (6.4-8.2) gm/dl Albumin 1.8 L (3.4-5.0) gm/dl Globulin 4.5 H (2.5-4.0) gm/dl Albumin/Globulin Ratio 0.4 L (0.9-2) Lipase 30 L (73-393) U/L Urine Color Urine Appearance (Clear) Urine pH (4.5-7.5) Ur Specific Riggins (1.000-1.030) Urine Protein (Negative) Urine Glucose (UA) (Negative) Urine Ketones (Negative) Urine Blood (Negative) Urine Nitrite (Negative) Urine Bilirubin (Negative) Urine Urobilinogen (Negative) Ur Leukocyte Esterase (Negative) COVID-19 Eval Order SARS-CoV-2 (PCR) (Negative) 11/27/20 11/27/20 11/27/20 Range/Units 10:50 10:51 10:51 WBC (4.8-10.8) K/uL RBC (4.7-6.1) M/uL Hgb (14.0-18.0) g/dL Hct (42-52) % MCV (80-100) fL MCH (25-34) pg MCHC (32-36) g/dL RDW Std Deviation (36.4-46.3) fL RDW Coeff of Junior (11.5-14.5) % Plt Count (130-400) K/uL MPV (7.4-10.4) fL Immature Gran % (Auto) % Neut % (Auto) % Lymph % (Auto) % [place] % (Auto) % Eos % (Auto) % Baso % (Auto) % Neut # (Auto) (1.4-6.5) K/uL Lymph # (Auto) (1.2-3.4) K/uL [place] # (Auto) (0.11-0.59) K/uL Eos # (Auto) (0-0.5) K/uL Baso # (Auto) (0-0.2) K/uL Immature Gran # (Auto) (0.00-0.02) K/uL PT INR APTT (21.0-31.0) Seconds PTT Ratio Sodium (136-145) mmol/L Potassium (3.5-5.1) mmol/L Chloride (98-107) mmol/L Carbon Dioxide (21-32) mmol/L Anion Gap (3-11) BUN (7-18) mg/dl Creatinine (0.6-1.4) mg/dl Est Cr Clr Drug Dosing ml/min Est GFR ( Amer) ml/min Est GFR (Non-Af Amer) ml/min BUN/Creatinine Ratio (10-20) Glucose (70-99) mg/dl Calcium (8.5-10.1) mg/dl Total Bilirubin (0.2-1) mg/dl Direct Bilirubin Cancelled (0-0.2) mg/dl AST (15-37) U/L ALT (12-78) U/L Alkaline Phosphatase (45-117) U/L Troponin I (0-0.045) ng/ml Total Protein (6.4-8.2) gm/dl Albumin (3.4-5.0) gm/dl Globulin (2.5-4.0) gm/dl Albumin/Globulin Ratio (0.9-2) Lipase (73-393) U/L Urine Color Urine Appearance (Clear) Urine pH (4.5-7.5) Ur Specific Riggins (1.000-1.030) Urine Protein (Negative) Urine Glucose (UA) (Negative) Urine Ketones (Negative) Urine Blood (Negative) Urine Nitrite (Negative) Urine Bilirubin (Negative) Urine Urobilinogen (Negative) Ur Leukocyte Esterase (Negative) COVID-19 Eval Order Covid19 at [facility] SARS-CoV-2 (PCR) NEGATIVE (Negative) 11/27/20 11/27/20 11/27/20 Range/Units 11:35 11:39 13:05 WBC (4.8-10.8) K/uL RBC (4.7-6.1) M/uL Hgb (14.0-18.0) g/dL Hct (42-52) % MCV (80-100) fL MCH (25-34) pg MCHC (32-36) g/dL RDW Std Deviation (36.4-46.3) fL RDW Coeff of Junior (11.5-14.5) % Plt Count (130-400) K/uL MPV (7.4-10.4) fL Immature Gran % (Auto) % Neut % (Auto) % Lymph % (Auto) % [place] % (Auto) % Eos % (Auto) % Baso % (Auto) % Neut # (Auto) (1.4-6.5) K/uL Lymph # (Auto) (1.2-3.4) K/uL [place] # (Auto) (0.11-0.59) K/uL Eos # (Auto) (0-0.5) K/uL Baso # (Auto) (0-0.2) K/uL Immature Gran # (Auto) (0.00-0.02) K/uL PT 12.4 H INR 1.2 H APTT 28.8 (21.0-31.0) Seconds PTT Ratio 1.1 Sodium (136-145) mmol/L Potassium 4.0 (3.5-5.1) mmol/L Chloride (98-107) mmol/L Carbon Dioxide (21-32) mmol/L Anion Gap (3-11) BUN (7-18) mg/dl Creatinine (0.6-1.4) mg/dl Est Cr Clr Drug Dosing ml/min Est GFR ( Amer) ml/min Est GFR (Non-Af Amer) ml/min BUN/Creatinine Ratio (10-20) Glucose (70-99) mg/dl Calcium (8.5-10.1) mg/dl Total Bilirubin (0.2-1) mg/dl Direct Bilirubin 7.1 H (0-0.2) mg/dl AST 136 H (15-37) U/L ALT (12-78) U/L Alkaline Phosphatase (45-117) U/L Troponin I (0-0.045) ng/ml Total Protein (6.4-8.2) gm/dl Albumin (3.4-5.0) gm/dl Globulin (2.5-4.0) gm/dl Albumin/Globulin Ratio (0.9-2) Lipase (73-393) U/L Urine Color Dark Yellow Urine Appearance Clear (Clear) Urine pH 6.5 (4.5-7.5) Ur Specific Riggins 1.021 (1.000-1.030) Urine Protein Negative (Negative) Urine Glucose (UA) Negative (Negative) Urine Ketones Negative (Negative) Urine Blood Negative (Negative) Urine Nitrite Negative (Negative) Urine Bilirubin 2+ H (Negative) Urine Urobilinogen Negative (Negative) Ur Leukocyte Esterase Negative (Negative) COVID-19 Eval Order SARS-CoV-2 (PCR) (Negative) Administered Medications Sodium Chloride (Nss 1000ml) 1,000 mls @ 100 mls/hr IV .Q10H KENNETH Stop: 11/28/20 12:19 Last Admin: 11/27/20 16:29 Dose: 100 mls/hr Documented by: [id number] Piperacillin Sod/Tazobactam (Sod 3.375 gm/ Dextrose) 115 mls @ 28.75 mls/hr IV Q8H [facility]; Protocol Stop: 12/07/20 05:59 Last Admin: 11/27/20 17:26 Dose: 28.8 mls/hr Documented by: [id number] Discontinued Medications Albuterol (Albut/Ipratrop 3mg/0.5mg Neb 3 Ml Vial) Confirm Administered Dose 3 ml .ROUTE .STK-MED ONE Stop: 11/27/20 13:51 Last Admin: 11/27/20 16:32 Dose: Not Given Documented by: [id number] Albuterol (Albut/Ipratrop 3mg/0.5mg Neb 3 Ml Vial) 3 ml NEB NOW STA Stop: 11/27/20 13:51 Last Admin: 11/27/20 14:15 Dose: 3 ml Documented by: [id number] Piperacillin Sod/Tazobactam (Sod 3.375 gm/ Dextrose) 100 ml in 115 mls @ 230 mls/hr IV NOW STA Stop: 11/27/20 13:12 Last Admin: 11/27/20 16:32 Dose: Not Given Documented by: [id number] Indomethacin (Indomethacin 50 Mg Supp) 50 mg [place] NOW STA Stop: 11/27/20 12:42 Last Admin: 11/27/20 15:02 Dose: Not Given Documented by: [id number] Ioversol (Optiray 320 100ml) 94 ml IV ONCE ONE Stop: 11/27/20 11:17 Last Admin: 11/27/20 11:16 Dose: 94 ml Documented by: [id number] Ondansetron HCl (Ondansetron Inj 2 Mg/Ml 2 Ml Vial) 4 mg IV NOW STA Stop: 11/27/20 10:15 Last Admin: 11/27/20 11:01 Dose: 4 mg Documented by: [id number] Imaging Data Radiologist's Impression: Abdomen/Pelvis CT 11/27/20 10:20 CT OF THE ABDOMEN AND PELVIS WITH CONTRAST CLINICAL HISTORY: weak, nausea, elevated lfts COMPARISON STUDY: CT of the abdomen and pelvis April 12, 2017. TECHNIQUE: Following IV administration of 94 mL of Optiray, axial images of the abdomen and pelvis were obtained from the lung bases to the proximal femurs. Images were reviewed in the axial, sagittal, and coronal planes. IV contrast was administered without complication. Automated exposure control was utilized for the study. A dose lowering technique was utilized adhering to the principles of ALARA. CT DOSE: 640.89 mGy.cm FINDINGS: Imaged portions of the lower chest partially visualize a moderate right pleural effusion. There is cardiomegaly. No pneumatosis, free air or portal venous gas is present. Hepatic steatosis is noted. No hepatic lesions are present. There is mild to moderate left hepatic lobe intrahepatic biliary ductal dilatation. There is mild dilatation of the main pancreatic duct which measures 6 mm in caliber. There is atrophy of the pancreatic body and tail. Note is made of a hypodense pancreatic head mass which measures approximately 2.8 cm. This results in moderate narrowing of the proximal main portal vein. This abuts the common hepatic artery. Vessel invasion would be difficult to exclude. There is no peripancreatic infiltration. Note is made of a 1.7 cm density within the gallbladder. The gallbladder is not distended. There is mild pericholecystic infiltration. The spleen is surgically absent. Moderate left and mild right renal atrophy is noted. Multiple renal cysts are present. There is no evidence for a bowel obstruction. Note is made of wall thickening with mild infiltration of the proximal to mid rectum. No lymphadenopathy is present. Left hip arthroplasty is noted. No acute fracture or suspicious lesion is identified within the visualized skeletal structures. There are small upper abdominal co llaterals. IMPRESSION: 1. Hypodense pancreatic head mass measuring approximately 2.8 cm. Associated biliary or pancreatic ductal dilatation. This is highly suggestive of pancreatic adenocarcinoma. This results in moderate narrowing of the proximal main portal vein and abuts the common hepatic artery. Mass adjacent to the duodenum with mildly fluid-filled stomach. GI consultation is recommended. 2. Gallstone versus sludge within the gallbladder. Mild pericholecystic infiltration. Gallbladder not significantly distended. 3. Wall thickening of the proximal to mid rectum with adjacent infiltration. This may be inflammatory however a rectal neoplasm could appear similar. Moderate amount stool within the colon. No evidence for a high-grade bowel obstruction. 4. Moderate right pleural effusion. ACT 112: Negative or not required by law. Electronically signed by: Alvaro Diana M.D. 11/27/2020 11:51 AM Chest X-Ray 11/27/20 11:50 XR chest 1V portable CLINICAL HISTORY: weak COMPARISON STUDY: Chest radiograph May 23, 2017. FINDINGS: Moderate right pleural effusion is noted. There is no left pleural effusion. There is no pneumothorax. Linear right suprahilar opacity favors atelectasis. Note is made of pulmonary vascular congestion with suspected mild pulmonary edema. There is moderate cardiomegaly. IMPRESSION: Cardiomegaly with mild pulmonary edema and a moderate right pleural effusion. ACT 112: Negative or not required by law. Electronically signed by: Alvaro Diana M.D. 11/27/2020 12:13 PM Discharge Plan Visit Data Chief Complaint: Abdominal Pain Stated Complaint: ABDOMINAL PAIN, REFERRED BY PCP ED Provider: Dougie Romano Discharge Problem: Obstructive jaundice, Hx of Hodgkin's disease, Mass of pancreas Patient Disposition: Being Evaluated by Hospitalist Discharge Instructions Interventions: ED Discharge Assessment Last Done: 11/27/20 13:26
[2020-11-27 11:14] LABS: Basophils # (auto) 0.05 K/uL (0-0.2); Basophils % (auto) 0.3 %; Eosinophils # (auto) 0.27 K/uL (0-0.5); Eosinophils % (auto) 1.9 %; Hematocrit (blood only) 30.8 % (42-52); Hemoglobin 10.8 g/dL (14.0-18.0); Immature Granulocytes # (auto) 0.13 K/uL (0.00-0.02); Immature Granulocytes % (auto) 0.9 %; Lymphocytes # (auto) 1.08 K/uL (1.2-3.4); Lymphocytes % (auto) 7.4 %; Mean Corpuscular Hgb Conc 35.1 g/dL (32-36); Mean Corpuscular Volume 94.2 fL (80-100); Mean Platelet Volume 14.1 fL (7.4-10.4); Monocytes # (auto) 1.75 K/uL (0.11-0.59); Monocytes % (auto) 12.1 %; Neutrophils # (auto) 11.22 K/uL (1.4-6.5); Neutrophils % (auto) 77.4 %; Platelet Count 437 K/uL (130-400); RDW Coefficient of Variation 18.3 % (11.5-14.5); RDW Standard Deviation 59.1 fL (36.4-46.3); Red Blood Count 3.27 M/uL (4.7-6.1)
[2020-11-27] MEDS ORDERED: OPTIRAY 320 100ml IV ONE (11:16)
[2020-11-27 11:38] LABS: Alanine Aminotransferase 88 U/L (12-78); Albumin Level 1.8 gm/dl (3.4-5.0); Anion Gap 0 (3-11); Blood Urea Nitrogen 16 mg/dl (7-18); Calcium 8.6 mg/dl (8.5-10.1); Carbon Dioxide 32 mmol/L (21-32); Chloride 103 mmol/L (98-107); Creatinine Clr Calc Pharmacy 112.3 ml/min; Est GFR (African American) 114.5 ml/min; Est GFR (Non-African American) 98.8 ml/min; Glucose 114 mg/dl (70-99); Lipase 30 U/L (73-393); Sodium 135 mmol/L (136-145)
--- NOTE | 2020-11-27 11:53 | CT Scan Report ---
CT OF THE ABDOMEN AND PELVIS WITH CONTRAST CLINICAL HISTORY: weak, nausea, elevated lfts COMPARISON STUDY: CT of the abdomen and pelvis April 12, 2017. TECHNIQUE: Following IV administration of 94 mL of Optiray, axial images of the abdomen and pelvis we re obtained from the lung bases to the proximal femurs. Images were reviewed in the axial, sagittal, and coronal planes. IV contrast was administered without complication. Automated exposure control wa s utilized for the study. A dose lowering technique was utilized adhering to the principles of ALARA . CT DOSE: 640.89 mGy.cm FINDINGS: Imaged portions of the lower chest partially visualize a moderate right pleural effusion. T here is cardiomegaly. No pneumatosis, free air or portal venous gas is present. Hepatic steatosis is noted. No hepatic lesions are present. There is mild to moderate left hepatic lobe intrahepatic bilia ry ductal dilatation. There is mild dilatation of the main pancreatic duct which measures 6 mm in yaz iber. There is atrophy of the pancreatic body and tail. Note is made of a hypodense pancreatic head m ass which measures approximately 2.8 cm. This results in moderate narrowing of the proximal main port al vein. This abuts the common hepatic artery. Vessel invasion would be difficult to exclude. There i s no peripancreatic infiltration. Note is made of a 1.7 cm density within the gallbladder. The gallbl adder is not distended. There is mild pericholecystic infiltration. The spleen is surgically absent. Moderate left and mild right renal atrophy is noted. Multiple renal cysts are present. There is no ev idence for a bowel obstruction. Note is made of wall thickening with mild infiltration of the proxima l to mid rectum. No lymphadenopathy is present. Left hip arthroplasty is noted. No acute fracture or suspicious lesion is identified within the visualized skeletal structures. There are small upper abdo omid collaterals. IMPRESSION: 1. Hypodense pancreatic head mass measuring approximately 2.8 cm. Associated biliary or pancreatic du ctal dilatation. This is highly suggestive of pancreatic adenocarcinoma. This results in moderate ade rowing of the proximal main portal vein and abuts the common hepatic artery. Mass adjacent to the duo denum with mildly fluid-filled stomach. GI consultation is recommended. 2. Gallstone versus sludge within the gallbladder. Mild pericholecystic infiltration. Gallbladder not significantly distended. 3. Wall thickening of the proximal to mid rectum with adjacent infiltration. This may be inflammatory however a rectal neoplasm could appear similar. Moderate amount stool within the colon. No evidence for a high-grade bowel obstruction. 4. Moderate right pleural effusion. ACT 112: Negative or not required by law. Electronically signed by: Alvaro Diana M.D. 11/27/2020 11:51 AM
[2020-11-27 11:58] LABS: INR 1.2 (0.9-1.1); Partial Thromboplastin Ratio 1.1; Partial Thromboplastin Time 28.8 Seconds (21.0-31.0); Prothrombin Time 12.4 Seconds (9.0-12.0)
[2020-11-27 12:00] LABS: Albumin Globulin Ratio 0.4 (0.9-2); Alkaline Phosphatase 1086 U/L (45-117); Bilirubin,Total 9.1 mg/dl (0.2-1); Globulin 4.5 gm/dl (2.5-4.0); Total Protein 6.3 gm/dl (6.4-8.2); Troponin I < 0.015 ng/ml (0-0.045)
[2020-11-27 12:07] LABS: Bilirubin Direct 7.1 mg/dl (0-0.2)
--- NOTE | 2020-11-27 12:14 | XRay Report ---
XR chest 1V portable CLINICAL HISTORY: weak COMPARISON STUDY: Chest radiograph May 23, 2017. FINDINGS: Moderate right pleural effusion is noted. There is no left pleural effusion. There is no pn eumothorax. Linear right suprahilar opacity favors atelectasis. Note is made of pulmonary vascular co ngestion with suspected mild pulmonary edema. There is moderate cardiomegaly. IMPRESSION: Cardiomegaly with mild pulmonary edema and a moderate right pleural effusion. ACT 112: Negative or not required by law. Electronically signed by: Alvaro Diana M.D. 11/27/2020 12:13 PM
[2020-11-27] MEDS ORDERED: INDOMETHACIN 50 MG SUPP PR STA (12:41)
[2020-11-27] MEDS ORDERED: PIPERACILLIN/TAZOBACTAM 3.375 GM in DEXTROSE 5% 100 ML/100 ML BAG IV STA (12:43)
[2020-11-27] MEDS ORDERED: PIPERACILL/TAZOBAC CONSULT ACTIVE PRN (12:43)
--- NOTE | 2020-11-27 12:46 | Gastrointestinal Consultation ---
Date of Consultation November 27, 2020 Assessment & Plan (1) Elevated LFTs: (2) Mass of pancreas: Pt is a 65 y/o male w hx of Hogkins disease in , c/o progressive poor appetite, early satiety, abd bloating found to be jaundice, w elevated LFTs; CT abd/pelvis noted obstructing pancreas head mass concerning for adenocarcinoma. - COVID 19 test negative - Keep NPO - Start Zosyn IV - Plan for EUS/ERCP w stents placement in OR by Dr. Fagan today - Further GI recs after procedure above completed Supervising Physician Co-Signing Physician Notes I saw and evaluated the patient. He is a quite ill patient with numerous problems to include a cardiomyopathy and pulmonary fibrosis. The patient has had elevated liver enzymes since September and was recently found to have that they were increasing in levels. Imaging study seems to indicate a pancreatic head mass with upstream dilation of the pancreatic duct and common bile duct. This is very concerning for an underlying malignancy. In addition the patient does appear to have a leukocytosis up to 14,000. Physical examination Scleral icterus noted Mild right upper quadrant tenderness noted Impression: Patient with numerous medical problems now presenting with a suspicious pancreatic head mass. Given the leukocytosis there is also clinical concern for underlying infection or perhaps early cholangitis. I would recommend upper endoscopy endoscopic ultrasound with ERCP for biliary decompression. In addition I would recommend prophylactic antibiotic coverage until the patient is able to have appropriate biliary drainage. We have discussed the risks and benefits of the procedures to include bleeding, infection, perforation, pain, pancreatitis and failed biliary cannulation. History of Present Illness Reason for Consultation: Jaundice, elevated LFTs Requesting Physician: Dr. Dougie Romano Attending Physician: Dr. Dulce Maria Fagan History of Present Illness Pt is a 65y/o male w hx of Pulmonary fibrosis, GERD, Hodgkins in , s/p laryngectomy, splenectomy, tracheostomy, partial nephrectomy who was referred to ED by his PCP for elevated LFTs. He saw Carole Aguillon PA-C yesterday w c/o abdominal bloating, early satiety, poor appetite, weight loss and noted to be jaundiced. Labs showed elevated LFTs. Repeat labs in the ED showed WBC 14, H/H 10/30, Plt 437. PT INR 12/1.2, renal function normal. LFTs: Tbili 9, AST/ALT 136/88, alk phos 1086. Lipase 30 CT abd/pelvis w contrast showed hypodense pancreatic head mass measuring approximately 2.8 cm with associated biliary or pancreatic ductal dilatation. This is highly suggestive of pancreatic adenocarcinoma. This results in moderate narrowing of the proximal main portal vein and abuts the common hepatic artery. Mass adjacent to the duodenum with mildly fluid-filled stomach. He does have gallstone versus sludge within the gallbladder. Mild pericholecystic infiltration. Gallbladder not significantly distended. Wall thickening of the proximal to mid rectum with adjacent infiltration, w moderate amt of stool and no obstruction noted. He just had colonoscopy 08/2020 w findings of adenomatous colon polyps. Allergies Allergy/AdvReac Type Severity Reaction Status Date / Time tamsulosin [From Flomax] AdvReac Mild Dizziness Verified 11/27/20 12:53 Home Medications Medication Instructions Recorded Confirmed Type insulin glargine 100 unit/mL (3 19 units SUBCUT BID 04/09/18 08/13/20 History mL) subcutaneous pen levothyroxine 175 mcg tablet 175 mcg PO DAILY 04/09/18 08/13/20 History metoprolol succinate 50 mg 50 mg PO BID 04/09/18 08/13/20 History tablet,extended release 24 hr omeprazole 40 mg capsule,delayed 40 mg PO QAM 04/09/18 08/13/20 History release acetylcysteine 100 mg/mL (10 %) 3 ml INHALATION BID 05/05/20 08/13/20 History solution alfuzosin 10 mg tablet,extended 10 mg PO QPM 05/05/20 08/13/20 History release 24 hr budesonide 1 mg/2 mL suspension 1 mg INHALATION DAILY 05/05/20 08/13/20 History for nebulization finasteride 5 mg tablet 5 mg PO QAM 05/05/20 08/13/20 History ipratropium 0.5 mg-albuterol 3 mg 3 ml INHALATION Q4H PRN 05/05/20 08/13/20 History (2.5 mg base)/3 mL nebulization soln melatonin 10 mg tablet 10 mg PO HS 05/05/20 08/13/20 History triamcinolone acetonide 55 mcg 1 spray INTRANASAL DAILY PRN 05/05/20 08/13/20 History nasal spray aerosol Patient History Medical History Chronic respiratory failure "home O2 3 LPM via trach shield at HS" Diabetes "adult onset ~ 2014, type 1 vs 2? 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 Padgett" Status post splenectomy "Hodgkin's lymphoma" Status post surgical removal of malignant neoplasm of skin right ear skin cancer removal Status post tracheostomy Family History Family/Other Family history of diabetes mellitus cousin Father Family hx of colon cancer Brother Family hx of colon cancer Other No family history of adverse response to anesthesia Social History Smoking Status: Never smoker Second Hand Exposure: No; Hx Alcohol Use: No Hx Substance Use: No Preferred Language: Kazakh Communication Ability: Effective Tape Stringer Required: No Beliefs That Will Affect Care: None Current Living Situation: Spouse Feels Safe at Home: Yes Assistive Devices: Cane, Glasses, Nebulizer and Oxygen - at Night Review of Systems Review of Systems: All systems reviewed & are unremarkable except as noted in HPI & below Physical Exam Constitutional: well groomed, cooperative and comfortable Eyes: Icteric sclera, PERRLA ENMT: external ear and nose normal, oropharynx normal Respiratory: Diminished overall. No respiratory distress Cardiovascular: RRR, no murmur, no edema Gastrointestinal (Abdomen): normal bowel sounds, soft, nontender, no hepatosplenomegaly Skin: no rashes, warm and dry + jaundice Psychiatric: A+Ox3, euthymic affect Lymphatic: + lymphedema (bilateral LE) Results & Data ([facility]) Vital Signs (Past 12 Hours) Vital Signs Temp Pulse Pulse Resp BP BP Pulse Ox 11/27/20 12:28 86 17 153/78 H 11/27/20 09:50 37 C 84 18 121/68 89 L Laboratory Results Laboratory Results - last 24 hr 11/27/20 11/27/20 11/27/20 10:50 10:50 10:50 WBC 14.50 H RBC 3.27 L Hgb 10.8 L Hct 30.8 L MCV 94.2 MCH 33.0 MCHC 35.1 RDW Std Deviation 59.1 H RDW Coeff of Junior 18.3 H Plt Count 437 H MPV 14.1 H Immature Gran % (Auto) 0.9 Neut % (Auto) 77.4 Lymph % (Auto) 7.4 [place] % (Auto) 12.1 Eos % (Auto) 1.9 Baso % (Auto) 0.3 Neut # (Auto) 11.22 H Lymph # (Auto) 1.08 L [place] # (Auto) 1.75 H Eos # (Auto) 0.27 Baso # (Auto) 0.05 Immature Gran # (Auto) 0.13 H PT Cancelled INR Cancelled APTT PTT Ratio Sodium 135 L Potassium Chloride 103 Carbon Dioxide 32 Anion Gap 0 L BUN 16 Creatinine 0.68 Est Cr Clr Drug Dosing 112.3 Est GFR ( Amer) 114.5 Est GFR (Non-Af Amer) 98.8 BUN/Creatinine Ratio 23.0 H Glucose 114 H Calcium 8.6 Total Bilirubin 9.1 H Direct Bilirubin AST ALT 88 H Alkaline Phosphatase 1086 H Troponin I < 0.015 Total Protein 6.3 L Albumin 1.8 L Globulin 4.5 H Albumin/Globulin Ratio 0.4 L Lipase 30 L COVID-19 Eval Order SARS-CoV-2 (PCR) 11/27/20 11/27/20 11/27/20 10:50 10:51 10:51 WBC RBC Hgb Hct MCV MCH MCHC RDW Std Deviation RDW Coeff of Junior Plt Count MPV Immature Gran % (Auto) Neut % (Auto) Lymph % (Auto) [place] % (Auto) Eos % (Auto) Baso % (Auto) Neut # (Auto) Lymph # (Auto) [place] # (Auto) Eos # (Auto) Baso # (Auto) Immature Gran # (Auto) PT INR APTT PTT Ratio Sodium Potassium Chloride Carbon Dioxide Anion Gap BUN Creatinine Est Cr Clr Drug Dosing Est GFR ( Amer) Est GFR (Non-Af Amer) BUN/Creatinine Ratio Glucose Calcium Total Bilirubin Direct Bilirubin Cancelled AST ALT Alkaline Phosphatase Troponin I Total Protein Albumin Globulin Albumin/Globulin Ratio Lipase COVID-19 Eval Order Covid19 at [facility] SARS-CoV-2 (PCR) NEGATIVE 11/27/20 11/27/20 11:35 11:39 WBC RBC Hgb Hct MCV MCH MCHC RDW Std Deviation RDW Coeff of Junior Plt Count MPV Immature Gran % (Auto) Neut % (Auto) Lymph % (Auto) [place] % (Auto) Eos % (Auto) Baso % (Auto) Neut # (Auto) Lymph # (Auto) [place] # (Auto) Eos # (Auto) Baso # (Auto) Immature Gran # (Auto) PT 12.4 H INR 1.2 H APTT 28.8 PTT Ratio 1.1 Sodium Potassium 4.0 Chloride Carbon Dioxide Anion Gap BUN Creatinine Est Cr Clr Drug Dosing Est GFR ( Amer) Est GFR (Non-Af Amer) BUN/Creatinine Ratio Glucose Calcium Total Bilirubin Direct Bilirubin 7.1 H AST 136 H ALT Alkaline Phosphatase Troponin I Total Protein Albumin Globulin Albumin/Globulin Ratio Lipase COVID-19 Eval Order SARS-CoV-2 (PCR) Diagnostic Findings CT OF THE ABDOMEN AND PELVIS WITH CONTRAST CLINICAL HISTORY: weak, nausea, elevated lfts COMPARISON STUDY: CT of the abdomen and pelvis April 12, 2017. TECHNIQUE: Following IV administration of 94 mL of Optiray, axial images of the abdomen and pelvis were obtained from the lung bases to the proximal femurs. Images were reviewed in the axial, sagittal, and coronal planes. IV contrast was administered without complication. Automated exposure control was utilized for the study. A dose lowering technique was utilized adhering to the principles of ALARA. CT DOSE: 640.89 mGy.cm FINDINGS: Imaged portions of the lower chest partially visualize a moderate right pleural effusion. There is cardiomegaly. No pneumatosis, free air or portal venous gas is present. Hepatic steatosis is noted. No hepatic lesions are present. There is mild to moderate left hepatic lobe intrahepatic biliary ductal dilatation. There is mild dilatation of the main pancreatic duct which measures 6 mm in caliber. There is atrophy of the pancreatic body and tail. Note is made of a hypodense pancreatic head mass which measures approximately 2.8 cm. This results in moderate narrowing of the proximal main portal vein. This abuts the common hepatic artery. Vessel invasion would be difficult to exclude. There is no peripancreatic infiltration. Note is made of a 1.7 cm density within the gallbladder. The gallbladder is not distended. There is mild pericholecystic infiltration. The spleen is surgically absent. Moderate left and mild right renal atrophy is noted. Multiple renal cysts are present. There is no evidence for a bowel obstruction. Note is made of wall thickening with mild infiltration of the proximal to mid rectum. No lymphadenopathy is present. Left hip arthroplasty is noted. No acute fracture or suspicious lesion is identified within the visualized skeletal structures. There are small upper abdominal ashvin aterals. IMPRESSION: 1. Hypodense pancreatic head mass measuring approximately 2.8 cm. Associated biliary or pancreatic ductal dilatation. This is highly suggestive of pancreatic adenocarcinoma. This results in moderate narrowing of the proximal main portal vein and abuts the common hepatic artery. Mass adjacent to the duodenum with mildly fluid-filled stomach. GI consultation is recommended. 2. Gallstone versus sludge within the gallbladder. Mild pericholecystic infiltration. Gallbladder not significantly distended. 3. Wall thickening of the proximal to mid rectum with adjacent infiltration. This may be inflammatory however a rectal neoplasm could appear similar. Moderate amount stool within the colon. No evidence for a high-grade bowel obstruction. 4. Moderate right pleural effusion.
[2020-11-27] MEDS ORDERED: ePHEDrine sulfate 50 MG/ML SYR ONE (13:27)
[2020-11-27] MEDS ORDERED: PHENYLEPHRINE 100MCG/ML 5ML SYR ONE (13:27)
[2020-11-27] MEDS ORDERED: PROPOFOL IV EMULSION 10 MG/ML 20 ML VIAL IV ONE ×2 (13:27→14:45)
[2020-11-27] MEDS ORDERED: ONDANSETRON INJ 2 MG/ML 2 ML VIAL ONE (13:27)
[2020-11-27] MEDS ORDERED: LIDOCAINE 2% 2 ML VIAL/AMP(20MG/ML) INFIL ONE (13:27)
[2020-11-27] MEDS ORDERED: fentaNYL citrate 100 MCG/2 ML VIAL ONE (13:27)
[2020-11-27] MEDS ORDERED: MIDAZOLAM HCL 1 MG/ML 2ML VIAL ONE (13:27)
--- NOTE | 2020-11-27 13:27 | History & Physical Report ---
Date of Service November 27, 2020 Assessment & Plan (1) Mass of pancreas: Plan: loss of appetite, difficulty swallowing, belly pain and cramps since last two months, worsening since last 2 weeks Exam shows scleral icterus, mild RUQ tenderness blood labs show elevated Tbili along with other LFT parameters Imaging showed pancreatic head mass 2.8 cm w/ associated biliary or pancreatic ductal dilatation. NPO except meds, on gentle iv fluid hydration GI on board, Pt underwent Endoscopic USG w/ attempted ERCP today which showed Grade I esophageal varices, duodenal stricture suspicion along with 29 mm pancreatic head mass; biopsy were taken of the mass and LNs. Transfer to [facility] initiated/accepted for repeat ERCP or alternate drainage attempts. Present on Admission?: Yes (2) RUQ abdominal tenderness: Plan: Scleral icterus, minimal RUQ tenderness, and leucocytosis at 14.5K, no fever Imaging showed GB stone Vs Sludge with mild pericholecystic infiltration. concern for early cholangitis, re-evaluate tomorrow AM Continue with Zosyn and iV fluids. Keep NPO except meds. (3) Heart failure with reduced ejection fraction: Plan: Rales/crackles on auscultation with 2+ pitting edema BLE. Feb 2020 ECHO showed EF of 45%. Pt was apparently not taking his prn torsemide since last 5 days, will resume his torsemide. Continue his home metoprolol Maintain gentle hydration as he is NPO, re-eval for fluid requirement tomorrow morning. Present on Admission?: Yes (4) Diabetes: Plan: Pt is NPO, hence will cut down his home lantus to 50% twice a day and put him on Q6H sliding scale Target blood glucose range 140-180 mg/dL Present on Admission?: Yes (5) Status post tracheostomy: Plan: s/p [id number] has rales diffuse and bilateral Purulent discharge noted once while at bedside, per pt he has not noticed in increase purulence lately Pt on ATB for possible cholangitis, will keep track of WBC and lung findings. continue with tracheostomy care Present on Admission?: Yes Admission and Anticipated Discharge Date Admission Date: Pt is already accepted for Transfer at [facility]. Awaiting bed. History of Present Illness Chief Complaint: Weakness, decreased intake, abnormal office lab - hyperbilirubinemia Primary Care Provider: Keyla M. Casanova, DO 65 yo M with PMH of Gastric polyp, Hepatic steatosis, Hodgkin's disease 1990s s/p chemoradiation, laryngectomy s/p tracheostomy (mechanical voice), splenectomy, HFrEF, Idiopathic cardiomyopathy, HTN, MRSA infection, radiation induced pulmonary fibrosis, HLD, HTN and hypothyroidism was sent to our ED 11/27 from the office for abnormal LFTs. Per pt, he has been having bloating, loss of appetitie, early satiety, belly pain and cramps since last 2 months which has been worsening since last 2 weeks, hence he went to see his PCP. Repeat labs in the ED showed PT 1.2, WBC 14K, T Bili 9 , AST/ALT of 136/88 and ALP of 1086. Lipase was nl. Pt complains of cough at his baseline with baseline mucus production, he can't comment on color of the mucus and needs suctioning 1 to 5 times a day. He complains of some chest pain on and off after suctioning. Doesn't complain of palpitations, pain or burning while passing urine. Patient denies fever and shortness of breath. He does have blurry vision owing to h/o cataract s/p surgery. Denies Head or dizziness. He had recent colonoscopy 08/27 w/ findings of adenomatous polyps. Per patient he had 46 radiations so far. He doesn't smoke or drink alcohol. Allergies Allergy/AdvReac Type Severity Reaction Status Date / Time tamsulosin [From Flomax] AdvReac Mild Dizziness Verified 11/27/20 12:53 Home Medications Medication Instructions Recorded Confirmed Type insulin glargine 100 unit/mL (3 18 units SUBCUT BID 04/09/18 11/27/20 History mL) subcutaneous pen levothyroxine 175 mcg tablet 175 mcg PO DAILY 04/09/18 11/27/20 History metoprolol succinate 50 mg 75 mg PO QAM 04/09/18 11/27/20 History tablet,extended release 24 hr omeprazole 40 mg capsule,delayed 40 mg PO QAM 04/09/18 11/27/20 History release acetylcysteine 100 mg/mL (10 %) 3 ml INHALATION BID PRN 05/05/20 11/27/20 History solution alfuzosin 10 mg tablet,extended 10 mg PO QPM 05/05/20 11/27/20 History release 24 hr budesonide 1 mg/2 mL suspension 1 mg INHALATION DAILY PRN 05/05/20 11/27/20 History for nebulization finasteride 5 mg tablet 5 mg PO QAM 05/05/20 11/27/20 History ipratropium 0.5 mg-albuterol 3 mg 3 ml INHALATION Q4H PRN 05/05/20 11/27/20 History (2.5 mg base)/3 mL nebulization soln melatonin 10 mg tablet 10 mg PO HS 05/05/20 11/27/20 History triamcinolone acetonide 55 mcg 1 spray INTRANASAL DAILY PRN 05/05/20 11/27/20 History nasal spray aerosol metoprolol succinate 50 mg 50 mg PO QPM 11/27/20 11/27/20 History tablet,extended release 24 hr torsemide 20 mg tablet 20 mg PO DAILY PRN 11/27/20 11/27/20 History Past Med/Surg History Medical History (Updated 11/27/20 @ 19:06 by Ricky Serra MD) Chronic respiratory failure "home O2 3 LPM via trach shield at HS" Diabetes "adult onset ~ 2014, type 1 vs 2? 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 Padgett" Status post splenectomy "Hodgkin's lymphoma" Status post surgical removal of malignant neoplasm of skin right ear skin cancer removal Status post tracheostomy Family History Family/Other Family history of diabetes mellitus cousin Father Family hx of colon cancer Brother Family hx of colon cancer Other No family history of adverse response to anesthesia Social History Smoking Status: Never smoker Second Hand Exposure: No; Do You Dip or Chew Tobacco: No; Tobacco Cessation Education Requested by Patient: No Hx Alcohol Use: No Hx Substance Use: No Preferred Language: Guamanian Communication Ability: Effective Director Of Land Acquisition Required: Voice Beliefs That Will Affect Care: None Current Living Situation: Significant Other Other Information That Helps Us Care for You: No Feels Safe at Home: Yes Safety Concerns: Feels Safe At This Time Assistive Devices: Cane, Glasses and Oxygen - Continuous Review of Systems Review of Systems: all systems are reviewed as noted in HPI. Physical Exam Physical Exam: GENERAL: alert and oriented, in no acute distress, speaks with device (mechanical voice) Head: normocephalic and atraumatic EYES: No injection, discharge, PERRL, scleral icterus noted. NECK: Tracheostomy in place without significant erythema but purulent expectoration noted during the bedside exam ENT: Mucous membranes pink and moist. LUNGS: b/l rales/crackles, occasional wheezes. HEART: Regular rate and rhythm. No chest wall tenderness ABDOMEN: Soft, mild RUQ tenderness, normal bowel sounds. SKIN: Acyanotic, warm, dry, without rashes EXTREMITIES: With minimal 2+ lower extremity edema but no tenderness/erythema noted. NEUROLOGICAL: No focal deficits. No aphasia. No facial droop or slurred speech. Results & Data Results & Data ([facility]) Vital Signs (Past 12 Hours) Vital Signs Temp Pulse Pulse Resp BP BP Pulse Ox 11/27/20 12:28 86 17 153/78 H 11/27/20 09:50 37 C 84 18 121/68 89 L Laboratory Results Short CBC 11/27/20 11/27/20 11/27/20 Range/Units 10:50 10:50 10:50 WBC 14.50 H (4.8-10.8) K/uL RBC 3.27 L (4.7-6.1) M/uL Hgb 10.8 L (14.0-18.0) g/dL Hct 30.8 L (42-52) % MCV 94.2 (80-100) fL MCH 33.0 (25-34) pg MCHC 35.1 (32-36) g/dL RDW Std Deviation 59.1 H (36.4-46.3) fL RDW Coeff of Junior 18.3 H (11.5-14.5) % Plt Count 437 H (130-400) K/uL MPV 14.1 H (7.4-10.4) fL Immature Gran % (Auto) 0.9 % Neut % (Auto) 77.4 % Lymph % (Auto) 7.4 % Rooks % (Auto) 12.1 % Eos % (Auto) 1.9 % Baso % (Auto) 0.3 % Neut # (Auto) 11.22 H (1.4-6.5) K/uL Lymph # (Auto) 1.08 L (1.2-3.4) K/uL Rooks # (Auto) 1.75 H (0.11-0.59) K/uL Eos # (Auto) 0.27 (0-0.5) K/uL Baso # (Auto) 0.05 (0-0.2) K/uL Immature Gran # (Auto) 0.13 H (0.00-0.02) K/uL PT Cancelled INR Cancelled APTT (21.0-31.0) Seconds PTT Ratio Sodium 135 L (136-145) mmol/L Potassium (3.5-5.1) mmol/L Chloride 103 (98-107) mmol/L Carbon Dioxide 32 (21-32) mmol/L Anion Gap 0 L (3-11) BUN 16 (7-18) mg/dl Creatinine 0.68 (0.6-1.4) mg/dl Est Cr Clr Drug Dosing 112.3 ml/min Est GFR ( Amer) 114.5 ml/min Est GFR (Non-Af Amer) 98.8 ml/min BUN/Creatinine Ratio 23.0 H (10-20) Glucose 114 H (70-99) mg/dl Calcium 8.6 (8.5-10.1) mg/dl Total Bilirubin 9.1 H (0.2-1) mg/dl Direct Bilirubin (0-0.2) mg/dl AST (15-37) U/L ALT 88 H (12-78) U/L Alkaline Phosphatase 1086 H (45-117) U/L Troponin I < 0.015 (0-0.045) ng/ml Total Protein 6.3 L (6.4-8.2) gm/dl Albumin 1.8 L (3.4-5.0) gm/dl Globulin 4.5 H (2.5-4.0) gm/dl Albumin/Globulin Ratio 0.4 L (0.9-2) Lipase 30 L (73-393) U/L COVID-19 Eval Order SARS-CoV-2 (PCR) (Negative) 11/27/20 11/27/20 11/27/20 Range/Units 10:50 10:51 10:51 WBC (4.8-10.8) K/uL RBC (4.7-6.1) M/uL Hgb (14.0-18.0) g/dL Hct (42-52) % MCV (80-100) fL MCH (25-34) pg MCHC (32-36) g/dL RDW Std Deviation (36.4-46.3) fL RDW Coeff of Junior (11.5-14.5) % Plt Count (130-400) K/uL MPV (7.4-10.4) fL Immature Gran % (Auto) % Neut % (Auto) % Lymph % (Auto) % Rooks % (Auto) % Eos % (Auto) % Baso % (Auto) % Neut # (Auto) (1.4-6.5) K/uL Lymph # (Auto) (1.2-3.4) K/uL Rooks # (Auto) (0.11-0.59) K/uL Eos # (Auto) (0-0.5) K/uL Baso # (Auto) (0-0.2) K/uL Immature Gran # (Auto) (0.00-0.02) K/uL PT INR APTT (21.0-31.0) Seconds PTT Ratio Sodium (136-145) mmol/L Potassium (3.5-5.1) mmol/L Chloride (98-107) mmol/L Carbon Dioxide (21-32) mmol/L Anion Gap (3-11) BUN (7-18) mg/dl Creatinine (0.6-1.4) mg/dl Est Cr Clr Drug Dosing ml/min Est GFR ( Amer) ml/min Est GFR (Non-Af Amer) ml/min BUN/Creatinine Ratio (10-20) Glucose (70-99) mg/dl Calcium (8.5-10.1) mg/dl Total Bilirubin (0.2-1) mg/dl Direct Bilirubin Cancelled (0-0.2) mg/dl AST (15-37) U/L ALT (12-78) U/L Alkaline Phosphatase (45-117) U/L Troponin I (0-0.045) ng/ml Total Protein (6.4-8.2) gm/dl Albumin (3.4-5.0) gm/dl Globulin (2.5-4.0) gm/dl Albumin/Globulin Ratio (0.9-2) Lipase (73-393) U/L COVID-19 Eval Order Covid19 at [facility] SARS-CoV-2 (PCR) NEGATIVE (Negative) 11/27/20 11/27/20 Range/Units 11:35 11:39 WBC (4.8-10.8) K/uL RBC (4.7-6.1) M/uL Hgb (14.0-18.0) g/dL Hct (42-52) % MCV (80-100) fL MCH (25-34) pg MCHC (32-36) g/dL RDW Std Deviation (36.4-46.3) fL RDW Coeff of Junior (11.5-14.5) % Plt Count (130-400) K/uL MPV (7.4-10.4) fL Immature Gran % (Auto) % Neut % (Auto) % Lymph % (Auto) % Rooks % (Auto) % Eos % (Auto) % Baso % (Auto) % Neut # (Auto) (1.4-6.5) K/uL Lymph # (Auto) (1.2-3.4) K/uL Rooks # (Auto) (0.11-0.59) K/uL Eos # (Auto) (0-0.5) K/uL Baso # (Auto) (0-0.2) K/uL Immature Gran # (Auto) (0.00-0.02) K/uL PT 12.4 H INR 1.2 H APTT 28.8 (21.0-31.0) Seconds PTT Ratio 1.1 Sodium (136-145) mmol/L Potassium 4.0 (3.5-5.1) mmol/L Chloride (98-107) mmol/L Carbon Dioxide (21-32) mmol/L Anion Gap (3-11) BUN (7-18) mg/dl Creatinine (0.6-1.4) mg/dl Est Cr Clr Drug Dosing ml/min Est GFR ( Amer) ml/min Est GFR (Non-Af Amer) ml/min BUN/Creatinine Ratio (10-20) Glucose (70-99) mg/dl Calcium (8.5-10.1) mg/dl Total Bilirubin (0.2-1) mg/dl Direct Bilirubin 7.1 H (0-0.2) mg/dl AST 136 H (15-37) U/L ALT (12-78) U/L Alkaline Phosphatase (45-117) U/L Troponin I (0-0.045) ng/ml Total Protein (6.4-8.2) gm/dl Albumin (3.4-5.0) gm/dl Globulin (2.5-4.0) gm/dl Albumin/Globulin Ratio (0.9-2) Lipase (73-393) U/L COVID-19 Eval Order SARS-CoV-2 (PCR) (Negative) BMP 11/27/20 11/27/20 10:50 11:39 Sodium 135 L Potassium 4.0 Chloride 103 Carbon Dioxide 32 BUN 16 Creatinine 0.68 Glucose 114 H Calcium 8.6 Cardiac Enzymes 11/27/20 Range/Units 10:50 Troponin I < 0.015 (0-0.045) ng/ml Liver Function 11/27/20 11/27/20 11/27/20 Range/Units 10:50 10:50 11:39 Total Bilirubin 9.1 H (0.2-1) mg/dl Direct Bilirubin Cancelled 7.1 H (0-0.2) mg/dl AST 136 H (15-37) U/L ALT 88 H (12-78) U/L Alkaline Phosphatase 1086 H (45-117) U/L Albumin 1.8 L (3.4-5.0) gm/dl Diagnostic Findings 11/27 CXR: Cardiomegaly with mild pulmonary edema and a moderate right pleural effusion. 11/27 CTAP impression: 1. Hypodense pancreatic head mass measuring approximately 2.8 cm. Associated biliary or pancreatic ductal dilatation. This is highly suggestive of pancreatic adenocarcinoma. This results in moderate narrowing of the proximal main portal vein and abuts the common hepatic artery. Mass adjacent to the duodenum with mildly fluid-filled stomach. GI consultation is recommended. 2. Gallstone versus sludge within the gallbladder. Mild pericholecystic infiltr ation. Gallbladder not significantly distended. 3. Wall thickening of the proximal to mid rectum with adjacent infiltration. This may be inflammatory however a rectal neoplasm could appear similar. M oderate amount stool within the colon. No evidence for a high-grade bowel obstruction. 4. Moderate right pleural effusion. Code Status & VTE Plan VTE Prophylaxis Plan VTE Prophylaxis will be ordered: Yes
--- NOTE | 2020-11-27 13:31 | Anesthesiology Consultation ---
Date of Service November 27, 2020 Assessment & Plan (1) Encounter for pre-operative examination: Chart Review Chart Review: Acceptable Risk for Surgery Consults Requested none ASA ASA4 Proposed Anesthesia Anesthesia Type: MAC Risk / Benefits Reviewed With: PT / POA / Parent / Guardian, Accepts Plan and Informed Consent Obtained History Surgery Operation Date: 11/27/20 10:40 Proposed Procedures p Endoscopic Retrograde Cholangiopancreato - Dulce Maria Fagan DO s Endoscopic Ultrasonography Upper - Dulce Maria Fagan DO Height/Weight Height: 6 ft 1 in Weight: 100 kg Allergies Allergy/AdvReac Type Severity Reaction Status Date / Time tamsulosin [From Flomax] AdvReac Mild Dizziness Verified 11/27/20 12:53 Medications Home Medications Medication Instructions Recorded Confirmed Last Taken insulin glargine 100 unit/mL (3 18 units SUBCUT BID 04/09/18 11/27/20 11/27/20 mL) subcutaneous pen levothyroxine 175 mcg tablet 175 mcg PO DAILY 04/09/18 11/27/20 11/27/20 metoprolol succinate 50 mg See Rx Instructions .ROUTE .COMPLEX 04/09/18 11/27/20 11/27/20 tablet,extended release 24 hr omeprazole 40 mg capsule,delayed 40 mg PO QAM 04/09/18 11/27/20 11/27/20 release acetylcysteine 100 mg/mL (10 %) 3 ml INHALATION BID 05/05/20 11/27/20 08/12/20 solution alfuzosin 10 mg tablet,extended 10 mg PO QPM 05/05/20 11/27/20 08/12/20 08:00 release 24 hr budesonide 1 mg/2 mL suspension 1 mg INHALATION DAILY 05/05/20 11/27/20 08/12/20 for nebulization finasteride 5 mg tablet 5 mg PO QAM 05/05/20 11/27/20 11/27/20 ipratropium 0.5 mg-albuterol 3 mg 3 ml INHALATION Q4H PRN 05/05/20 11/27/20 08/12/20 (2.5 mg base)/3 mL nebulization soln melatonin 10 mg tablet 10 mg PO HS 05/05/20 11/27/20 08/12/20 triamcinolone acetonide 55 mcg 1 spray INTRANASAL DAILY PRN 05/05/20 11/27/20 08/12/20 nasal spray aerosol torsemide 20 mg tablet 0 mg PO DAILY 11/27/20 11/27/20 Unknown NPO Date Last Intake of Fluids: 11/27/20 Time Last Intake of Fluids: 07:00 Date Last Intake of Solids: 11/27/20 Time Last Intake of Solids: 00:00 Past Medical History Medical History Chronic respiratory failure "home O2 3 LPM via trach shield at HS" Diabetes "adult onset ~ 2014, type 1 vs 2? 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 - s/p radiation therapy and chemo - [facility]" Hx of pulmonary fibrosis Hypertension Hypothyroidism Osteoarthritis Tracheostomy in place Exercise / Class Metabolic Activity III < 4 Walking/Shop/Light housework Past Family History Family History Family/Other Family history of diabetes mellitus cousin Father Family hx of colon cancer Brother Family hx of colon cancer Other No family history of adverse response to anesthesia Past Surgical History Surgical History History of back surgery abscess in spinal cord d/t sepsis History of bronchoscopy History of colonoscopy with polypectomy History of esophagogastroduodenoscopy (EGD) History of hand surgery d/t sepsis "had pus pockets on back of hands" History of Mohs micrographic surgery for skin cancer multiple times History of partial nephrectomy removed off left kidney "benign oncocytoma" Status post laryngectomy "Dr. 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 Padgett" Status post splenectomy "Hodgkin's lymphoma" Status post surgical removal of malignant neoplasm of skin right ear skin cancer removal Status post tracheostomy Past Anesthesia History No Hx of Anesthesia Complications and No Family Hx of Anesthesia Complications History of PONV No Hx of PONV and No Hx of Motion Sickness Social History Smoking Status: Never smoker Hx Alcohol Use: No Hx Substance Use: No substance use type: does not use Physical Exam Vital Signs Last Vital Signs Temp 98.6 F 11/27/20 09:50 Pulse 80 11/27/20 13:20 Resp 16 11/27/20 13:20 BP 153/78 H 11/27/20 12:28 Pulse Ox 98 11/27/20 13:20 ENMT Mouth: no dentition abnormality Thyromental Distance: > or= 3.5 Finger Breadths Mallampati Class: II Neck + tracheostomy present Respiratory normal respiratory effort Auscultation: + diminished lung sounds and + rhonchi Cardiovascular Rate/Rhythm: regular rate and regular rhythm Testing Laboratory Results 11/27/20 10:50 11/27/20 11:39 PT 12.4 Seconds (9.0-12.0) H 11/27/20 11:35 INR 1.2 (0.9-1.1) H 11/27/20 11:35 APTT 28.8 Seconds (21.0-31.0) 11/27/20 11:35 Electrocardiogram Date: 11/27/20 Normal sinus rhythm, rate 89 bpm Possible Left atrial enlargement Left anterior fascicular block Possible Anterolateral infarct , age undetermined Abnormal ECG When compared with ECG of 23-MAY-2017 09:26, Significant changes have occurred Chest X-Ray Date: 11/27/20 FINDINGS: Moderate right pleural effusion is noted. There is no left pleural effusion. There is no pneumothorax. Linear right suprahilar opacity favors atelectasis. Note is made of pulmonary vascular congestion with suspected mild pulmonary edema. There is moderate cardiomegaly. IMPRESSION: Cardiomegaly with mild pulmonary edema and a moderate right pleural effusion. Echocardiogram Date: 02/14/20 LV wall thickness is mildly increased There is mild diffuse LV hypokinesis LV EF is 45-49% Mild AV sclerosis is present is absent There is trace to small circumferential pericardial effusion There is no echo evidence of tamponade physiology
[2020-11-27 13:40] LABS: Appearance Urine Clear (Clear); Blood Urine Negative (Negative); Color Urine Dark Yellow; Glucose Urine UA Negative (Negative); Ketones Urine Negative (Negative); Leukocyte Esterase Urine Negative (Negative); Nitrite Urine Negative (Negative); Protein Urine Negative (Negative); Specific Gravity Urine 1.021 (1.000-1.030); Urobilinogen Urine Negative (Negative); pH Urine 6.5 (4.5-7.5)
[2020-11-27 13:43] LABS: Bilirubin Urine 2+ (Negative)
[2020-11-27] MEDS ORDERED: ALBUT/IPRATROP 3MG/0.5MG NEB 3 ML VIAL NEB STA (13:50)
[2020-11-27] MEDS ORDERED: ALBUT/IPRATROP 3MG/0.5MG NEB 3 ML VIAL ONE (13:50)
[2020-11-27] MEDS ORDERED: fentaNYL citrate 100 MCG/2 ML VIAL IV PRN (13:52)
[2020-11-27] MEDS ORDERED: ePHEDrine sulfate 50 MG/ML AMP IV PRN (13:52)
[2020-11-27] MEDS ORDERED: ONDANSETRON INJ 2 MG/ML 2 ML VIAL IV PRN ×2 (13:52→16:20)
[2020-11-27] MEDS ORDERED: ATROPINE SULFATE 0.1 MG/ML 10ML SYR IV PRN (13:52)
[2020-11-27] MEDS ORDERED: KETAMINE 50 MG/5 ML SYRINGE ONE (14:17)
--- NOTE | 2020-11-27 14:25 | GI REPORT ---
Patient Name: Patricio Rodriguez Procedure Date: 11/27/2020 1:58 PM Date of : 1955 Admit Type: Emergency Department Age: 65 Gender: Male Attending MD: Dulce Maria Fagan DO Procedure: Upper GI endoscopy Providers: Dulce Maria Fagan DO Referring MD: Keyla Casanova Indications: Abnormal CT of the GI tract Medicines: Monitored Anesthesia Care Complications: No immediate complications. Estimated blood loss: Minimal. Estimated Blood Loss: Estimated blood loss was minimal. Procedure: Pre-Anesthesia Assessment: - Prior to the procedure, a History and Physical was performed, and patient medications, allergies and sensitivities were reviewed. The patient's tolerance of previous anesthesia was reviewed. - The risks and benefits of the procedure and the sedation options and risks were discussed with the patient. All questions were answered and informed consent was obtained. - Patient identification and proposed procedure were verified prior to the procedure by the physician, the nurse and the commercial sewing instructor. The procedure was verified in the procedure room. - Pre-procedure physical examination revealed no contraindications to sedation. - ASA Grade Assessment: IV - A patient with severe systemic disease that is a constant threat to life. - After reviewing the risks and benefits, the patient was deemed in satisfactory condition to undergo the procedure. - The anesthesia plan was to use monitored anesthesia care (MAC). - Immediately prior to administration of medications, the patient was re-assessed for adequacy to receive sedatives. - The heart rate, respiratory rate, oxygen saturations, blood pressure, adequacy of pulmonary ventilation, and response to care were monitored throughout the procedure. - The physical status of the patient was re-assessed after the procedure. After obtaining informed consent, the endoscope was passed under direct vision. Throughout the procedure, the patient's blood pressure, pulse, and oxygen saturations were monitored continuously. The Endoscope was introduced through the mouth, and advanced to the third part of duodenum. The upper GI endoscopy was accomplished without difficulty. The patient tolerated the procedure well. Findings: Three columns of grade I varices were found in the lower third of the esophagus, 32 to 39 cm from the incisors. They were 4 mm in largest diameter. No red nu signs were present. The entire examined stomach was normal. An acquired moderate stenosis was found in the duodenal bulb and was traversed. Biopsies were taken with a cold forceps for histology. The pathology specimen was placed into Bottle A. Estimated blood loss was minimal. The second portion of the duodenum was normal. Impression: - Grade I esophageal varices. - Normal stomach. - Acquired duodenal stenosis. Biopsied. - Normal second portion of the duodenum. Recommendation: - Perform an upper endoscopic ultrasound (UEUS) today. Dulce Maria Fagan D.O. Dulce Maria Fagan, 11/27/2020 2:25:03 PM This report has been signed electronically. Note Initiated On: 11/27/2020 1:58 PM Number of Addenda: 0 I attest to the content of the Intraoperative Record and orders documented therein, exceptions below {[id number]}
--- NOTE | 2020-11-27 15:04 | Electrocardiogram Report ---
Test Reason : Blood Pressure : / mmHG Vent. Rate : 089 BPM Atrial Rate : 089 BPM P-R Int : 196 ms QRS Dur : 110 ms QT Int : 380 ms P-R-T Axes : 046 -45 005 degrees QTc Int : 462 ms Normal sinus rhythm Left atrial enlargement Left anterior fascicular block Minor Non-specific intra-ventricular conduction delay Poor R wave progression, consider anterior [place] vs. lead placement vs. LVH Abnormal ECG When compared with ECG of 23-MAY-2017 09:26, Loss of precordial R wave progression, lead placement vs. anterior infarct Confirmed by Christopher Armenta ([id number]) on 11/27/2020 3:04:31 PM Referred By: Keyla Casanova Confirmed By:Christopher Armenta
--- NOTE | 2020-11-27 15:12 | GI REPORT ---
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 Estimated blood loss: Minimal. Estimated Blood Loss: Estimated blood loss was minimal. Procedure: Pre-Anesthesia Assessment: - Prior to the procedure, a History and Physical was performed, and patient medications, allergies and sensitivities were reviewed. The patient's tolerance of previous anesthesia was reviewed. - The risks and benefits of the procedure and the sedation options and risks were discussed with the patient. All questions were answered and informed consent was obtained. - Patient identification and proposed procedure were verified prior to the procedure by the physician, the nurse and the intensive care medicine specialist. The procedure was verified in the procedure room. - Pre-procedure physical examination revealed no contraindications to sedation. - ASA Grade Assessment: IV - A patient with severe systemic disease that is a constant threat to life. - After reviewing the risks and benefits, the patient was deemed in satisfactory condition to undergo the procedure. - The anesthesia plan was to use monitored anesthesia care (MAC). - Immediately prior to administration of medications, the patient was re-assessed for adequacy to receive sedatives. - The heart rate, respiratory rate, oxygen saturations, blood pressure, adequacy of pulmonary ventilation, and response to care were monitored throughout the procedure. - The physical status of the patient was re-assessed after the procedure. After obtaining informed consent, the endoscope was passed under direct vision. Throughout the procedure, the patient's blood pressure, pulse, and oxygen saturations were monitored continuously. The Endosonoscope was introduced through the mouth, and advanced to the duodenal bulb, unable to pass the endoscope past the bulb due to suspected tumor ingrowth from a pancreatic mass. The upper EUS was accomplished without difficulty. The patient tolerated the procedure well. Findings: ENDOSONOGRAPHIC FINDING: : There was no sign of significant endosonographic abnormality in the common bile duct. The maximum diameter of the duct was 6 mm. No stones were identified. Many stones and sludge was visualized endosonographically in the gallbladder. They were hyperechoic and characterized by shadowing. There was no sign of significant endosonographic abnormality in the left adrenal gland. No adrenal gland enlargement was identified. Many abnormal lymph nodes were visualized in the gastrohepatic ligament (level 18). The largest measured 12 mm by 8 mm in maximal cross-sectional diameter. The nodes were oval, hypoechoic and had well defined margins. Fine needle aspiration for cytology was performed. Color Doppler imaging was utilized prior to needle puncture to confirm a lack of significant vascular structures within the needle path. Three passes were made with the 22 gauge needle using a transgastric approach. A stylet was used. A foundry worker general was present and performed a preliminary cytologic examination. Final cytology results are pending. Estimated blood loss was minimal. An oval mass was identified in the pancreatic head. The mass was hypoechoic. The mass measured 26 mm by 20 mm in maximal cross-sectional diameter. The endosonographic borders were poorly-defined. There was sonographic evidence suggesting invasion into the portal vein (manifested by abutment) and the duodenal bulb (manifested by invasion/intraluminal growth). An intact interface was seen between the mass and the celiac trunk or SMA suggesting a lack of invasion. The remainder of the pancreas was examined. The endosonographic appearance of parenchyma and the upstream pancreatic duct indicated duct dilation and parenchymal atrophy. Fine needle aspiration for cytology was performed. Color Doppler imaging was utilized prior to needle puncture to confirm a lack of significant vascular structures within the needle path. Three passes were made with the 22 gauge needle using a transduodenal approach. A stylet was used. A foundry worker general was present and performed a preliminary cytologic examination. Final cytology results are pending. Estimated blood loss was minimal. Intrahepatid ductal dilation was noted without any obvious liver masses. Impression: - There was no sign of significant pathology in the common bile duct. - Many stones were visualized endosonographically in the gallbladder. - Endosonographic images of the left adrenal gland were unremarkable. - Many abnormal lymph nodes were visualized in the gastrohepatic ligament (level 18). Fine needle aspiration performed. - A 29 x 20 mm mass was identified in the pancreatic head. This was staged T3 N1 Mx by endosonographic criteria. The staging applies if malignancy is confirmed. Fine needle aspiration performed. Recommendation: - Perform an ERCP today. - Await cytology results. Dulce Maria Fagan D.O. Dulce Maria Fagan, 11/27/2020 3:11:19 PM This report has been signed electronically. Note Initiated On: 11/27/2020 1:59 PM Number of Addenda: 0 I attest to the content of the Intraoperative Record and orders documented therein, exceptions below {[id number]}
--- NOTE | 2020-11-27 15:14 | GI REPORT ---
Patient Name: Patricio Rodriguez Procedure Date: 11/27/2020 2:02 PM Date of : 1955 Admit Type: Emergency Department Age: 65 Gender: Male Attending MD: Dulce Maria Fagan DO Procedure: ERCP Providers: Dulce Maria Fagan DO Referring MD: Keyla Casanova Indications: Jaundice, Tumor of the head of pancreas Medicines: Monitored Anesthesia Care Complications: No immediate complications. Estimated blood loss: Minimal. Estimated Blood Loss: Estimated blood loss was minimal. Procedure: Pre-Anesthesia Assessment: - Prior to the procedure, a History and Physical was performed, and patient medications, allergies and sensitivities were reviewed. The patient's tolerance of previous anesthesia was reviewed. - The risks and benefits of the procedure and the sedation options and risks were discussed with the patient. All questions were answered and informed consent was obtained. - Patient identification and proposed procedure were verified prior to the procedure by the physician, the nurse and the drafting engineer. The procedure was verified in the procedure room. - Pre-procedure physical examination revealed no contraindications to sedation. - ASA Grade Assessment: IV - A patient with severe systemic disease that is a constant threat to life. - After reviewing the risks and benefits, the patient was deemed in satisfactory condition to undergo the procedure. - The anesthesia plan was to use monitored anesthesia care (MAC). - Immediately prior to administration of medications, the patient was re-assessed for adequacy to receive sedatives. - The heart rate, respiratory rate, oxygen saturations, blood pressure, adequacy of pulmonary ventilation, and response to care were monitored throughout the procedure. - The physical status of the patient was re-assessed after the procedure. After obtaining informed consent, the scope was passed under direct vision. Throughout the procedure, the patient's blood pressure, pulse, and oxygen saturations were monitored continuously. The scope was introduced through the mouth, with the intention of advancing to the bile ducts. The scope was advanced to the duodenum before the procedure was aborted. Medications were given. The ERCP was accomplished without difficulty. The patient tolerated the procedure well. Findings: The deck specialist film was normal. The esophagus was successfully intubated under direct vision without detailed examination of the pharynx, larynx, and associated structures. The upper GI tract was traversed under direct vision without detailed examination. An acquired malignant-appearing, intrinsic severe stenosis was found in the duodenal bulb and was non-traversed despite numerous attempts and position changes. The endoscope was withdrawn from the patient. Impression: - Acquired duodenal stenosis. Recommendation: - Refer to a tertiary center for repeat attempt at ERCP Dulce Maria Fagan D.O. Dulce Maria Fagan, 11/27/2020 3:13:37 PM This report has been signed electronically. Note Initiated On: 11/27/2020 2:02 PM Number of Addenda: 0 I attest to the content of the Intraoperative Record and orders documented therein, exceptions below {[id number]}
--- NOTE | 2020-11-27 15:14 | Post Operative Brief Note ---
Immediate Post Op Note v1 Date of Surgery November 27, 2020 Pre & Post Diagnosis Operation Date: 11/27/20 10:40 Pre-Op Diagnosis: Abdominal pain. Post-Op Diagnosis: Grade I esophageal varices. Suspicious appearing duodenal stricture Multiple enlarged gastrohepatic lymph nodes 29 mm pancreatic head mass I identified the patient and participated in the time-out.: Yes Procedure Operation Date: 11/27/20 10:40 Actual Procedures s Endoscopic retrograde cholangiopancreatography - Dulce Maria Fagan DO p Endoscopic Ultrasonography Upper - Dulce Maria Fagan DO Surgeon Dulce Maria Fagan DO Supervisor Finishing none Estimated Blood Loss 0 Findings Consistent with Post-Op Diagnosis
--- NOTE | 2020-11-27 15:16 | Communication Note ---
Date of Service: November 27, 2020 The patient underwent upper endoscopy endoscopic ultrasound and attempted ERCP today. He was found to have evidence of obstruction in the region of the du odenal bulb likely from ingrowth of tumor from the pancreatic head mass. A fine-needle aspirate was obtained from both the pancreatic head mass and several lymph nodes within the gastropathic ligament region. We tried to traverse the stenosis with an ERCP scope unfortunately I was unable to do it with our endoscopic equipment. Recommendations Continue n.p.o. Continue antibiotic coverage Referral to a tertiary care center for repeat attempt at ERCP or perhaps alternate drainage attempts
--- NOTE | 2020-11-27 15:43 | Anesthesiology Progress Note ---
Date of Service November 27, 2020 Anesthesia Post Procedure Vital Signs Vital Signs: Temp Pulse Pulse Resp BP BP Pulse Ox 11/27/20 15:30 80 23 139/72 95 11/27/20 15:20 82 25 H 125/64 94 11/27/20 15:11 97.2 F L 83 21 113/58 L 95 11/27/20 14:02 82 20 98 11/27/20 13:27 98.2 F 87 20 152/79 H 97 11/27/20 13:20 80 16 98 11/27/20 12:28 86 17 153/78 H 11/27/20 09:50 98.6 F 84 18 121/68 89 L Transfer of Care Handoff Completed per policy Notes Mental Status: alert / awake / arousable and participated in evaluation Patient Amnestic to Procedure: Yes Nausea / Vomiting: adequately controlled Pain: adequately controlled Airway Patency, RR, SpO2: stable & adequate BP & HR: stable & adequate Hydration State: stable & adequate Anesthetic Complications: no major complications apparent and Pt Satisfied with anesthetic care
[2020-11-27] MEDS ORDERED: ACETAMINOPHEN 325 MG TAB PO PRN (16:20)
[2020-11-27] MEDS ORDERED: ALUMINUM/MAGNESIUM SUSP 30 ML UDC PO PRN (16:20)
[2020-11-27] MEDS ORDERED: SODIUM CHLORIDE 0.9% 1000ML 1,000 ML IV SCH (16:20)
[2020-11-27] MEDS ORDERED: ALBUT/IPRATROP 3MG/0.5MG NEB 3 ML VIAL INH PRN (18:00)
[2020-11-27] MEDS ORDERED: ACETYLCYSTEINE 10% INHAL SOLN 4 ML **DISPENSED BY RESP. INH PRN (18:00)
[2020-11-27] MEDS ORDERED: PIPERACILLIN/TAZOBACTAM 3.375 GM in DEXTROSE 5% 100 ML IV SCH (18:00)
[2020-11-27] MEDS ORDERED: GLUCAGON FOR INJ 1 MG VIAL SQ PRN (18:10)
[2020-11-27] MEDS ORDERED: GLUCOSE 40% GEL 15 GM TUBE PO PRN (18:10)
[2020-11-27] MEDS ORDERED: CARBOHYDRATES FOR HYPOGLYCEMIA PO PRN (18:10)
[2020-11-27] MEDS ORDERED: DEXTROSE 50% 50 ML SYRINGE IV PRN (18:10)
[2020-11-27] MEDS ORDERED: GLUCOSE 10 TABS/TUBE PO PRN (18:10)
[2020-11-27] MEDS ORDERED: INSULIN ASPART 100 UNITS/ML 3 ML PEN SC SCH (18:15)
[2020-11-27] MEDS ORDERED: TORSEMIDE 20 MG TAB PO PRN (18:26)
--- NOTE | 2020-11-27 19:59 | Discharge Summary ---
Date of Service November 27, 2020 Admission HPI Per Admitting Provider 65 yo M with PMH of Gastric polyp, Hepatic steatosis, Hodgkin's disease 1990s s/p chemoradiation, laryngectomy s/p tracheostomy (mechanical voice), splenectomy, HFrEF, Idiopathic cardiomyopathy, HTN, MRSA infection, radiation induced pulmonary fibrosis, HLD, HTN and hypothyroidism was sent to our ED 11/27 from the office for abnormal LFTs. Per pt, he has been having bloating, loss of appetitie, early satiety, belly pain and cramps since last 2 months which has been worsening since last 2 weeks, hence he went to see his PCP. Repeat labs in the ED showed PT 1.2, WBC 14K, T Bili 9 , AST/ALT of 136/88 and ALP of 1086. Lipase was nl. Pt complains of cough at his baseline with baseline mucus production, he can't comment on color of the mucus and needs suctioning 1 to 5 times a day. He complains of some chest pain on and off after suctioning. Doesn't complain of palpitations, pain or burning while passing urine. Patient denies fever and shortness of breath. He does have blurry vision owing to h/o cataract s/p s urgery. Denies Head or dizziness. He had recent colonoscopy 08/27 w/ findings of adenomatous polyps. Per patient he had 46 radiations so far. He doesn't smoke or drink alcohol. Admission Exam Per Admitting Provider GENERAL: alert and oriented, in no acute distress, speaks with device (mechanical voice) Head: normocephalic and atraumatic EYES: No injection, discharge, PERRL, scleral icterus noted. NECK: Tracheostomy in place without significant erythema but purulent expectoration noted during the bedside exam ENT: Mucous membranes pink and moist. LUNGS: b/l rales/crackles, occasional wheezes. HEART: Regular rate and rhythm. No chest wall tenderness ABDOMEN: Soft, mild RUQ tenderness, normal bowel sounds. SKIN: Acyanotic, warm, dry, without rashes EXTREMITIES: With minimal 2+ lower extremity edema but no tenderness/erythema noted. NEUROLOGICAL: No focal deficits. No aphasia. No facial droop or slurred speech. Principal Diagnosis Pancreatic head mass Hyperbilirubinemia Discharge Data Allergies Allergy/AdvReac Type Severity Reaction Status Date / Time tamsulosin [From Flomax] AdvReac Mild Dizziness Verified 11/27/20 12:53 Consultations 11/27/20 12:37 ED Decision to Admit Stat 11/27/20 16:20 Consult Gastroenterology Routine Procedures Performed Operation Date: 11/27/20 10:40 Actual Procedures s Endoscopic retrograde cholangiopancreatography - Dulce Maria Fagan DO p Endoscopic Ultrasonography Upper - Dulce Maria Fagan DO Ordered Studies Laboratory Results WBC 14.50 K/uL (4.8-10.8) H 11/27/20 10:50 RBC 3.27 M/uL (4.7-6.1) L 11/27/20 10:50 Hgb 10.8 g/dL (14.0-18.0) L 11/27/20 10:50 Hct 30.8 % (42-52) L 11/27/20 10:50 MCV 94.2 fL (80-100) 11/27/20 10:50 MCH 33.0 pg (25-34) 11/27/20 10:50 MCHC 35.1 g/dL (32-36) 11/27/20 10:50 RDW Std Deviation 59.1 fL (36.4-46.3) H 11/27/20 10:50 RDW Coeff of Junior 18.3 % (11.5-14.5) H 11/27/20 10:50 Plt Count 437 K/uL (130-400) H 11/27/20 10:50 MPV 14.1 fL (7.4-10.4) H 11/27/20 10:50 Immature Gran % (Auto) 0.9 % 11/27/20 10:50 Neut % (Auto) 77.4 % 11/27/20 10:50 Lymph % (Auto) 7.4 % 11/27/20 10:50 Desha % (Auto) 12.1 % 11/27/20 10:50 Eos % (Auto) 1.9 % 11/27/20 10:50 Baso % (Auto) 0.3 % 11/27/20 10:50 Neut # (Auto) 11.22 K/uL (1.4-6.5) H 11/27/20 10:50 Lymph # (Auto) 1.08 K/uL (1.2-3.4) L 11/27/20 10:50 Desha # (Auto) 1.75 K/uL (0.11-0.59) H 11/27/20 10:50 Eos # (Auto) 0.27 K/uL (0-0.5) 11/27/20 10:50 Baso # (Auto) 0.05 K/uL (0-0.2) 11/27/20 10:50 Immature Gran # (Auto) 0.13 K/uL (0.00-0.02) H 11/27/20 10:50 PT 12.4 Seconds (9.0-12.0) H 11/27/20 11:35 INR 1.2 (0.9-1.1) H 11/27/20 11:35 APTT 28.8 Seconds (21.0-31.0) 11/27/20 11:35 PTT Ratio 1.1 11/27/20 11:35 Sodium 135 mmol/L (136-145) L 11/27/20 10:50 Potassium 4.0 mmol/L (3.5-5.1) 11/27/20 11:39 Chloride 103 mmol/L (98-107) 11/27/20 10:50 Carbon Dioxide 32 mmol/L (21-32) 11/27/20 10:50 Anion Gap 0 (3-11) L 11/27/20 10:50 BUN 16 mg/dl (7-18) 11/27/20 10:50 Creatinine 0.68 mg/dl (0.6-1.4) 11/27/20 10:50 Est Cr Clr Drug Dosing 112.3 ml/min 11/27/20 10:50 Est GFR ( Amer) 114.5 ml/min 11/27/20 10:50 Est GFR (Non-Af Amer) 98.8 ml/min 11/27/20 10:50 BUN/Creatinine Ratio 23.0 (10-20) H 11/27/20 10:50 Glucose 114 mg/dl (70-99) H 11/27/20 10:50 POC Glucose 100 mg/dl (70-99) H 11/27/20 19:38 Calcium 8.6 mg/dl (8.5-10.1) 11/27/20 10:50 Total Bilirubin 9.1 mg/dl (0.2-1) H 11/27/20 10:50 Direct Bilirubin 7.1 mg/dl (0-0.2) H 11/27/20 11:39 AST 136 U/L (15-37) H 11/27/20 11:39 ALT 88 U/L (12-78) H 11/27/20 10:50 Alkaline Phosphatase 1086 U/L (45-117) H 11/27/20 10:50 Troponin I < 0.015 ng/ml (0-0.045) 11/27/20 10:50 Total Protein 6.3 gm/dl (6.4-8.2) L 11/27/20 10:50 Albumin 1.8 gm/dl (3.4-5.0) L 11/27/20 10:50 Globulin 4.5 gm/dl (2.5-4.0) H 11/27/20 10:50 Albumin/Globulin Ratio 0.4 (0.9-2) L 11/27/20 10:50 Lipase 30 U/L (73-393) L 11/27/20 10:50 Urine Color Dark Yellow 11/27/20 13:05 Urine Appearance Clear (Clear) 11/27/20 13:05 Urine pH 6.5 (4.5-7.5) 11/27/20 13:05 Ur Specific [place] 1.021 (1.000-1.030) 11/27/20 13:05 Urine Protein Negative (Negative) 11/27/20 13:05 Urine Glucose (UA) Negative (Negative) 11/27/20 13:05 Urine Ketones Negative (Negative) 11/27/20 13:05 Urine Blood Negative (Negative) 11/27/20 13:05 Urine Nitrite Negative (Negative) 11/27/20 13:05 Urine Bilirubin 2+ (Negative) H 11/27/20 13:05 Urine Urobilinogen Negative (Negative) 11/27/20 13:05 Ur Leukocyte Esterase Negative (Negative) 11/27/20 13:05 COVID-19 Eval Order Covid19 at [facility] 11/27/20 10:51 SARS-CoV-2 (PCR) NEGATIVE (Negative) 11/27/20 10:51 Impressions Abdomen/Pelvis CT 11/27/20 10:20 CT OF THE ABDOMEN AND PELVIS WITH CONTRAST CLINICAL HISTORY: weak, nausea, elevated lfts COMPARISON STUDY: CT of the abdomen and pelvis April 12, 2017. TECHNIQUE: Following IV administration of 94 mL of Optiray, axial images of the abdomen and pelvis were obtained from the lung bases to the proximal femurs. Images were reviewed in the axial, sagittal, and coronal planes. IV contrast was administered without complication. Automated exposure control was utilized for the study. A dose lowering technique was utilized adhering to the principles of ALARA. CT DOSE: 640.89 mGy.cm FINDINGS: Imaged portions of the lower chest partially visualize a moderate right pleural effusion. There is cardiomegaly. No pneumatosis, free air or portal venous gas is present. Hepatic steatosis is noted. No hepatic lesions are present. There is mild to moderate left hepatic lobe intrahepatic biliary ductal dilatation. There is mild dilatation of the main pancreatic duct which measures 6 mm in caliber. There is atrophy of the pancreatic body and tail. Note is made of a hypodense pancreatic head mass which measures approximately 2.8 cm. This results in moderate narrowing of the proximal main portal vein. This abuts the common hepatic artery. Vessel invasion would be difficult to exclude. There is no peripancreatic infiltration. Note is made of a 1.7 cm density within the gallbladder. The gallbladder is not distended. There is mild pericholecystic infiltration. The spleen is surgically absent. Moderate left and mild right renal atrophy is noted. Multiple renal cysts are present. There is no evidence for a bowel obstruction. Note is made of wall thickening with mild infiltration of the proximal to mid rectum. No lymphadenopathy is present. Left hip arthroplasty is noted. No acute fracture or suspicious lesion is identified within the visualized skeletal structures. There are small upper abdominal collaterals. IMPRESSION: 1. Hypodense pancreatic head mass measuring approximately 2.8 cm. Associated biliary or pancreatic ductal dilatation. This is highly suggestive of pancreatic adenocarcinoma. This results in moderate narrowing of the proximal main portal vein and abuts the common hepatic artery. Mass adjacent to the duodenum with mildly fluid-filled stomach. GI consultation is recommended. 2. Gallstone versus sludge within the gallbladder. Mild pericholecystic infiltration. Gallbladder not significantly distended. 3. Wall thickening of the proximal to mid rectum with adjacent infiltration. This may be inflammatory however a rectal neoplasm could appear similar. Moderate amount stool within the colon. No evidence for a high-grade bowel obstruction. 4. Moderate right pleural effusion. ACT 112: Negative or not required by law. Electronically signed by: Alvaro Diana M.D. 11/27/2020 11:51 AM Chest X-Ray 11/27/20 11:50 XR chest 1V portable CLINICAL HISTORY: weak COMPARISON STUDY: Chest radiograph May 23, 2017. FINDINGS: Moderate right pleural effusion is noted. There is no left pleural effusion. There is no pneumothorax. Linear right suprahilar opacity favors atelectasis. Note is made of pulmonary vascular congestion with suspected mild pulmonary edema. There is moderate cardiomegaly. IMPRESSION: Cardiomegaly with mild pulmonary edema and a moderate right pleural effusion. ACT 112: Negative or not required by law. Electronically signed by: Alvaro Diana M.D. 11/27/2020 12:13 PM Hospital Course (1) Mass of pancreas: loss of appetite, difficulty swallowing, belly pain and cramps since last two months, worsening since last 2 weeks Exam shows scleral icterus, no PA tenderness blood labs show elevated Tbili along with other LFT parameters Imaging showed pancreatic head mass 2.8 cm w/ associated biliary or pancreatic ductal dilatation. NPO except meds, on gentle fluid hydration GI on board, Pt underwent Endoscopic USG w/ attempted ERCP today which showed Grade I esophageal varices, duodenal stricture suspicion along with 29 mm pancreatic head mass; biopsy were taken of the mass and LNs. Transfer to [facility] initiated/accepted for repeat ERCP or alternated drainage attempts. (2) RUQ abdominal tenderness: Scleral icterus, minimal RUQ tenderness, and leucocytosis at 14.5K, no fever Imaging showed GB stone Vs Sludge with mild pericholecyst Continue with Zosyn and iV fluids. Keep NPO except meds. (3) Heart failure with reduced ejection fraction: Rales/crackles on auscultation with 2+ pitting edema BLE. Feb 2020 ECHO showed EF of 45%. Pt was apparently not taking his prn torsemide since last 5 days, will resume his torsemide. Continue his home metoprolol Maintain gentle hydration as he is NPO, re-eval for fluid requirement tomorrow morning. (4) Diabetes: Pt is NPO, hence will cut down his home lantus to 50% twice a day and put him on Q6H sliding scale Target blood glucose range 140-180 mg/dL (5) Status post tracheostomy: s/p [id number] has rales diffuse and bilateral Purulent discharge noted once while at bedside, per pt he has not noticed in increase purulence lately Pt on ATB for possible cholangitis, will keep track of WBC and lung findings. continue with tracheostomy care Current Inpatient Medications Acetaminophen (Acetaminophen 325 Mg Tab) 650 mg PO Q4H PRN PRN Reason: Pain or Fever Stop: 12/27/20 16:19 Acetylcysteine (Acetylcysteine 10% Inhal Soln 4 Ml Dispensed By Resp.) 3 ml INH BID PRN PRN Reason: Congestion Stop: 12/27/20 17:59 Al Hydrox/Mg Hydrox/Simethicone (Aluminum/Magnesium Susp 30 Ml Udc) 15 ml PO Q4H PRN PRN Reason: Dyspepsia Stop: 12/27/20 16:19 Albuterol (Albut/Ipratrop 3mg/0.5mg Neb 3 Ml Vial) 3 ml INH Q4H PRN PRN Reason: Shortness Of Breath Stop: 12/27/20 17:59 Alfuzosin HCl (Alfuzosin Hcl 10 Mg Tab) 10 mg PO QPM KENNETH Stop: 12/27/20 20:59 Dextrose (Dextrose 50% 50 Ml Syringe) 25 - 50 ml IV UD PRN; Protocol PRN Reason: Hypoglycemia Protocol Stop: 12/27/20 18:09 Finasteride (Finasteride 5 Mg Tab) 5 mg PO QAM KENNETH Stop: 12/28/20 08:59 Glucagon (Glucagon For Inj 1 Mg Vial) 1 mg SQ UD PRN; Protocol PRN Reason: Hypoglycemia Protocol Stop: 12/27/20 18:09 Glucose (Glucose 10 Tabs/Tube) 4 - 8 tabs PO UD PRN; Protocol PRN Reason: Hypoglycemia Protocol Stop: 12/27/20 18:09 Glucose (Glucose 40% Gel 15 Gm Tube) 15 - 30 gm PO UD PRN; Protocol PRN Reason: Hypoglycemia Protocol Stop: 12/27/20 18:09 Sodium Chloride (Nss 1000ml) 1,000 mls @ 100 mls/hr IV .Q10H KENNETH Stop: 11/28/20 12:19 Last Admin: 11/27/20 16:29 Dose: 100 mls/hr Documented by: Piperacillin Sod/Tazobactam (Sod 3.375 gm/ Dextrose) 115 mls @ 28.75 mls/hr IV Q8H KENNETH; Protocol Stop: 12/07/20 05:59 Last Admin: 11/27/20 17:26 Dose: 28.8 mls/hr Documented by: Insulin Aspart (Insulin Aspart 100 Units/Ml 3 Ml Pen) 0 units SC Q6H [facility] Stop: 12/27/20 18:14 Last Admin: 11/27/20 19:46 Dose: Not Given Documented by: Insulin Glargine (Insulin Glargine Solostar 100 Units/Ml 3 Ml Pen) 8 units SC BID [facility] Stop: 12/27/20 20:59 Levothyroxine Sodium (Levothyroxine Sodium 175 Mcg Tablet) 175 mcg PO DAILYBB [facility] Stop: 12/28/20 06:29 Melatonin (Melatonin 3 Mg Tab) 9 mg PO HS [facility] Stop: 12/27/20 20:59 Metoprolol Succinate (Metoprolol Succ 25mg Ext Rel Tab) 75 mg PO QAM [facility] Stop: 12/28/20 08:59 Metoprolol Succinate (Metoprolol Succ 50mg Ext Rel Tab) 50 mg PO QPM [facility] Stop: 12/27/20 20:59 Miscellaneous (Carbohydrates For Hypoglycemia ) 15 - 30 gm PO UD PRN PRN Reason: Hypoglycemia Protocol Stop: 12/27/20 18:09 Miscellaneous Information (Piperacill/Tazobac Consult Active) 1 ea N/A UD PRN PRN Reason: Consult Stop: 12/27/20 12:42 Ondansetron HCl (Ondansetron Inj 2 Mg/Ml 2 Ml Vial) 4 mg IV Q6H PRN PRN Reason: Nausea Stop: 12/27/20 16:19 Pantoprazole Sodium (Pantoprazole 40 Mg Tab) [facility] [place] [facility] Stop: 12/28/20 08:59 Torsemide (Torsemide 20 Mg Tab) 20 mg PO DAILY PRN PRN Reason: BLE Swelling Stop: 12/27/20 18:25 Total Time Total Time Spent Total Time Spent (In Minutes): 60 Discharge Plan Discharge Items Patient Disposition: Transfer Acute Care Hospital Reason For Visit: ABNORMAL LAB, SENT FROM OFFICE Discharge Diagnosis: Pancreatic head mass Hyperbilirubinemia Condition on Discharge: Serious Activity: Resume your previous activity Non-emergency contact: Primary Care Provider Call non-emergency contact if: you have any medication questions Follow-up/Referrals: Casanova,Keyla M., DO [Primary Care Provider] - Diet: Nothing by Mouth Diet Comment: sips with meds/ice chips ok Addtl Attending Provider Instructions: Please follow-up with your primary care provider within one week of discharge from the receiving facility. It was a pleasure taking care of you! Please call if you have any questions or problems. You can reach a [facility] hospitalist on duty at [facility] 24 hours a day by calling [phone]. Take care of yourself. Mariam Monge DO [facility] Hospitalist Pending Studies at Discharge: Yes Stand-Alone Forms: My [facility] Skilled Items Patient informed of condition?: Yes DNR: No Discharge Level of Care: Other Communicable Disease: No Discharge Prognosis: Stable Lines: Peripheral IV Urinary Catheter: No Medications and DC Order Prescriptions: Continued levothyroxine 175 mcg tablet 175 mcg PO DAILY RF: 0 metoprolol succinate 50 mg tablet extended release 24 hr 75 mg PO QAM RF: 0 omeprazole 40 mg capsule,delayed release(DR/EC) 40 mg PO QAM RF: 0 insulin glargine 100 unit/mL (3 mL) insulin pen 18 units subcut BID RF: 0 ipratropium-albuterol 0.5 mg-3 mg(2.5 mg base)/3 mL Solution For Nebulization 3 ml INHALATION Q4H PRN (Reason: Shortness Of Breath) RF: 0 triamcinolone acetonide 55 mcg Aerosol,[place] 1 spray INTRANASAL DAILY PRN (Reason: Nasal Congestion) RF: 0 acetylcysteine 100 mg/mL (10 %) Solution 3 ml INHALATION BID PRN (Reason: Congestion) RF: 0 finasteride 5 mg Tablet 5 mg PO QAM RF: 0 alfuzosin 10 mg Tablet Extended Release 24 Hr 10 mg PO QPM RF: 0 budesonide 1 mg/2 mL Suspension For Nebulization 1 mg INHALATION DAILY PRN (Reason: SOB) RF: 0 melatonin 10 mg Tablet 10 mg PO HS RF: 0 torsemide 20 mg tablet 20 mg PO DAILY PRN (Reason: BLE Swelling) RF: 0 metoprolol succinate 50 mg tablet extended release 24 hr 50 mg PO QPM RF: 0 Discharge Orders: Discharge Order (Routine); Ordered 11/27/20 Ordered By: Mariam Monge Admission Data Admit Date/Time: 11/27/20 13:18 Attending Provider: Mariam Monge Admit Provider: Ricky Serra Primary Care Provider: Keyla Casanova Other Providers: Ricky Serra ; Dulce Maria Fagan Other Interventions: Discharge Summary Assessment (RN) Last Done: 11/27/20 21:07
[2020-11-27] MEDS ORDERED: INSULIN GLARGINE SOLOSTAR 100 UNITS/ML 3 ML PEN SC SCH (21:00)
[2020-11-27] MEDS ORDERED: MELATONIN 3 MG TAB PO SCH (21:00)
[2020-11-27] MEDS ORDERED: METOPROLOL SUCC 50MG EXT REL TAB PO SCH (21:00)
[2020-11-27] MEDS ORDERED: ALFUZOSIN HCL 10 MG TAB PO SCH (21:00)
[2020-11-28] MEDS ORDERED: LEVOTHYROXINE SODIUM 175 MCG TABLET PO SCH (06:30)
[2020-11-28] MEDS ORDERED: INDOMETHACIN 50 MG SUPP PR ONE (08:00)
[2020-11-28] MEDS ORDERED: PANTOprazole 40 MG TAB PO SCH (09:00)
[2020-11-28] MEDS ORDERED: FINASTERIDE 5 MG TAB PO SCH (09:00)
[2020-11-28] MEDS ORDERED: METOPROLOL SUCC 25MG EXT REL TAB PO SCH (09:00)
== END 2020-11-27 21:46 | disposition short-term general hospital (02) | DRG 436 ==
LOC: ED 09:34 → 2W 13:18